=== PATIENT | female | born 1995 | race Caucasian/White ===

== ENCOUNTER 2023-02-10 11:22 | Outpatient (OUT) | payer BC, SELFPAY ==
[2023-02-10 11:50] LABS: Basophils Absolute Auto 0.1 10^3/uL (0.0-0.1); Basophils Percent Auto 1.2 % (0.2-2.0); Eosinophils Absolute Auto 0.2 10^3/uL (0.0-0.7); Eosinophils Percent Auto 2.1 % (0.9-7.0); Hematocrit 40.5 % (36.0-48.0); Hemoglobin 13.2 g/dL (12.0-16.0); Immature Granulocytes Abs Auto 0.02 10^3/uL (0.00-0.03); Immature Granulocytes Pct Auto 0.2 % (0.0-0.5); Lymphocytes Absolute Auto 2.6 10^3/uL (1.2-3.8); Lymphocytes Percent Auto 30.9 % (20.5-60.0); Mean Corpuscular HGB Conc 32.6 g/dL (29.9-35.2); Mean Corpuscular Hemoglobin 28.2 pg (26.7-34.0); Mean Corpuscular Volume 86.5 fL (81.0-99.0); Mean Platelet Volume 8.9 fL (9.5-13.5); Monocytes Absolute Auto 0.5 10^3/uL (0.3-0.8); Monocytes Percent Auto 5.6 % (1.7-12.0); Neutrophils Absolute Auto 5.1 10^3/uL (1.4-6.5); Platelet Count 383 10^3/uL (150-450); Red Blood Count 4.68 10^6/uL (4.20-5.40); Red Cell Distribution Width 12.6 % (11.0-15.0); White Blood Count 8.4 10^3/uL (4.0-11.0)
[2023-02-10 13:18] LABS: Alanine Aminotransferase 17 U/L (14-59); Albumin Globulin Ratio 0.9; Albumin Level 3.8 g/dL (3.4-5.0); Alkaline Phosphatase 137 U/L (46-116); Aspartate Amino Transferase 11 U/L (15-37); BUN Creatinine Ratio 12.5; Bilirubin Total 0.2 mg/dL (0.2-1.0); Calcium 8.8 mg/dL (8.5-10.1); Carbon Dioxide 28.3 mmol/L (21.0-32.0); Chloride 104 mmol/L (98-107); Estimated GFR (African America >60 (>=60); Estimated GFR (Non-African Ame >60 (>=60); Globulin 4.1 g/dL; Glucose 88 mg/dL (74-106); Potassium 4.3 mmol/L (3.5-5.1); Sodium 140 mmol/L (136-145); Thyroid Stimulating Hormone 3.053 uIU/mL (0.358-3.740); Total Protein 7.9 g/dL (6.4-8.2)
== END 2023-02-10 11:23 ==
LOC: LAB 11:28
PROVIDERS: PCP Family Medicine; Visit Provider Family Medicine
DX: E66.9 Obesity, unspecified (principal); R53.83 Other fatigue
CPT/HCPCS: 36415; 80053; 84436; 84443; 85025

== ENCOUNTER 2023-04-02 08:55 | Outpatient (OUT) | payer BC, SELFPAY ==
--- NOTE | 2023-04-02 09:01 | US_ITS ---
[address] [address] Patient Name: LUÍS OBRIEN MRN: [id number] date: 1995 Sex: F Assigned Patient Location: Current Patient Location: Accession/Order Number: [id number] Exam Date: 04/02/2023 09:04 Report Date: 04/02/2023 10:34 At the request of: RYAN BATEMAN Procedure: US pelvis w/ transvaginal EXAMINATION: US pelvis w/ transvaginal HISTORY: Menorrhagia COMPARISON: No relevant comparison available. TECHNIQUE: Transabdominal and/or transvaginal sonographic examination was performed as indicated by examination type. FINDINGS: UTERUS: Normal size and appearance. Uterus size: 8.9 x 5.3 x 4.4 cm ENDOMETRIUM: Normal homogeneous appearance. Endometrial thickness: 3 mm RIGHT OVARY: Contains a 2.9 cm benign-appearing cyst. Duplex Doppler demonstrates normal waveform and flow; resistive index 0.5. Ovary size: 4.9 x 4.2 x 2.7 cm LEFT OVARY: Normal size and appearance. Blood flow present within ovary on color Doppler. Ovary size: 3.3 x 1.5 x 1.7 cm CUL-DE-SAC: Unremarkable. No significant free fluid. BLADDER: Unremarkable. OTHER: None. US/US pelvis w/ transvaginal IMPRESSION: 1. Normal appearance of uterus and endometrium. 2. Incidental 2.9 cm benign-appearing right ovarian cyst. Electronically authenticated by: MAYANK WALTERS Date: 04/02/2023 10:34
== END 2023-04-02 08:56 | disposition home or self-care (01) ==
LOC: US 08:55
PROVIDERS: Visit Provider Obstetrics & Gynecology
DX: Z79.899 Other long term (current) drug therapy (principal); E04.9 Nontoxic goiter, unspecified; E06.3 Autoimmune thyroiditis; N92.1 Excessive and frequent menstruation with irregular cycle; N83.201 Unspecified ovarian cyst, right side
CPT/HCPCS: 36415; 76536; 76830; 76856; 80053; 80061; 83036; 84439; 84443; 84481

== ENCOUNTER 2023-04-02 09:08 | Outpatient (OUT) | payer BC, SELFPAY ==
--- NOTE | 2023-04-02 09:12 | US_ITS ---
The [address] [address] Patient Name: LUÍS OBRIEN MRN: [id number] date: 1995 Sex: F Assigned Patient Location: US Current Patient Location: Accession/Order Number: [id number] Exam Date: 04/02/2023 09:30 Report Date: 04/02/2023 10:37 At the request of: NON-STAFF PHYSICIAN Procedure: US thyroid EXAMINATION: US thyroid HISTORY: Thyromegaly E04.9 COMPARISON: No relevant comparison available. FINDINGS: RIGHT LOBE: Heterogeneous and slightly prominent lobe. No nodules. Lobe size: 5.8 x 1.9 x 2.6 cm LEFT LOBE: Heterogeneous and slightly prominent lobe. No nodules. Lobe size: 4.4 x 1.2 x 1.7 cm ISTHMUS: Heterogeneous and slightly thickened. Thickness: 5 mm. US/US thyroid IMPRESSION: 1. Heterogeneous and slightly prominent thyroid gland without appreciable nodule; nonspecific. No significantly increased vascularity to suggest thyroiditis. Electronically authenticated by: MAYANK WALTERS Date: 04/02/2023 10:37
[2023-04-02 11:31] LABS: Free T4 0.87 ng/dL (0.76-1.46)
[2023-04-02 11:33] LABS: Free T3 2.32 pg/mL (2.18-3.98); Thyroid Stimulating Hormone 3.301 uIU/mL (0.358-3.740)
== END 2023-04-02 09:09 | disposition home or self-care (01) ==
LOC: US 09:08
DX: E04.9 Nontoxic goiter, unspecified (principal); E06.3 Autoimmune thyroiditis
CPT/HCPCS: 36415; 76536; 84439; 84443; 84481

== ENCOUNTER 2023-04-02 10:11 | Outpatient (OUT) | payer BC, SELFPAY ==
[2023-04-02 10:41] LABS: Estimated Average Glucose 103 mg/dL; Glycohemoglobin A1C 5.2 % (4.5-6.2)
[2023-04-02 11:23] LABS: Alanine Aminotransferase 17 U/L (14-59); Albumin Globulin Ratio 0.9; Albumin Level 3.6 g/dL (3.4-5.0); Alkaline Phosphatase 140 U/L (46-116); Anion Gap 8.2; Aspartate Amino Transferase 8 U/L (15-37); BUN Creatinine Ratio 10.8; Bilirubin Total 0.3 mg/dL (0.2-1.0); Calcium 8.9 mg/dL (8.5-10.1); Carbon Dioxide 31.2 mmol/L (21.0-32.0); Chloride 102 mmol/L (98-107); Chol HDL Ratio 3.9; Cholesterol 217 mg/dL (<=200); Estimated GFR (African America >60 (>=60); Estimated GFR (Non-African Ame >60 (>=60); Globulin 3.9 g/dL; Glucose 92 mg/dL (74-106); HDL Cholesterol 56 mg/dL (40-60); Potassium 4.4 mmol/L (3.5-5.1); Sodium 137 mmol/L (136-145); Total Protein 7.5 g/dL (6.4-8.2); Triglycerides 135 mg/dL (<=150)
== END 2023-04-02 10:12 | disposition home or self-care (01) ==
LOC: LAB 10:11
DX: Z79.899 Other long term (current) drug therapy (principal)
CPT/HCPCS: 36415; 76536; 80053; 80061; 83036; 84439; 84443; 84481

== ENCOUNTER 2023-04-27 08:04 | Outpatient (OUT) | payer BC, SELFPAY ==
--- NOTE | 2023-04-27 08:40 | P.GSHP_ITS ---
History of Present Illness History of Present Illness Chief complaint: desires sterilization, AUB Narrative: Patient presents for preadmission testing. Please see HPI from Dr. Hendrix dated 04/11/2023. Review of Systems ROS Narrative Please see ROS from Dr. Hendrix dated 04/11/2023. 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 Highest level of school completed/degree received: high school graduate Meds Home Medications and Allergies Home Medications Medication Instructions Recorded Confirmed Type bupropion HCl 150 mg 24 hr tablet, 150 mg PO QDAY 04/27/23 04/27/23 History extended release buspirone 15 mg tablet 30 mg PO BID 04/27/23 04/27/23 History cetirizine 10 mg tablet (Allergy 10 mg PO Q12H 04/27/23 04/27/23 History Relief (cetirizine)) sertraline 100 mg tablet 100 mg PO BID 04/27/23 04/27/23 History Allergies Allergy/AdvReac Type Severity Reaction Status Date / Time adhesive Allergy Rash Verified 04/27/23 08:17 Penicillins Allergy throat Verified 04/27/23 08:17 swelling sucralfate [From Carafate] Allergy Vomiting Verified 04/27/23 08:17 tramadol Allergy Vomiting Verified 04/27/23 08:17 Exam Narrative Exam Narrative: Constitutional: Awake, alert, comfortable, well-appearing, nontoxic, interactive, vital signs as charted Head: Normocephalic, atraumatic Neck: Supple, normal appearance, normal range of motion, no meningeal signs, no lymphadenopathy Respiratory: No respiratory distress, breath sounds clear Cardiovascular: Regular rate and rhythm, strong and regular heart tones Abdomen: Nontender, normal bowel sounds, soft, no CVA tenderness Musculoskeletal: Normal gait, no swelling or edema Skin: No rashes or induration, no lesions, only visible skin inspected Neuro: No neurological deficits, normal sensation Psychiatric: Oriented ?3, normal affect Assessment and Plan Assessment and Plan (1) Abnormal uterine bleeding: (2) Menorrhagia: (3) Pelvic pain: (4) Request for sterilization: Plan Robot assisted bilateral laparoscopic salpingectomy and endometrial ablation/Chelsey scheduled with Dr. Hendrix 05/11/2023.
== END 2023-04-27 08:05 | disposition home or self-care (01) ==
PROVIDERS: Visit Provider Obstetrics & Gynecology
DX: Z01.818 Encounter for other preprocedural examination (principal); Z30.2 Encounter for sterilization; N92.0 Excessive and frequent menstruation with regular cycle; N93.9 Abnormal uterine and vaginal bleeding, unspecified; R10.2 Pelvic and perineal pain
CPT/HCPCS: G0463

== ENCOUNTER 2023-05-08 18:14 | Emergency (ER) | payer BC, SELFPAY ==
[2023-05-08 18:22] VITALS: BP 129/86; PULSE 89; RESP 20; TEMP 36.8; O2SAT 98; BMI 32.4
--- NOTE | 2023-05-08 18:28 | CT_ITS ---
The [address] [address] Patient Name: LUÍS OBRIEN MRN: [id number] date: 1995 Sex: F Assigned Patient Location: ER Current Patient Location: ER Accession/Order Number: [id number] Exam Date: 05/08/2023 19:05 Report Date: 05/08/2023 19:46 At the request of: CHON MARTINEZ Procedure: CT head/brain wo con EXAM: CT scan of the head without contrast. Dose reduction technique used: Automated exposure control and/or adjustment of the mA and/or kV according to patient size and/or use of iterative reconstruction technique. REASON FOR EXAM: Visual changes/headache COMPARISON: None FINDINGS: No intracranial hemorrhage, mass effect, midline shift, fractures or evidence of acute ischemic infarct. No hydrocephalus. Paranasal sinuses and mastoid air cells are clear. Remainder unremarkable. CT/CT head/brain wo con IMPRESSION: Negative head CT. Electronically authenticated by: JLUIS BECERRIL Date: 05/08/2023 19:46
--- NOTE | 2023-05-08 18:32 | ED_ITS ---
HPI - General Adult General Chief complaint: Headache Stated complaint: Adnormal LABS Time Seen by Provider: 05/08/23 18:28 Source: patient Mode of arrival: walk-in Limitations: no limitations History of Present Illness HPI narrative: patient is a 27-year-old female who presents to the emergency department with an outpatient order written by a retinal specialist. Patient states she was seen by a retinal specialist for visual changes over the last three weeks and was given an order for an MRI of the brain with and without contrast, the order states to go to the Emergency Room for this which the patient brought with her. Her retinal specialist did not call report and the patient has not had any abrupt change in symptoms today. She has had headaches for the last fifteen years which were diagnosed as migraines although she has not had any imaging for this. She states the last three weeks she has had an increase and blurred vision. She denies a possibility of . She has not had any other associated upper respiratory symptoms, peripheral paresthesias. No medications taken prior to arrival. Related Data Home Medications Medication Instructions Recorded Confirmed bupropion HCl 150 mg 24 hr tablet, 150 mg PO QDAY 04/27/23 05/08/23 extended release buspirone 15 mg tablet 20 mg PO BID 04/27/23 05/08/23 cetirizine 10 mg tablet (Allergy 10 mg PO Q12H 04/27/23 05/08/23 Relief (cetirizine)) sertraline 100 mg tablet 100 mg PO BID 04/27/23 05/08/23 Previous Rx's Medication Instructions Recorded ketorolac 10 mg tablet 10 mg PO TID PRN pain #6 tabs 05/08/23 metoclopramide HCl 10 mg tablet 10 mg PO Q6H PRN headache or 05/08/23 (Reglan) nausea/vomiting #6 tabs Allergies Allergy/AdvReac Type Severity Reaction Status Date / Time adhesive Allergy Rash Verified 04/27/23 08:17 Penicillins Allergy throat Verified 04/27/23 08:17 swelling sucralfate [From Carafate] Allergy Vomiting Verified 04/27/23 08:17 tramadol Allergy Vomiting Verified 04/27/23 08:17 Review of Systems ROS Constitutional Denies: fever or chills Eyes Reports: change in vision Ears, nose, mouth, and throat Denies: neck pain Cardiovascular Denies: chest pain Respiratory Denies: shortness of breath or cough Gastrointestinal Denies: nausea or vomiting Musculoskeletal Denies: back pain or neck pain Integumentary/Breast Denies: rash Neurological Reports: headache Endocrine Denies: excessive urination 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 Highest level of school completed/degree received: high school graduate Exam Narrative Exam Narrative: Gen.: Awake, alert, in no distress Head: Normocephalic, atraumatic ENT: Moist mucous membranes Eye: no photophobia, normal extraocular muscle motion Respiratory: No respiratory distress, lungs clear bilaterally Cardio: Regular rate and rhythm Extremities: Moves extremities equally Psych: Normal mood and affect Neuro: No focal neuro deficit, clear speech Skin: Warm, dry, intact Constitutional Vital Signs, click to edit/add: Last Vital Signs Temp 98.2 F 05/08/23 18:22 Pulse 89 05/08/23 18:22 Resp 20 05/08/23 18:22 BP 129/86 05/08/23 18:22 Pulse Ox 98 05/08/23 18:22 O2 Del Method Room Air 05/08/23 18:22 Course Vital Signs Vital signs: Vital Signs Temperature 98.2 F 05/08/23 18:22 Pulse Rate 89 05/08/23 18:22 Respiratory Rate 20 05/08/23 18:22 Blood Pressure 129/86 05/08/23 18:22 Pulse Oximetry 98 05/08/23 18:22 Oxygen Delivery Method Room Air 05/08/23 18:22 Temperature 98.2 F 05/08/23 18:22 Pulse Rate 89 05/08/23 18:22 Respiratory Rate 20 05/08/23 18:22 Blood Pressure 129/86 05/08/23 18:22 Pulse Oximetry 98 05/08/23 18:22 Oxygen Delivery Method Room Air 05/08/23 18:22 Medical Decision Making MDM Narrative Medical decision making narrative: I had a lengthy discussion with the patient about the limitations of the emergency department with regard to an MRI. The patient has an outpatient requisition from the retinal specialist and this is sufficient to get her scheduled for the MRI as an outpatient. She is referred to centralized scheduling to have the MRI approved and scheduled. A CT was performed in the emergency department showing no evidence of acute abnormalities. Patient verbalizes understanding, she should return to the emergency department if symptoms change or worsen. At this time she has a benign exam with stable vital signs and no focal neuro deficits. Medical Records Medical records reviewed: Yes I reviewed the patient's medical records Imaging Data CT scan - head: Attestation: I have reviewed the pertinent imaging results. Radiologist's impression: Procedure: CT head/brain wo con EXAM: CT scan of the head without contrast. Dose reduction technique used: Automated exposure control and/or adjustment of the mA and/or kV according to patient size and/or use of iterative reconstruction technique. REASON FOR EXAM: Visual changes/headache COMPARISON: None FINDINGS: No intracranial hemorrhage, mass effect, midline shift, fractures or evidence of acute ischemic infarct. No hydrocephalus. Paranasal sinuses and mastoid air cells are clear. Remainder unremarkable. IMPRESSION: Negative head CT. Electronically authenticated by: JLUIS BECERRIL Date: 05/08/2023 19:46 Discharge Plan Discharge Chief Complaint: Headache Clinical Impression: Headache Patient Disposition: Home, Self-Care Time of Disposition Decision: 19:52 Condition: Good Prescriptions / Home Meds: New ketorolac 10 mg tablet 10 mg PO TID PRN (Reason: pain) Qty: 6 0RF metoclopramide HCl [Reglan] 10 mg tablet 10 mg PO Q6H PRN (Reason: headache or nausea/vomiting) Qty: 6 0RF No Action bupropion HCl 150 mg tablet extended release 24 hr 150 mg PO QDAY buspirone 15 mg tablet 20 mg PO BID cetirizine [Allergy Relief (cetirizine)] 10 mg tablet 10 mg PO Q12H sertraline 100 mg tablet 100 mg PO BID Instructions: General Headache (ED) Additional Instructions: Call centralized scheduling for precertification - they will get you scheduled for the MRI. Call the hospital ([phone]) and ask for centralized scheduling. Stand Alone Forms: Portal Instructions Referrals: Physician,Non-Staff, MD [Primary Care Provider] - 1 week
--- NOTE | 2023-05-08 20:31 | PC.NURSE ---
no distress observed at time of d/c
== END 2023-05-08 20:31 | disposition home or self-care (01) ==
PROVIDERS: Emergency Provider Emergency Medicine Emergency Medical Services
DX: R51.9 Headache, unspecified (principal)
CPT/HCPCS: 70450; 99284

== ENCOUNTER 2023-05-11 06:55 | Day surgery (SDC) | payer BC, SELFPAY ==
[2023-04-27 08:37] VITALS: BP 119/75; PULSE 81; RESP 18; TEMP 36.4; O2SAT 97; BMI 32.6
[2023-05-11] VITALS (11 sets, daily range): BP systolic 110–153; BP diastolic 80–109; PULSE 87–106; RESP 12–23; TEMP 36.3–36.9; O2SAT 94–98; BMI 32.6
[2023-05-11 07:10] LABS: Basophils Absolute Auto 0.1 10^3/uL (0.0-0.1); Basophils Percent Auto 0.7 % (0.2-2.0); Eosinophils Absolute Auto 0.1 10^3/uL (0.0-0.7); Eosinophils Percent Auto 1.6 % (0.9-7.0); Hematocrit 34.4 % (36.0-48.0); Hemoglobin 11.3 g/dL (12.0-16.0); Immature Granulocytes Abs Auto 0.04 10^3/uL (0.00-0.03); Immature Granulocytes Pct Auto 0.5 % (0.0-0.5); Lymphocytes Absolute Auto 2.6 10^3/uL (1.2-3.8); Lymphocytes Percent Auto 31.3 % (20.5-60.0); Mean Corpuscular HGB Conc 32.8 g/dL (29.9-35.2); Mean Corpuscular Hemoglobin 28.5 pg (26.7-34.0); Mean Corpuscular Volume 86.6 fL (81.0-99.0); Mean Platelet Volume 8.5 fL (9.5-13.5); Monocytes Absolute Auto 0.5 10^3/uL (0.3-0.8); Monocytes Percent Auto 5.7 % (1.7-12.0); Neutrophils Percent Auto 60.2 % (43.0-75.0); Platelet Count 342 10^3/uL (150-450); Red Blood Count 3.97 10^6/uL (4.20-5.40); Red Cell Distribution Width 13.9 % (11.0-15.0); White Blood Count 8.4 10^3/uL (4.0-11.0)
[2023-05-11 07:28] LABS: HCG Quantitative <1 mIU/mL
[2023-05-11] MEDS: LACTATED RINGER'S SOLUTION 1,000 ML 50 ML IV (07:41)
--- NOTE | 2023-05-11 09:55 | PM.ONB ---
Brief Operative Note Date of procedure: 05/11/23 Pre-op diagnosis: menorrhagia, pelvic pain Post-op diagnosis: same as pre-op Procedure: NAME OF PROCEDURE: robotic assisted Laparoscopic bilateral salpingectomy, with Chelsey endometrial ablation with hysteroscopy PROCEDURE: The patient was taken back to the OR where she was prepped and draped in the normal sterile fashion after being placed in the dorsal lithotomy position, after being placed under general anesthesia without difficulty. a weighted speculum was then placed into the vagina. Pap and endometrial bx were performed without difficultyThe anterior lip was grasped with a single tooth tenaculum. The patient was then sounded to approximatley 9cm. The patient was gently sounded using Hegar dilators and the hysteroscope was passed through the cervix into the uterus where both ostia were seen. No gross evidence of polyps, fibroids or malignancy. The cervical length was noted to be 4cm. The Chelsey ablation apparatus was set to approximately 5cm in length. This was placed in through the cervix and into the uterus. After the seal was tested, at that time the total ablation of 120 seconds was performed with the Chelsey without difficulty. All instruments were removed from the vagina. A wet sponge stick was placed into the patient's vagina. Attention was then turned to the patient's abdomen, where a scalpel was used to make a small infraumbilical incision. The S retractors were then used to dissect the underlying layers until the fascia could be seen. The fascia was then grasped with Rayray clamps and tented up. A knife was then used to make a small incision to the fascia. The muscle was identified, at that time two sutures of #0 Vicryl on a GI needlewas then used and placed through the fascia. The peritoneum was then identified and entered bluntly. The 10-4 Parvez was then placed into the patient's abdomen. This was confirmed with direct visualization of the bowel, using the laparoscope. The patient's abdomen was then insufflated using approximately 4 liters of CO2 gas. Survey of the patient's abdomen demonstrated normal appearing ovaries, uterus and tubes. A second and third lateral robotic ports, which was 8mm in size, was then placed laterally after incision was made in the skin under direct visualization. the robotic arms were engaged. The patient's tube on the patient's right side was identified. The tube was then tented up using a grasper. The ligasure was used to transect and coagulate the mesosalpingx from the fimbriated end to the insertion at the uterus, the tube was amputated and removed in its entirety.? Excellent hemostasis was noted. ?This was performed on the contralateral sideas well. The lateral ports were then moved under direct visualization with excellent hemostasis. The abdomen was deinsufflated. All instruments were removed from the patient's abdomen. The fascia was closed using the #0 Vicryl on GI needle. The skin was closed using 4-0 Vicryl subcuticularly. All instruments were removed from the patient's vagina as well. The patient was taken out of the dorsal lithotomy position and placed in the supine position and taken to recovery in stable condition. Sponge, lap and needle counts were correct x2. ??? Anesthesia: CHRISSY Surgeon: Richard Hendrix [employer] Nurse: Diane Mcclendon Estimated blood loss (mL): 10 Pathology: other (tubes) Condition: stable Disposition: PACU
[2023-05-11] MEDS: BACITRACIN OINTMENT 28.4 GM TUBE 1 APPLIC TOPICAL (10:19)
--- NOTE | 2023-05-11 10:26 | PC.NURSE ---
A FEW BLOOD PRESSURE READINGS WERE ELEVATED. UPDATED DR. MCDONALD.. HE STATES TO GIVE IT A FEW MINUTES DUE TO THE SHIVERING. PATIENT IS RESTING COMFORTABLE AND DENIES ANY PAIN.
--- NOTE | 2023-05-11 11:20 | PC.NURSE ---
Yanique pad has small amount bloody drainage without clots; dressings x3 intact to abdomen with scant bloody drainage on right and left dressings; umbilical dressing dry
--- NOTE | 2023-05-11 11:26 | PC.NURSE ---
Medicated with oral pain medication as ordered for umbilical pain
--- NOTE | 2023-05-11 11:27 | PC.NURSE ---
Up to bathroom and voided clear yellow without difficulty
== END 2023-05-11 11:28 | disposition home or self-care (01) ==
PROVIDERS: Visit Provider Obstetrics & Gynecology
PROC: (CPT 11200; principal; 2023-05-11 08:20)
PROC: (CPT 11200; 2023-05-11 08:20)
DX: Z30.2 Encounter for sterilization (principal); N92.0 Excessive and frequent menstruation with regular cycle; D28.0 Benign neoplasm of vulva; R10.2 Pelvic and perineal pain; N93.9 Abnormal uterine and vaginal bleeding, unspecified; Z86.16 Personal history of COVID-19; K21.9 Gastro-esophageal reflux disease without esophagitis; E28.2 Polycystic ovarian syndrome; E07.9 Disorder of thyroid, unspecified; Z90.49 Acquired absence of other specified parts of digestive tract
CPT/HCPCS: 11200; 58563; 58661; 36415; 84702; 85025; 88302; 88304; J2704

== ENCOUNTER 2023-06-29 09:52 | Outpatient (OUT) | payer BC, SELFPAY ==
[2023-06-29 10:05] LABS: Basophils Absolute Auto 0.1 10^3/uL (0.0-0.1); Basophils Percent Auto 0.8 % (0.2-2.0); Eosinophils Absolute Auto 0.1 10^3/uL (0.0-0.7); Eosinophils Percent Auto 1.5 % (0.9-7.0); Hemoglobin 12.2 g/dL (12.0-16.0); Immature Granulocytes Abs Auto 0.01 10^3/uL (0.00-0.03); Immature Granulocytes Pct Auto 0.1 % (0.0-0.5); Lymphocytes Absolute Auto 2.3 10^3/uL (1.2-3.8); Lymphocytes Percent Auto 30.1 % (20.5-60.0); Mean Corpuscular HGB Conc 32.1 g/dL (29.9-35.2); Mean Corpuscular Hemoglobin 27.7 pg (26.7-34.0); Mean Corpuscular Volume 86.4 fL (81.0-99.0); Monocytes Absolute Auto 0.4 10^3/uL (0.3-0.8); Monocytes Percent Auto 5.1 % (1.7-12.0); Neutrophils Absolute Auto 4.7 10^3/uL (1.4-6.5); Neutrophils Percent Auto 62.4 % (43.0-75.0); Platelet Count 360 10^3/uL (150-450); Red Cell Distribution Width 13.1 % (11.0-15.0); White Blood Count 7.5 10^3/uL (4.0-11.0)
== END 2023-06-29 09:53 | disposition home or self-care (01) ==
LOC: LAB 09:53
DX: R53.83 Other fatigue (principal)
CPT/HCPCS: 36415; 83540; 83550; 85025

== ENCOUNTER 2023-06-29 10:01 | Outpatient (OUT) | payer BC, SELFPAY ==
--- NOTE | 2023-06-29 10:04 | US_ITS ---
The [address] [address] Patient Name: LUÍS OBRIEN MRN: [id number] date: 1995 Sex: F Assigned Patient Location: US Current Patient Location: US Accession/Order Number: [id number] Exam Date: 06/29/2023 10:05 Report Date: 06/29/2023 11:15 At the request of: NON-STAFF PHYSICIAN Procedure: US thyroid US thyroid, 06/29/2023 10:05 AM EDT, [place]001 INDICATION: Thyromegaly E04.9 COMPARISON: Thyroid ultrasound from 04/02/2023 TECHNIQUE: US of the thyroid gland was performed using a small parts transducer. Color flow vascular imaging was also done FINDINGS: The right lobe of the thyroid gland measures 5.8 x 1.8 x 2.2 cm. Echogenicity is heterogeneous. Vascularity is normal. The left lobe of the thyroid gland measures 4.4 x 0.8 x 1.7 cm. Echogenicity is slightly heterogeneous. Vascularity is normal. The isthmus measures 5 mm in the midline. Echogenicity within the isthmus is normal. Incidental note is made of a 1.3 x 0.6 x 0.6 cm hypoechoic nodule with a fatty hilum inferior to the left lobe of the thyroid gland most consistent with a lymph node. US/US thyroid IMPRESSION: Heterogeneous thyroid gland without discrete nodule. No significant interval change is seen. Electronically authenticated by: NINA HAWKINS Date: 06/29/2023 11:15
== END 2023-06-29 10:02 | disposition home or self-care (01) ==
LOC: US 10:01
DX: R53.83 Other fatigue (principal); E04.9 Nontoxic goiter, unspecified
CPT/HCPCS: 36415; 76536; 83540; 83550; 85025

== ENCOUNTER 2023-07-06 07:49 | Outpatient (RCR) | payer BC, SELFPAY ==
[2023-07-06] MEDS: IRON SUCROSE COMPLEX 300 MG in 0.9 % SODIUM CHLORIDE 250 ML 176.667 MG IV (09:07)
[2023-07-06 09:42] VITALS: BP 136/85; PULSE 74; RESP 16; TEMP 37.1; O2SAT 98
--- NOTE | 2023-07-06 09:45 | PC.NURSE ---
0845: Pt. to [facility] amb. Seated in recliner. VSS. #22 gauge IV initiated to right ac on first attempt without difficulty. Flushes easily with no redness or edema observed. Pt. tolerated with no c/o pain. Pt. given Pepsi per request. Declines food.
--- NOTE | 2023-07-06 09:55 | PC.NURSE ---
0907: IV Venofer initiated at this time.
--- NOTE | 2023-07-06 10:47 | PC.NURSE ---
1040: IV Venofer completed at this time. Pt. tolerated without s&s of adverse reaction. IV d/c'd, pressure to site. 1044: Pt d/c'd amb. to home.
== END 2023-07-10 23:59 | disposition home or self-care (01) ==
LOC: INF 07:49
PROVIDERS: Visit Provider Nurse Practitioner Family
DX: E61.1 Iron deficiency (principal)
CPT/HCPCS: 96365; 96366; J1756

== ENCOUNTER 2023-07-20 07:28 | Outpatient (RCR) | payer BC, SELFPAY ==
[2023-07-12] MEDS: IRON SUCROSE COMPLEX 300 MG in 0.9 % SODIUM CHLORIDE 250 ML 176.667 MG IV (09:30)
[2023-07-12 09:44] VITALS: BP 147/85; PULSE 85; RESP 16; TEMP 36.3; O2SAT 97
--- NOTE | 2023-07-12 09:47 | PC.NURSE ---
0855: Pt to [facility] amb. for weekly infusion. Seated in recliner. VSS. Denies c/o adverse reaction after last dose of Venofer. #22 gauge IV initiated to right AC on first attempt without difficulty. Flushes easily without redness or edema. Pt. tolerated with no c/o pain. Breakfast tray ordered.
--- NOTE | 2023-07-12 09:49 | PC.NURSE ---
0915: Breakfast tray provided. 0930: IV Venofer initiated at this time. Pt. denies needs.
--- NOTE | 2023-07-12 10:14 | PC.NURSE ---
Pt. without change. IV Venofer infusing without c/o adverse symptoms. Pt. denies needs.
--- NOTE | 2023-07-12 13:21 | PC.NURSE ---
1105: IV venofer completed at this time without s&s of adverse reaction. IV d/c'd, pressure to site. 1110: Pt. d/c'd amb to home.
[2023-07-20 08:09] VITALS: BP 134/78; PULSE 85; RESP 16; TEMP 36.3; O2SAT 98
[2023-07-20] MEDS: IRON SUCROSE COMPLEX 300 MG in 0.9 % SODIUM CHLORIDE 250 ML 176.667 MG IV (08:14)
--- NOTE | 2023-07-20 08:20 | PC.NURSE ---
0755 Arrival to chair 1 ambulatory. Alert oriented. No C/O offered. patient stated she tolerated last 2 venofer infusions without difficulty. #22 IV initiated LACF on 1st attempt, tolerated well. 0815 venofer infusion initiated. instructed to notify staff if experiences any issues during infusion. verbalizes understanding, breakfast ordered.
== END 2023-08-09 23:59 | disposition home or self-care (01) ==
LOC: INF 07:28
PROVIDERS: Visit Provider Nurse Practitioner Family
DX: E61.1 Iron deficiency (principal)
CPT/HCPCS: 96365; 96366; J1756

== ENCOUNTER 2024-10-02 12:28 | Outpatient (OUT) | payer BC, SELFPAY ==
[2024-10-02 13:02] LABS: Basophils Absolute Auto 0.1 10^3/uL (0.0-0.1); Basophils Percent Auto 0.8 % (0.2-2.0); Eosinophils Absolute Auto 0.2 10^3/uL (0.0-0.7); Eosinophils Percent Auto 2.6 % (0.9-7.0); Hematocrit 40.5 % (36.0-48.0); Hemoglobin 13.3 g/dL (12.0-16.0); Immature Granulocytes Abs Auto 0.03 10^3/uL (0.00-0.03); Immature Granulocytes Pct Auto 0.3 % (0.0-0.5); Lymphocytes Absolute Auto 2.7 10^3/uL (1.2-3.8); Mean Corpuscular HGB Conc 32.8 g/dL (29.9-35.2); Mean Corpuscular Hemoglobin 28.4 pg (26.7-34.0); Mean Corpuscular Volume 86.5 fL (81.0-99.0); Mean Platelet Volume 9.2 fL (9.5-13.5); Monocytes Absolute Auto 0.7 10^3/uL (0.3-0.8); Monocytes Percent Auto 7.3 % (1.7-12.0); Neutrophils Absolute Auto 5.6 10^3/uL (1.4-6.5); Platelet Count 381 10^3/uL (150-450); Red Blood Count 4.68 10^6/uL (4.20-5.40); Red Cell Distribution Width 12.6 % (11.0-15.0); White Blood Count 9.3 10^3/uL (4.0-11.0)
[2024-10-02 13:39] LABS: Percent Iron Saturation 33.3 %
[2024-10-02 13:46] LABS: Free T4 0.72 ng/dL (0.76-1.46)
[2024-10-02 13:52] LABS: Alanine Aminotransferase 20 U/L (14-59); Albumin Level 3.5 g/dL (3.4-5.0); Alkaline Phosphatase 129 U/L (46-116); Anion Gap 11.3; Aspartate Amino Transferase 11 U/L (15-37); BUN Creatinine Ratio 13.8; Bilirubin Total 0.6 mg/dL (0.2-1.0); Calcium 8.6 mg/dL (8.5-10.1); Carbon Dioxide 29.6 mmol/L (21.0-32.0); Chloride 105 mmol/L (98-107); Estimated GFR (African America >60 (>=60 mL/min/1.73m^2); Estimated GFR (Non-African Ame >60 (>=60 mL/min/1.73m^2); Free T3 2.55 pg/mL (2.18-3.98); Globulin 3.6 g/dL; Glucose 73 mg/dL (74-106); Potassium 3.9 mmol/L (3.5-5.1); Sodium 142 mmol/L (136-145); Thyroid Stimulating Hormone 1.362 uIU/mL (0.358-3.740); Total Protein 7.1 g/dL (6.4-8.2)
== END 2024-10-02 12:29 | disposition home or self-care (01) ==
LOC: LAB 12:29
PROVIDERS: PCP Nurse Practitioner Family; Visit Provider Nurse Practitioner Family
DX: E06.3 Autoimmune thyroiditis (principal); E61.1 Iron deficiency
CPT/HCPCS: 36415; 80053; 83540; 83550; 84439; 84443; 84481; 85025

== ENCOUNTER 2025-05-14 12:15 | Outpatient (OUT) | payer BC, SELFPAY ==
--- OUTSIDE RECORDS SUMMARY | 2025-05-14 12:18 | XMS_ITS | Encounter Summary ---
Author Organization [facility] Address [address] [place] [address] Care Team Providers Care Preschool Teacher Assistant Name Role Phone Unallocated, Noms Provider Primary Care [facility] Encounter Details Date Type Department Care Team (Late st Contact Info) Description 05/13/2025 Telephone [facility] [place] [facility] [address] [place] [phone] Chloe Navas DO [address] [place] [address] Social History Tobacco Use Types Packs/Day Years Used Date Smoking Tobacco: Never Smokeless Tobacco: Never Alcohol Use Standard Drinks/Week Comments Yes 1 (1 standard drink = 0.6 oz pur e alcohol) 1 every couple months Comments Unknown Sex and Gender Information Value Date Recorded Sex Assigned at Not on file Legal Sex Female 7:21 PM EDT Gender Identity Not on file Sexual Orientation Not on file documented as of this encounter Miscellaneous Notes * Telephone Encounter - Carito Siegel LPN - 05/14/2025 11:24 AM EDT Spoke with pt, she reports a uterine ablation in 2022. She reports this did not help. If anything she feels worse having excessive bleeding and debilitating cramps every month. She has requested Dr. Hendrix do a partial HTN, however he will not due to her age. Adding he does not wish to due this in case pt would like to have another child. Pt does not wish to have any other children, and would like a second opinion. Pt is due for yearly, she is scheduled with Gisella * Telephone Encounter - Edwina Epstein MA - 05/13/2025 4:20 PM EDT Last seen Dr. 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 Called, but VM is full. May schedule first available yearly/ discuss hysterectomy. * Telephone Encounter - Keena Tabor - 05/13/2025 3:58 PM EDT Patient made a new patient apt for the first week of October. The patient stated she had her tubestied possibly 2022 and an ablation. The patient has had pain, bleeding and cramping. She would liketo talk about a partial hysterectomy. The patient is wondering if she could see before then. Please advise. documented in this encounter Plan of Treatment Upcoming Encounters Date Type Department Care Team (Late st Contact Info) Description 07/24/2025 9:15 AM EST Office Visit [facility] [address] [place] [phone] Chloe Navas DO [address] [place] [address] 10/15/2025 9:30 AM EST Office Visit [facility] [address] [place] [phone] Chloe Navas, DO [address] [place] [address] documented as of this encounter Visit Diagnoses Not on filedocumented in this encounter Care Teams Preschool Teacher Assistant Relationship Specialty Start Date End Date Unallocated, Noms Provider, [address] [place], [place] [id number] PCP - General 07/04/23 documented as of this encounter
--- OUTSIDE RECORDS SUMMARY | 2025-05-14 12:18 | XMS_ITS | Clinical Summary ---
Author Organization [facility] Address [address] [place] [address] Care Team Providers Care Aircraft Mechanic Electrical And Radio Name Role Phone Unallocated, Noms Provider Primary Care Provi torsten Allergies Active Allergy Reactions Criticality Noted Date Comments Sucralfate 03/05/2023 Nsaids 10/20/2021 Penicillins 03/05/2023 Tramadol 03/05/2023 Wound Dressing Adhesive 03/05/2023 Medications busPIRone (Buspar) 10 MG tablet Take 20 mg by mouth in the morning and 20 mg before bedtime. 3 Active Zoloft 100 MG tablet 1 (one) time each day at the same time. Active buPROPion XL (Wellbutrin XL) 150 MG 24 hr tablet Take 150 mg by mouth in the morning. Do not crush, chew, or split. . Active cetirizine (ZyrTEC) 10 MG chewable tablet Chew 10 mg in the morning. 3 Active fluticasone (Flonase) 50 MCG/ACT nasal spray Administer 1 spray into each nostril in the morning. 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 Iron deficiency 07/05/2023 Pulsatile tinnitus 07/05/2023 Depression 07/05/2023 Abnormal brain scan 07/05/2023 Chronic rhinitis 03/02/2023 Dysmenorrhea 03/02/2023 Hearing loss 03/02/2023 Lower back pain 03/02/2023 Otalgia, bilateral 03/02/2023 Encounters Date Type Department Care Team Description 05/13/2025 Telephone [facility] [place] [facility] [address] [place] [phone] Chloe Navas DO from Last 3 Months Family History Medical History Relation Name Comments Diabetes Father Lucas Fontenot Hypertension Mother Brinda Fontenot Cancer Paternal Grandfather Raul Fontenot Relation Name Status Comments Daughter Alive Father Lucas Fontenot Alive Mother Brinda Fontenot Alive Paternal Grandfather Raul Fontenot Social History Tobacco Use Types Packs/Day Years Used Date Smoking Tobacco: Never Smokeless Tobacco: Never Tobacco Cessation:Counseling Given: Not Answered Alcohol Use Standard Drinks/Week Comments Yes 1 (1 standard drink = 0.6 oz pur e alcohol) 1 every couple months Comments Unknown Sex and Gender Information Value Date Recorded Sex Assigned at Not on file Legal Sex Female 7:21 PM EDT Gender Identity Not on file Sexual Orientation Not on file Last Filed Vital Signs Vital Sign Reading Time Taken Comments Blood Pressure 137/87 07/06/2023 1:14 PM EDT Pulse - - Temperature - - Respiratory Rate - - Oxygen Saturation - - Inhaled Oxygen Concentration - - Weight 96.6 kg (213 lb) 07/06/2023 1:14 PM EDT Height 170.2 cm (5' 7 ) 07/06/2023 1:14 PM EDT Body Mass Index 33.36 07/06/2023 1:14 PM EDT Plan of Treatment Upcoming Encounters Date Type Department Care Team (Late st Contact Info) Description 07/24/2025 9:15 AM EST Office Visit [facility] [place] [facility] [address] [place] [phone] Chloe Navas DO [address] [place] [address] 10/15/2025 9:30 AM EST Office Visit [facility] [place] [facility] [address] [place] [address] Yosef Chloesharri Juárez DO [address] [facility] [address] [place] [address] Health Maintenance Due Date Last Done Comments Influenza Vaccine (#1) 2025 Insurance BCBS Care Teams Aircraft Mechanic Electrical And Radio Relationship Specialty Start Date End Date Unallocated, Noms Provider, [address] [place] [address] PCP - General 07/04/23
--- OUTSIDE RECORDS SUMMARY | 2025-05-14 12:18 | XMS_ITS | Encounter Summary ---
Author Organization [facility] Address [address] [place] [address] Care Team Providers Care Aviation Medicine Specialist Name Role Phone Unavailable Primary Care Provider Unavailabl e Encounter Details Date Type Department Care Team (Late st Contact Info) Description 03/09/2022 Abstract PATIENT ACUITY SCORE Social History Tobacco Use Types Packs/Day Years Used Date Smoking Tobacco: Never Assessed Comments Unknown Sex and Gender Information Value Date Recorded Sex Assigned at Not on file Legal Sex Female 11:52 AM EDT Gender Identity Not on file Sexual Orientation Not on file documented as of this encounter Plan of Treatment Not on file documented as of this encounter Visit Diagnoses Not on filedocumented in this encounter
--- OUTSIDE RECORDS SUMMARY | 2025-05-14 12:18 | XMS_ITS | Clinical Summary ---
Author Organization Reveals tem Address [id number] [address] [place] [address] Care Team Providers Care Plastic Fixture Builder Name Role Phone Richard Cheema Primary Care Provider [phone] Allergies Active Allergy Reactions Criticality Noted Date Comments Sucralfate Hives,Vomiting 06/16/2021 Penicillins Swelling 06/16/2021 Adhesive 06/16/2021 Tramadol Hives 06/16/2021 Medications citalopram (CeleXA) 10 mg tablet 1 Active citalopram (CeleXA) 20 mg tablet TAKE 1 TABLET BY MOUTH EVERYDAY AT BEDTIME 1 Active DULoxetine (CYMBALTA) 60 mg capsule Take by mouth daily. 1 Active ondansetron ODT (ZOFRAN-ODT) 4 mg disintegrating tablet DISSOLVE 1 TABLET UNDER TONGUE EVERY DAY NEEDED 1 Active dicyclomine (BENTYL) 20 mg tablet Take 20 mg by mouth every 6 (six) hours. Active azaTHIOprine (IMURAN) 50 mg tablet Take 50 mg by mouth daily. Active vit calc,iron,folic ( VITAMIN ORAL) Take by mouth. Active methIMAzole (TAPAZOLE) 5 mg tablet TAKE 1 TABLET BY MOUTH EVERY DAY 21 tablet 1 1 Active methIMAzole (TAPAZOLE) 5 mg tabletIndications:H ashimoto's thyroiditis Take 1 tablet (5 mg total) by mouth daily. 90 tablet 6 1 Active methIMAzole (TAPAZOLE) 5 mg tabletIndications:H ashimoto's thyroiditis Take 1 tablet daily 21 tablet Active Social History Tobacco Use Types Packs/Day Years Used Date Smoking Tobacco: Never Smokeless Tobacco: Never Alcohol Use Standard Drinks/Week Comments Not Currently 0 (1 standard drink = 0.6 oz pur e alcohol) Childcare Answer Date Recorded Childcare Unknown 02/17/2019 Employment Answer Date Recorded Employment Unknown 02/17/2019 Comments No Sex and Gender Information Value Date Recorded Sex Assigned at Female 06/30/2021 8:30 AM EDT Legal Sex Female 12:27 PM EDT Gender Identity Female 06/30/2021 8:30 AM EDT Sexual Orientation Straight 06/30/2021 8: 30 AM EDT Last Filed Vital Signs Vital Sign Reading Time Taken Comments Blood Pressure 128/69 06/30/2021 10:22 AM EDT Pulse 90 06/30/2021 10:22 AM EDT Temperature - - Respiratory Rate - - Oxygen Saturation - - Inhaled Oxygen Concentration - - Weight 77.8 kg (171 lb 9.6 oz) 06/30/2021 10:22 AM EDT Height - - Body Mass Index - - Plan of Treatment Health Maintenance Due Date Last Done Comments Depression Screening 2007 Tobacco Screening 2007 Adult BMI Screening 2013 DTaP,Tdap and Td Vaccines (1 - Tdap) 2014 Influenza Vaccine 05/11/2025 Pap Smear 10/11/2025 10/11/2022 Medical Devices Not on file Insurance AET[employer] Care Teams Plastic Fixture Builder Relationship Specialty Start Date End Date Richard Cheema DO PCP - General Family Medicine 06/30/21
--- OUTSIDE RECORDS SUMMARY | 2025-05-14 12:18 | XMS_ITS | Clinical Summary ---
Author Organization [facility] Address [address] [place] [address], [address] [place] [address] Care Team Providers Care Ceramic Research Engineer Name Role Phone Unavailable Primary Care Provider Unavailabl e Allergies Active Allergy Reactions Criticality Noted Date Comments Adhesive Tape 06/16/2021 Nsaids 10/20/2021 Penicillins Swelling 06/16/2021 Sucralfate Hives,Nausea And Vomiting Low 06/16/2021 Tramadol Hives 06/16/2021 Medications Vit-Fe Fumarate-FA ( VITAMINS PO) Take 1 tablet by mouth daily 1 Active aspirin (ASPIRIN 81) 81 MG chewable tablet 1 tablet Active Polysaccharide Iron Complex (PROFE) 391.3 (180 Fe) MG CAPS Take 180 mg by mouth daily Active terconazole (TERAZOL 7) 0.4 % vaginal cream Place [address] vaginally nightly. 2 Active Social History Tobacco Use Types Packs/Day Years Used Date Smoking Tobacco: Never Smokeless Tobacco: Never Tobacco Cessation:Counseling Given: No Alcohol Use Standard Drinks/Week Comments Not Currently 0 (1 standard drink = 0.6 oz pur e alcohol) Comments No Sex and Gender Information Value Date Recorded Sex Assigned at Not on file Legal Sex Female 9:14 AM EST Gender Identity Not on file Sexual Orientation Not on file Last Filed Vital Signs Vital Sign Reading Time Taken Comments Blood Pressure 126/63 10/20/2021 1:01 PM EST Pulse 90 10/20/2021 1:01 PM EST Temperature 36.3 C (97.4 F) 10/20/2021 1:01 PM EST Respiratory Rate 16 10/20/2021 1:01 PM EST Oxygen Saturation - - Inhaled Oxygen Concentration - - Weight 83.5 kg (184 lb) 10/20/2021 1:01 PM EST Height 170.2 cm (5' 7 ) 10/20/2021 1:01 PM EST Body Mass Index 28.82 10/20/2021 1:01 PM EST Plan of Treatment Not on file Insurance AET[employer] [facility]
--- OUTSIDE RECORDS SUMMARY | 2025-05-14 12:18 | XMS_ITS | Clinical Summary ---
Author Organization [facility] Address [address] [place] [address] Care Team Providers Care Gm/Svp Global Publisher Business Name Role Phone House , Richard GUERRERO Primary Care Provider + Allergies Active Allergy Reactions Criticality Noted Date Comments Adhesive Rash 06/16/2021 Sucralfate Hives,Vomiting 10/24/2017 Nsaids (Non-Steroidal Anti-Inflammatory Drug) GI Upset 07/06/2014 Patient states she has ulcers Penicillins Swelling 07/06/2014 Hydroxychloroquine Intolerance 03/27/2019 nausea/mood swings Tramadol Hcl Hives 07/06/2014 Medications buPROPion XL (WELLBUTRIN XL) 150 mg 24 hr tablet Take 150 mg by mouth once daily. 06/14/20 23 Active busPIRone (BUSPAR) 10 mg tablet Take 2 tablets by mouth every 12 hours. 07/04/20 23 Active ALLERGY RELIEF, CETIRIZINE, 10 mg tablet Take 10 mg by mouth once daily. 07/13/20 23 Active sertraline (ZOLOFT) 100 mg tablet Take 2 tablets by mouth every afternoon. 07/04/20 23 Active MAGNESIUM CHLORIDE ORAL Take by mouth. A ctive semaglutide (OZEMPIC) 1 mg/0.75 ml subcutaneous pen injector Inject 1 mg subcutaneously one time a week. 0.6ml/0.5ml Active ondansetron (ZOFRAN) 8 mg tabletIndication s:Intractable chronic migraine without aura and without status migrainosus Take 1 tablet by mouth every 8 hours as needed. 45 tablet 5 09/11/19 24 Active rizatriptan (MAXALT) 10 mg tabletIndication s:Intractable chronic migraine without aura and without status migrainosus Take 1 tablet (10 mg) by mouth as needed for migraine headache (see administration instructions). AT ONSET OF HEADACHE. MAY REPEAT AFTER 2 HOURS. DO NOT EXCEED 30 MG PER DAY. Max use is 2 days per week. 9 tablet 5 09/11/19 24 Active propranolol (INDERAL) 20 mg tabletIndication s:Intractable chronic migraine without aura and without status migrainosus TAKE 1 TABLET BY MOUTH EVERY DAY 90 tablet 03/02/20 25 Active Active Problems Problem Noted Date Diagnosed Date Joint stiffness of multiple sites 05/07/2018 Encounter for termite helper current use of azathiopr ine 01/09/2018 Inflammatory arthritis 01/02/2018 Vitamin D deficiency 10/27/2017 EKATERINA positive 10/24/2017 Hip pain, bilateral 10/24/2017 Chronic pain of both knees 10/24/2017 Bilateral leg cramps 10/24/2017 Raynaud's disease without gangrene 10/24/2017 Bilateral hand pain 10/24/2017 Long-term use of Plaquenil 10/24/2017 Encounters Date Type Department Care Team Description 02/27/2025 Refill Neurology Headache [facility] [address] [place], [place] [address] Xander Lock APRN.[employer] Refill Request from Last 3 Months Family History Medical History Relation Comments Headache Mother Aneurysm No Family History Denies cerebra l aneurysm history Brain Cancer No Family History Relation Status Comments Mother Social History Tobacco Use Types Packs/Day Years Used Date Smoking Tobacco: Never Smokeless Tobacco: Never Alcohol Use Standard Drinks/Week Comments Yes 0 (1 standard drink = 0.6 oz pur e alcohol) Rarely PHQ-2 Answer Date Recorded PHQ-2 score 2 12/04/2023 Area Deprivation Index Answer Date Pedro Luis rded National Score (1-100), lower number is lower ri sk Not on file 08/16/2020 State Score (1-10), lower number is lower risk N ot on file 08/16/2020 Data from: https://www.neighborhoodatlas.medicine.[facility].edu/. Last address used for calculation Not on file 08/16/2020 Comments No Sex and Gender Information Value Date Recorded Sex Assigned at Not on file Legal Sex Female 8:32 AM EST Gender Identity Not on file Sexual Orientation Not on file Last Filed Vital Signs Vital Sign Reading Time Taken Comments Blood Pressure 137/80 09/11/2023 8:28 AM EST Pulse 76 09/11/2023 8:28 AM EST Temperature 37.1 C (98.8 F) 09/11/2023 8:28 AM EST Respiratory Rate 16 07/07/2014 12:24 AM EDT Oxygen Saturation 98% 09/11/2023 8:28 AM EST Inhaled Oxygen Concentration - - Weight 96.3 kg (212 lb 3.2 oz) 09/11/2023 8:28 A M EST Height 170.2 cm (5' 7 ) 10/24/2017 3:15 PM EST Body Mass Index 33.24 10/24/2017 3:15 PM EST Plan of Treatment Health Maintenance Due Date Last Done Comments Anxiety Screening 2013 Depression Screening 2013 HIV Screening 2013 DTaP,Tdap,Td Vaccine (1 - Tdap) 2014 Hepatitis B Vaccine (1 of 3 - 19+ 3-dose series) 10/19 Cervical Cancer Screening 2016 HPV Vaccine (1 - 3-dose SCDM series) 2022 Influenza Vaccine (#1) 2025 Hepatitis C Screening Completed 10/24/2017 Procedures Procedure Name Priority Date/Time Associated Diagnosis Comments HEP REMOTE PANEL BL Routine 10/24/2017 4 :22 PM EST Elevated LFTs from Last 3 Months or Most Recently Relevant to Health Maintenance Results * HEP REMOTE PANEL BL (10/24/2017 4:22 PM EST) Hep B Core Ab, Total Negative Negative 10/25/2017 1:28 PM EST [facility] Hep C Antibody IA Negative Negative 10/25/2017 1:28 PM EST [facility] HBsAg Negative Negative 10/25/2017 1:28 PM EST [facility] Hep B Surface Ab, Qual Negative Negative 10/25/2017 1:28 PM EST [facility] Comment:NEGATIVE Blood specimen (specimen) BLOOD SPECIMEN / Unknown 10/24/2017 4:22 PM EST 10/24/2017 4:24 PM EST us Lucero Hampton MD LABORATORY Final Result [facility] [address] [place] [address] from Last 3 Months or Most Recently Relevant to Health Maintenance Insurance BLUE CARD PPO OOS Care Teams Gm/Svp Global Publisher Business Relationship Specialty Start Date End Date Richard Cheema Sr., DO PCP - General Family Medicine 06/20/17
--- OUTSIDE RECORDS SUMMARY | 2025-05-14 12:18 | XMS_ITS | Encounter Summary ---
Author Organization [facility] tem Address [id number] [address] [place] [address] Care Team Providers Care Curing Press Operator Name Role Phone Richard Cheema DO Primary Care Provider [phone] Encounter Details Date Type Department Care Team (Late st Contact Info) Description 06/16/2021 Orders Only Maternal- Medicine at [facility] [address] [place] [address] Richard Hendrix, DO [address] [facility] [place] [address] Social History Tobacco Use Types Packs/Day Years Used Date Smoking Tobacco: Former Alcohol Use Standard Drinks/Week Comments Not Currently 0 (1 standard drink = 0.6 oz pur e alcohol) Childcare Answer Date Recorded Childcare Unknown 02/17/2019 Employment Answer Date Recorded Employment Unknown 02/17/2019 Comments Yes Sex and Gender Information Value Date Recorded Sex Assigned at Female 06/30/2021 8:30 AM EDT Legal Sex Female 12:27 PM EDT Gender Identity Female 06/30/2021 8:30 AM EDT Sexual Orientation Straight 06/30/2021 8: 30 AM EDT documented as of this encounter Plan of Treatment Not on file documented as of this encounter Procedures Procedure Name Priority Date/Time Associated Diagnosis Comments US OFFICE Routine 06/07/2021 documented in this encounter Results * Ultrasound office (06/07/2021) Anatomical Region Laterality Modality AMB Ultrasound us Richard R Simeon DO IMSam US ORDERABLES Final Result documented in this encounter Visit Diagnoses Not on filedocumented in this encounter Care Teams Curing Press Operator Relationship Specialty Start Date End Date Richard Cheema DO PCP - General Family Medicine 06/30/21 documented as of this encounter
--- OUTSIDE RECORDS SUMMARY | 2025-05-14 12:18 | XMS_ITS | Encounter Summary ---
Author Organization [facility] Address [address] [place] [address] Care Team Providers Care Paperhanger Pipe Name Role Phone Unallocated, Noms Provider Primary Care [facility] Encounter Details Date Type Department Care Team (Late Contact Info) Description 11/26/2023 Orders Only [facility] [address] [place] [phone] Lisa Mcdermott [address] [facility] [address] [place] [address] Non-toxic goiter Social History Tobacco Use Types Packs/Day Years [...] as of this encounter Plan of Treatment Upcoming Encounters Date Type Department Care Team (Late Contact Info) Description 07/24/2025 9:15 AM EST Office Visit [facility] [address] [place] [phone] Rinkes, Chloe E, DO [address] [place] [address] 10/15/2025 9:30 AM EST Office Visit [facility] [address] [place] [phone] BrianneChloe linton E, DO [address] [place] [address] documented as of this encounter Visit Diagnoses Diagnosis Non-toxic goiter Unspecified nontoxic nodular goiter documented in this encounter Care Teams Paperhanger Pipe Relationship Specialty Start Date End Date Unallocated, Nommax Woods MD [address] [place] [address] PCP - General 07/04/23 documented as of this encounter
--- OUTSIDE RECORDS SUMMARY | 2025-05-14 12:18 | XMS_ITS | Clinical Summary ---
Author Organization [facility] Address [address] [place] [address] Care Team Providers Care Tire Technician Name Role Phone Unavailable Primary Care Provider Unavailabl e Source Comments The following information is NOT included in Care Everywhere downloads:Psychiatric notes, ECG results, Cardiac Rehab notes, Pulmonary Function notes, data from SmartForms (includes but not limited toPregnancy data,audiograms, eye exams, pre-surgical evaluation notes, well-child exam data).[facility] Social History Tobacco Use Types Packs/Day Years Used Date Smoking Tobacco: Never Assessed Comments Unknown Sex and Gender Information Value Date Recorded Sex Assigned at Not on file Legal Sex Female 11:52 AM EDT Gender Identity Not on file Sexual Orientation Not on file Last Filed Vital Signs Vital Sign Reading Time Taken Comments Blood Pressure 114/95 02/09/2022 12:05 AM EDT Pulse 70 02/09/2022 12:05 AM EDT Temperature - - Respiratory Rate 11 02/09/2022 12:05 AM EDT Oxygen Saturation 99% 02/09/2022 12:05 AM EDT Inhaled Oxygen Concentration - - Weight - - Height - - Body Mass Index - - Plan of Treatment Health Maintenance Due Date Last Done Comments HIV Test 2010 Hepatitis C Antibody 2013 Tdap Booster 2013 Hepatitis A (HAV) Vaccine (optional start 19+ years) 2014 Hepatitis B (HBV) Vaccine (1 of 3 - 19+ 3-dose series) 2014 Pap Smear 2016 HPV Vaccine (optional start 27-45 years) 2022 COVID-19 Vaccine (2023-2 5 season) 2025 Influenza Vaccine (#1) 2025 Shingles (RZV) Vaccine (1 of 2) 2045 Mammography Discontinued Pneumococcal Vaccine(s) Aged Out No l onger eligible based on patient's age to complete this topic Insurance SP/UNINSURED on file
--- OUTSIDE RECORDS SUMMARY | 2025-05-14 12:22 | XMS_ITS | CCD ---
Author Organization [facility] Providers Care Financial Services Professional Name Role Phone PROVIDER, UNKNOWN Attending Unavailable PROVIDER, UNKNOWN Admitting Unavailable Compa Forde Attending Unavailable REQUEST, DR GONZALEZ LISTED Primary Care Unavaila ble FRANSICO ., DR DAVIS Consulting Unavailable FRANSICO ., DR DAVIS Admitting Unavailable FRANSICO ., DR DAVIS Attending Unavailable FRANSICO ., DR DAVIS Consulting Unavailable REQUEST, NONE LISTED Primary Care Unavaila ble FRANSICO ., DR DAVIS Admitting Unavailable FRANSICO ., DR DAVIS Attending Unavailable KARASIK ., DR DURAN Consulting Unavailabl e FRANSICO ., DR DAVIS Attending Unavailable REQUEST, DR NONE LISTED Primary Care Unavaila ble FRANSICO ., DR DAVIS Admitting Unavailable Janice Townsend Consulting Unavailable FRANSICO ., DR DAVIS Consulting Unavailable HOUSE, DR RAMOS Primary Care Unavailable KARASIK ., DR DURAN Consulting Unavailabl e FRANSICO ., DR DAVIS Attending Unavailable FRANSICO ., DR DAVIS Admitting Unavailable FRANSICO ., DR DAVIS Procedure Practitioner Unavail able FRANSICO ., DR DAVIS Consulting Unavailable HOUSE, DR RAMOS Primary Care Unavailable FRANSICO ., DR DAVIS Attending Unavailable FRANSICO ., DR DAVIS Admitting Unavailable FRANSICO ., DR DAVIS Attending Unavailable FRANSICO ., DR DAVIS Consulting Unavailable REQUEST, DR GONZALEZ LISTED Primary Care Unavaila ble FRANSICO ., DR DAVIS Admitting Unavailable FRANSICO ., DR DAVIS Admitting Unavailable KARASIK ., DR DURAN Consulting Unavailabl e FRANSICO ., DR DAVIS Attending Unavailable REQUEST, NONE LISTED Primary Care Unavaila ble Janice Townsend Consulting Unavailable FRANSICO ., DR DAVIS Consulting Unavailable HOUSE, DR RAMOS Primary Care Unavailable FRANSICO ., DR DAVIS Consulting Unavailable FRANSICO ., DR DAVIS Attending Unavailable FRANSICO ., DR DAVIS Admitting Unavailable ROSE, JASIEL Consulting Unavailable ROSE (ERROR), JASIEL Consulting Unavailable MCCORNACK, MAYANK Consulting Unavailable HOUSE, DR RAMOS Primary Care Unavailable FRANSICO ., DR DAVIS Attending Unavailable FRANSICO ., DR DAVIS Consulting Unavailable FRANSICO ., DR DAVIS Admitting Unavailable HOUSE, DR RAMOS Primary Care Unavailable HOUSE, DR RAMOS Admitting Unavailable HOUSE, DR RAMOS Attending Unavailable HOUSE, DR RAMOS Consulting Unavailable KARASIK ., DR DURAN Consulting Unavailabl e FRANSICO ., DR DAVIS Admitting Unavailable REQUEST, DR NONE LISTED Primary Care Unavaila ble FRANSICO ., DR DAVIS Attending Unavailable West, Janice Consulting Unavailable FRANSICO ., DR DAVIS Consulting Unavailable KARASIK ., DR DURAN Consulting Unavailabl e KARASIK ., DR DURAN Admitting Unavailabl e KARASIK ., DR DURAN Attending Unavailabl e REQUEST, DR NONE LISTED Primary Care Unavaila ble REQUEST, DR NONE LISTED Primary Care Unavaila ble FRANSICO ., DR DAVIS Consulting Unavailable FRANSICO ., DR DAVIS Admitting Unavailable FRANSICO ., DR DAVIS Attending Unavailable FRANSICO ., DR DAVIS Consulting Unavailable FRANSICO ., DR DAVIS Attending Unavailable FRANSICO ., DR DAVIS Admitting Unavailable REQUEST, DR NONE LISTED Primary Care Unavaila ble KARASIK ., DR DURAN Consulting Unavailabl e FRANSICO ., DR DAVIS Attending Unavailable REQUEST, DR NONE LISTED Primary Care Unavaila ble FRANSICO ., DR DAVIS Admitting Unavailable West, Janice Consulting Unavailable FRANSICO ., DR DAVIS Consulting Unavailable HOUSE, DR RAMOS Primary Care Unavailable MISC, DR SEBASTIAN Admitting Unavailable MISC, DR SEBASTIAN Attending Unavailable MISC, DR SEBASTIAN Consulting Unavailable HOUSE, DR RAMOS Admitting Unavailable HOUSE, DR RAMOS Attending Unavailable HOUSE, DR RAMOS Primary Care Unavailable HOUSE, DR RAMOS Consulting Unavailable LIBAN ., FELIX Admitting Unavailable LIBAN ., FELIX Attending Unavailable HOUSE, DR RAMOS Primary Care Unavailable LIBAN ., FELIX Consulting Unavailable PELRomario, MASSIMO Consulting Unavailable EUFEMIA, KAITLYNN Admitting Unavailable KAITLYNN FALL Attending Unavailable HOUSE, DR RAMOS Primary Care Unavailable ALEXCHSHARRI ., ASHOK GIVENS Consulting Unavailabl e EUFEMIA, KAITLYNN Consulting Unavailable DERROW, ANASTASIYA Consulting Unavailable EUFEMIA, KAITLYNN Consulting Unavailable EUFEMIA, KAITLYNN Admitting Unavailable KAITLYNN FALL Attending Unavailable HOUSE, DR RAMOS Primary Care Unavailable REQUEST, DR NONE LISTED Primary Care Unavaila ble FRANSICO ., DR DAVIS Admitting Unavailable FRANSICO ., DR DAVIS Attending Unavailable HOUSE, DR RAMOS Primary Care Unavailable FRANSICO ., DR DAVIS Attending Unavailable FRANSICO ., DR DAVIS Consulting Unavailable FRANSICO ., DR DAVIS Admitting Unavailable FRANSICO ., DR DAVIS Consulting Unavailable HOUSE, DR RAMOS Primary Care Unavailable FRANSICO ., DR DAVIS Attending Unavailable FRANSICO ., DR DAVIS Admitting Unavailable HOUSE, DR RAMOS Primary Care Unavailable HOUSE, DR RAMOS Admitting Unavailable HOUSE, DR RAMOS Attending Unavailable HOUSE, DR RAMOS Consulting Unavailable FRANSICO ., DR DAVIS Consulting Unavailable FRANSICO ., DR DAVIS Attending Unavailable FRANSICO ., DR DAVIS Admitting Unavailable REQUEST, DR GONZALEZ LISTED Primary Care Unavaila Mayank George Consulting Unavailable House, DO Ramos Primary Care Provider DO Fab Velasquez Emergency Provider Alexandra Crane Unavailable Jayce Verde Unavailable House Sr., Richard GUERRERO Primary Care Prov ider JAZMYN Crane Primary Care Provider JAZMYN Crane Attending Provider [phone] House Sr., Richard GUERRERO Primary Care Provider MAYANK NGUYEN Attending Unavailable ELEANOR SRRICHARD Primary Care Unavailable HENRY PACHECO Attending Unavailable ALEXANDRA CRANE Referring Unavailable HOUSE SRRICHARD Primary Care Unavailable XANDER LOCK Attending Unavailable HENRY PACHECO Referring Unavailable HOUSE SR, RICHARD Saeed Primary Care Unavailable House Sr., Richard GUERRERO Primary Care Provider Alexandra Crane APRN Primary Care Provider Alexandra Crane APRN Referring Provider January Bro APRN Attending Provider Annita Herrera APRN Emergency Provider MattAlexandra calzada APRN Primary Care Provider EasterAlexandra calzada APRN Primary Care Provider Annie Lopes Attending Provider Unavailabl e [place] Alexandra ELDRIDGE Attending Provider Diane Sharma DNP Attending Provider Nelly Logan RD Attending Provider Unavailab radha Moreno MD, Imjf Attending Provider Annie Lopes Attending Provider Unavailabl e [place] Alexandra ELDRIDGE Primary Care Provider [phone] Josh BUSTILLO, Imad Other Provider Steven Beebe MD Attending Provider January Bro Admitting Unavailable January Bro Attending Unavailable Alexandra Crane Referring Unavailable Alexandra Crane Primary Care Unavailable Asaad, Imad Admitting Unavailable Asaad, Imad Attending Unavailable Alexandra Crane Primary Care Unavailable Asaad, Imad Admitting Unavailable Asaad, Imad Attending Unavailable Alexandra Crane Primary Care Unavailable Annita Herrera Admitting Unavailable Annita Herrera Attending Unavailable Alexandra Crane Primary Care Unavailable Asaad, Imad Admitting Unavailable Asaad, Imad Attending Unavailable Alexandra Crane Primary Care Unavailable MatterAlexandra calzada Admitting Unavailable EasterAlexandra calzada Attending Unavailable Alexandra Crane Primary Care Unavailable Asaad, Imad Admitting Unavailable Asaad, Imad Attending Unavailable Alexandra Crane Primary Care Unavailable [place] Alexandra ELDRIDGE Attending Provider Allergies Allergy Classification Reported Allergen(s) Allergy Type Date of Onset Reaction(s) Facility (20 sources) Penicillin; Translations: [penicillin] Drug Allergy anaphylaxis [facility] Repository (3 sources) Sucralfate; Translations: [Carafate] Drug Allergy 5 [facility] Repository (3 sources) traMADol; Translations: [Ultram] Drug Allergy 4 [facility] Repository (2 sources) Desonide Drug Allergy [facility] Repository (20 sources) Penicillins; Translations: [PENICILLINS] Drug allergy (disorder) 3 Unknown Reaction, Unknown Reaction, anaphylaxis, Anaphylaxis [facility] Repository (20 sources) Sucralfate; Translations: [sucralfate] Drug Allergy 8 Hives, Vomiting [facility] (20 sources) traMADol; Translations: [tramadol] Drug Allergy 3 Unknown Reaction, vomiting, Unknown Reaction, vomiting [facility] (6 sources) Adhesive agent; Translations: [ADHESIVE] Drug Allergy 1 Rash [facility] (6 sources) Hydroxychloroqu ine; Translations: [HYDROXYCHLOROQ UINE] Drug Allergy 9 Intolerance [facility] Work Phone: (6 sources) Non-steroidal anti-inflammato ry agent; Translations: [NSAIDS (NON-STEROIDAL ANTI-INFLAMMATO RY DRUG)] Drug Intolerance 4 GI Upset [facility] (4 sources) Penicillins Drug Allergy 4 Swelling [facility] (6 sources) traMADol; Translations: [TRAMADOL HCL] Drug Allergy 4 Hives [facility] (20 sources) topiramate Drug Allergy 4 neuropathy [facility] (1 source) Phentermine Drug Allergy 4 Abdominal Pain [facility] (1 source) Penicillins Drug Allergy 4 Swelling [facility] (1 source) Penicillins Drug allergy (disorder) 5 [facility] Repository (1 source) topiramate Drug Allergy 5 [facility] Repository Medications Current Medications Medication Drug Class(es) Dates Sig (Normalized) Sig (Original) busPIRone hydrochloride 10 mg oral tablet (20 sources) Start: 11-12-2024 End: 03-03-2025 take 2 tablets by mouth twice daily Buspirone 10 mg tablet Active 20 MG PO Twice daily 120 30 March 03, 2025 5:08pm Complies with drug therapy Start: 08-05-2024 End: 11-12-2024 take 1 tablet by mouth once daily Buspirone 30 mg tablet Discontinued 30 MG PO Daily 90 90 August 05, 2024 10:23am November 12, 2024 12:43pm Start: 06-04-2024 End: 08-05-2024 take 2 tablets by mouth once daily Buspirone 10 mg tablet Discontinued 20 MG PO Daily 60 30 June 04, 2024 10:41am August 05, 2024 10:24am Start: 07-04-2023 take 2 tablets by mo uth every twelve hours busPIRone (BUSPAR) 10 mg tablet Take 2 tablets by mouth every 12 hours. 07/04/2023 Active Start: 02-13-2023 End: 06-04-2024 take 2 tablets by mouth twice daily Buspirone 10 mg tablet Discontinued 10 MG PO October 31, 2023 1:00am June 04, 2024 10:40am 2 tablets = 20mg Orally Twice a day Start: 02-13-2023 End: 10-31-2023 take 2 mg by mouth twice daily Buspirone Discontinued 2 MG PO Twice daily February 13, 2023 12:00am October 31, 2023 10:45am Comment on above: Take 2 tablets by [facility] every 12 hours. cyclobenzaprine hydrochloride 10 mg oral tablet (20 sources) Muscle Relaxant Start: End: take 1 tablet by mouth once daily at bedtime as needed for muscle spasms Cyclobenzaprine 10 mg tablet Active 10 MG PO Daily at bedtime as needed for muscle spasm December 29, 2024 12:00am Complies with drug therapy fluticasone propionate 0.05 mg/actuat metered dose nasal spray (20 sources) Corticosteroid Start: Fluticasone Propionate 50 mcg/actuation spray,suspension Active 1 SPRAY INTRANASAL Daily as needed for allergy symptoms October 31, 2023 1:00am Complies with drug therapy Start: 03-14-2023 take 1 spray(s) nasa l route once daily Fluticasone Propionate 50 MCG/ACT 1 spray in each nostril Nasally Once a day for 30 days Mar, Active Start: 03-14-2023 take 1 spray(s) nasa l route once daily Fluticasone Propionate 50 MCG/ACT 1 spray in each nostril Nasally Once a day for 30 days 05 Reyes, 2023 Active Magnesium Chloride (4 sources) MAGNESIUM CHLORI DE ORAL Take by mouth. Active MAGNESIUM CHLORI DE ORAL Take by mouth. 0 Active Comment on above: Take by mouth. pantoprazole 40 mg delayed release oral tablet (20 sources) Proton Pump Inhibitor Start: take 1 tablet by mouth once daily at bedtime Pantoprazole 40 mg tablet,delayed release (DR/EC) Active 40 MG PO Daily at bedtime 56 56 April 02, 2025 12:00am Complies with drug therapy Start: 12-31-2021 End: 02-13-2023 take 1 tablet by mouth once daily Pantoprazole 20 mg tablet,delayed release (DR/EC) Discontinued 20 MG PO Daily December 31, 2021 12:00am February 13, 2023 5:27pm propranolol hydrochloride 20 mg oral tablet (20 sources) beta-Adrenergic Argenis Start: 03-03-2025 take 1 tablet by mouth once daily Propranolol 20 mg tablet Active 20 MG PO Daily 90 90 March 03, 2025 5:08pm Complies with drug therapy Start: 03-02-2025 take 1 tablet by rehan th once daily propranolol (INDERAL) 20 mg tablet Indications: Intractable chronic migraine without aura and without status migrainosus TAKE 1 TABLET BY MOUTH EVERY DAY 90 tablet 03/02/2025 Active Start: 09-11-2023 End: 03-03-2025 take 1 tablet by mouth once daily Propranolol 20 mg tablet Discontinued 20 MG PO Daily October 31, 2023 1:00am March 03, 2025 5:10pm Comment on above: Take 1 tablet by rehan th once daily. rizatriptan 10 mg oral tablet (4 sources) Serotonin-1b and Serotonin-1d Receptor Agonist Start: take 1 tablet by mouth every two hours as needed for headache rizatriptan (MAXALT) 10 mg tablet Indications: Intractable chronic migraine without aura and without status migrainosus Take 1 tablet (10 mg) by mouth as needed for migraine headache (see administration instructions). AT ONSET OF HEADACHE. MAY REPEAT AFTER 2 HOURS. DO NOT EXCEED 30 MG PER DAY. Max use is 2 days per week. 9 tablet 5 09/11/2023 Active Comment on above: Take 1 tablet (10 mg ) by mouth as needed for migraine headache (see administration instructions). AT ONSET OF HEADACHE. MAY REPEAT AFTER 2 HOURS. DO NOT EXCEED 30 MG PER DAY. Max use is 2 days per week. 1 mg dose 1.5 ml semaglutide 1.34 mg/ml pen injector (4 sources) inject 1 mg by subcutaneous injection every week semaglutide (OZEMPIC) 1 mg/0.75 ml subcutaneous pen injector Inject 1 mg subcutaneously one time a week. 0.6ml/0.5ml Active Comment on above: Inject 1 mg subcutan eously one time a week. 0.6ml/0.5ml semaglutide (weight loss) (8 sources) Start: 025 semaglutide (weight loss) Active SUBCUT February 16, 2025 12:00am Patient obtains via [facility] Complies with drug therapy Start: 02-16-2025 Start: 02-16-2025 semaglutide (w eight loss) Active SUBCUT February 16, 2025 12:00am [facility] tretinoin 0.25 mg/ml topical cream (20 sources) Retinoid Start: 04-22-2025 Tretinoin 0.02 5 % cream Active 1 APPLIC TOPICAL Daily at bedtime April 22, 2025 10:41am Complies with drug therapy Start: 02-16-2025 End: 04-22-2025 Tretinoin 0.025 % cream Disc ontinued 0 .ROUTE .COMPLEX February 16, 2025 3:02pm April 22, 2025 10:41am APPLY TO AFFECTED AREA TOPICALLY DAILY AT BEDTIME FOR 90 DAYS Start: 11-12-2024 End: 02-16-2025 Tretinoin (Retin-A) 0.025 % cream Discontinued 1 APPLIC TOPICAL Daily at bedtime November 12, 2024 1:00am February 16, 2025 3:02pm Start: 11-12-2024 Tretinoin (Ret in-A) 0.025 % cream Active 1 APPLIC TOPICAL Daily at bedtime November 12, 2024 1:00am 24 hr venlafaxine 150 mg extended release oral capsule (19 sources) Serotonin and Norepinephrine Reuptake Inhibitor Start: 11-12-2024 End: 03-03-2025 take 1 capsule by mouth once daily Venlafaxine (Effexor Xr) 150 mg capsule,extended release 24hr Active 150 MG PO Daily March 03, 2025 5:09pm PSYCHIATRY Complies with drug therapy wegovy 0.25 mg/0.5ml solution auto-injector (2 sources) Start: 09-11-2023 Wegovy 0.25 MG/0.5ML 0.5 mL Subcutaneous for 30 day(s) Sep, Active wegovy 0.5 mg/0.5ml solution auto-injector (3 sources) Wegovy 0.5 MG/0. 5ML 0.5 mL Subcutaneous for 30 days Active Completed/Discontinued Medications Medication Drug Class(es) Dates Sig (Normalized) Sig (Original) [id number] 200 actuat albuterol 0.09 mg/actuat metered dose inhaler (20 sources) beta2-Adrenergic Agonist Start: 10-31-2023 End: 12-11-2023 take 1 puff(s) by inhalation every four to six hours as needed Albuterol Sulfate 90 mcg/actuation HFA aerosol inhaler Discontinued 2 PUFF INHALATION EVERY 4-6 HOURS as needed for bronchospasm 8.5 7 October 31, 2023 1:00am December 11, 2023 1:34pm Start: 12-31-2021 End: 02-13-2023 take 1 puff(s) by inhalation every four hours as needed Albuterol Sulfate 90 mcg/actuation HFA aerosol inhaler Discontinued 2 PUFF INHALATION Q4H as needed for Shortness Of Breath December 31, 2021 12:00am February 13, 2023 5:27pm aluminum chloride 200 mg/ml topical solution (20 sources) Start: 08-05-2024 End: 12-29-2024 Aluminum Chloride 20 % solut ion Discontinued 1 APPLIC TOPICAL Daily at bedtime August 05, 2024 9:58am December 29, 2024 6:28pm Start: 07-21-2024 End: 08-05-2024 Aluminum Chloride 20 % solut ion Discontinued 0 TOPICAL Daily at bedtime 60 30 July 21, 2024 1:00am August 05, 2024 9:58am 1 application nightly to affected areas until symptoms resolve then 2x weekly ascorbic acid 250 mg chewable tablet (1 source) Vitamin C take 500 mg by mouth once daily Ascorbic Acid (VITAMIN C) 250 mg chew Take 500 mg by mouth once daily. 0 Active Comment on above: Take 500 mg by mouth once daily. azaTHIOprine 50 mg oral tablet (1 source) Purine Antimetabolite Start: 05-06-20 take 1 tablet by mouth once daily azaTHIOprine (IMURAN) 50 mg tablet Indications: Inflammatory arthritis , EKATERINA positive , Encounter for care home current use of azathioprine TAKE 1 TABLET BY MOUTH EVERY DAY WITH FOOD*HOLD IF ON ANTIBIOTICS OR ILL* 30 tablet 3 05/06/2019 Active Comment on above: TAKE 1 TABLET BY REHAN TH EVERY DAY WITH FOOD*HOLD IF ON ANTIBIOTICS OR ILL* 24 hr buPROPion hydrochloride 150 mg extended release oral tablet (20 sources) Aminoketone Start: 06-08-20 End: 08-05-20 take 1 tablet by mouth once daily in the morning Bupropion Hcl 150 mg tablet extended release 24 hr Discontinued 0 .ROUTE .COMPLEX June 08, 2024 11:24am August 05, 2024 9:58am TAKE 1 TABLET BY MOUTH EVERY DAY IN THE MORNING FOR 90 DAYS Start: 06-08-2024 End: 08-05-2024 take 1 tablet by mouth once daily in the morning Bupropion Hcl 150 mg tablet extended release 24 hr Discontinued 0 .ROUTE .COMPLEX June 08, 2024 10:24am August 05, 2024 8:58am TAKE 1 TABLET BY MOUTH EVERY DAY IN THE MORNING FOR 90 DAYS Start: 12-18-2023 End: 08-05-2024 take 1 tablet by mouth once daily in the morning Bupropion Hcl 150 mg tablet extended release 24 hr Discontinued 0 .ROUTE .[facility] June 08, 2024 11:24am August 05, 2024 9:58am TAKE 1 TABLET BY MOUTH EVERY DAY IN THE MORNING FOR 90 DAYS Start: 03-20-2023 End: 02-16-2025 take 1 tablet by mouth once daily Bupropion Hcl 150 mg tablet extended release 24 hr Discontinued 150 MG PO Daily August 05, 2024 9:57am February 16, 2025 1:46pm Comment on above: Take 150 mg by mouth once daily. celecoxib 200 mg oral capsule (1 source) Nonsteroidal Anti-inflammatory Drug Start: 8 take 1 capsule by mouth twice daily celecoxib (CELEBREX) 200 mg capsule Indications: Inflammatory arthritis , EKATERINA positive Take 1 capsule by mouth twice daily. 60 capsule 3 05/07/2018 Active Comment on above: [facility] 1 [facility] cephalexin 500 mg oral capsule (20 sources) Cephalosporin Antibacterial Start: End: take 1 capsule by mouth every twelve hours Cephalexin 500 mg capsule Discontinued 500 MG PO Q12H 29 06April 23, 2021 12:00am December 31, 2021 8:30am Start: 08-26-2017 End: 12-26-2020 take 1 capsule by mouth three times daily Cephalexin (Keflex) 500 mg capsule Discontinued 500 MG PO Three times daily 30 03August 26, 2017 1:00am December 26, 2020 10:41pm space evenly during waking hours cetirizine hydrochloride 10 mg oral tablet (20 sources) Histamine-1 Receptor Antagonist Start: 08-05-2024 End: 03-09-2025 take 1 tablet by mouth once daily Cetirizine (Allergy Relief (Cetirizine)) 10 mg tablet Discontinued 10 MG PO Daily August 05, 2024 9:57am March 09, 2025 9:59am Start: 04-14-2024 End: 08-05-2024 take 1 tablet by mouth once daily Cetirizine (Allergy Relief (Cetirizine)) 10 mg tablet Discontinued 0 .ROUTE .COMPLEX 90 April 14, 2024 8:16am August 05, 2024 9:58am TAKE 1 TABLET BY MOUTH EVERY DAY FOR 90 DAYS Start: 03-14-2023 End: 04-14-2024 take 1 tablet by mouth once daily Cetirizine (Zyrtec) 10 mg tablet Discontinued 10 MG PO Daily October 31, 2023 1:00am April 14, 2024 8:16am Comment on above: Take 10 mg by mouth once daily. cyanocobalamin, vitamin B-12, (VITAMIN B-12 ORAL) (1 source) cyanocobalamin, vitamin B-12, (VITAMIN B-12 ORAL) Take by mouth. 0 Active Comment on above: Take by mouth. doxycycline hyclate 100 mg oral capsule (19 sources) Tetracycline-class Drug Start: 2023 End: 2023 take 1 capsule by mouth twice daily Doxycycline Hyclate 100 mg capsule Discontinued 100 MG PO Twice daily 23 03October 31, 2023 1:00am December 11, 2023 1:34pm DULoxetine 60 mg delayed release oral capsule (20 sources) Serotonin and Norepinephrine Reuptake Inhibitor Start: 2020 End: 2021 take 1 capsule by mouth once daily Duloxetine 60 mg capsule,delayed release(DR/EC) Discontinued 60 MG PO Daily December 26, 2020 12:00am December 31, 2021 8:30am Norethindrone-E.Estr adiol-Iron (7 sources) Estrogen Start: 2016 End: 2020 take 1 tablet by mouth once daily Norethindrone-E.Est radiol-Iron ( 1.5/30 (28)) 1.5 mg-30 mcg (21)/75 mg (7) tablet Discontinued 1 TAB PO Daily August 26, 2017 1:00am December 26, 2020 10:42pm Ethinyl Estradiol / Norethindrone (1 source) Estrogen take 1 tablet by mouth once daily, then take 0.05 tablet by mouth once Norethindrone Acet-Ethinyl Est (09/29, ,) 1-20 mg-mcg per tablet Take 1 tablet by mouth once daily. 0 Active Comment on above: Take 1 tablet by rehan th once daily. iv contrast (will be provided with radiology test) (1 source) Start: 2022 End: 2022 inject 1 dose intravenously once iv contrast (will be provided with radiology test) Inject 1 Each intravenously one time only for [address] Neck W IVCON No IV access available, insert saline lock prior to the beginning of sedation, infusion, injection of imaging exams. Discontinue saline lock post exam. If Pt. has a central line or an IVAD, may access port for administration. Upon deaccess of Naranjo needle, if re-access is not indicated, ports to be flushed with 10-20ml 0.9% NACL followed by flush of 5ml Heparin(100units/ml ) 1 Each 0 07/17/2023 07/17/2023 Comment on above: Inject 1 Each intrav enously one time only for [address] Neck W IVCON No IV access available, insert saline lock prior to the beginning of sedation, infusion, injection of imaging exams. Discontinue saline lock post exam. If Pt. has a central line or an IVAD, may access port for administration. Upon deaccess of Naranjo needle, if re-access is not indicated, ports to be flushed with 10-20ml 0.9% NACL followed by flush of 5ml Heparin(100units/ml) Magnesium (20 sources) Start: 2023 End: 2023 take 1 tablet by mouth once daily Magnesium 200 mg tablet Discontinued 200 MG PO Daily November 12, 2023 3:09pm December 11, 2023 1:34pm Take 1 tablet daily Start: 11-12-2023 End: 12-11-2023 take 1 tablet by mouth once daily Magnesium 200 mg tablet Discontinued 200 MG PO Daily November 12, 2023 2:09pm December 11, 2023 12:34pm Take 1 tablet daily Start: 11-12-2023 End: 12-11-2023 take 1 tablet by mouth once daily Magnesium Discontinued 200 MG PO Daily November 12, 2023 3:09pm December 11, 2023 1:34pm Take 1 tablet daily Start: 11-12-2023 End: 11-12-2023 take 1 tablet by mouth once daily Magnesium 200 mg tablet Discontinued 200 MG PO Daily November 12, 2023 3:08pm November 12, 2023 3:11pm Take 1 tablet daily Start: 11-12-2023 End: 11-12-2023 take 1 tablet by mouth once daily Magnesium 200 mg tablet Discontinued 200 MG PO Daily November 12, 2023 2:08pm November 12, 2023 2:11pm Take 1 tablet daily Start: 11-12-2023 End: 11-12-2023 take 1 tablet by mouth once daily Magnesium Discontinued 200 MG PO Daily November 12, 2023 3:08pm November 12, 2023 3:11pm Take 1 tablet daily Start: 11-12-2023 End: 11-12-2023 take 1 tablet by mouth once daily Magnesium 200 mg tablet Discontinued 200 MG PO Daily November 12, 2023 1:00am November 12, 2023 3:09pm Take 1 tablet murphy Start: 11-12-2023 End: 11-12-2023 take 1 tablet by mouth once daily Magnesium 200 mg tablet Discontinued 200 MG PO Daily November 12, 2023 12:00am November 12, 2023 2:09pm Take 1 tablet murphy Start: 11-12-2023 End: 11-12-2023 take 1 tablet by mouth once daily Magnesium Discontinued 200 MG PO Daily November 12, 2023 1:00am November 12, 2023 3:09pm Take 1 tablet murphy Start: 10-31-2023 End: 11-08-2023 take 1 tablet by mouth once daily Magnesium 200 mg tablet Discontinued 200 MG PO Daily October 31, 2023 1:00am November 08, 2023 4:54pm Start: 10-31-2023 End: 11-08-2023 take 1 tablet by mouth once daily Magnesium 200 mg tablet Discontinued 200 MG PO Daily October 31, 2023 12:00am November 08, 2023 3:54pm Start: 10-31-2023 End: 11-08-2023 take 200 mg by mouth once daily Magnesium Discontinued 200 MG PO Daily October 31, 2023 1:00am November 08, 2023 4:54pm Start: 10-31-2023 take 200 mg by mouth once lurdes y Magnesium Active 200 MG PO Daily October 31, 2023 12:00am Start: 07-30-2023 take 1 tablet by rehan th once daily Magnesium 200 MG 1 tablet with a meal Orally Once a day for 30 days Jul, Active methIMAzole 5 mg oral tablet (20 sources) Thyroid Hormone Synthesis Inhibitor Start: 08-26-2017 End: 12-31-2021 take 1 tablet by mouth once daily Methimazole 5 mg tablet Discontinued 5 MG PO Daily August 26, 2017 1:00am December 31, 2021 8:30am Comment on above: Take 5 mg by mouth o nce daily. methylPREDNISolone 4 mg oral tablet (20 sources) Corticosteroid Start: 09-16-2024 End: 10-14-2024 Methylprednisolone 4 mg tablets,dose pack Discontinued 0 PO per package directions 28 02September 16, 2024 1:00am October 14, 2024 2:40pm PO PER PKG DIR for 6 days Start: 10-31-2023 End: 11-08-2023 Methylprednisolone 4 mg tabl ets,dose pack Discontinued 0 PO per package directions 28 02October 31, 2023 1:00am November 08, 2023 4:54pm PO PER PKG DIR for 6 days Start: 10-31-2023 End: 11-08-2023 Methylprednisolone Discontin ued 0 PO per package directions 21 October 31, 2023 1:00am November 08, 2023 4:54pm PO PER PKG DIR for 6 days montelukast 10 mg oral tablet (20 sources) Leukotriene Receptor Antagonist Start: 08-05-2024 End: 02-16-2025 take 1 tablet by mouth once daily Montelukast 10 mg tablet Discontinued 10 MG PO Daily August 05, 2024 9:57am February 16, 2025 1:46pm Start: 07-21-2024 End: 08-05-2024 take 1 tablet by mouth once daily Montelukast 10 mg tablet Discontinued 0 .ROUTE .COMPLEX 90 July 21, 2024 12:11pm August 05, 2024 9:58am TAKE 1 TABLET BY MOUTH EVERY DAY Start: 02-20-2024 End: 07-21-2024 take 1 tablet by mouth once daily Montelukast 10 mg tablet Discontinued 10 MG PO Daily February 20, 2024 4:33pm July 21, 2024 12:11pm Start: 01-14-2024 End: 02-20-2024 take 1 tablet by mouth once daily Montelukast 10 mg tablet Discontinued 0 .ROUTE .COMPLEX 90 January 14, 2024 9:24am February 20, 2024 4:33pm TAKE 1 TABLET BY MOUTH DAILY Start: 11-08-2023 End: 01-14-2024 take 1 tablet by mouth once daily Montelukast (Singulair) 10 mg tablet Discontinued 10 MG PO Daily November 08, 2023 1:00am January 14, 2024 9:24am nitrofurantoin, macrocrystals 25 mg / nitrofurantoin, monohydrate 75 mg oral capsule (17 sources) Nitrofuran Antibacterial Start: 02-20-2024 End: 08-05-2024 take 1 capsule by mouth every twelve hours at mealtime Nitrofurantoin Monohyd/M-Cryst (Macrobid) 100 mg capsule Discontinued 100 MG PO Every 12 hours 14 7 February 20, 2024 12:00am August 05, 2024 9:58am must administer with a meal/food Start: 10-16-2023 take 1 capsule by [facility] every twelve hours Nitrofurantoin Monohyd Macro 100 MG 1 capsule with food Orally every 12 hrs for 7 days Oct, Active Norethindrone-E.Estradiol-Ir on (.02/06 ()) 1.5 mg-30 mcg (21)/75 mg (7) tablet (15 sources) Start: 08-26-2017 End: 12-26-2020 take 1 tablet by mouth once daily Norethindrone-E.Estradiol-Iron (.02/06 ()) 1.5 mg-30 mcg (21)/75 mg (7) tablet Discontinued 1 TAB PO Daily August 26, 2017 12:00am December 26, 2020 9:42pm Start: 08-26-2017 End: 12-26-2020 take 1 tablet by mouth once daily Norethindrone-E.Estradiol-Iron ( ()) 1.5 mg-30 mcg (21)/75 mg (7) tablet Discontinued 1 TAB PO Daily August 26, 2017 1:00am December 26, 2020 10:42pm ondansetron 4 mg oral tablet (20 sources) Serotonin-3 Receptor Antagonist Start: 10-31-2023 End: 01-17-2024 take 1 tablet by mouth once daily as needed Ondansetron Hcl 4 mg tablet Discontinued 4 MG PO Daily as needed October 31, 2023 1:00am January 17, 2024 10:39am Start: 09-11-2023 take 1 tablet by rehan th every eight hours as needed ondansetron (ZOFRAN) 8 mg tablet Indications: Intractable chronic migraine without aura and without status migrainosus Take 1 tablet by mouth every 8 hours as needed. 45 tablet 5 09/11/2023 Active Start: 09-04-2023 take 1 tablet by rehan th once daily as needed Ondansetron HCl 4 MG 1 tablet Orally daily prn for 14 days Aug, Active Start: 08-26-2017 End: 12-31-2021 take 1 tablet by mouth every eight hours as needed for nausea and vomiting Ondansetron 4 mg tablet,disintegrating Discontinued 4 MG PO Q8H as needed for nausea and vomiting December 27, 2020 12:00am December 31, 2021 8:30am Comment on above: Take 1 tablet by rehan th every 8 hours as needed. phenazopyridine hydrochloride 200 mg oral tablet (20 sources) Start: 2016 End: 2020 take 1 tablet by mouth three times daily as needed for pain Phenazopyridine (Pyridium) 200 mg tablet Discontinued 200 MG PO Three times daily as needed for pain August 26, 2017 1:00am December 26, 2020 10:42pm administer with a full glass of water with each meal phentermine hydrochloride 37.5 mg oral capsule (20 sources) Sympathomimetic Amine Anorectic Start: 2023 End: 2024 take 1 capsule by mouth once daily 30 minutes after breakfast Phentermine 37.5 mg capsule Discontinued 37.5 MG PO Daily February 20, 2024 5:00pm August 05, 2024 9:58am must administer 30 minutes before or 1-2 hours after breakfast Start: 12-11-2023 End: 12-20-2023 take 1 capsule by mouth once daily Phentermine 37.5 mg capsule Discontinued 37.5 MG PO Daily December 11, 2023 2:26pm December 20, 2023 11:32am polysaccharide iron complex 391 mg oral capsule (20 sources) Start: 12-31-2021 End: 02-13-2023 take 1 capsule by mouth once daily Polysaccharide Iron Complex (Pro Fe) 180 mg iron capsule Discontinued 180 MG PO Daily December 31, 2021 12:00am February 13, 2023 5:27pm predniSONE 20 mg oral tablet (16 sources) Start: 08-05-2024 End: 09-16-2024 take 2 tablets by mouth once daily Prednisone 20 mg tablet Discontinued 40 MG PO Daily 06 14August 05, 2024 1:00am September 16, 2024 5:05pm Start: 03-26-2019 predniSONE (DE LTASONE) 5 mg tablet Indications: Inflammatory arthritis Day 1=6tabs with food, Day 2=5tabs, Day 3=4tabs, Day 4=3tabs, Day 5=2tabs, Day 6=1tab, No NSAIDs on med 21 tablet 1 03/26/2019 Active Comment on above: Day 1=6tabs with luis d, Day 2=5tabs, Day 3=4tabs, Day 4=3tabs, Day 5=2tabs, Day 6=1tab, No NSAIDs on med Semaglutide (Weight Loss) (20 sources) Start: 10-31-2023 End: 12-20-2023 Semaglutide (Weight Loss) (Wegovy) 0.5 mg/0.5 mL pen injector Discontinued 0.5 MG SUBCUT every week October 31, 2023 12:00am December 20, 2023 10:32am Start: 10-31-2023 End: 12-20-2023 Semaglutide (Weight Loss) (W egovy) 0.5 mg/0.5 mL pen injector Discontinued 0.5 MG SUBCUT every week October 31, 2023 1:00am December 20, 2023 11:32am Start: 10-31-2023 Semaglutide (W eight Loss) (Wegovy) 0.5 mg/0.5 mL pen injector Active 0.5 MG SUBCUT every week October 31, 2023 1:00am Start: 10-31-2023 Semaglutide (W eight Loss) (Wegovy) 0.5 mg/0.5 mL pen injector Active 0.5 MG SUBCUT every week October 31, 2023 12:00am sertraline 100 mg oral tablet (20 sources) Serotonin Reuptake Inhibitor Start: 08-05-2024 End: 11-12-2024 take 1 tablet by mouth once daily Sertraline 100 mg tablet Discontinued 100 MG PO Daily August 05, 2024 10:04am November 12, 2024 12:42pm Start: 07-04-2023 End: 08-05-2024 take 2 tablets by mouth once daily Sertraline 100 mg tablet Discontinued 100 MG PO Daily October 31, 2023 1:00am May 26, 2024 8:31am 2 tablet Orally Once a day Start: 02-13-2023 End: 10-31-2023 take 2 mg by mouth twice daily Sertraline 100 mg table t Discontinued 2 MG PO Twice daily February 13, 2023 12:00am October 31, 2023 10:45am Start: 02-13-2023 End: 10-31-2023 take 2 mg by mouth twice daily Sertraline Discontinued 2 MG PO Twice daily February 13, 2023 12:00am October 31, 2023 10:45am Start: 12-31-2021 End: 02-13-2023 take 1 tablet by mouth once daily Sertraline 50 mg tablet Discontinued 50 MG PO Daily January 02, 2022 3:26pm February 13, 2023 5:27pm take 1 tablet by rehan th every twelve hours Sertraline HCl 100 MG 1 tablet Orally twice a day Active Comment on above: Take 2 tablets by mo uth every afternoon. SUMAtriptan 50 mg oral tablet (20 sources) Serotonin-1b and Serotonin-1d Receptor Agonist Start: End: take 1 tablet by mouth twice daily as needed Sumatriptan Succinate 50 mg tablet Discontinued 50 MG PO Twice daily as needed October 31, 2023 1:00am October 31, 2023 5:56pm Start: 07-30-2023 take 1 tablet by rehan th every two hours as needed, then take 1 tablet by mouth twice daily as needed SUMAtriptan Succinate 50 MG 1 tablet at least 2 hours between doses as needed Orally Twice a day prn for 8 days Jul, Active triamcinolone acetonide 40 mg/ml injectable suspension (20 sources) Corticosteroid Start: 03-14-2023 Kenalog-40 Jun, 60 mg Problems Active Problems Problem Classification Problem Date Documented Date Episodic/Chronic Abdominal pain (20 sources) Unspecified abdominal pain; Translations: [Abdominal pain] Onset: 11-24-2022 Episodic Administrative/socia l admission (20 sources) Patient encounter status; Translations: [Exercise counseling] 02-16-2025 Episodic Allergic reactions (1 source) Allergic condition; Translations: [Allergy, unspecified, initial encounter] 04-22-2025 Episodic Anxiety disorders (20 sources) Anxiety disorder, unspecified; Translations: [Anxiety] Onset: 11-28-2022 08-05-2024 Chronic Attention-deficit, conduct, and disruptive behavior disorders (2 sources) Compulsive behavior; Translations: [Obsessive-compulsive behavior] 04-26-2025 Episodic Cardiac dysrhythmias (20 sources) Multiple premature ventricular complexes; Translations: [Ventricular premature depolarization] 02-13-2023 Chronic Cardiac dysrhythmias (20 sources) Palpitations; Translations: [Palpitations] 02-13-2023 Episodic Chronic obstructive pulmonary disease and bronchiectasis (3 sources) Bronchitis, not specified as acute or chronic; Translations: [Bronchitis, not specified as acute or chronic] 10-31-2023 Episodic Complications of surgical procedures or medical care (4 sources) Unspecified adverse effect of drug or medicament, initial encounter Episodic Conditions associated with dizziness or vertigo (15 sources) Dizziness; Translations: [Dizziness and giddiness] Episodic Contraceptive and procreative management (6 sources) Encounter for sterilization; Translations: [Tubal ligation status] Onset: 03-20-2022 Episodic Diseases of mouth; excluding dental (3 sources) Recurrent oral aphthae; Translations: [Oral aphthae] 08-05-2024 Episodic Disorders of teeth and jaw (20 sources) Arthritis of temporomandibular joint; Translations: [Other specified disorders of temporomandibular joint] 10-31-2023 Episodic Endometriosis (20 sources) Endometriosis (clinical); Translations: [Endometriosis, unspecified] 10-31-2023 Chronic Esophageal disorders (1 source) Gastroesophageal reflux disease; Translations: [Gastro-esophageal reflux disease without esophagitis] 05-04-2025 Chronic Genitourinary symptoms and ill-defined conditions (1 source) Dysuria Episodic Headache; including migraine (20 sources) Migraine; Translations: [Migraine, unspecified, not intractable, without status migrainosus] Chronic Headache; including migraine (14 sources) Headache; Translations: [Headache, unspecified] Episodic Malaise and fatigue (1 source) Other fatigue Episodic Miscellaneous mental health disorders (19 sources) Chronic mental disorder; Translations: [Mental disorder, not otherwise specified] 12-07-2023 Chronic Miscellaneous mental health disorders (20 sources) depression; Translations: [ depression] Onset: 01-02-2022 12-31-2021 Episodic Mood disorders (15 sources) Major depressive disorder, single episode, unspecified; Translations: [Depressive disorder] Onset: 03-27-2022 Chronic Nausea and vomiting (20 sources) Nausea and vomiting; Translations: [Nausea with vomiting, unspecified] 12-27-2020 Episodic Nutritional deficiencies (9 sources) Vitamin D deficiency, unspecified; Translations: [Vitamin D deficiency] Onset: 10-27-2017 Chronic Nutritional deficiencies (20 sources) Iron deficiency; Translations: [Iron deficiency] Episodic Osteoarthritis (20 sources) Arthritis; Translations: [Unspecified osteoarthritis, unspecified site] Onset: 01-02-2018 01-02-2018 Chronic Other acquired deformities (1 source) Scoliosis, unspecified; Translations: [SCOLIOSIS UNSPECIFIED] Onset: 03-27-2022 Chronic Other aftercare (1 source) Other terminal operations supervisor (current) drug therapy; Translations: [OTH PENITENTIARY CURRENT DRUG THERAPY] Onset: 11-28-2022 Episodic Other and unspecified benign neoplasm (19 sources) Hemangioma of liver; Translations: [Hemangioma of intra-abdominal structures] 12-30-2024 Episodic Other and unspecified benign neoplasm (2 sources) Hemangioma of intra-abdominal structures; Translations: [Hemangioma of intra-abdominal structures] Onset: 03-09-2025 12-30-2024 Episodic Other circulatory disease (5 sources) Raynaud's disease; Translations: [Raynaud's syndrome without gangrene] Onset: 10-24-2017 10-24-2017 Chronic Other ear and sense organ disorders (20 sources) Tinnitus of vascular origin; Translations: [Pulsatile tinnitus, unspecified ear] 10-31-2023 Episodic Other ear and sense organ disorders (14 sources) Tinnitus; Translations: [Pulsatile tinnitus, unspecified ear] Episodic Other ear and sense organ disorders (1 source) Pulsatile tinnitus, unspecified ear Episodic Other eye disorders (20 sources) Nystagmus; Translations: [Unspecified nystagmus] 10-31-2023 Chronic Other eye disorders (1 source) Unspecified nystagmus Chronic Other eye disorders (10 sources) Nystagmus present; Translations: [Unspecified nystagmus] 10-31-2023 Chronic Other liver diseases (20 sources) Steatosis of liver; Translations: [Fatty (change of) liver, not elsewhere classified] 12-30-2024 Chronic Other liver diseases (3 sources) Fatty (change of) liver, not elsewhere classified; Translations: [Other chronic nonalcoholic liver disease] Onset: 03-26-2025 12-30-2024 Chronic Other liver diseases (13 sources) Alkaline phosphatase raised; Translations: [Abnormal levels of other serum enzymes] 10-16-2024 Episodic Other liver diseases (7 sources) Abnormal levels of other serum enzymes; Translations: [Other nonspecific abnormal serum enzyme levels] 10-14-2024 Episodic Other nervous system disorders (8 sources) Carpal tunnel syndrome; Translations: [Carpal tunnel syndrome, bilateral upper limbs] 08-05-2024 Chronic Other nervous system disorders (9 sources) Carpal tunnel syndrome, bilateral upper limbs; Translations: [Carpal tunnel syndrome] Onset: 08-20-2024 08-05-2024 Chronic Other nervous system disorders (7 sources) Bilateral carpal tunnel syndrome; Translations: [Carpal tunnel syndrome, bilateral upper limbs] 08-05-2024 Chronic Other nutritional; endocrine; and metabolic disorders (20 sources) Obesity; Translations: [Obesity, unspecified] 10-31-2023 Chronic Other nutritional; endocrine; and metabolic disorders (11 sources) Obesity, unspecified; Translations: [Obesity, unspecified] Chronic Other nutritional; endocrine; and metabolic disorders (20 sources) Obese class I; Translations: [Obesity, unspecified] 12-11-2023 Chronic Other nutritional; endocrine; and metabolic disorders (15 sources) Body mass index 30+ - obesity; Translations: [Body mass index (BMI) 30.0-30.9, adult] 02-16-2025 Chronic Other nutritional; endocrine; and metabolic disorders (1 source) Body mass index (BMI) 30.0-30.9, adult; Translations: [Body Mass Index 30.0-30.9, adult] 02-16-2025 Chronic Other nutritional; endocrine; and metabolic disorders (14 sources) Weight gain; Translations: [Abnormal weight gain] Episodic Other nutritional; endocrine; and metabolic disorders (2 sources) Abnormal weight gain; Translations: [Abnormal weight gain] Episodic Other nutritional; endocrine; and metabolic disorders (15 sources) Abnormal weight gain; Translations: [Abnormal weight gain] 02-16-2025 Episodic Other screening for suspected conditions (not mental disorders or infectious disease) (20 sources) Encounter for screening for malignant neoplasm of cervix; Translations: [Encounter for screening for Streptococcus B] Onset: 12-13-2021 Episodic Other skin disorders (10 sources) Acne; Translations: [Acne, unspecified] 11-13-2024 Episodic Other skin disorders (2 sources) Acne, unspecified; Translations: [Other acne] 11-12-2024 Episodic Other upper respiratory disease (20 sources) Seasonal allergy; Translations: [Other seasonal allergic rhinitis] 10-31-2023 Chronic Other upper respiratory disease (4 sources) Other seasonal allergic rhinitis; Translations: [Allergic rhinitis, cause unspecified] Chronic Other upper respiratory infections (20 sources) Chronic sinusitis, unspecified; Translations: [Rhinosinusitis] Chronic Other upper respiratory infections (5 sources) Acute upper respiratory infection, unspecified; Translations: [Acute upper respiratory infections of unspecified site] 09-16-2024 Episodic Otitis media and related conditions (3 sources) Otitis media, unspecified, unspecified ear; Translations: [Unspecified otitis media] 10-31-2023 Episodic Residual codes; unclassified (2 sources) Acquired absence of other specified parts of digestive tract; Translations: [Other acquired absence of organ] Onset: 11-28-2022 02-16-2025 Episodic Skin and subcutaneous tissue infections (20 sources) Cellulitis of left thigh; Translations: [Cellulitis of left lower limb] 04-23-2021 Episodic Spondylosis; intervertebral disc disorders; other back problems (1 source) Neck pain; Translations: [Cervicalgia] 07-17-2023 Episodic Thyroid disorders (20 sources) Thyrotoxicosis with diffuse goiter without thyrotoxic crisis or storm; Translations: [Autoimmune thyroiditis] Onset: 12-06-2021 Chronic Unclassified (3 sources) CONTACT W/AND (SUSP) EXPOS COVID-19; Translations: [CONTACT W/AND (SUSP) EXPOS COVID-19] Onset: 01-04-2022 Unclassified (2 sources) D18.03 - Hemangioma of intra-abdominal structures,R10.11 - Right upper quadrant pain,K76.0 - Fatty (change of) liver, not elsewhere classified,R74.8 - Abnormal levels of other serum enzymes Urinary tract infections (20 sources) Urinary tract infectious disease; Translations: [Urinary tract infection, site not specified] 08-26-2017 Episodic Viral infection (1 source) COVID-19; Translations: [COVID-19] Onset: 04-21-2022 Past or Other Problems Problem Classification Problem Date Documented Date Episodic/Chronic E Codes: Natural/environment (1 source) Overexertion from prolonged static or awkward postures, initial encounter; Translations: [OVEREXERT PROLNG STAT/AWK PST INIT] Onset: 02-07-2022 Episodic Early or threatened labor (1 source) False labor before 37 completed weeks of gestation, unspecified trimester; Translations: [FALSE LABR BEFOR 37 WK GEST UNS TRI] Onset: 12-06-2021 Episodic Headache; including migraine (1 source) Headache; including migraine Immunizations and screening for infectious disease (6 sources) Encounter for screening for human papillomavirus (HPV); Translations: [Anti-nuclear factor positive] Onset: 10-24-2017 10-24-2017 Episodic Mood disorders (1 source) Mood disorders OB-related trauma to perineum and vulva (1 source) First degree perineal laceration during delivery; Translations: [FIRST DEG PERINEAL LAC DUR DELIV] Onset: 01-04-2022 Episodic Other aftercare (1 source) exterminator (current) use of aspirin; Translations: [PENITENTIARY CURRENT USE OF ASPIRIN] Onset: 01-04-2022 Episodic Other aftercare (5 sources) Drug therapy finding; Translations: [Other terminal operations supervisor (current) drug therapy] Onset: 10-24-2017 10-24-2017 Episodic Other aftercare (1 source) Drug therapy status; Translations: [Encounter for terminal operations supervisor current use of azathioprine] Onset: 01-09-2018 01-09-2018 Episodic Other aftercare (2 sources) Long-term current use of drug therapy; Translations: [Encounter for terminal operations supervisor current use of azathioprine] Onset: 01-09-2018 01-09-2018 Episodic Other aftercare (2 sources) Long-term current use of azathioprine; Translations: [Encounter for care home current use of azathioprine] Onset: 01-09-2018 01-09-2018 Episodic Other complications of ; puerperium affecting management of mother (3 sources) Endocrine, nutritional and metabolic diseases complicating childbirth; Translations: [ENDOCRN NUTR MET DZ COMP CHILDBIRTH] Onset: 12-27-2021 Episodic Other complications of (1 source) Other mental disorders complicating the puerperium; Translations: [OTH MENTAL D/O COMP PUERPERIUM] Onset: 01-02-2022 Episodic Other complications of (4 sources) Endocrine, nutritional and metabolic diseases complicating , third trimester; Translations: [ENDOCRN NUTR MET DZ COMP PG 3RD TRI] Onset: 12-27-2021 Episodic Other connective tissue disease (5 sources) Bilateral cramp of muscle of lower limbs; Translations: [Cramp and spasm] Onset: 10-24-2017 10-24-2017 Episodic Other connective tissue disease (5 sources) Pain of bilateral hands; Translations: [Pain in right hand] Onset: 10-24-2017 10-24-2017 Episodic Other non-traumatic joint disorders (3 sources) Pain in left ankle and joints of left foot; Translations: [PAIN IN LEFT ANKLE] Onset: 02-05-2022 Episodic Other non-traumatic joint disorders (5 sources) Hip pain; Translations: [Pain in right hip] Onset: 10-24-2017 10-24-2017 Episodic Other non-traumatic joint disorders (5 sources) Pain in right knee; Translations: [Pain in joint, lower leg] Onset: 10-24-2017 10-24-2017 Episodic Other non-traumatic joint disorders (5 sources) Multiple stiff joints; Translations: [Stiffness of unspecified joint, not elsewhere classified] Onset: 05-07-2018 05-07-2018 Episodic Other and delivery including normal (1 source) Single live ; Translations: [SINGLE LIVE ] Onset: 01-04-2022 Episodic Residual codes; unclassified (1 source) 38 weeks gestation of ; Translations: [38 WEEKS GESTATION OF ] Onset: 01-04-2022 Episodic Residual codes; unclassified (1 source) 37 weeks gestation of ; Translations: [37 WEEKS GESTATION OF ] Onset: 12-23-2021 Episodic Residual codes; unclassified (1 source) 36 weeks gestation of ; Translations: [36 WEEKS GESTATION OF ] Onset: 12-14-2021 Episodic Residual codes; unclassified (1 source) 35 weeks gestation of ; Translations: [35 WEEKS GESTATION OF ] Onset: 12-08-2021 Episodic Residual codes; unclassified (1 source) 34 weeks gestation of ; Translations: [34 WEEKS GESTATION OF ] Onset: 12-06-2021 Episodic Screening and history of mental health and substance abuse codes (1 source) Personal history of nicotine dependence; Translations: [PERSONAL HISTORY OF NICOTINE DEPEND] Onset: 03-27-2022 Episodic Sprains and strains (1 source) Unspecified sprain of left foot, initial encounter; Translations: [UNSPECIFIED SPRAIN LT FOOT INITIAL] Onset: 02-07-2022 Episodic Suicide and intentional self-inflicted injury (4 sources) Suicidal ideations; Translations: [SUICIDAL IDEATIONS] Onset: 12-31-2021 Episodic Thyroid disorders (1 source) Disorder of thyroid, unspecified; Translations: [DISORDER OF THYROID UNSPECIFIED] Onset: 03-27-2022 Episodic Unclassified (1 source) CONTACT W/AND (SUSP) EXPOS COVID-19; Translations: [CONTACT W/AND (SUSP) EXPOS COVID-19] Onset: 04-19-2022 Results Test Name Value Interpretation Reference Range Facility MR abdomen wo/w conon 2024 MR abdomen wo/w con [facility] [place] [address] [place] [address] MRI Report Signed Patient: Jerry Cox MR#: [id number] : 1995 Acct:[id number] Age/Sex: 29 / F ADM Date: 04/14/25 Loc: Room: Type: [facility] Attending Dr: Darrius Moreno MD Copies to: Darrius Moreno MD Ordering Provider: Darrius Moreno MD Date of Service: 04/14/25 MR/MR abdomen wo/w con: R10.9, R10.11, R76.0 MRI OF THE ABDOMEN WITH AND WITHOUT CONTRAST: CLINICAL HISTORY: Right upper quadrant pain, hemangioma COMPARISON: CT abdomen pelvis 12/29/2024 TECHNIQUE: Multisequence, multiplanar imaging of the abdomen was obtained before and after the use of IV contrast. FINDINGS: Within the left hepatic lobe there is a 9 x 9 x 9 mm enhancing mass identified suspicious for flash filling hemangioma. Mild fatty infiltration. No additional liver lesions identified. No evidence of intrahepatic or extrahepatic biliary ductal dilatation. Adrenals, spleen, pancreas unremarkable. Kidneys symmetric in size without hydronephrosis. No perihepatic fluid or ascites. MR/MR abdomen wo/w con IMPRESSION: 9 mm enhancing mass left hepatic lobe likely a flash fill hemangioma. This can be followed. Impression dictated by: Edmond Najera M.D. 04/14/2025 11:08 PM Dictation Location: [place] [address] Transcribed By: [facility] 04/14/252307 Dictated By: Edmond Najera MD 04/14/252301 Signed By: 04/14/252307 Normal [facility] Magnetic resonance imaging r eportOrdered By: Edmond Najera on 04-14-2025 Study report [facility] [address] [place] [address] [place] [id number] MRI Report Signed Patient: Jerry Cox MR#: [id number] : 1995 Acct:[id number] Age/Sex: 29 / F ADM Date: 5 Loc: MR Room: [facility] Attending Dr: Darrius Moreno MD Copies to: Darrius Moreno MD~ Ordering Provider: Darrius Moreno MD Date of Service: 04/14/25 MR/MR abdomen wo/w con: R10.9, R10.11, R76.0 MRI OF THE ABDOMEN WITH AND WITHOUT CONTRAST: CLINICAL HISTORY: Right upper quadrant pain, hemangioma COMPARISON: CT abdomen pelvis 12/29/2024 TECHNIQUE: Multisequence, multiplanar imaging of the abdomen was obtained beforeand after the use of IV contrast. FINDINGS: Within the left hepatic lobe there is a 9 x 9 x 9 mm enhancing mass identified suspicious for flash filling hemangioma. Mild fatty infiltration. No additional liver lesions identified. No evidence of intrahepatic or extrahepatic biliary ductal dilatation. Adrenals, spleen, pancreas unremarkable. Kidneys symmetric in size without hydronephrosis. No perihepatic fluid or ascites. MR/MR abdomen wo/w con IMPRESSION: 9 mm enhancing mass left hepatic lobe likely a flash fill hemangioma. This can be followed. Impression dictated by: Edmond Najera M.D. 04/14/2025 11:08 PM Dictation Location: [place] [address] Transcribed By: [facility] 04/14/252307 Dictated By: Edmond Najera MD 04/14/252301 Signed By: 04/14/252307 [facility] Work Phone: HCG,Urineon 04-02-2025 Beta HCG ( test) Ql (U) Negative Normal [facility] Comment on above: Result Comment: PERF ORMED BY: [place] [id number] PATHOLOGIST BEAD MACHINE OPERATOR LUCHO MARSHALL M.D. Performed By: #### U HCG #### [address] Pathology Request for Lab Co rpon 04-02-2025 Pathology Request for Lab Ab Normal [facility] Comment on above: Order Comment: CLEMENTINA PETERSEN Result Comment: See report. Scanned copy available in EMR. PERFORMED BY: [place] [address] PATHOLOGIST BEAD MACHINE OPERATOR LUCHO MARSHALL M.D. Performed By: #### P ATH TO [facility] #### [address] Prothrombin Time INRon 03-26 INR Coag (PPP) [Relative time] 1.1 {INR} Normal [facility] Comment on above: Result Comment: INR Therapeutic Range A) Pre- and Peroperative OAT started two weeks before surgery. NOT HIP SURGERY: 1.5 - 2.5 HIP SURGERY: 2 - 3 B) Primary and secondary prevention of venous THROMBOSIS: 2 - 3 C) Active venous thrombosis, pulmonary embolism and prevention of recurrent venous thrombosis: 2 - 3 D) Prevention of arterial thromboembolism including patients with mechanical heart valves: 3 - 4.5 PERFORMED BY: [place] [address] PATHOLOGIST BEAD MACHINE OPERATOR LUCHO MARSHALL M.D. Performed By: #### P T #### [address] PT Coag (PPP) [Time] 12.5 s Normal 9.0-12.9 [facility] Comment on above: Result Comment: A he matocrit value greater than 55% may lead to inaccurate results in coagulation testing. Patients having hematocrit values >55% require a special collection tube for coagulation studies. Please contact the laboratory at [phone] for redraw instructions. Performed By: #### P T #### [address] Alanine aminotransferase [En zymatic activity/volume] in Serum or PlasmaOrdered By: Imad Asaad on 03-09-2025 ALT [Catalytic activity/Vol] 11 U/L 7-52 [facility] Comment on above: Performed By: #### H EPATIC, BMP, LIPASE, CBC #### [address] Albumin [Mass/volume] in Ser um or Plasma by Bromocresol green (BCG) dye binding methoOrdered By: Imad Asaad on 03-09-2025 Albumin BCG dye [Mass/Vol] 4.3 g/dL 3.5-5.7 [facility] Alkaline phosphatase [Enzyma tic activity/volume] in Serum or PlasmaOrdered By: Imad Asaad on 03-09-2025 ALP [Catalytic activity/Vol] 96 U/L 34-104 [facility] Comment on above: Result Comment: PERF ORMED BY: [place] [address] PATHOLOGIST BEAD MACHINE OPERATOR LUCHO MARSHALL M.D. Performed By: #### H EPATIC, BMP, LIPASE, CBC #### [address] Aspartate aminotransferase [ Enzymatic activity/volume] in Serum or PlasmaOrdered By: Imad Asaad on 03-09-2025 AST [Catalytic activity/Vol] 13 U/L 13-39 [facility] Comment on above: Performed By: #### H EPATIC, BMP, LIPASE, CBC #### [address] Basophils [#/volume] in Bloo d by Automated countOrdered By: Imad Asaad on 03-09-2025 Basophils (Bld) [#/Vol] 0.1 10*3/uL 0.0-0.2 [facility] Comment on above: Result Comment: PERF ORMED BY: [place] [address] PATHOLOGIST BEAD MACHINE OPERATOR LUCHO MARSHALL M.D. Performed By: #### H BCAB, HCV RX PCR, HAABT, HBSAG, HBSAB, ELF #### [facility] , #### CBC, CMP #### [facility] [address] [place] [address] [place] Basophils/100 leukocytes in Blood by Automated countOrdered By: Imad Asaad on 03-09-2025 Basophils/100 WBC (Bld) 0.9 % . [facility] Comment on above: Performed By: #### H BCAB, HCV RX PCR, HAABT, HBSAG, HBSAB, ELF #### [facility] , #### CBC, CMP #### [facility] [address] Bilirubin.total [Mass/volume ] in Serum or PlasmaOrdered By: Imad Asaad on 03-09-2025 Bilirubin [Mass/Vol] 0.5 mg/dL 0.3-1.0 [facility] Comment on above: Performed By: #### H EPATIC, BMP, LIPASE, CBC #### [address] Calcium [Mass/volume] in Ser um or PlasmaOrdered By: Imad Asaad on 03-09-2025 Calcium [Mass/Vol] 8.8 mg/dL 8.6-10.3 [facility] Comment on above: Performed By: #### H EPATIC, BMP, LIPASE, CBC #### [facility] [address] [place] [address] Carbon dioxide, total [Moles /volume] in Serum or PlasmaOrdered By: Imad Asaad on 03-09-2025 CO2 [Moles/Vol] 26.8 mmol/L 21.0-31.0 [facility] Comment on above: Performed By: #### H EPATIC, BMP, LIPASE, CBC #### [facility] [address] [place] [address] [place] Chloride [Moles/volume] in [place] or PlasmaOrdered By: Imad Asaad on 03-09-2025 Chloride [Moles/Vol] 106 mmol/L 98-107 [facility] Comment on above: Performed By: #### H EPATIC, BMP, LIPASE, CBC #### [facility] [address] [place] [address] Complete Blood Count Auto Di ffon 03-09-2025 Mean Corpuscular HGB Conc 33.3 g/dL Normal 32.0-35.0 [facility] Comment on above: Performed By: #### H BCAB, HCV RX PCR, HAABT, HBSAG, HBSAB, ELF #### [facility] , #### CBC, CMP #### [address] NRBC% 0.2 /100{WBC} Normal 0-0.5 [facility] Comment on above: Performed By: #### H BCAB, HCV RX PCR, HAABT, HBSAG, HBSAB, ELF #### [facility] , #### CBC, CMP #### [address] White Blood Count 6.6 [CFU]/mL Normal 3.8-11.6 [facility] Comment on above: Performed By: #### H BCAB, HCV RX PCR, HAABT, HBSAG, HBSAB, ELF #### [facility] , #### CBC, CMP #### [address] Comprehensive Metabolic Pane raffi 03-09-2025 Albumin [Mass/Vol] 4.3 g/dL Normal 3.5-5.7 [facility] Comment on above: Performed By: #### H EPATIC, BMP, LIPASE, CBC #### [address] GFR/1.73 sq M.predicted MDRD (S/P/Bld) [Vol rate/Area] mL/min/{1.73_m2} Normal [facility] Comment on above: Performed By: #### H EPATIC, BMP, LIPASE, CBC #### [address] Creatinine [Mass/volume] in Serum or PlasmaOrdered By: Darrius Moreno on 03-09-2025 Creatinine [Mass/Vol] 0.71 mg/dL 0.60-1.20 [facility] Comment on above: Performed By: #### H EPATIC, BMP, LIPASE, CBC #### [address] Enhanced Liver Fibrosis Test on 03-09-2025 Enhanced Liver Fibrosis Score 8.40 Normal <9.80 [facility] Comment on above: Result Comment: ELF( TM) Score Interpretation: Risk cut-offs to assess the likelihood of progression to cirrhosis and liver-related clinical events within 3.9 years following baseline ELF score (IQR: 14.0-22.4 months)*: Lower risk < 9.80 Mid risk 9.80 - 11.29 Higher risk >11.29 Note: The ELF(TM) Score is a unitless numerical value. *Soto SA, Bharath MARES, Dee T, et al. Selonsertib for patients with bridging fibrosis or compensated cirrhosis due to RAYO: Results from randomized phase III STELLAR trials. J Hepatol. 2020 Mar;73(1):26-39. Performed at: [facility] [id number] Chief Lock Operator: Sabina Avendano MD, Phone: [phone] PERFORMED BY: [place] [address] PATHOLOGIST BEAD MACHINE OPERATOR LUCHO MARSHALL M.D. Performed By: #### H EPATIC, BMP, LIPASE, CBC #### [address] Eosinophils [#/volume] in Bl ood by Automated countOrdered By: Imad Asaad on 03-09-2025 Eosinophils (Bld) [#/Vol] 0.1 10*3/uL 0.0-0.45 [facility] Comment on above: Performed By: #### H BCAB, HCV RX PCR, HAABT, HBSAG, HBSAB, ELF #### [facility] , #### CBC, CMP #### [place] [address] [place] Eosinophils/100 leukocytes i n Blood by Automated countOrdered By: Imad Asaad on 03-09-2025 Eosinophils/100 WBC (Bld) 1.1 % . [facility] Comment on above: Performed By: #### H BCAB, HCV RX PCR, HAABT, HBSAG, HBSAB, ELF #### [facility] , #### CBC, CMP #### [facility] [address] [place] [address] Erythrocyte distribution wid th [Ratio] by Automated countOrdered By: Imad Danoad on 03-09-2025 Erythrocyte distribution width (RBC) [Ratio] 13.3 % 11.9-15.3 [facility] Comment on above: Performed By: #### H BCAB, HCV RX PCR, HAABT, HBSAG, HBSAB, ELF #### [facility] , #### CBC, CMP #### [facility] [address] [place] [address] Erythrocytes [#/volume] in B lood by Automated countOrdered By: Imad Danoad on 03-09-2025 RBC (Bld) [#/Vol] 4.72 10*6/uL 3.60-5.00 [facility] Comment on above: Performed By: #### H BCAB, HCV RX PCR, HAABT, HBSAG, HBSAB, ELF #### [facility] , #### CBC, CMP #### [address] Glucose [Mass/volume] in Ser um or PlasmaOrdered By: Imad Asaad on 03-09-2025 Glucose [Mass/Vol] 80 mg/dL 70-100 [facility] Comment on above: ADA recommended refe rence rangeRandom Glucose Reference Range is dependent on time and content of last meal. Glucose of more than 200 mg/dL in a nonstressed, ambulatory subject supports the diagnosis of Diabetes Mellitus. Result Comment: [place] Glucose Reference Range is dependent on time and content of last meal. Glucose of more than 200 mg/dL in a nonstressed, ambulatory subject supports the diagnosis of Diabetes Mellitus. ADA recommended reference range Performed By: #### H EPATIC, BMP, LIPASE, CBC #### [address] Hematocrit [Volume Fraction] of Blood by Automated countOrdered By: Darrius Moreno on 03-09-2025 Hematocrit (Bld) [Volume fraction] 39.6 % 34.0-46.4 [facility] Comment on above: Performed By: #### H BCAB, HCV RX PCR, HAABT, HBSAG, HBSAB, ELF #### [facility] , #### CBC, CMP #### [address] Hemoglobin [Mass/volume] in BloodOrdered By: Imad Danoad on 03-09-2025 Hemoglobin (Bld) [Mass/Vol] 13.2 g/dL 11.8-15.4 [facility] Comment on above: Performed By: #### H BCAB, HCV RX PCR, HAABT, HBSAG, HBSAB, ELF #### [facility] , #### CBC, CMP #### [address] Hep C Ab wRfx to Qnt PCRon 0 03-09-2025 Hepatitis C Virus Antibody Non-Reactive Normal Non Reactive [facility] Comment on above: Performed By: #### H EPATIC, BMP, LIPASE, CBC #### [address] Interpretation Hepatitis C Comment Normal . [facility] Comment on above: Result Comment: Not infected with HCV unless early or acute infection is suspected (which may be delayed in an immunocompromised individual), or other evidence exists to indicate HCV infection. Performed By: #### H EPATIC, BMP, LIPASE, CBC #### [address] Hepatitis A Antibody Totalon 03-09-2025 Hepatitis A Antibody Total Negative Normal Negative [facility] Comment on above: Result Comment: Comm ent: The HAV total antibody assay detects both IgG and IgM but does not differentiate between them. A negative result suggests susceptibility to infection. A positive result could be due to vaccination, previously resolved infection or active infection. Testing for HAV IgM should be performed if active HAV infection is suspected. [facility] offers profiles that will automatically reflex positive HAV total antibody results to IgM (e.g., panel #[id number] HAV Antibody w/ Rfx). Performed at: [facility] [address] [place], [place] [id number] Chief Lock Operator: Chris Perdomo PhD, Phone: [phone] Performed By: #### H EPATIC, BMP, LIPASE, CBC #### [facility] [address] Hepatitis A virus Ab [Presen ce] in Serum by ImmunoassayOrdered By: Darrius Moreno on 03-09-2025 HAV Ab IA Ql (S) Negative Negative [facility] Comment on above: Comment: The HAV tot al antibody assay detects both IgG andIgM but does not differentiate between them. A negativeresult suggests susceptibility to infection. A positiveresult could be due to vaccination, previously resolvedinfection or active infection. Testing for HAV IgM shouldbe performed if active HAV infection is suspected. [facility] profiles that will automatically reflex positive HAVtotal antibody results to IgM (e.g., panel #[id number] HAVAntibody w/ Rfx).Performed at: [facility] [employer] [id number] [place], [place] [id number] Director: Chris Perdomo PhD, Phone: [phone] Hepatitis B Core Antibodyon 03-09-2025 Hepatitis B Core Antibody Negative Normal Negative [facility] Comment on above: Performed By: #### H EPATIC, BMP, LIPASE, CBC #### [facility] [address] Hepatitis B Surface Antibody on 03-09-2025 Hepatitis B Surface Antibody Reactive Normal . [facility] Comment on above: Result Comment: Non Reactive: Not immune to HBV infection. Equivocal: Unable to determine if anti-HBs is present at levels consistent with immunity. Reactive: Anti-HBs concentration detected at greater than 10 mIU/mL. Individual is considered to be immune to infection with HBV. Performed By: #### H EPATIC, BMP, LIPASE, CBC #### [facility] [address] [place] [id number] [facility] Hepatitis B Surface Antigeno n 03-09-2025 HBsAg Screen Negative Normal Negative [facility] Comment on above: Result Comment: PERF ORMED BY: [address] [place] [address] PATHOLOGIST BEAD MACHINE OPERATOR LUCHO MARSHALL M.D. Performed By: #### H EPATIC, BMP, LIPASE, CBC #### [facility] [address] Hepatitis C virus IgG Ab [Pr esence] in Serum or Plasma by ImmunoassayOrdered By: Imad Danoad on 03-09-2025 HCV IgG IA Ql Non-Reactive Non Reactive [facility] Hepatitis C virus RNA [Units /volume] (viral load) in Serum or Plasma by MARITZA with probOrdered By: Imad Josh on 03-09-2025 HCV RNA MARITZA+probe Qn Not detected . [facility] Comment on above: No evidence of activ e HCV infection. Leukocytes [#/volume] correc rosa m for nucleated erythrocytes in Blood by Automated counOrdered By: Imad Danoad on 03-09-2025 WBC corrected for nucl RBC Auto (Bld) [#/Vol] 6.6 10*3/uL 3.8-11.6 [facility] Leukocytes [#/volume] in Blo od by Automated countOrdered By: Imad Danoad on 03-09-2025 WBC (Bld) [#/Vol] 6.6 10*3/uL 3.8-11.6 [facility] Comment on above: Performed By: #### H BCAB, HCV RX PCR, HAABT, HBSAG, HBSAB, ELF #### [facility] , #### CBC, CMP #### [facility] [address] [place] [id number] [place] Lymphocytes [#/volume] in Bl ood by Automated countOrdered By: Imad Danoad on 03-09-2025 Lymphocytes (Bld) [#/Vol] 2.1 10*3/uL 1.00-4.8 [facility] Comment on above: Performed By: #### H BCAB, HCV RX PCR, HAABT, HBSAG, HBSAB, ELF #### [facility] , #### CBC, CMP #### [place] [address] [place] Lymphocytes/100 leukocytes i n Blood by Automated countOrdered By: Imad Asaad on 03-09-2025 Lymphocytes/100 WBC (Bld) 32.1 % . [facility] Comment on above: Performed By: #### H BCAB, HCV RX PCR, HAABT, HBSAG, HBSAB, ELF #### [facility] , #### CBC, CMP #### [address] MCH [Entitic mass] by Automa rosa m countOrdered By: Imad Asaad on 03-09-2025 MCH (RBC) [Entitic mass] 27.9 pg 24.7-34.3 [facility] Comment on above: Performed By: #### H BCAB, HCV RX PCR, HAABT, HBSAG, HBSAB, ELF #### [facility] , #### CBC, CMP #### [address] MCHC Auto (RBC) [Mass/Vol]Or dered By: Imad Asaad on 03-09-2025 MCHC (RBC) [Mass/Vol] 33.3 g/dL 32.0-35.0 [facility] MCV [Entitic volume] by Auto mated countOrdered By: Imad Asaad on 03-09-2025 MCV (RBC) [Entitic vol] 84.0 fL 80-[facility] Comment on above: Performed By: #### H BCAB, HCV RX PCR, HAABT, HBSAG, HBSAB, ELF #### [facility] , #### CBC, CMP #### [address] Monocytes [#/volume] in Bloo d by Automated countOrdered By: Imad Asaad on 03-09-2025 Monocytes (Bld) [#/Vol] 0.4 10*3/uL 0.0-0.8 [facility] Comment on above: Performed By: #### H BCAB, HCV RX PCR, HAABT, HBSAG, HBSAB, ELF #### [facility] , #### CBC, CMP #### [facility] [address] [place] [address] [place] Monocytes/100 leukocytes in Blood by Automated countOrdered By: Imad Asaad on 03-09-2025 Monocytes/100 WBC (Bld) 6.4 % . [facility] Comment on above: Performed By: #### H BCAB, HCV RX PCR, HAABT, HBSAG, HBSAB, ELF #### [facility] , #### CBC, CMP #### [facility] [address] [place] [address] [place] Neutrophils [#/volume] in Bl ood by Automated countOrdered By: Imad Asaad on 03-09-2025 Neutrophils (Bld) [#/Vol] 3.9 10*3/uL 1.8-7.7 [facility] Comment on above: Performed By: #### H BCAB, HCV RX PCR, HAABT, HBSAG, HBSAB, ELF #### [facility] , #### CBC, CMP #### [facility] [address] [place] [address] [place] Neutrophils/100 leukocytes i n Blood by Automated countOrdered By: Imad Asaad on 03-09-2025 Neutrophils/100 WBC (Bld) 59.5 % . [facility] Comment on above: Performed By: #### H BCAB, HCV RX PCR, HAABT, HBSAG, HBSAB, ELF #### [facility] , #### CBC, CMP #### [facility] [address] [place] [address] No Panel InformationOrdered By: Imad Asaad on 03-09-2025 Estimated GFR (CKD-EPI) > 60.0 mL/Min [facility] Hepatitis C Interpretation Comment . [facility] Comment on above: Not infected with HC V unless early or acute infection issuspected (which may be delayed in an immunocompromisedindividual), or other evidence exists to indicate HCVinfection. Hepatitis Comment Comment . [facility] Comment on above: The quantitative ran ge of this assay is 15 IU/mL to 100million IU/mL.Performed at: - [address] [id number] Director: Sabina Avendano MD, Phone: [phone] Pharmacy Creatinine Clearance (Chem N/A [facility] Nucleated erythrocytes [Pres ence] in Blood by Automated countOrdered By: Imad Asaad on 03-09-2025 Nucleated RBC Auto Ql (Bld) 0.2 /100{WBC} 0-0.5 [facility] Platelet mean volume [Entiti c volume] in Blood by Automated countOrdered By: Imad Asaad on 03-09-2025 Platelet mean volume (Bld) [Entitic vol] 8.3 fL 6.3-10.7 [facility] Comment on above: Performed By: #### H BCAB, HCV RX PCR, HAABT, HBSAG, HBSAB, ELF #### [facility] , #### CBC, CMP #### [facility] [address] [place] [address] [place] Platelets [#/volume] in Bloo d by Automated countOrdered By: Imad Asaad on 03-09-2025 Platelets (Bld) [#/Vol] 311 10*3/uL 150-450 [facility] Comment on above: Performed By: #### H BCAB, HCV RX PCR, HAABT, HBSAG, HBSAB, ELF #### [facility] , #### CBC, CMP #### [facility] [address] [place] [address] [place] Potassium [Moles/volume] in Serum or PlasmaOrdered By: Imad Asaad on 03-09-2025 Potassium [Moles/Vol] 4.2 mmol/L 3.5-5.1 [facility] Comment on above: Performed By: #### H EPATIC, BMP, LIPASE, CBC #### [facility] [address] Protein [Mass/volume] in Ser um or PlasmaOrdered By: Imad Asaad on 03-09-2025 Protein [Mass/Vol] 6.8 g/dL 6.4-8.9 [facility] Comment on above: Performed By: #### H EPATIC, BMP, LIPASE, CBC #### [facility] [address] Serum globulin measurement b y calculation (mass/volume)Ordered By: Imad Asaad on 03-09-2025 Globulin (S) [Mass/Vol] 2.5 g/dL [facility] Comment on above: Performed By: #### H EPATIC, BMP, LIPASE, CBC #### [facility] [address] Serum hepatitis B virus surf michele antibody detectionOrdered By: Imad Asaad on 03-09-2025 HBV surface Ab Ql (S) Reactive . [facility] Comment on above: Non Reactive: Not im mune to HBV infection. Equivocal: Unable to determine if anti-HBs is present at levels consistent with immunity. Reactive: Anti-HBs concentration detected at greater than 10 mIU/mL. Individual is considered to be immune to infection with HBV. Serum or plasma albumin/glob ulin mass ratioOrdered By: Imad Asaad on 03-09-2025 Albumin/Globulin [Mass ratio] 1.7 {ratio} [facility] Comment on above: Performed By: #### H EPATIC, BMP, LIPASE, CBC #### [facility] [address] Serum or plasma anion gap de terminationOrdered By: Imad Asaad on 03-09-2025 Anion gap [Moles/Vol] 9.4 mmol/L 6.0-15.0 [facility] Comment on above: Performed By: #### H EPATIC, BMP, LIPASE, CBC #### [address] Serum or plasma hepatitis B virus surface antigen detection by immunoassayOrdered By: Imad Asaad on 03-09-2025 HBV surface Ag IA Ql Negative Negative [facility] Sodium [Moles/volume] in Ser um or PlasmaOrdered By: Imad Asaad on 03-09-2025 Sodium [Moles/Vol] 138 mmol/L 136-145 [facility] Comment on above: Performed By: #### H EPATIC, BMP, LIPASE, CBC #### [facility] [address] Urea nitrogen [Mass/volume] in Serum or PlasmaOrdered By: Imad Asaad on 03-09-2025 Urea nitrogen [Mass/Vol] 9 mg/dL 04-03 [facility] Comment on above: Performed By: #### H EPATIC, BMP, LIPASE, CBC #### [facility] [address] Alanine aminotransferase [En zymatic activity/volume] in Serum or PlasmaOrdered By: PROVIDER TEMP on 12-29-2024 ALT [Catalytic activity/Vol] Alanine aminotransferase [Enzymatic activity/volume] in Serum or Plasma [facility] ALT [Catalytic activity/Vol] 13 U/L Normal [facility] Comment on above: Performed By: #### H EPATIC, BMP, LIPASE, CBC #### [facility] [address] [place] [address] Albumin [Mass/volume] in Ser um or Plasma by Bromocresol green (BCG) dye binding methoOrdered By: PROVIDER TEMP on 12-29-2024 Albumin BCG dye [Mass/Vol] Albumin [Mass/volume] in Serum or Plasma by Bromocresol green (BCG) dye binding metho 3.5-5.7 [facility] Albumin BCG dye [Mass/Vol] 4.0 g/dL 3.5-5.7 [facility] Alkaline phosphatase [Enzyma tic activity/volume] in Serum or PlasmaOrdered By: PROVIDER TEMP on 12-29-2024 ALP [Catalytic activity/Vol] Alkaline phosphatase [Enzymatic activity/volume] in Serum or Plasma High 34-104 [facility] ALP [Catalytic activity/Vol] 115 U/L High 34-104 [facility] Comment on above: Performed By: #### H EPATIC, BMP, LIPASE, CBC #### [facility] [address] Appearance of UrineOrdered B y: Annita Herrera on 12-29-2024 Appearance (U) Urine appearance Clear [facility] Appearance (U) Clear Normal Clear [facility] Comment on above: Order Comment: Name Collection Type:: Clean-Voided Midstream Performed By: #### H EPATIC, BMP, LIPASE, CBC #### [place] [address] [place] Aspartate aminotransferase [ Enzymatic activity/volume] in Serum or PlasmaOrdered By: PROVIDER TEMP on 12-29-2024 AST [Catalytic activity/Vol] Aspartate aminotransferase [Enzymatic activity/volume] in Serum or Plasma [facility] AST [Catalytic activity/Vol] 13 U/L Normal [facility] Comment on above: Performed By: #### H EPATIC, BMP, LIPASE, CBC #### [address] Bacteria [Presence] in Urine by AutomatedOrdered By: Annita Herrera on 12-29-2024 Bacteria Auto Ql (U) Bacteria [Presence] in Urine by Automated None Seen [facility] Bacteria Auto Ql (U) Rare [HPF] None Seen [facility] Basic Metabolic Panelon 12-10 Creatinine Clr Calc Pharmacy 135.69 Normal [facility] Comment on above: Performed By: #### H EPATIC, BMP, LIPASE, CBC #### [place] [address] [place] GFR/1.73 sq M.predicted MDRD (S/P/Bld) [Vol rate/Area] mL/min/{1.73_m2} Normal [facility] Comment on above: Performed By: #### H EPATIC, BMP, LIPASE, CBC #### [place] [address] [place] Basophils Auto (Bld) [#/Vol] Ordered By: PROVIDER TEMP on 12-29-2024 Basophils (Bld) [#/Vol] Automated basoph il count 0.0-0.2 [facility] Basophils [#/volume] in Bloo d by Automated countOrdered By: PROVIDER TEMP on 12-29-2024 Basophils (Bld) [#/Vol] 0.1 10*3/uL Normal 0.0-0.2 [facility] Comment on above: Result Comment: PERF ORMED BY: [facility] [address] [place] [address] PATHOLOGIST BEAD MACHINE OPERATOR DONAVON DA SILVA M.D. Performed By: #### H EPATIC, BMP, LIPASE, CBC #### [facility] [address] Basophils/100 WBC Auto (Bld) Ordered By: PROVIDER TEMP on 12-29-2024 Basophils/100 WBC (Bld) Automated basophil % . [facility] Basophils/100 leukocytes in Blood by Automated countOrdered By: PROVIDER TEMP on 12-29-2024 Basophils/100 WBC (Bld) 0.6 % Normal . [facility] Comment on above: Performed By: #### H EPATIC, BMP, LIPASE, CBC #### [facility] [address] Bilirubin Test strip Ql (U)O rdered By: Annita Herrera on 12-29-2024 Bilirubin Ql (U) Bilirubin.total [Presence] in Urine by Test strip Negative [facility] Bilirubin Ql (U) Negative Negative [facility] Bilirubin.direct [Mass/volum e] in Serum or PlasmaOrdered By: PROVIDER TEMP on 12-29-2024 Bilirubin.direct [Mass/Vol] Bilirubin.direct [Mass/volume] in Serum or Plasma Low 0.03-0.18 [facility] Comment on above: If the DBIL is less than 0.1, IBIL is not able to becalculated. Bilirubin.direct [Mass/Vol] 0.00 mg/dL Low 0.03-0.18 [facility] Comment on above: If the DBIL is less than 0.1, IBIL is not able to becalculated. Bilirubin.total [Mass/volume ] in Serum or PlasmaOrdered By: PROVIDER TEMP on 12-29-2024 Bilirubin [Mass/Vol] Bilirubin.total [Mass/volume] in Serum or Plasma Low 0.3-1.0 [facility] Bilirubin [Mass/Vol] 0.2 mg/dL Low 0.3-1.0 [facility] Comment on above: Performed By: #### H EPATIC, BMP, LIPASE, CBC #### [facility] [address] [place] [id number] [facility] CT abdomen pelvis w conon CT abdomen pelvis w con [facility] [address] [place] [address] [place] [address] CT Scan Report Signed Patient: Jerry Cox MR#: [id number] : 1995 Acct:[id number] Age/Sex: 29 / F ADM Date: 12/29/24 Loc: ER Room: Type: [facility] ER Attending Dr: Copies to: Annita Herrera APRN Ordering Provider: Annita Herrera APRN Date of Service: 12/29/24 CT/CT abdomen pelvis w con: pain CT ABDOMEN AND PELVIS WITH CONTRAST COMPARISON: 12/26/2020 CLINICAL DATA: Right lower quadrant pain and nausea. Elevated liver functions. Spiral images were obtained through the abdomen and pelvis following 90 mL Isovue-300. This CT exam was performed using one or more following dose reduction techniques: Automated exposure control, adjustment of the mA and/or kV according to patient size, or use of iterative reconstruction technique. Limited cuts through the lung bases show no contributory findings. There is fatty infiltration of the liver. There is an enhancing area at the anterior left lobe which might be a hemangioma. The gallbladder is surgically absent. No common duct stones are seen. The spleen, pancreas and adrenal glands show no acute findings. There are symmetric renal nephrograms, without hydronephrosis. The abdominal aorta is normal caliber. Small lymph nodes are present. No ascites is seen. Small bowel loops are normal caliber. There is stool along the colon. A normal retrocecal appendix is seen. There is subtle levoscoliotic curvature. Images through the pelvis show normal caliber small bowel loops. There is stool at the distal colon. No diverticular disease is noted. The uterus is slightly dextroverted. There are small follicles however no dominant cysts. No urinary bladder abnormalities are seen. No free fluid is noted. CT/CT abdomen pelvis w con IMPRESSION: FATTY LIVER WITH POSSIBLE HEPATIC HEMANGIOMA. NO BOWEL OR URINARY TRACT OBSTRUCTION. NO ACUTE FINDINGS. Impression dictated by: Louann Huang M.D.12/29/2024 6:20 PM Dictation Location: [place] [address] Transcribed By: VIK 12/29/241819 Dictated By: Louann Huang MD 12/29/241813 Signed By: 12/29/241819 Normal [facility] Calcium [Mass/volume] in Ser um or PlasmaOrdered By: PROVIDER TEMP on 12-29-2024 Calcium [Mass/Vol] Calcium [Mass/volume] in Serum or Plasma 8.6-10.3 [facility] Calcium [Mass/Vol] 9.0 mg/dL Normal 8.6-10.3 [facility] Comment on above: Performed By: #### H EPATIC, BMP, LIPASE, CBC #### [facility] [address] Carbon dioxide, total [Moles /volume] in Serum or PlasmaOrdered By: PROVIDER TEMP on 12-29-2024 CO2 [Moles/Vol] Carbon dioxide, total [Moles/volume] in Serum or Plasma 21.0-31.0 [facility] CO2 [Moles/Vol] 28.9 mmol/L Normal 21.0-31.0 [facility] Comment on above: Performed By: #### H EPATIC, BMP, LIPASE, CBC #### [facility] [address] [place] [address] [place] Chloride [Moles/volume] in S carolee or PlasmaOrdered By: PROVIDER TEMP on 12-29-2024 Chloride [Moles/Vol] Chloride [Moles/volume] in Serum or Plasma 98-107 [facility] Chloride [Moles/Vol] 104 mmol/L Normal 98-107 [facility] Comment on above: Performed By: #### H EPATIC, BMP, LIPASE, CBC #### [facility] [address] [place] [id number] [place] Color Auto (U)Ordered By: Frank Herrera on 12-29-2024 Color (U) Color of Urine by Auto Yellow [facility] Color of Urine by AutoOrdere d By: Annita Herrera on 12-29-2024 Color (U) Light-yellow Normal Yellow [facility] Comment on above: Order Comment: Name Collection Type:: Clean-Voided Midstream Performed By: #### H EPATIC, BMP, LIPASE, CBC #### [address] Complete Blood Count Auto Di ffon 12-29-2024 Mean Corpuscular HGB Conc 33.5 g/dL Normal 32.0-35.0 [facility] Comment on above: Performed By: #### H EPATIC, BMP, LIPASE, CBC #### [address] Monocytes/100 WBC (Bld) 18.44 % Normal 0.00-20.00 [facility] Comment on above: Performed By: #### H EPATIC, BMP, LIPASE, CBC #### [address] NRBC% 0.0 /100{WBC} Normal 0-0.5 [facility] Comment on above: Performed By: #### H EPATIC, BMP, LIPASE, CBC #### [address] Creatinine [Mass/volume] in Serum or PlasmaOrdered By: PROVIDER TEMP on 12-29-2024 Creatinine [Mass/Vol] Creatinine [Mass/volume] in Serum or Plasma 0.60-1.20 [facility] Creatinine [Mass/Vol] 0.71 mg/dL Normal 0.60-1.20 [facility] Comment on above: Performed By: #### H EPATIC, BMP, LIPASE, CBC #### [place] [address] [place] Dipstick and Microscopicon 0 12-29-2024 Bacteria,Urine Rare Normal None Seen [facility] Comment on above: Order Comment: Name Collection Type:: Clean-Voided Midstream Performed By: #### H EPATIC, BMP, LIPASE, CBC #### [facility] [address] [place] [address] [place] Bilirubin,Urine Negative Normal Negative [facility] Comment on above: Order Comment: Name Collection Type:: Clean-Voided Midstream Performed By: #### H EPATIC, BMP, LIPASE, CBC #### [facility] [address] Glucose Ql (U) Normal Normal Normal [facility] Comment on above: Order Comment: Name Collection Type:: Clean-Voided Midstream Performed By: #### H EPATIC, BMP, LIPASE, CBC #### [place] [address] [place] Hyaline Casts,Urine None Normal 0-8 [facility] Comment on above: Order Comment: Name Collection Type:: Clean-Voided Midstream Performed By: #### H EPATIC, BMP, LIPASE, CBC #### [address] Mucus,Urine 1+ Critically abnormal [facility] Comment on above: Order Comment: Name Collection Type:: Clean-Voided Midstream Performed By: #### H EPATIC, BMP, LIPASE, CBC #### [place] [address] [place] Nitrite,Urine Negative Normal Negative [facility] Comment on above: Order Comment: Name Collection Type:: Clean-Voided Midstream Performed By: #### H EPATIC, BMP, LIPASE, CBC #### [place] [address] [place] Occult Blood,Urine Negative Normal Negative [facility] Comment on above: Order Comment: Name Collection Type:: Clean-Voided Midstream Performed By: #### H EPATIC, BMP, LIPASE, CBC #### [place] [address] [place] Protein,Urine Trace High Negative [facility] Comment on above: Order Comment: Name Collection Type:: Clean-Voided Midstream Performed By: #### H EPATIC, BMP, LIPASE, CBC #### [place] [address] [place] RBC,Urine 1-2 Normal 0-4 [facility] Comment on above: Order Comment: Name Collection Type:: Clean-Voided Midstream Performed By: #### H EPATIC, BMP, LIPASE, CBC #### [address] Specificy [place],Urine 1.031 High 1.001-1.030 [facility] Comment on above: Order Comment: Name Collection Type:: Clean-Voided Midstream Performed By: #### H EPATIC, BMP, LIPASE, CBC #### [address] Squamous Epithelial Cell,Urine 3-4 High 0-2 [facility] Comment on above: Order Comment: Name Collection Type:: Clean-Voided Midstream Performed By: #### H EPATIC, BMP, LIPASE, CBC #### [address] Urobilinogen,Urine Normal Normal Normal [facility] Comment on above: Order Comment: Name Collection Type:: Clean-Voided Midstream Performed By: #### H EPATIC, BMP, LIPASE, CBC #### [address] WBC,Urine 5-9 High 0-4 [facility] Comment on above: Order Comment: Name Collection Type:: Clean-Voided Midstream Performed By: #### H EPATIC, BMP, LIPASE, CBC #### [address] Eosinophils Auto (Bld) [#/Vo l]Ordered By: PROVIDER TEMP on 12-29-2024 Eosinophils (Bld) [#/Vol] Automated eosinophil count 0.0-0.45 [facility] Eosinophils [#/volume] in Bl ood by Automated countOrdered By: PROVIDER TEMP on 12-29-2024 Eosinophils (Bld) [#/Vol] 0.1 10*3/uL Normal 0.0-0.45 [facility] Comment on above: Performed By: #### H EPATIC, BMP, LIPASE, CBC #### [address] [place] [address] [facility] Eosinophils/100 WBC Auto (Bl d)Ordered By: PROVIDER TEMP on 12-29-2024 Eosinophils/100 WBC (Bld) Automated eosinophil % . [facility] Eosinophils/100 leukocytes i n Blood by Automated countOrdered By: PROVIDER TEMP on 12-29-2024 Eosinophils/100 WBC (Bld) 1.0 % Normal . [facility] Comment on above: Performed By: #### H EPATIC, BMP, LIPASE, CBC #### [facility] [address] Epithelial cells.squamous [# /area] in Urine sediment by Automated countOrdered By: Annita Herrera on 12-29-2024 Epithelial cells.squamous Auto (Urine sed) [#/Area] Epithelial cells.squamous [#/area] in Urine sediment by Automated count High 0-2 [facility] Epithelial cells.squamous Auto (Urine sed) [#/Area] 3-4 [HPF] High 0-2 [facility] Erythrocyte distribution wid th Auto (RBC) [Ratio]Ordered By: PROVIDER TEMP on 12-29-2024 Erythrocyte distribution width (RBC) [Ratio] Erythrocyte distribution width [Ratio] by Automated count 11.9-15.3 [facility] Erythrocyte distribution wid th [Ratio] by Automated countOrdered By: PROVIDER TEMP on 12-29-2024 Erythrocyte distribution width (RBC) [Ratio] 13.7 % Normal 11.9-15.3 [facility] Comment on above: Performed By: #### H EPATIC, BMP, LIPASE, CBC #### [facility] [address] [place] [id number] [facility] Erythrocytes [#/area] in Uri ne sediment by Automated countOrdered By: Annita Herrera on 12-29-2024 RBC Auto (Urine sed) [#/Area] Erythrocytes [#/area] in Urine sediment by Automated count 0-4 [facility] RBC Auto (Urine sed) [#/Area] 1-2 [HPF] 0-4 [facility] Erythrocytes [#/volume] in B lood by Automated countOrdered By: PROVIDER TEMP on 12-29-2024 RBC (Bld) [#/Vol] 4.54 10*6/uL Normal 3.60-5.00 [facility] Comment on above: Performed By: #### H EPATIC, BMP, LIPASE, CBC #### [facility] [address] [place] [id number] [facility] Globulin Calc (S) [Mass/Vol] Ordered By: PROVIDER TEMP on 12-29-2024 Globulin (S) [Mass/Vol] Serum globulin measurement by calculation (mass/volume) [facility] Glucose [Mass/volume] in Ser um or PlasmaOrdered By: PROVIDER TEMP on 12-29-2024 Glucose [Mass/Vol] Glucose [Mass/volume] in Serum or Plasma High 70-100 [facility] Comment on above: ADA recommended refe rence rangeRandom Glucose Reference Range is dependent on time and content of last meal. Glucose of more than 200 mg/dL in a nonstressed, ambulatory subject supports the diagnosis of Diabetes Mellitus. Glucose [Mass/Vol] 120 mg/dL High 70-100 [facility] Comment on above: ADA recommended refe rence rangeRandom Glucose Reference Range is dependent on time and content of last meal. Glucose of more than 200 mg/dL in a nonstressed, ambulatory subject supports the diagnosis of Diabetes Mellitus. Result Comment: [place] Glucose Reference Range is dependent on time and content of last meal. Glucose of more than 200 mg/dL in a nonstressed, ambulatory subject supports the diagnosis of Diabetes Mellitus. ADA recommended reference range Performed By: #### H EPATIC, BMP, LIPASE, CBC #### [facility] [address] [place] [id number] [facility] Glucose [Mass/volume] in Uri ne by Test stripOrdered By: Annita Herrera on 12-29-2024 Glucose Test strip (U) [Mass/Vol] Glucose [Mass/volume] in Urine by Test strip Normal [facility] Glucose Test strip (U) [Mass/Vol] Normal mg/dL Normal [facility] HCG ( test) [place].rapi d Ql (U)Ordered By: PROVIDER TEMP on 12-29-2024 HCG ( test) Ql (U) Urine human chorionic gonadotropin (hCG) detection by immunoassay [facility] HCG ( test) Ql (U) Negative [facility] HCG,Urineon 12-29-2024 Beta HCG ( test) Ql (U) Negative Normal [facility] Comment on above: Order Comment: Name Collection Type:: Clean-Voided Midstream Result Comment: PERF ORMED BY: [place] [address] PATHOLOGIST BEAD MACHINE OPERATOR DONAVON DA SILVA M.D. Performed By: #### H EPATIC, BMP, LIPASE, CBC #### [facility] [address] [place] [address] Hematocrit Auto (Bld) [Volum e fraction]Ordered By: PROVIDER TEMP on 12-29-2024 Hematocrit (Bld) [Volume fraction] Hematocrit [Volume Fraction] of Blood by Automated count 34.0-46.4 [facility] Hematocrit [Volume Fraction] of Blood by Automated countOrdered By: PROVIDER TEMP on 12-29-2024 Hematocrit (Bld) [Volume fraction] 38.6 % Normal 34.0-46.4 [facility] Comment on above: Performed By: #### H EPATIC, BMP, LIPASE, CBC #### [facility] [address] [place] [address] Hemoglobin Test strip Ql (U) Ordered By: Annita Herrera on 12-29-2024 Hemoglobin Ql (U) Hemoglobin [Presence] in Urine by Test strip Negative [facility] Hemoglobin Ql (U) Negative Negative [facility] Hemoglobin [Mass/volume] in BloodOrdered By: PROVIDER TEMP on 12-29-2024 Hemoglobin (Bld) [Mass/Vol] Hemoglobin [Mass/volume] in Blood 11.8-15.4 [facility] Hemoglobin (Bld) [Mass/Vol] 12.9 g/dL Normal 11.8-15.4 [facility] Comment on above: Performed By: #### H EPATIC, BMP, LIPASE, CBC #### [facility] [address] [place] [address] Hepatic Panelon 12-29-2024 Albumin [Mass/Vol] 4.0 g/dL Normal 3.5-5.7 [facility] Comment on above: Performed By: #### H EPATIC, BMP, LIPASE, CBC #### [facility] [address] Bilirubin,Indirect 0.2 mg/dL Normal [facility] Comment on above: Performed By: #### H EPATIC, BMP, LIPASE, CBC #### [facility] [address] Bilirubin.indirect [Mass/Vol] 0.00 mg/dL Low 0.03-0.18 [facility] Comment on above: Result Comment: If t he DBIL is less than 0.1, IBIL is not able to be calculated. Performed By: #### H EPATIC, BMP, LIPASE, CBC #### [facility] [address] Hyaline casts [#/area] in Ur ine sediment by Automated countOrdered By: Annita Herrera on 12-29-2024 Hyaline casts Auto (Urine sed) [#/Area] Hyaline casts [#/area] in Urine sediment by Automated count 0-8 [facility] Hyaline casts Auto (Urine sed) [#/Area] None [LPF] 0-8 [facility] Ketones Test strip Ql (U)Ord ered By: Annita Hererra on 12-29-2024 Ketones Ql (U) Ketones [Presence] in Urine by Test strip Negative [facility] Ketones [Presence] in Urine by Test stripOrdered By: Annita Herrera on 12-29-2024 Ketones Ql (U) Negative Normal Negative [facility] Comment on above: Order Comment: Name Collection Type:: Clean-Voided Midstream Performed By: #### H EPATIC, BMP, LIPASE, CBC #### [facility] [address] Leukocyte esterase [Presence ] in Urine by Test stripOrdered By: Annita Herrera on 12-29-2024 Leukocyte esterase Test strip Ql (U) Leukocyte esterase [Presence] in Urine by Test strip High Negative [facility] Leukocyte esterase Test strip Ql (U) 2+ High Negative [facility] Comment on above: Order Comment: Name Collection Type:: Clean-Voided Midstream Performed By: #### H EPATIC, BMP, LIPASE, CBC #### [facility] [address] Leukocytes [#/area] in Urine sediment by Automated countOrdered By: Annita Herrera on 12-29-2024 WBC Auto (Urine sed) [#/Area] Leukocytes [#/area] in Urine sediment by Automated count High 0-4 [facility] WBC Auto (Urine sed) [#/Area] 5-9 [HPF] High 0-4 [facility] Leukocytes [#/volume] correc rosa m for nucleated erythrocytes in Blood by Automated counOrdered By: PROVIDER TEMP on 12-29-2024 WBC corrected for nucl RBC Auto (Bld) [#/Vol] Leukocytes [#/volume] corrected for nucleated erythrocytes in Blood by Automated coun 3.8-11.6 [facility] WBC corrected for nucl RBC Auto (Bld) [#/Vol] 10.4 10*3/uL 3.8-11.6 [facility] Leukocytes [#/volume] in Blo od by Automated countOrdered By: PROVIDER TEMP on 12-29-2024 WBC (Bld) [#/Vol] 10.4 10*3/uL Normal 3.8-11.6 [facility] Comment on above: Performed By: #### H EPATIC, BMP, LIPASE, CBC #### [facility] [address] [place] [address] Lipase [Enzymatic activity/v olume] in Serum or PlasmaOrdered By: PROVIDER TEMP on 12-29-2024 Lipase [Catalytic activity/Vol] Lipase [Enzymatic activity/volume] in Serum or Plasma 11.0-82.0 [facility] Lipase [Catalytic activity/Vol] 13.0 U/L Normal 11.0-82.0 [facility] Comment on above: Result Comment: PERF ORMED BY: [place] [address] PATHOLOGIST BEAD MACHINE OPERATOR DONAVON DA SILVA M.D. Performed By: #### H EPATIC, BMP, LIPASE, CBC #### [facility] [address] Lymphocytes Auto (Bld) [#/Vo l]Ordered By: PROVIDER TEMP on 12-29-2024 Lymphocytes (Bld) [#/Vol] Lymphocytes [#/volume] in Blood by Automated count 1.00-4.8 [facility] Lymphocytes [#/volume] in Bl ood by Automated countOrdered By: PROVIDER TEMP on 12-29-2024 Lymphocytes (Bld) [#/Vol] 3.3 10*3/uL Normal 1.00-4.8 [facility] Comment on above: Performed By: #### H EPATIC, BMP, LIPASE, CBC #### [address] Lymphocytes/100 WBC Auto (Bl d)Ordered By: PROVIDER TEMP on 12-29-2024 Lymphocytes/100 WBC (Bld) Lymphocytes/100 leukocytes in Blood by Automated count . [facility] Lymphocytes/100 leukocytes i n Blood by Automated countOrdered By: PROVIDER TEMP on 12-29-2024 Lymphocytes/100 WBC (Bld) 31.4 % Normal . [facility] Comment on above: Performed By: #### H EPATIC, BMP, LIPASE, CBC #### [facility] [address] [place] [address] MCH Auto (RBC) [Entitic mass ]Ordered By: PROVIDER TEMP on 12-29-2024 MCH (RBC) [Entitic mass] MCH [Entitic mass] by Automated count 24.7-34.3 [facility] MCH [Entitic mass] by Automa rosa m countOrdered By: PROVIDER TEMP on 12-29-2024 MCH (RBC) [Entitic mass] 28.4 pg Normal 24.7-34.3 [facility] Comment on above: Performed By: #### H EPATIC, BMP, LIPASE, CBC #### [facility] [address] [place] [address] MCHC Auto (RBC) [Mass/Vol]Or dered By: PROVIDER TEMP on 12-29-2024 MCHC (RBC) [Mass/Vol] MCHC [Mass/volume] by Automated count 32.0-35.0 [facility] MCHC (RBC) [Mass/Vol] 33.5 g/dL 32.0-35.0 [facility] MCV Auto (RBC) [Entitic vol] Ordered By: PROVIDER TEMP on 12-29-2024 MCV (RBC) [Entitic vol] MCV [Entitic vol ume] by Automated count 80-100 [facility] MCV [Entitic volume] by Auto mated countOrdered By: PROVIDER TEMP on 12-29-2024 MCV (RBC) [Entitic vol] 84.9 fL Normal 80-100 [facility] Comment on above: Performed By: #### H EPATIC, BMP, LIPASE, CBC #### [facility] [address] [place] [address] [place] Monocyte distribution width [Entitic volume] in Blood by AutomatedOrdered By: PROVIDER TEMP on 12-29-2024 Monocyte distribution width Auto (Bld) [Entitic vol] Monocyte distribution width [Entitic volume] in Blood by Automated 0.00-20.00 [facility] Monocyte distribution width Auto (Bld) [Entitic vol] 18.44 % 0.00-20.00 [facility] Monocytes Auto (Bld) [#/Vol] Ordered By: PROVIDER TEMP on 12-29-2024 Monocytes (Bld) [#/Vol] Automated blood monocyte count 0.0-0.8 [facility] Monocytes [#/volume] in Bloo d by Automated countOrdered By: PROVIDER TEMP on 12-29-2024 Monocytes (Bld) [#/Vol] 0.4 10*3/uL Normal 0.0-0.8 [facility] Comment on above: Performed By: #### H EPATIC, BMP, LIPASE, CBC #### [facility] [address] [place] [id number] [place] Monocytes/100 WBC Auto (Bld) Ordered By: PROVIDER TEMP on 12-29-2024 Monocytes/100 WBC (Bld) Automated monocyte % . [facility] Monocytes/100 leukocytes in Blood by Automated countOrdered By: PROVIDER TEMP on 12-29-2024 Monocytes/100 WBC (Bld) 4.3 % Normal . [facility] Comment on above: Performed By: #### H EPATIC, BMP, LIPASE, CBC #### [facility] [address] Mucus [Presence] in Urine by AutomatedOrdered By: Annita Herrera on 12-29-2024 Mucus Auto Ql (U) Mucus [Presence] in Urine by Automated Abnormal [facility] Mucus Auto Ql (U) 1+ [LPF] Abnormal [facility] Neutrophils Auto (Bld) [#/Vo l]Ordered By: PROVIDER TEMP on 12-29-2024 Neutrophils (Bld) [#/Vol] Neutrophils [#/volume] in Blood by Automated count 1.8-7.7 [facility] Neutrophils [#/volume] in Bl ood by Automated countOrdered By: PROVIDER TEMP on 12-29-2024 Neutrophils (Bld) [#/Vol] 6.6 10*3/uL Normal 1.8-7.7 [facility] Comment on above: Performed By: #### H EPATIC, BMP, LIPASE, CBC #### [facility] [address] [place] [address] Neutrophils/100 WBC Auto (Bl d)Ordered By: PROVIDER TEMP on 12-29-2024 Neutrophils/100 WBC (Bld) Automated neutrophil % . [facility] Neutrophils/100 leukocytes i n Blood by Automated countOrdered By: PROVIDER TEMP on 12-29-2024 Neutrophils/100 WBC (Bld) 62.7 % Normal . [facility] Comment on above: Performed By: #### H EPATIC, BMP, LIPASE, CBC #### [facility] [address] [place] [address] Nitrite Test strip Ql (U)Ord ered By: Annita Herrera on 12-29-2024 Nitrite Ql (U) Nitrite [Presence] in Urine by Test strip Negative [facility] Nitrite Ql (U) Negative Negative [facility] No Panel InformationOrdered By: PROVIDER TEMP on 12-29-2024 Estimated GFR (CKD-EPI) > 60.0 mL/Min [facility] Creatinine Clearance (Chem 135.69 [facility] Nucleated erythrocytes [Pres ence] in Blood by Automated countOrdered By: PROVIDER TEMP on 12-29-2024 Nucleated RBC Auto Ql (Bld) Nucleated erythrocytes [Presence] in Blood by Automated count 0-0.5 [facility] Nucleated RBC Auto Ql (Bld) 0.0 /100{WBC} 0-0.5 [facility] Platelet mean volume Auto (B ld) [Entitic vol]Ordered By: PROVIDER TEMP on 12-29-2024 Platelet mean volume (Bld) [Entitic vol] Platelet mean volume [Entitic volume] in Blood by Automated count 6.3-10.7 [facility] Platelet mean volume [Entiti c volume] in Blood by Automated countOrdered By: PROVIDER TEMP on 12-29-2024 Platelet mean volume (Bld) [Entitic vol] 7.4 fL Normal 6.3-10.7 [facility] Comment on above: Performed By: #### H EPATIC, BMP, LIPASE, CBC #### [facility] [address] [place] [address] Platelets Auto (Bld) [#/Vol] Ordered By: PROVIDER TEMP on 12-29-2024 Platelets (Bld) [#/Vol] Platelets [#/vol ume] in Blood by Automated count 150-450 [facility] Platelets [#/volume] in Bloo d by Automated countOrdered By: PROVIDER TEMP on 12-29-2024 Platelets (Bld) [#/Vol] 397 10*3/uL Normal 150-450 [facility] Comment on above: Performed By: #### H EPATIC, BMP, LIPASE, CBC #### [facility] [address] Potassium [Moles/volume] in Serum or PlasmaOrdered By: PROVIDER TEMP on 12-29-2024 Potassium [Moles/Vol] Potassium [Moles/volume] in Serum or Plasma 3.5-5.1 [facility] Potassium [Moles/Vol] 3.5 mmol/L Normal 3.5-5.1 [facility] Comment on above: Performed By: #### H EPATIC, BMP, LIPASE, CBC #### [facility] [address] [place] [address] [place] Protein Test strip (U) [Mass /Vol]Ordered By: Annita Herrera on 12-29-2024 Protein (U) [Mass/Vol] Protein [Mass/volume] in Urine by Test strip High Negative [facility] Protein (U) [Mass/Vol] Trace mg/dL High Negative [facility] Protein [Mass/volume] in Ser um or PlasmaOrdered By: PROVIDER TEMP on 12-29-2024 Protein [Mass/Vol] Protein [Mass/volume] in Serum or Plasma 6.4-8.9 [facility] Protein [Mass/Vol] 7.3 g/dL Normal 6.4-8.9 [facility] Comment on above: Performed By: #### H EPATIC, BMP, LIPASE, CBC #### [facility] [address] [place] [address] RBC Auto (Bld) [#/Vol]Ordere d By: PROVIDER TEMP on 12-29-2024 RBC (Bld) [#/Vol] Erythrocytes [#/volume] in Blood by Automated count 3.60-5.00 [facility] Serum globulin measurement b y calculation (mass/volume)Ordered By: PROVIDER TEMP on 12-29-2024 Globulin (S) [Mass/Vol] 3.3 g/dL Normal [facility] Comment on above: Performed By: #### H EPATIC, BMP, LIPASE, CBC #### [facility] [address] [place] [address] Serum or plasma albumin/glob ulin mass ratioOrdered By: PROVIDER TEMP on 12-29-2024 Albumin/Globulin [Mass ratio] Serum or plasma albumin/globulin mass ratio [facility] Albumin/Globulin [Mass ratio] 1.2 {ratio} Normal [facility] Comment on above: Performed By: #### H EPATIC, BMP, LIPASE, CBC #### [facility] [address] [place] [address] Serum or plasma anion gap de terminationOrdered By: PROVIDER TEMP on 12-29-2024 Anion gap [Moles/Vol] Serum or plasma anion gap determination 6.0-15.0 [facility] Anion gap [Moles/Vol] 8.6 mmol/L Normal 6.0-15.0 [facility] Comment on above: Performed By: #### H EPATIC, BMP, LIPASE, CBC #### [facility] [address] Serum or plasma non-glucuron idated bilirubin measurement (mass/volume)Ordered By: PROVIDER TEMP on 12-29-2024 Bilirubin.indirect [Mass/Vol] Serum or plasma non-glucuronidated bilirubin measurement (mass/volume) [facility] Bilirubin.indirect [Mass/Vol] 0.2 mg/dL [facility] Sodium [Moles/volume] in Ser um or PlasmaOrdered By: PROVIDER TEMP on 12-29-2024 Sodium [Moles/Vol] Sodium [Moles/volume] in Serum or Plasma 136-145 [facility] Sodium [Moles/Vol] 138 mmol/L Normal 136-145 [facility] Comment on above: Performed By: #### H EPATIC, BMP, LIPASE, CBC #### [facility] [address] Specific gravity Test strip (U) [Rel density]Ordered By: Annita Herrera on 12-29-2024 Specific gravity (U) [Rel density] Specific gravity of Urine by Test strip High 1.001-1.030 [facility] Specific gravity (U) [Rel density] 1.031 High 1.001-1.030 [facility] Urea nitrogen [Mass/volume] in Serum or PlasmaOrdered By: PROVIDER TEMP on 12-29-2024 Urea nitrogen [Mass/Vol] Urea nitrogen [Mass/volume] in Serum or Plasma 7-25 [facility] Urea nitrogen [Mass/Vol] 14 mg/dL Normal 7-25 [facility] Comment on above: Performed By: #### H EPATIC, BMP, LIPASE, CBC #### [facility] [address] Urine Cultureon 12-29-2024 Bacteria identified Cx Nom (U) 15,000 colonies/ml mixed bacterial skin contaminants 2 Days PERFORMED BY: [place] [address] PATHOLOGIST BEAD MACHINE OPERATOR DONAVON DA SILVA M.D. Normal [facility] Comment on above: Performed By: #### H EPATIC, BMP, LIPASE, CBC #### [facility] [address] Urine cultureOrdered By: Abeba Herrera on 12-29-2024 Bacteria identified Cx Nom (U) Urine culture [facility] Bacteria identified Cx Nom (U) 2 Days [facility] Urobilinogen Test strip (U) [Mass/Vol]Ordered By: Annita Herrera on 12-29-2024 Urobilinogen (U) [Mass/Vol] Urobilinogen [Mass/volume] in Urine by Test strip Normal [facility] Urobilinogen (U) [Mass/Vol] Normal mg/dL Normal [facility] WBC Auto (Bld) [#/Vol]Ordere d By: PROVIDER TEMP on 12-29-2024 WBC (Bld) [#/Vol] Leukocytes [#/volume] in Blood by Automated count 3.8-11.6 [facility] pH Test strip (U)Ordered By: Annita Herrera on 12-29-2024 pH (U) pH of Urine by Test strip 5.0-9.0 [facility] pH of Urine by Test stripOrd ered By: Annita Herrera on 12-29-2024 pH (U) 5.5 [pH] Normal 5.0-9.0 [facility] Comment on above: Order Comment: Name Collection Type:: Clean-Voided Midstream Performed By: #### H EPATIC, BMP, LIPASE, CBC #### [facility] [address] [place] [address] Basophils Auto (Bld) [#/Vol] on 10-02-2024 Basophils (Bld) [#/Vol] Automated basoph il count 0.0-0.1 [facility] Basophils/100 WBC Auto (Bld) on 10-02-2024 Basophils/100 WBC (Bld) Automated basophil % 0. 2-2.0 [facility] Eosinophils/100 WBC Auto (Bl d)on 10-02-2024 Eosinophils/100 WBC (Bld) Automated eosinophil % 0.9-7.0 [facility] Erythrocyte distribution wid th Auto (RBC) [Ratio]on 10-02-2024 Erythrocyte distribution width (RBC) [Ratio] Erythrocyte distribution width [Ratio] by Automated count 11.0-15.0 [facility] Estimated glomerular filtrat ion rate (GFR) non- Americanon 10-02-2024 GFR/1.73 sq M.predicted among non-blacks MDRD (S/P/Bld) [Vol rate/Area] Estimated glomerular filtration rate (GFR) non- >=60 mL/min/1.73m 2 [facility] Globulin Calc (S) [Mass/Vol] on 10-02-2024 Globulin (S) [Mass/Vol] Serum globulin measurement by calculation (mass/volume) [facility] Hematocrit Auto (Bld) [Volum e fraction]on 10-02-2024 Hematocrit (Bld) [Volume fraction] Hematocrit [Volume Fraction] of Blood by Automated count 36.0-48.0 [facility] Hemoglobin [Mass/volume] in Bloodon 10-02-2024 Hemoglobin (Bld) [Mass/Vol] Hemoglobin [Mass/volume] in Blood 12.0-16.0 [facility] Iron binding capacity [Mass/ volume] in Serum or Plasmaon 10-02-2024 Iron binding capacity [Mass/Vol] Iron binding capacity [Mass/volume] in Serum or Plasma Low 250.0-450.0 [facility] Iron saturation [Mass Fracti on] in Serum or Plasmaon 10-02-2024 Iron saturation [Mass fraction] Iron saturation [Mass Fraction] in Serum or Plasma [facility] - Chemistry and C hemistry - challengeon 10-02-2024 Albumin [Mass/Vol] 3.5 g/dL 3.4-5.0 [facility] ALP [Catalytic activity/Vol] 129 U/L High 46-116 [facility] ALT [Catalytic activity/Vol] 20 U/L 14-59 [facility] AST [Catalytic activity/Vol] 11 U/L Low 15-37 [facility] Bilirubin [Mass/Vol] 0.6 mg/dL 0.2-1.0 [facility] Calcium [Mass/Vol] 8.6 mg/dL 8.5-10.1 [facility] Chloride [Moles/Vol] 105 mmol/L 98-107 [facility] CO2 [Moles/Vol] 29.6 mmol/L 21.0-32.0 [facility] Creatinine [Mass/Vol] 0.87 mg/dL 0.55-1.02 [facility] Free T4 [Mass/Vol] 0.72 ng/dL Low 0.76-1.46 [facility] GFR/1.73 sq M.predicted MDRD (S/P/Bld) [Vol rate/Area] mL/min/{1.73_m2} >=60 mL/min/1.73m 2 [facility] Glucose [Mass/Vol] 73 mg/dL Low 74-106 [facility] Iron [Mass/Vol] 77.0 ug/dL 50.0-170.0 [facility] Potassium [Moles/Vol] 3.9 mmol/L 3.5-5.1 [facility] Protein [Mass/Vol] 7.1 g/dL 6.4-8.2 [facility] Sodium [Moles/Vol] 142 mmol/L 136-145 [facility] TSH Qn 1.362 m[IU]/L 0.358-3.740 [facility] Urea nitrogen [Mass/Vol] 12.0 mg/dL 7.0-18.0 [facility] Urea nitrogen/Creatinine [Mass ratio] 13.8 mg/mg [facility] - Hematology and Cell countson 10-02-2024 Immature granulocytes/100 WBC (Bld) 0.3 % 0.0-0.5 [facility] Leukocytes [#/volume] correc rosa m for nucleated erythrocytes in Blood by Automated counon 10-02-2024 WBC corrected for nucl RBC Auto (Bld) [#/Vol] Leukocytes [#/volume] corrected for nucleated erythrocytes in Blood by Automated coun 4.0-11.0 [facility] Lymphocytes Auto (Bld) [#/Vo l]on 10-02-2024 Lymphocytes (Bld) [#/Vol] Lymphocytes [#/volume] in Blood by Automated count 1.2-3.8 [facility] Lymphocytes/100 WBC Auto (Bl d)on 10-02-2024 Lymphocytes/100 WBC (Bld) Lymphocytes/100 leukocytes in Blood by Automated count 20.5-60.0 [facility] MCH Auto (RBC) [Entitic mass ]on 10-02-2024 MCH (RBC) [Entitic mass] MCH [Entitic mass] by Automated count 26.7-34.0 [facility] MCHC Auto (RBC) [Mass/Vol]on 10-02-2024 MCHC (RBC) [Mass/Vol] MCHC [Mass/volume] by Automated count 29.9-35.2 [facility] MCV Auto (RBC) [Entitic vol] on 10-02-2024 MCV (RBC) [Entitic vol] MCV [Entitic vol ume] by Automated count 81.0-99.0 [facility] Monocytes Auto (Bld) [#/Vol] on 10-02-2024 Monocytes (Bld) [#/Vol] Automated blood monocyte count 0.3-0.8 [facility] Monocytes/100 WBC Auto (Bld) on 10-02-2024 Monocytes/100 WBC (Bld) Automated monocyte % 1. 7-12.0 [facility] Neutrophils Auto (Bld) [#/Vo l]on 10-02-2024 Neutrophils (Bld) [#/Vol] Neutrophils [#/volume] in Blood by Automated count 1.4-6.5 [facility] Neutrophils/100 WBC Auto (Bl d)on 10-02-2024 Neutrophils/100 WBC (Bld) Automated neutrophil % 43.0-75.0 [facility] No Panel Informationon 10-02 Eosinophils # (Auto) 0.2 10 3/uL 0.0-0.7 [facility] Free Triiodothyronine 2.55 pg/mL 2.18-3.98 [facility] Immature Granulocyte # (Auto) 0.03 10 3/uL 0.00-0.03 [facility] Platelet mean volume Auto (B ld) [Entitic vol]on 10-02-2024 Platelet mean volume (Bld) [Entitic vol] Platelet mean volume [Entitic volume] in Blood by Automated count Low 9.5-13.5 [facility] Platelets Auto (Bld) [#/Vol] on 10-02-2024 Platelets (Bld) [#/Vol] Platelets [#/vol ume] in Blood by Automated count 150-450 [facility] RBC Auto (Bld) [#/Vol]on RBC (Bld) [#/Vol] Erythrocytes [#/volume] in Blood by Automated count 4.20-5.40 [facility] Serum or plasma albumin/glob ulin mass ratioon 10-02-2024 Albumin/Globulin [Mass ratio] Serum or plasma albumin/globulin mass ratio [facility] Serum or plasma anion gap de terminationon 10-02-2024 Anion gap [Moles/Vol] Serum or plasma anion gap determination [facility] Influenza virus B Ag [Presen ce] in Upper respiratory specimen by Rapid immunoassayon 09-16-2024 FLUBV Ag IA.rapid Ql (Nph) Influenza virus B Ag [Presence] in Upper respiratory specimen by Rapid immunoassay [facility] No Panel Informationon 09-16 Influenza Type A (Rapid) Negative [facility] POC SARS CoV-2 Antigen Negative [facility] No Panel InformationOrdered By: Alexandra Crane on 10-31-2023 COVID/Influenza Antigen (POC) [facility] CNOVon 09-11-2023 CNOV Office Visit ([facility]) JERRY COX ([id number]) 1995 F Date Time Provider Department 09/11/23 8:40 AM HENRY PACHECO [facility] During your visit today, we recorded the following information about you: Temperature Pulse Blood pressure Weight 98.8 degrees 76/minute 137/80 96.3 kg Henry Pacheco MD 09/11/2023 9:05 AM Signed HEADACHE MEDICINE NEW EVALUATION September 11, 2023 8:40 AM Headache 1 Diagnosis: Chronic Migraine Headache (CM) Onset: - Age of onset was 15 years of age. Worsened over time. Location: left, unilateral, bilateral, temporal, retro-orbital and occipital Quality/Description: throbbing Associated Symptoms: Photophobia: yes Phonophobia: yes Nausea: yes Vomiting: no Worse with activity: yes Number of migraine headache days/month: 20 Migraine headache severity: 9/10 Number of NON-migraine headache days/month: 10 Non-migraine headache severity: 2 Total Number of headache days/month: 30 Number of headache free days/month: 0 Duration of headaches with treatment: Duration of attacks with treatment: greater than 4 hours per episode up to entire day if untreated. Current preventive treatment: none Current abortive treatment: none Triggers: none Onset of headache to peak: gradual Relieving factors: laying down, closing eyes, ice pack Positional changes: no Most common time of day for headache to begin: upon awakening Prodrome: none Aura: blurred vision and 'snowy vision' (duration is brief--minute or so.) Allodynia: no Days missed from work or school in the last month: 0 days Lifestyle: Sleep: sleep quality is good. HEADACHE SCORES: Headache Questions 09/09/2023 ID Migraine Screener: 3 (Positive) ER visits in the last year: 0 Hospital stays in the last year: 0 Limited ADLs in the last month: 20 Days missed from work or school in the last month: 0 Days headache pain free in the last month: 10 Days per month with ALL of the following symptoms - decreased productivity, light sensitivity and nausea: 20 PRN medication usage in the last month: 20 HIT-6 09/09/2023 HIT-6 78 (Severe impact) HOLLY - 2/7 SCORES 09/09/2023 HOLLY-2 Score 2 Migraine Specific QOL - Higher scores indicate better HRQL 09/09/2023 Role Function-Restrictive Transformed Score (range: 0-100) 5.71 Role Function-Preventive Transformed Score (range: 0-100) 40 Emotional Function Transformed Score (range: 0-100) 0 PHQ-9 09/09/2023 Score 5 PAST MEDICAL HISTORY Diagnosis Date Levy's thyroiditis Inflammatory arthritis PAST SURGICAL HISTORY Procedure Laterality Date EXPL LAP W W/WO BX REMOVAL GALLBLADDER SALPINGECTOMY Bilateral Current Outpatient Medications Medication Sig MAGNESIUM CHLORIDE ORAL Take by mouth. semaglutide (OZEMPIC) 1 mg/0.75 ml subcutaneous pen injector Inject 1 mg subcutaneously one time a week. 0.6ml/0.5ml buPROPion XL (WELLBUTRIN XL) 150 mg 24 hr tablet Take 150 mg by mouth once daily. busPIRone (BUSPAR) 10 mg tablet Take 2 tablets by mouth every 12 hours. ALLERGY RELIEF, CETIRIZINE, 10 mg tablet Take 10 mg by mouth once daily. sertraline (ZOLOFT) 100 mg tablet Take 2 tablets by mouth every afternoon. azaTHIOprine (IMURAN) 50 mg tablet TAKE 1 TABLET BY MOUTH EVERY DAY WITH FOOD*HOLD IF ON ANTIBIOTICS OR ILL* predniSONE (DELTASONE) 5 mg tablet Day 1=6tabs with food, Day 2=5tabs, Day 3=4tabs, Day 4=3tabs, Day 5=2tabs, Day 6=1tab, No NSAIDs on med celecoxib (CELEBREX) 200 mg capsule Take 1 capsule by mouth twice daily. cyanocobalamin, vitamin B-12, (VITAMIN B-12 ORAL) Take by mouth. metHIMazole (TAPAZOLE) 5 mg tablet Take 5 mg by mouth once daily. Norethindrone Acet-Ethinyl Est (,) 1-20 mg-mcg per tablet Take 1 tablet by mouth once daily. Ascorbic Acid (VITAMIN C) 250 mg chew Take 500 mg by mouth once daily. No current facility-administere d medications for this visit. none ALLERGIES Allergen Reactions Adhesive Rash Carafate [Sucralfat* Hives, Vomiting Nsaids (Non-Steroid* GI Upset Patient states she has ulcers Penicillins Swelling Plaquenil [Hydroxyc* Intolerance nausea/mood swings Ultram [Tramadol Hc* Hives FAMILY HISTORY Problem Relation Age of Onset Headache Mother Brain Cancer No Family History Aneurysm No Family History Denies cerebral aneurysm history Social History Tobacco Use Smoking status: Never Smokeless tobacco: Never Substance Use Topics Alcohol use: Yes Comment: Rarely Drug use: Never PHYSICAL EXAMINATION 09/11/23 0828 BP: 137/80 Pulse: 76 Temp: 37.1 ?C (98.8 ?F) TempSrc: Temporal SpO2: 98% Weight: 96.3 kg (212 lb 3.2 oz) General appearance: Well appearing, alert, in no acute distress, well-hydrated, well nourished. Skin: Skin color, texture, turgor normal, no suspicious rashes or lesions Head: Normocephalic, no masses, lesions, tenderness or abnormalities Eyes: Anic (more content not included)... Normal [facility] CNOVon 07-17-2023 CNOV Office Visit ([facility]) JERRY COX ([id number]) 1995 F Date Time Provider Department 07/17/23 9:15 AM MAYANK NGUYEN [facility] During your visit today, we recorded the following information about you: Last Period 07/05/23 Mayank Nguyen MD 07/17/2023 5:41 PM Signed History: Jerry Cox, a 27 year old female, presents for evaluation of waxing and waning L neck pain (pts to L thyroid lamina) for > 1 y. Always present w occ rad to L ear. No change w biting or yawning. Sorethroat on L when swallowing. H/o Hashimotos. Not on replacement. US thyroid 04/02/23: no nodules, 1.3 x 0.[address] inferior to L lobe. Denies hoarseness, shortness of breath, cough, hemoptysis, ear pain, throat clearing, post-nasal drip, fever, chills, weight loss. No history of thyroid disease/surgery. No history of trauma. The patient does not smoke. PMH: Hashimotos, Raynaud PSH: Latrice, B oophrectomy. PE: Alert; oriented; well-developed; no apparent distress. Normal voice; normal communication. Eyes: EOMI, pupils symmetric and reactive bilaterally. Nose: patent, normal mucosa, no congestion, no rhinorrhea. Oral cavity, oropharynx: No ulcerative or mass lesions, tongue midline, palate elevates symmetrically, tongue base and floor of mouth soft. Neck: nontender, no lymphadenopathy or masses. Thyroid: no masses. Face: symmetric, sinuses nontender, skin without lesions. Salivary glands: normal size, nontender, no masses. Ears: EACs free of lesions. TMs clear and mobile. Neurologic: hat ironer II-XII grossly intact. Procedure: Flexible laryngoscopy. Indication: L neck and throat pain. R/o infection, lesion. Description of procedure: Neosynephrine/xyloca ine was sprayed into the patient's nose. A flexible laryngoscope was passed through the patient's nose. The nasopharynx was free of ulcerative or mass lesions. The hypopharynx was free of ulcerative or mass lesions. The larynx was free of ulcerative or mass lesions. Normal bilateral vocal cord mobility. Assessment/Plan: Waxing and waning L neck pain (pts to L thyroid lamina) for > 1 y. HN exam wnl. No apparent lesion, mass, infection. Rec CT neck. f/up 2-3 d after. Normal thyroid US. F/up prn. Medical Decision Making: Problems: Low: Acute, uncomplicated illness or injury Risk: Low: Low risk from testing/treatment Medical Decision Making Level: 3 - Low Allergies As of Date: 07/17/2023 Noted Allergy Reaction ADHESIVE 06/16/2021 2 - Rash CARAFATE (SUCRALFATE) 10/24/2017 4 - Hives 11 - Vomiting NSAIDS (NON-STEROIDAL ANTI-INFLAM*07/06/20 14 8 - GI Upset Comments: Patient states she has ulcers PENICILLINS 07/06/2014 7 - Swelling PLAQUENIL (HYDROXYCHLOROQUINE) 03/27/2019 5 - Intolerance Comments: nausea/mood swings ULTRAM (TRAMADOL HCL) 07/06/2014 4 - Hives Date Reviewed: 07/17/2023 Reviewed by: Nelly Morrissey MA - Fully Assessed Reason for Visit: New Patient [172] Second Opinion [501] Primary Visit Diagnosis:Cervicalgi a [M54.2] Order(s):CT NECK SOFT TISSUE W IVCON [[id number]] Order #: [id number] iv contrast (will be provided with radiology test)Inject 1 Each intravenously one time only for [address] Neck W IVCON No IV access available, insert saline lock prior to the beginning of sedation, infusion, injection of imaging exams. Discontinue saline lock post exam. If Pt. has a central line or an IVAD, may access port for administration. Upon deaccess of Naranjo needle, if re-access is not indicated, ports to be flushed with 10-20ml 0.9% NACL followed by flush of 5ml Heparin(100units/ml) Disp: 1 EachRfl: 0 Prescriptions as of 07/17/2023 - buPROPion XL (WELLBUTRIN XL) 150 mg 24 hr tablet Take 150 mg by mouth once daily. - busPIRone (BUSPAR) 10 mg tablet Take 2 tablets by mouth every 12 hours. - ALLERGY RELIEF, CETIRIZINE, 10 mg tablet Take 10 mg by mouth once daily. - sertraline (ZOLOFT) 100 mg tablet Take 2 tablets by mouth every afternoon. - iv contrast (will be provided with radiology test) Inject 1 Each intravenously one time only for [address] Neck W IVCON No IV access available, insert saline lock prior to the beginning of sedation, infusion, injection of imaging exams. Discontinue saline lock post exam. If Pt. has a central line or an IVAD, may access port for administration. Upon deaccess of Naranjo needle, if re-access is not indicated, ports to be flushed with 10-20ml 0.9% NACL followed by flush of 5ml Heparin(100units/ml) - azaTHIOprine (IMURAN) 50 mg tablet TAKE 1 TABLET BY MOUTH EVERY DAY WITH FOOD*HOLD IF ON ANTIBIOTICS OR ILL* - predniSONE (DELTASONE) 5 mg tablet Day 1=6tabs with food, Day 2=5tabs, Day 3=4tabs, Day 4=3tabs, Day 5=2tabs, Day 6=1tab, No NSAIDs on med - celecoxib (CELEBREX) 200 mg capsule Take 1 capsule by mouth twice daily. - cyanocobalamin, vitamin B-12, (VITAMIN B-12 ORAL) Take by mouth. - metHIMazole ( (more content not included)... Normal [facility] Basophils Auto (Bld) [#/Vol] Ordered By: Fab Velasquez on 02-13-2023 Basophils (Bld) [#/Vol] 0.1 10*3/uL 0.0-0.2 [facility] Basophils/100 WBC Auto (Bld) Ordered By: Fab Velasquez on 02-13-2023 Basophils/100 WBC (Bld) 1.0 % . [facility] Calcium [Mass/volume] in Ser um or PlasmaOrdered By: Fab Velasquez on 02-13-2023 Calcium [Mass/Vol] 9.2 mg/dL 8.6-10.3 [facility] Carbon dioxide, total [Moles /volume] in Serum or PlasmaOrdered By: Fab Velasquez on 02-13-2023 CO2 [Moles/Vol] 30.9 mmol/L 21.0-31.0 [facility] Chloride [Moles/volume] in [place] or PlasmaOrdered By: Fab Velasquez on 02-13-2023 Chloride [Moles/Vol] 101 mmol/L 98-107 [facility] Creatine kinase [Enzymatic a ctivity/volume] in Serum or PlasmaOrdered By: Fab Velasquez on 02-13-2023 CK [Catalytic activity/Vol] 49 U/L 30-223 [facility] Creatinine [Mass/volume] in Serum or PlasmaOrdered By: Fab Velasquez on 02-13-2023 Creatinine [Mass/Vol] 0.75 mg/dL 0.60-1.20 [facility] Eosinophils Auto (Bld) [#/Vo l]Ordered By: Fab Velasquez on 02-13-2023 Eosinophils (Bld) [#/Vol] 0.1 10*3/uL 0.0-0.45 [facility] Eosinophils/100 WBC Auto (Bl d)Ordered By: Fab Velasquez on 02-13-2023 Eosinophils/100 WBC (Bld) 1.1 % . [facility] Erythrocyte distribution wid th Auto (RBC) [Ratio]Ordered By: Fab Velasquez on 02-13-2023 Erythrocyte distribution width (RBC) [Ratio] 13.1 % 11.9-15.3 [facility] Glucose [Mass/volume] in Ser um or PlasmaOrdered By: Fab Velasquez on 02-13-2023 Glucose [Mass/Vol] 97 mg/dL 70-100 [facility] Comment on above: ADA recommended refe rence rangeRandom Glucose Reference Range is dependent on time and content of last meal. Glucose of more than 200 mg/dL in a nonstressed, ambulatory subject supports the diagnosis of Diabetes Mellitus. Hematocrit Auto (Bld) [Volum e fraction]Ordered By: Fab Velasquez on 02-13-2023 Hematocrit (Bld) [Volume fraction] 38.5 % 34.0-46.4 [facility] Hemoglobin [Mass/volume] in BloodOrdered By: Fab Velasquez on 02-13-2023 Hemoglobin (Bld) [Mass/Vol] 13.0 g/dL 11.8-15.4 [facility] Leukocytes [#/volume] correc rosa m for nucleated erythrocytes in Blood by Automated counOrdered By: Fab Velasquez on 02-13-2023 WBC corrected for nucl RBC Auto (Bld) [#/Vol] 7.3 10*3/uL 3.8-11.6 [facility] Lymphocytes Auto (Bld) [#/Vo l]Ordered By: Fab Velasquez on 02-13-2023 Lymphocytes (Bld) [#/Vol] 2.4 10*3/uL 1.00-4.8 [facility] Lymphocytes/100 WBC Auto (Bl d)Ordered By: Fab Velasquez on 02-13-2023 Lymphocytes/100 WBC (Bld) 32.8 % . [facility] MCH Auto (RBC) [Entitic mass ]Ordered By: Fab Velasquez on 02-13-2023 MCH (RBC) [Entitic mass] 28.1 pg 24.7-34.3 [facility] MCHC Auto (RBC) [Mass/Vol]Or dered By: Fab Velasquez on 02-13-2023 MCHC (RBC) [Mass/Vol] 33.8 g/dL 32.0-35.0 [facility] MCV Auto (RBC) [Entitic vol] Ordered By: Fab Velasquez on 02-13-2023 MCV (RBC) [Entitic vol] 83.1 fL 80-100 [facility] Monocyte distribution width [Entitic volume] in Blood by AutomatedOrdered By: Fab Velasquez on 02-13-2023 Monocyte distribution width Auto (Bld) [Entitic vol] 18.74 % 0.00-20.00 [facility] Monocytes Auto (Bld) [#/Vol] Ordered By: Fab Velasquez on 02-13-2023 Monocytes (Bld) [#/Vol] 0.5 10*3/uL 0.0-0.8 [facility] Monocytes/100 WBC Auto (Bld) Ordered By: Fab Velasquez on 02-13-2023 Monocytes/100 WBC (Bld) 6.2 % . [facility] Natriuretic peptide B [Mass/ Vol]Ordered By: Fab Velasquez on 02-13-2023 Natriuretic peptide B (Bld) [Mass/Vol] 7.0 pg/mL 5-100 [facility] Neutrophils Auto (Bld) [#/Vo l]Ordered By: Fab Velasquez on 02-13-2023 Neutrophils (Bld) [#/Vol] 4.3 10*3/uL 1.8-7.7 [facility] Neutrophils/100 WBC Auto (Bl d)Ordered By: Fab Velasquez on 02-13-2023 Neutrophils/100 WBC (Bld) 58.9 % . [facility] No Panel InformationOrdered By: Fab Velasquez on 02-13-2023 Estimated GFR (CKD-EPI) > 60.0 mL/Min [facility] Creatinine Clearance (Chem 129.56 [facility] Nucleated erythrocytes [Pres ence] in Blood by Automated countOrdered By: Fab Velasquez on 02-13-2023 Nucleated RBC Auto Ql (Bld) 0.0 /100{WBC} 0-0.5 [facility] Platelet mean volume Auto (B ld) [Entitic vol]Ordered By: Fab Velasquez on 02-13-2023 Platelet mean volume (Bld) [Entitic vol] 7.4 fL 6.3-10.7 [facility] Platelets Auto (Bld) [#/Vol] Ordered By: Fab Velasquez on 02-13-2023 Platelets (Bld) [#/Vol] 354 10*3/uL 150-450 [facility] Potassium [Moles/volume] in Serum or PlasmaOrdered By: Fab Velasquez on 02-13-2023 Potassium [Moles/Vol] 3.9 mmol/L 3.5-5.1 [facility] RBC Auto (Bld) [#/Vol]Ordere d By: Fab Velasquez on 02-13-2023 RBC (Bld) [#/Vol] 4.64 10*6/uL 3.60-5.00 [facility] Serum or plasma anion gap de terminationOrdered By: Fab Velasquez on 02-13-2023 Anion gap [Moles/Vol] 9.0 mmol/L 6.0-15.0 [facility] Sodium [Moles/volume] in Ser um or PlasmaOrdered By: Fab Velasquez on 02-13-2023 Sodium [Moles/Vol] 137 mmol/L 136-145 [facility] Troponin I.cardiac [Mass/vol ume] in Serum or Plasma by Detection limit <= 0.01 ng/Ordered By: Fab Velasquez on 02-13-2023 Troponin I.cardiac DL <= 0.01 ng/mL [Mass/Vol] < 2.3 pg/mL 0.0-15.0 [facility] Urea nitrogen [Mass/volume] in Serum or PlasmaOrdered By: Fab Velasquez on 02-13-2023 Urea nitrogen [Mass/Vol] 11 mg/dL 7-25 [facility] WBC Auto (Bld) [#/Vol]Ordere d By: Fab Velasquez on 02-13-2023 WBC (Bld) [#/Vol] 7.3 10*3/uL 3.8-11.[address] [facility] [address] ABD/PELV W CONon 11-26-19 CT ABD/PELV W CON EXAMINATION: CT ABD/PELV W CON HISTORY: Generalized abdominal pain. COMPARISON: None. TECHNIQUE: Images of the abdomen and pelvis with IV contrast. Dose reduction techniques were achieved by using automated exposure control and/or adjustment of mA and/or kV according to patient size and/or use of iterative reconstruction technique. FINDINGS: Lung bases are clear. No adrenal mass or adenopathy. No obstructive uropathy. Gallbladder is absent. Portal vein is patent. Aorta is normal. No bowel obstruction or inflammation. No pneumatosis or pneumoperitoneum. Normal appendix. No pelvic adenopathy or ascites. Uterus is normal size for age. Prior tubal ligation. Bladder is decompressed. No suspicious lytic or sclerotic osseous lesions. No significant lumbar degenerative disease. IMPRESSION: 1. No acute abnormality. 2. Prior cholecystectomy. Electronically authenticated by: ANASTASIYA MERCER Date: 2022-11-25 00:09 Normal [facility] CBC AUTO DIFFon 11-24-2022 BASO # 0.1 103/ul Normal 0.0-0.1 [facility] Comment on above: Performed By: #### IRMA JETER UMICRO #### [facility] [address] [place] [address] Dr. Lyudmila Rios Basophils/100 WBC (Bld) 0.7 % Normal 0.2-2.0 [facility] Comment on above: Performed By: #### IRMA JETER UMICRO #### [facility] [address] [place] [address] Dr. Lyudmila Rios EO # 0.1 103/ul Normal 0.0-0.7 [facility] Comment on above: Performed By: #### IRMA JETER UMICRO #### [facility] [address] [place] [address] Dr. Lyudmila Rios Eosinophils/100 WBC (Bld) 1.3 % Normal 0.9-7.0 [facility] Comment on above: Performed By: #### IRMA JETER UMICRO #### [facility] [address] [place] [address] Dr. Lyudmila Rios Erythrocyte distribution width (RBC) [Ratio] 13.2 % Normal 11.0-15.0 [facility] Comment on above: Performed By: #### IRMA JETER, UMICRO #### [facility] [address] [place] [address] Dr. Lyudmila Rios Hematocrit (Bld) [Volume fraction] 36.7 % Normal 36.0-48.0 [facility] Comment on above: Performed By: #### IRMA JETER, UMICRO #### [facility] [address] [place] [address] Dr. Lyudmila Rios Hemoglobin (Bld) [Mass/Vol] 12.3 g/dL Normal 12.0-16.0 [facility] Comment on above: Performed By: #### IRMA JETER UMICRO #### [facility] [address] [place] [address] Dr. Lyudmila Rios IG # 0.02 10e3/ul Normal 0.00-0.03 [facility] Comment on above: Performed By: #### IRMA JETER UMICRO #### [facility] [address] [place] [address] Dr. Lyudmila Rios IG % 0.2 % Normal 0.0-0.5 [facility] Comment on above: Performed By: #### IRMA JETER UMICRO #### [facility] [address] [place] [address] Dr. Lyudmila Rios LYMPH # 3.4 103/ul Normal 1.2-3.8 [facility] Comment on above: Performed By: #### IRMA JETER UMICRO #### [facility] [address] [place] [address] Dr. Lyudmila Rios Lymphocytes/100 WBC (Bld) 38.9 % Normal 20.5-60.0 [facility] Comment on above: Performed By: #### IRMA JETER, UMICRO #### [facility] [address] [place] [address] Dr. Lyudmila Rios MANUAL DIFF REQ NO Normal [facility] Comment on above: Performed By: #### Franck RILEY DRUGLEONIE, UMICRO #### [facility] [address] [place] [address] Dr. Lyudmila Rios MCH (RBC) [Entitic mass] 28.1 pg Normal 26.7-34.0 [facility] Comment on above: Performed By: #### Franck RILEY DRUGRPTony, UMICRO #### [facility] [address] [place] [address] Dr. Lyudmila Rios MCHC (RBC) [Mass/Vol] 33.5 g/dL Normal 29.9-35.2 [facility] Comment on above: Performed By: #### Franck RILEY DRUGLEONIE, UMICRO #### [facility] [address] [place] [address] Dr. Lyudmila Rios MCV (RBC) [Entitic vol] 83.8 fL Normal 81.0-99.0 [facility] Comment on above: Performed By: #### Franck RILEY DRUGLEONIE, UMICRO #### [facility] [address] [place] [address] Dr. Lyudmila Rios MONO # 0.5 103/ul Normal 0.3-0.8 [facility] Comment on above: Performed By: #### IRMA JETER UMICRO #### [facility] [address] [place] [address] Dr. Lyudmila Rios Monocytes/100 WBC (Bld) 6.0 % Normal 1.7-12.0 [facility] Comment on above: Performed By: #### IRMA JETER, UMICRO #### [facility] [address] [place] [address] Dr. Lyudmila Rios NEUT # 4.6 103/ul Normal 1.4-6.5 [facility] Comment on above: Performed By: #### Franck RILEY DRUGLEONIE, UMICRO #### [facility] [address] [place] [address] Dr. Lyudmila Rios Neutrophils/100 WBC (Bld) 52.9 % Normal 43.0-75.0 [facility] Comment on above: Performed By: #### Franck RILEY DRUGLEONIE, UMICRO #### [facility] [address] [place] [address] Dr. Lyudmila Rios Platelet mean volume (Bld) [Entitic vol] 9.3 fL Critically low 9.5-13.5 [facility] Comment on above: Performed By: #### Franck RILEY DRUGRPTony, UMICRO #### [facility] [address] [place] [address] Dr. Lyudmila Rios PLT 336 103/ul Normal 150-450 [facility] Comment on above: Performed By: #### E RUR, DRUGRPD, UMICRO #### [facility] [address] [place] [address] Dr. Lyudmila Rios RBC 4.38 106/ul Normal 4.20-5.40 [facility] Comment on above: Performed By: #### E RUR, DRUGRPD, UMICRO #### [facility] [address] [place] [address] Dr. Lyudmila Rios WBC 8.7 103/ul Normal 4.0-11.0 [facility] Comment on above: Performed By: #### E RUR, DRUGRPD, UMICRO #### [facility] [address] [place] [address] Dr. Lyudmila Rios ER URINE PROFILEon 3 Bilirubin Ql (U) Negative Normal NEGATIVE [facility] Comment on above: Performed By: #### E RUR, DRUGRPD, UMICRO #### [facility] [address] [place] [address] Dr. Lyudmila Rios Clarity (U) CLEAR Normal CLEAR [facility] Comment on above: Performed By: #### E RUR, DRUGRPD, UMICRO #### [facility] [address] [place] [address] Dr. Lyudmila Rios Color (U) LT. YELLOW Normal YELLOW [facility] Comment on above: Performed By: #### E RUR, DRUGRPD, UMICRO #### [facility] [address] [place] [address] Dr. Lyudmila Rios ERUAHTony A micrscopic examination will be performed if indicated. Normal [facility] Comment on above: Performed By: #### E RUR, DRUGRPD, UMICRO #### [facility] [address] [place] [address] Dr. Lyudmila Rios Glucose Ql (U) Negative Normal NEGATIVE [facility] Comment on above: Performed By: #### E RUR, DRUGRPD, UMICRO #### [facility] [address] [place] [address] Dr. Lyudmila Rios Hemoglobin Ql (U) Negative Normal NEGATIVE [facility] Comment on above: Performed By: #### E RUR, DRUGRPD, UMICRO #### [facility] [address] [address] [address] Lyudmila Rios Ketones Ql (U) Negative Normal NEGATIVE [facility] Comment on above: Performed By: #### E RUR, DRUGRPD, UMICRO #### [facility] [address] [address] [address] Lyudmila Rios LEUKOCYTES Negative Normal NEGATIVE [facility] Comment on above: Performed By: #### E RUR, DRUGRPD, UMICRO #### [facility] [address] [address] [address] Lyudmila Rios Nitrite Ql (U) Negative Normal NEGATIVE [facility] Comment on above: Performed By: #### E RUR, DRUGRPD, UMICRO #### [facility] [address] [place] [address] Dr. Lyudmila Rios pH (U) 6.0 [pH] Normal 5-9 [facility] Comment on above: Performed By: #### E RUR, DRUGRPD, UMICRO #### [facility] [address] [place] [address] Dr. Lyudmila Rios SPEC GRAVITY 1.025 Normal 1.005-<=1.02 5 [facility] Comment on above: Performed By: #### E RUR, DRUGRPD, UMICRO #### [facility] [address] [place] [address] Dr. Lyudmila Rios UA PROTEIN Negative Normal NEGATIVE/ TRACE [facility] Comment on above: Performed By: #### E RUR, DRUGRPD, UMICRO #### [facility] [address] [address] [address] Lyudmila Rios UR MICRO IND NOT INDICATED Normal [facility] Comment on above: Performed By: #### E RUR, DRUGRPD, UMICRO #### [facility] [address] [place] [address] Dr. Lyudmila Rios Urobilinogen Qn (U) 0.2 {Brain'U}/dL Normal 0.2 - 1. 0 [facility] Comment on above: Performed By: #### E IRMA RILEY, ANARO #### [facility] [address] [place] [address] Dr. Lyudmila Rios LIPASEon 11-24-2022 Lipase [Catalytic activity/Vol] 56.0 U/L Critically low 73.0-393.0 [facility] Comment on above: Performed By: #### C MP, LIPA #### [facility] [address] [place] [address] Dr. Lyudmila Rios URon 11-24-2022 , QUAL Negative Normal NEGATIVE [facility] Comment on above: Performed By: #### E IRMA RILEY UMICRO #### [facility] [address] [place] [address] Dr. Lyudmila Rios PROF 14(COMP METB)on 023 Albumin [Mass/Vol] 3.9 g/dL Normal 3.4-5.0 [facility] Comment on above: Performed By: #### C MP, LIPA #### [facility] [address] [place] [address] Dr. Lyudmila Rios Albumin/Globulin [Mass ratio] 1.2 {ratio} Normal [facility] Comment on above: Performed By: #### C MP, LIPA #### [facility] [address] [place] [address] Dr. Lyudmila Rios ALP [Catalytic activity/Vol] 130 U/L Critically high 46-116 [facility] Comment on above: Performed By: #### C MP, LIPA #### [facility] [address] [place] [address] Dr. Lyudmila Rios ALT [Catalytic activity/Vol] 15 U/L Normal 14-59 [facility] Comment on above: Performed By: #### C MP, LIPA #### [facility] [address] [place] [address] Dr. Lyudmila Rios Anion gap [Moles/Vol] 9.5 mmol/L Normal [facility] Comment on above: Performed By: #### C MP, LIPA #### [facility] [address] [address] [address] Lyudmila Rios AST [Catalytic activity/Vol] 14 U/L Critically low 15-37 [facility] Comment on above: Performed By: #### C MP, LIPA #### [facility] [address] [address] [address] Lyudmila Rios Bilirubin [Mass/Vol] 0.2 mg/dL Normal 0.2-1.0 [facility] Comment on above: Performed By: #### C MP, LIPA #### [facility] [address] [address] [address] Lyudmila Rios Calcium [Mass/Vol] 9.1 mg/dL Normal 8.5-10.1 [facility] Comment on above: Performed By: #### C MP, LIPA #### [facility] [address] [place] [address] Dr. Lyudmila Rios Chloride [Moles/Vol] 104 mmol/L Normal 98-107 [facility] Comment on above: Performed By: #### C MP, LIPA #### [facility] [address] [address] [address] Lyudmila Rios CO2 [Moles/Vol] 30.3 mmol/L Normal 21.0-32.0 [facility] Comment on above: Performed By: #### C MP, LIPA #### [facility] [address] [address] [address] Lyudmila iRos Creatinine [Mass/Vol] 0.75 mg/dL Normal 0.55-1.02 [facility] Comment on above: Performed By: #### C MP, LIPA #### [facility] [address] [address] [address] Lyudmila Rios EGFR-AF TAJIK >60 Normal >=60 [facility] Comment on above: Performed By: #### C MP, LIPA #### [facility] [address] [place] [address] Dr. Lyudmila Rios EGFR-NON AF TAJIK >60 Normal >=60 [facility] Comment on above: Performed By: #### C MP, LIPA #### [facility] [address] [address] [address] Lyudmila Rios Globulin (S) [Mass/Vol] 3.2 g/dL Normal T [facility] Comment on above: Performed By: #### C MP, LIPA #### [facility] [address] [place] [address] Dr. Lyudmila Rios Glucose [Mass/Vol] 82 mg/dL Normal 74-106 [facility] Comment on above: Performed By: #### C MP, LIPA #### [facility] [address] [place] [address] Dr. Lyudmila Rios Potassium [Moles/Vol] 3.8 mmol/L Normal 3.5-5.1 [facility] Comment on above: Performed By: #### C MP, LIPA #### [facility] [address] [place] [address] Dr. Lyudmila Rios Protein [Mass/Vol] 7.1 g/dL Normal 6.4-8.2 [facility] Comment on above: Performed By: #### C MP, LIPA #### [facility] [address] [place] [address] Dr. Lyudmila Rios Sodium [Moles/Vol] 140 mmol/L Normal 136-145 [facility] Comment on above: Performed By: #### C MP, LIPA #### [facility] [address] [place] [address] Dr. Lyudmila Rios Urea nitrogen [Mass/Vol] 10.0 mg/dL Normal 7.0-18.0 [facility] Comment on above: Performed By: #### C MP, LIPA #### [facility] [address] [place] [address] Dr. Lyudmila Rios Urea nitrogen/Creatinine [Mass ratio] 13.3 mg/mg Normal [facility] Comment on above: Performed By: #### C MP, LIPA #### [facility] [address] [place] [address] Dr. Lyudmila Rios T4on 11-01-2022 T4 [Mass/Vol] 5.10 ug/dL Normal 4.80-13.90 [facility] Comment on above: Performed By: #### IRMA JETER UMICRO #### [facility] [address] [place] [address] Dr. Lyudmila Rios TSHon 11-01-2022 TSH 5.650 uIU/mL Critically high 0.358-3.740 [facility] Comment on above: Performed By: #### IRMA JETER UMICRO #### [facility] [address] [place] [address] Dr. Lyudmila Rios PAP ACOG PANEL 2: 21 to 29on 10-17-2022 . . Normal [facility] Comment on above: Performed By: #### [id number] #### [facility] [address] [place] [address] Dr. Lyudmila Rios Age Gdln ACOG Testing - [facility] Comment on above: Performed By: #### [id number] #### [facility] [address] [place] [address] Dr. Lyudmila Rios DIAGNOSIS: Comment [facility] Comment on above: Result Comment: NEGA TIVE FOR INTRAEPITHELIAL LESION OR MALIGNANCY. Performed By: #### [id number] #### [facility] [address] [place] [address] Dr. Lyudmila Rios Methodology: Comment [facility] Comment on above: Result Comment: This liquid based ThinPrep(R) pap test was screened with the use of an image guided system. Performed By: #### [id number] #### [facility] [address] [place] [address] Dr. Lyudmila Rios Note: Comment [facility] Comment on above: Result Comment: The Pap smear is a screening test designed to aid in the detection of premalignant and malignant conditions of the uterine cervix. It is not a diagnostic procedure and should not be used as the sole means of detecting cervical cancer. Both false-positive and false-negative reports do occur. . Performed By: #### [id number] #### [facility] [address] [place] [address] Dr. Lyudmila Rios Performed by: Comment Normal [facility] Comment on above: Result Comment: Isidoro Bowman, Insurance Examiner (ASCP) Performed By: #### [id number] #### [facility] [address] [place] [address] Dr. Lyudmila Rios Reflex Criteria: Comment Normal [facility] Comment on above: Result Comment: The HPV DNA reflex criteria were not met with this specimen result therefore, no HPV testing was performed. . Performed By: #### [id number] #### [facility] [address] [place] [address] Dr. Lyudmila Rios Specimen adequacy: Comment Normal [facility] Comment on above: Result Comment: Sati sfactory for evaluation. Endocervical and/or squamous metaplastic cells (endocervical component) are present. Performed By: #### [id number] #### [facility] [address] [place] [address] Dr. Lyudmila Rios Covid-19 PCR (CVDTB)on 04-10 SARS-CoV-2 (COVID-19) RNA MARITZA+probe Ql (Unsp spec) Detected Critically abnormal NOT DETECTED [facility] Comment on above: Result Comment: This test is not yet approved or cleared by the [place] FDA. When there are no FDA-approved or cleared tests available, and other criteria are met, FDA can make tests available under an emergency access mechanism called an Emergency Use Authorization (EUA). The EUA for this test is supported by the [place] of Health and Human Service's (HHS's) declaration that circumstances exist to justify the emergency use of in vitro diagnostics for the detection and/or diagnosis of the virus that causes COVID-19. This EUA will remain in effect (meaning this test can be used) for the duration of the COVID-19 declaration justifying emergency of IVDs, unless it is terminated or revoked by FDA (after which the test may no longer be used). Performed By: #### C BC #### [facility] [address] [place] [address] Dr. Lyudmila Rios CBC AUTO DIFFon 03-24-2022 BASO # 0.1 103/ul Normal 0.0-0.1 [facility] Comment on above: Performed By: #### E ROSEMARY DRUGLEONIE UMICRO #### [facility] [address] [place] [address] Dr. Lyudmila Rios Basophils/100 WBC (Bld) 0.7 % Normal 0.2-2.0 [facility] Comment on above: Performed By: #### E ROSEMARY DRUGLEONIE UMICRO #### [facility] [address] [place] [address] Dr. Lyudmila Rios EO # 0.1 103/ul Normal 0.0-0.7 [facility] Comment on above: Performed By: #### IRMA JETER UMICRO #### [facility] [address] [place] [address] Dr. Lyudmila Rios Eosinophils/100 WBC (Bld) 1.3 % Normal 0.9-7.0 [facility] Comment on above: Performed By: #### IRMA JETER UMICRO #### [facility] [address] [place] [address] Dr. Lyudmila Rios Erythrocyte distribution width (RBC) [Ratio] 12.3 % Normal 11.0-15.0 [facility] Comment on above: Performed By: #### Franck RILEY DRUGLEONIE, UMICRO #### [facility] [address] [place] [address] Dr. Lyudmila Rios Hematocrit (Bld) [Volume fraction] 37.2 % Normal 36.0-48.0 [facility] Comment on above: Performed By: #### Franck RILEY DRUGLEONIE, UMICRO #### [facility] [address] [place] [address] Dr. Lyudmila Rios Hemoglobin (Bld) [Mass/Vol] 12.3 g/dL Normal 12.0-16.0 [facility] Comment on above: Performed By: #### E RUR DRUGRPD, UMICRO #### [facility] [address] [place] [address] Dr. Lyudmila Rios IG # 0.02 10e3/ul Normal 0.00-0.03 [facility] Comment on above: Performed By: #### Franck RILEY DRUGLEONIE, UMICRO #### [facility] [address] [place] [address] Dr. Lyudmila Rios IG % 0.3 % Normal 0.0-0.5 [facility] Comment on above: Performed By: #### Franck RILEY DRUGLEONIE, UMICRO #### [facility] [address] [place] [address] Dr. Lyudmila Rios LYMPH # 2.1 103/ul Normal 1.2-3.8 [facility] Comment on above: Performed By: #### IRMA JETER, UMICRO #### [facility] [address] [place] [address] Dr. Lyudmila Rios Lymphocytes/100 WBC (Bld) 30.9 % Normal 20.5-60.0 [facility] Comment on above: Performed By: #### Franck RILEY DRUGLEONIE, UMICRO #### [facility] [address] [place] [address] Dr. Lyudmila Rios MANUAL DIFF REQ NO Normal [facility] Comment on above: Performed By: #### Franck RILEY DRUGLEONIE, UMICRO #### [facility] [address] [place] [address] Dr. Lyudmila Rios MCH (RBC) [Entitic mass] 28.9 pg Normal 26.7-34.0 [facility] Comment on above: Performed By: #### Franck RILEY DRUGRPTony, UMICRO #### [facility] [address] [place] [address] Dr. Lyudmila Rios MCHC (RBC) [Mass/Vol] 33.1 g/dL Normal 29.9-35.2 [facility] Comment on above: Performed By: #### Franck RUKat DRUGRPD, UMICRO #### [facility] [address] [place] [address] Dr. Lyudmila Rios MCV (RBC) [Entitic vol] 87.3 fL Normal 81.0-99.0 [facility] Comment on above: Performed By: #### Franck RILEY DRUGLEONIE UMICRO #### [facility] [address] [place] [address] Dr. Lyudmila Rios MONO # 0.3 103/ul Normal 0.3-0.8 [facility] Comment on above: Performed By: #### Franck RILEY DRUGLEONIE UMICRO #### [facility] [address] [place] [address] Dr. Lyudmila Rios Monocytes/100 WBC (Bld) 4.8 % Normal 1.7-12.0 [facility] Comment on above: Performed By: #### IRMA JETER UMICRO #### [facility] [address] [place] [address] Dr. Lyudmila Rios NEUT # 4.2 103/ul Normal 1.4-6.5 [facility] Comment on above: Performed By: #### IRMA JETER UMICRO #### [facility] [address] [place] [address] Dr. Lyudmila Rios Neutrophils/100 WBC (Bld) 62.0 % Normal 43.0-75.0 [facility] Comment on above: Performed By: #### IRMA JETER UMICRO #### [facility] [address] [place] [address] Dr. Lyudmila Rios Platelet mean volume (Bld) [Entitic vol] 9.4 fL Critically low 9.5-13.5 [facility] Comment on above: Performed By: #### Franck RILEY DRUGLEONIE, UMICRO #### [facility] [address] [place] [address] Dr. Lyudmila Rios PLT 349 103/ul Normal 150-450 [facility] Comment on above: Performed By: #### Franck RILEY DRUGLEONIE, UMICRO #### [facility] [address] [place] [address] Dr. Lyudmila Rios RBC 4.26 106/ul Normal 4.20-5.40 [facility] Comment on above: Performed By: #### E ROSEMARY DRUGRPD, UMICRO #### [facility] [address] [place] [address] Dr. Lyudmila Rios WBC 6.8 103/ul Normal 4.0-11.0 [facility] Comment on above: Performed By: #### E RUR DRUGRPD, UMICRO #### [facility] [address] [place] [address] Dr. Lyudmila Rios PREG HCG QUALon 03-24-2022 , QUAL Negative Normal NEGATIVE [facility] Comment on above: Performed By: #### E RODNEYR DRUGLEONIE, UMICRO #### [facility] [address] [place] [address] Dr. Lyudmila Rios CBC AUTO DIFFon 03-16-2022 BASO # 0.0 103/ul Normal 0.0-0.1 [facility] Comment on above: Performed By: #### C BC #### [facility] [address] [place] [address] Dr. Lyudmila Rios Basophils/100 WBC (Bld) 0.6 % Normal 0.2-2.0 [facility] Comment on above: Performed By: #### C BC #### [facility] [address] [place] [address] Dr. Lyudmila Rios EO # 0.1 103/ul Normal 0.0-0.7 [facility] Comment on above: Performed By: #### C BC #### [facility] [address] [place] [address] Dr. Lyudmila Rios Eosinophils/100 WBC (Bld) 1.5 % Normal 0.9-7.0 [facility] Comment on above: Performed By: #### C BC #### [facility] [address] [place] [address] Dr. Lyudmila Rios Erythrocyte distribution width (RBC) [Ratio] 12.5 % Normal 11.0-15.0 [facility] Comment on above: Performed By: #### C BC #### [facility] [address] [place] [address] Dr. Lyudmila Rios Hematocrit (Bld) [Volume fraction] 37.6 % Normal 36.0-48.0 [facility] Comment on above: Performed By: #### C BC #### [facility] [address] [place] [address] Dr. Lyudmila Rios Hemoglobin (Bld) [Mass/Vol] 12.4 g/dL Normal 12.0-16.0 [facility] Comment on above: Performed By: #### C BC #### [facility] [address] [place] [address] Dr. Lyudmila Rios IG # 0.02 10e3/ul Normal 0.00-0.03 [facility] Comment on above: Performed By: #### C BC #### [facility] [address] [place] [address] Dr. Lyudmila Rios IG % 0.3 % Normal 0.0-0.5 [facility] Comment on above: Performed By: #### C BC #### [facility] [address] [place] [address] Dr. Lyudmila Rios LYMPH # 2.0 103/ul Normal 1.2-3.8 [facility] Comment on above: Performed By: #### C BC #### [facility] [address] [place] [address] Dr. Lyudmila Rios Lymphocytes/100 WBC (Bld) 29.3 % Normal 20.5-60.0 [facility] Comment on above: Performed By: #### C BC #### [facility] [address] [place] [address] Dr. Lyudmila Rios MANUAL DIFF REQ NO Normal [facility] Comment on above: Performed By: #### C BC #### [facility] [address] [place] [address] Dr. Lyudmila Rios MCH (RBC) [Entitic mass] 29.1 pg Normal 26.7-34.0 [facility] Comment on above: Performed By: #### C BC #### [facility] [address] [place] [address] Dr. Lyudmila Rios MCHC (RBC) [Mass/Vol] 33.0 g/dL Normal 29.9-35.2 [facility] Comment on above: Performed By: #### C BC #### [facility] [address] [address] [address] Lyudmila Rios MCV (RBC) [Entitic vol] 88.3 fL Normal 81.0-99.0 [facility] Comment on above: Performed By: #### C BC #### [facility] [address] [address] [address] Lyudmila Rios MONO # 0.4 103/ul Normal 0.3-0.8 [facility] Comment on above: Performed By: #### C BC #### [facility] [address] [place] [address] Dr. Lyudmila Rios Monocytes/100 WBC (Bld) 5.2 % Normal 1.7-12.0 [facility] Comment on above: Performed By: #### C BC #### [facility] [address] [place] [address] Dr. Lyudmila Rios NEUT # 4.3 103/ul Normal 1.4-6.5 [facility] Comment on above: Performed By: #### C BC #### [facility] [address] [place] [address] Dr. Lyudmila Rios Neutrophils/100 WBC (Bld) 63.1 % Normal 43.0-75.0 [facility] Comment on above: Performed By: #### C BC #### [facility] [address] [place] [address] Dr. Lyudmila Rios Platelet mean volume (Bld) [Entitic vol] 9.4 fL Critically low 9.5-13.5 [facility] Comment on above: Performed By: #### C BC #### [facility] [address] [place] [address] Dr. Lyudmila Rios PLT 309 103/ul Normal 150-450 [facility] Comment on above: Performed By: #### C BC #### [facility] [address] [place] [address] Dr. Lyudmila Rios RBC 4.26 106/ul Normal 4.20-5.40 [facility] Comment on above: Performed By: #### C BC #### [facility] [address] [address] [address] Lyudmila Rios WBC 6.8 103/ul Normal 4.0-11.0 [facility] Comment on above: Performed By: #### C BC #### [facility] [address] [address] [address] Lyudmila Rios GLYCOHEMOGLOBIN A1Con 2021 ADA RECOMMENDATION SEE BELOW Normal [facility] Comment on above: Result Comment: ADA RECOMMENDED LIMIT 4.0 - 6.0 ADA THERAPEUTIC TARGET < 7.0 ACTION SUGGESTED > 7.0 Performed By: #### IRMA JETER UMICRO #### [facility] [address] [place] [address] Dr. Lyudmila Rios Glucose [Mass/Vol] 94 mg/dL Normal [facility] Comment on above: Performed By: #### IRMA JETER UMICRO #### [facility] [address] [place] [address] Dr. Lyudmila Rios HbA1c (Bld) [Mass fraction] 4.9 % Normal 4.5-6.2 [facility] Comment on above: Performed By: #### IRMA JETER UMICRO #### [facility] [address] [place] [address] Dr. Lyudmila Rios LIPID PROFILEon 03-16-2022 CHOL-HDL RATIO NORM SEE BELOW Normal [facility] Comment on above: Result Comment: 3.3 - 4.4 LOW RISK 4.4 - 7.1 AVERAGE RISK 7.1 - 11.0 MODERATE RISK >11.0 HIGH RISK Performed By: #### C BC #### [facility] [address] [place] [address] Dr. Lyudmila Rios Cholesterol [Mass/Vol] 287 mg/dL Critically high <=200 [facility] Comment on above: Performed By: #### C BC #### [facility] [address] [place] [address] Dr. Lyudmila Rios Cholesterol in HDL [Mass/Vol] 67 mg/dL Critically high 40-60 [facility] Comment on above: Performed By: #### C BC #### [facility] [address] [address] [address] Lyudmila Rios Cholesterol in LDL [Mass/Vol] 188.0 mg/dL Normal [facility] Comment on above: Performed By: #### C BC #### [facility] [address] [address] [address] Lyudmila Rios Cholesterol.total/Latrice sterol in HDL [Mass ratio] 4.3 {ratio} Normal [facility] Comment on above: Performed By: #### C BC #### [facility] [address] [address] [address] Lyudmila Rios HDL NORMAL > or = 60 mg/dl - LOW CARDIOVASCULAR RISK <40 mg/dl - HIGH CARDIOVASCULAR RISK Normal [facility] Comment on above: Performed By: #### C BC #### [facility] [address] [address] [address] Lyudmila Rios LDL CALC NORMAL SEE BELOW Normal [facility] Comment on above: Result Comment: <100 mg/dl OPTIMAL 100 - 129 mg/dl NEAR OR ABOVE OPTIMAL 130 - 159 mg/dl BORDERLINE HIGH 160 - 189 mg/dl HIGH >190 mg/dl VERY HIGH Performed By: #### C BC #### [facility] [address] [place] [address] Dr. Lyudmila Rios Triglyceride [Mass/Vol] 160 mg/dL Critically high <=150 [facility] Comment on above: Performed By: #### C BC #### [facility] [address] [address] [address] Lyudimla Rios VLDL CALC 32.0 mg/dL Normal [facility] Comment on above: Performed By: #### C BC #### [facility] [address] [address] [address] Lyudmila Rios PROF 14(COMP METB)on 022 Albumin [Mass/Vol] 3.6 g/dL Normal 3.4-5.0 [facility] Comment on above: Performed By: #### C BC #### [facility] [address] [place] [address] Dr. Lyudmila Rios Albumin/Globulin [Mass ratio] 0.9 {ratio} Normal [facility] Comment on above: Performed By: #### C BC #### [facility] [address] [place] [address] Dr. Lyudmila Rios ALP [Catalytic activity/Vol] 119 U/L Critically high 46-116 [facility] Comment on above: Performed By: #### C BC #### [facility] [address] [address] [address] Lyudmila Rios ALT [Catalytic activity/Vol] 28 U/L Normal 14-59 [facility] Comment on above: Performed By: #### C BC #### [facility] [address] [place] [address] Dr. Lyudmila Rios Anion gap [Moles/Vol] 10.8 mmol/L Normal [facility] Comment on above: Performed By: #### C BC #### [facility] [address] [place] [address] Dr. Lyudmila Rios AST [Catalytic activity/Vol] 16 U/L Normal 15-37 [facility] Comment on above: Performed By: #### C BC #### [facility] [address] [place] [address] Dr. Lyudmila Rios Bilirubin [Mass/Vol] 0.3 mg/dL Normal 0.2-1.0 [facility] Comment on above: Performed By: #### C BC #### [facility] [address] [place] [address] Dr. Lyudmila Rios Calcium [Mass/Vol] 9.2 mg/dL Normal 8.5-10.1 [facility] Comment on above: Performed By: #### C BC #### [facility] [address] [place] [address] Dr. Lyudmila Rios Chloride [Moles/Vol] 105 mmol/L Normal 98-107 [facility] Comment on above: Performed By: #### C BC #### [facility] [address] [place] [address] Dr. Lyudmila Rios CO2 [Moles/Vol] 27.0 mmol/L Normal 21.0-32.0 [facility] Comment on above: Performed By: #### C BC #### [facility] [address] [address] [address] Lyudmila Rios Creatinine [Mass/Vol] 0.82 mg/dL Normal 0.55-1.02 [facility] Comment on above: Performed By: #### C BC #### [facility] [address] [address] [address] Lyudmila Rios EGFR-AF TAJIK >60 Normal >=60 [facility] Comment on above: Performed By: #### C BC #### [facility] [address] [address] [address] Lyudmila Rios EGFR-NON AF TAJIK >60 Normal >=60 [facility] Comment on above: Performed By: #### C BC #### [facility] [address] [address] [address] Lyudmila Rios Globulin (S) [Mass/Vol] 3.8 g/dL Normal [facility] Comment on above: Performed By: #### C BC #### [facility] [address] [address] [address] Lyudmila Rios Glucose [Mass/Vol] 91 mg/dL Normal 74-106 [facility] Comment on above: Performed By: #### C BC #### [facility] [address] [address] [address] Lyudmila Rios Potassium [Moles/Vol] 4.8 mmol/L Normal 3.5-5.1 [facility] Comment on above: Performed By: #### C BC #### [facility] [address] [address] [address] Lyudmila Rios Protein [Mass/Vol] 7.4 g/dL Normal 6.4-8.2 [facility] Comment on above: Performed By: #### C BC #### [facility] [address] [address] [address] Lyudmila Rios Sodium [Moles/Vol] 138 mmol/L Normal 136-145 [facility] Comment on above: Performed By: #### C BC #### [facility] [address] [place] [address] Dr. Lyudmila Rios Urea nitrogen [Mass/Vol] 13.0 mg/dL Normal 7.0-18.0 [facility] Comment on above: Performed By: #### C BC #### [facility] [address] [place] [address] Dr. Lyudmila Rios Urea nitrogen/Creatinine [Mass ratio] 15.9 mg/mg Normal [facility] Comment on above: Performed By: #### C BC #### [facility] [address] [place] [address] Dr. Lyudmila Rios TSHon 03-16-2022 TSH 2.123 uIU/mL Normal 0.358-3.740 [facility] Comment on above: Performed By: #### C BC #### [facility] [address] [place] [address] Dr. Lyudmila Rios VITAMIN D 25 OHon 03-16-2022 VIT D 25-OH 27.7 ng/mL Normal [facility] Comment on above: Performed By: #### IRMA JETER UMICRO #### [facility] [address] [place] [address] Dr. Lyudmila Rios VIT D RANGES SEE BELOW Normal [facility] Comment on above: Result Comment: <20 ng/mL Vit D deficient 20 - <30 ng/mL Vit D insufficient 30 - 100 ng/mL Vit D sufficient >100 ng/mL Potential Toxicity Performed By: #### IRMA JETER UMICRO #### [facility] [address] [place] [address] Dr. Lyudmila Rios T4on 02-22-2022 T4 [Mass/Vol] 11.30 ug/dL Normal 4.80-13.90 [facility] Comment on above: Performed By: #### IRMA JETER UMICRO #### [facility] [address] [place] [address] Dr. Lyudmila Rios TSHon 02-22-2022 TSH 1.727 uIU/mL Normal 0.358-3.740 [facility] Comment on above: Performed By: #### E IRMA RILEY, ANARO #### [facility] [address] [place] [address] Dr. Lyudmila Rios Coding Summary.on 02-15-2022 Coding Summary. CD:[id number] Gh0bWw+PGhlYWQ+PE1FV CRtS22svKHcoF6CL2uIV C5ODWVDWRLZJR6AEG8ak BK6BBkeS4RkzoSr DyhpwPCbDC64QFo4OCR8 cMcvDVvdbI7seQUfQ0y2 VuLeNC88cI79MQxoRPDy ZmU2IqUaccrvbPYe I7fzPwApaQDzVcl+PHRh YmxlIHdpZHRoPScxMDAl VfZiyLbsBA9rNf0bPYFy LWNvbGxhcHNlOiBj z5yxBKWjIFzuTP2qrXbc F4MswJG8YRNdd1q8My24 dHI+PFMzOTC2kRxlWBqp m771LjTky8wdYKJ6 oUDfQQlqLAV0O12qz0P9 AXAiUURaVBE6pDA0hR7v hKxeybylQ4FogENoZyJ6 MJW5sXYcmF3adViq pjvliN9cNbc+S45TNJ2W RJBKLT8DYfv1F3RxPcol dHI+WR42VJObGT33gLEm aQYpj4bnzWg0WcEv BBYyMVA5nGmvGFxik4Wy HFMaI50cvRDke1E0PENo cGmjfQFnPuQdjCP2mX1z EIfpujfwg2cxcfzt Zducg4uogh46fB53U33b GAxbOFRdWYU8ZUQpNEIy eOqyaq2ruA6oBr6+IDxj c4hjy0ajfVz7LqPu UVCqdhWjhFhcTET9u8Us Oe81L1HpsVwpr5YtGni0 il22mOKnk1F5cNN6IUtc IJAlzV2tHLseNoV9 SNFzUoAozN23qZMhKAoa Bo3dhLhciAwjNV9aPFYs kzzlAGIfvS0eFGYcxHFj rFdwZW3vQAUjdbnl l625CyEjIQT8DIEwrTKs T9RjcV1sBfHmERLoQTQp L1JblVQiDIpoB142YKaw KtJ0RQVrieNiH0Mc SMEisUuuRkD8o8W1Zr2V v8QjbqyfVHV6YZbeIDQ1 HcF2YrRuJlU7A7JdVfi1 LNWmuWyqEH1xG2Vj UGNkrdzcczanxHY2QRCk CZTiwM74yGQoAEyeMn4f w7Q3p160QJYbJEVusV53 Pg0ueCceCDIhpSTB uW5miqjzg4gzlxpzAvPe FLWdTNj8IDv8FMBqtAyv NfKcUBT3JkE0BUP2hJRq nQ5vyTbxmvttgA2u Oyc+N45zhO0bFAI7TFH3 mxjrAVIiuhDwHW85JI59 V1ZiOxjzhEQbeCC+PGRp siAyyHzaPH3nTpCe t9nhl6TdEXyvZ9YoCPSn UJuyEgh9WRYuLIH6sGX3 aJ3qDYTwPTjmr4L0fQG4 I8SscjKawk5tc8he RKMrGAkpB49jmFUkf6F5 TQAujVW4MPTpvGznYtKu rI48Ogj+XKUzzEuat2Mh Ylplt6hko6vivFk2 IjMwJSIgdmFsaWduPSJ0 p1OsUk56J96xSVwdPSCl ZOPtKXFhUOVluQldse6q bK5rZz1+PGNvbCB3 oTE9kJ9cHMZqKqS7NUok Z119GkMeqWVqFpvlc4yt a1zqlIi8WdMeERCwgnLm zCuoEXK1p4KuVp04 J13pZUicNDQwENArUUKr MCIcxSdsgf6tvZ8sZs9+ LA2ts3txzz53cO36pBV+ MBWdONI8jFwkEJus VHEvjB1tVMljPiR3VVRp ItGaqK71uQGiDJleIf6f xXlplGstXK0eYDNzvack y346ZeWof8ieJOSu fWEhPMuvZWT1E50pt9A8 QYFrLJYhSKG0pRR6iD1o bGlnbjogbGVmdDsgdmVy dLwzMXpwDUjsV020 IHRvcDsnPlBhdGllbnQg CvZuMWm3D3FmIyk7MJCv uVvlKF5zqHVjGGpkKv6t mUabaCjxJY1fIKIc czdmn722WgMqc0zvBRMw tJLyIOluRXZ8D11eb0F0 FBXfFUMuNJO8fQU4pS5v bGlnbjogbGVmdDsg moHofLgtSEikWWgzZ482 IHRvcDsnPkJpcnRoIERh qNK2RR19ZI49hGVaz1P0 pFS4W1QlMSOicqaw oygbaVD3MMYkKZPsmQ78 Og5epSryJo5gKUMmUIT8 ECFirVOmK4QdfP7dFjOp BWPgCJEhM1FwhMOt LMvrA458KKncOlV6FWKq zrWfJ9TqTKXrwZaiWeV7 p0R4Ce6FW9S8OY14QD36 vKRrh4H9gHM2Y4Zr YPKtmefqntaazCD3TMMe DHUyvM26At3xqGazBh3g VNJwWSA3OYTmlFOfI8Vl nI5zKvSdQCYsKCFi J3SpoDVcUBygB636HEwi WmT5AUFxezUgH3BiTDOl rMrwWbD4v4M2Uz9PLNi0 PY91SI78wVQjz7V8 wUB1E2YaVZPnwapuyecf jXH5WQDiSHWfrB13Lj4k zMxbNl6nOWRrCLA0SGVs ySTsE0TawY4xTwMm DVImEXXuV7CmxSVyCQjf U077RXhnCfV1VOXoqwGs E4TxDHZpzWpnUdO0u0P0 Wp0KMACzCV86XXQ4 sAB2RX19KI97K6JuOyje dGFibGU+PHRhYmxlIHdp ZHRoPScxMDAlJyBzdHls MV3gKa8uQGTjRFHi xYitjQBwSjEsr0meNZPb HVqlPE0aqMenC1VspDS5 VCXgs0l9Ou83U88lZ9Dy dXA+HRGfzWE3gXI1 yX7xUhOeCuY7GGljL791 EsYxnZQfAlwlh8itw0mi mZz7IqI5APCtqsJzdBwc QGS7n3MrLm23Q95s IHdpZHRoPSIxNSUiIHZh uGrwoz8ydN9zJx2+PGNv dPI9oKW1sG2xSeCrWhO6 TVliR995GxRypNAu Ljjzl4bfk6exxFm9JuNy QBJyjcVfrDzwTEZ1a0Yt Eo86M5WpjPddi1HxKpg1 fm60uJPib1C3vGQ2 M2BgCHDsdskznPQzzZtz TD3vKQLxcmquWJGjzQ4p WGJhX8o1JmSqVtQ4XEgd L6PnxfF5OYVwyRIx NBfeAJP2H31du4I8HIJd ZJClLCJ2jWB7aX6ipIwu bjogbGVmdDsgdmVydGlj VHktRNddN364DBHd qNfvWFQkcT8gPVHjlLNg fZrcEZ6xLWKjumbvGrZD GLJUM34yKV8HCswGIpAX LI80VV83lHQnj7L8 nER3Q0MgGUTaqnbkikfs eUF1FASdGHNgiZ98yHVn AAguDn4tt1H9a236RNFw YROocY28Lx7gvRjp HILqcPJFkQ1vfnreb0je lgkfEiNwEDQcKWu1RYl3 RUWqkRwdVnYcDKV6GyW0 AWM4fFYmqC1yoQwt oyrzuZ1ePro+MDIvMDkv FJd0TbipoXY+PHRkIHN0 aChfEQdeTGHibL3yKHFd W9x0NzOlZaK0FNdy P9DtSGYxofonBk79xH0k HhDpAtO9IPhwR9JgtzK3 TUYjjPKkBQbhVIR2K80v v3M9UBCeVEFnZVU2 eVZ5vC0ryShfedgclXLj dDsgdmVydGljYWwtYWxp Y618JUYgrVrmShT6AHlm HQAqKY51BJ47bLSv p4X0hLP5I1JmHKUsvwie jytfeDV7ICBoRXIvbI10 hTZkXCyqYv1wn1A6w728 EKDfVVCjgB05Gy6r rRnjRPDwzDTCoB0xmenh s2vzqlcoRmKdQOClGIu2 RNp1ZITiqXeqYqOcXYH5 YzJ2SMD0uSTtvG9f nFxfyawppH1uSus+RmVt LQouKY65CY96sPVpt9K8 dEW3K8VdDGTxezguogqb sDP6ZMRzDVMaaV86 bFNnSAylAz6cr7S9h314 LUWyPLDmyI79Rj4ntTid RTJhdWLHhI5entdgo4er cjogIzAwMDAwMDt0 SAy3AYAfdIbqNyXtFVZ6 AjA3XSR8fXMjwM8dxYtm jgorcO4zWye+CL9bqopx dgT2BZ89SB29M5Zw PjwvdGFibGU+PHRhYmxl IHdpZHRoPScxMDAlJyBz rUdySI7yKl9uQMElMKAf yFsfrMHqWvSuf1ht MXBwHGfaAT7qcSseQ6Yj rLJ2MPJcw4w6Un10E53f H9UhcLZ+SFPusQQ6uSV5 pA6wRwDpWfY3TKxe A588JtJbgXHhFkdpw5jg h8unoZq3VbEyYDTdbuLa xNntMNG1r0IkKb36G04z IHdpZHRoPSIyMCUi CFNazUrbwm9xhV9tBe7+ WYDxwGC3fWX1aH1hByUn DsH8JLzgP948GhXlqXDv QisuU41lY0MklSR+ JTBpHtk5IDDnwBoqHN2r lVXpYHleOb2zJRM6EzWd ElVeEOksJ8GzXWFqdrnl frafyCJ3FPZoHUYd nI20Sw5yfYjlUm7zCTZa ZGU5ONLmoLVqD0KhbY0k BxVpQOKeCPElC2WhfZMe TIbvG625BIugLvT9 GCQfivIfN0ZaAPMctXjw QiO6w8M2Us4UqRhicFOo AH8uBkPqPMm2X8IyXbk7 RGHeyHphEQ9ahCJu BGspQn3alKgtiNmeGI2x XGHfawvpe616PqIfo9wi SHUevYSqPUshEQY8E42w q9R5SUFsOFPhUBR6 zYH7zW3tgYaxxgvlbSRs dDsgdmVydGljYWwtYWxp S969QTJimLofIyZLEqe2 E7WsEml4JVZfnDqa MC8mgBLuMUsySw8yoHbl rUrnPX6cKPObynijz452 DqYpa7fdIQHffIAvNQvn BIK0C97sq8U2ZJLj XIZfSMA3cYT7nS4lrRxi bjogbGVmdDsgdmVydGlj OWpqXDnyN324FNWhvAln Qi9VQrg2U2FhCzl9 FDVdoJucZO1atDOnEEdy Fv6cgSghuQbxZJ8vUDIo kxrvg514JmQza9pbSMEz iYTiXKtfVOM9H26c m4E2CBDbHLPuLDT1gSB7 vS6mjCgnpwibdAKecYbn wjZyrUzpWWhlPRpzU552 IHRvcDsnPlBheWVy OjwvdGQ+BB89bd83M7Mg CovbMze3NNYaCZI2bMP8 vK6bGLVnEIcli1T2oYC1 Y1AikjPnwf1ek3zl YXBz (more content not included)... Normal [facility] EMS Documentationon 02-11-20 EMS Documentation [id number] #1.00CD:127 Normal [facility] Auto Diffon 02-09-2022 Basophils/100 WBC (Bld) 0.8 % Normal 0.0-2.0 [facility] Comment on above: Order Comment: Order Added by Discern Expert. Performed By: #### 2 054587, 0415322, 36004350, 4033290, 7455412, 14300893, 2904065, 0742821, 94848027 ####[facility] [address] [place] [address] Basophils/Leukocytes Auto (Bld) [Pure # fraction] 0.1 E9/L Normal 0.0-0.2 [facility] Comment on above: Order Comment: Order Added by Discern Expert. Performed By: #### 2 709314, 0971176, 31359676, 5909162, 7125261, 08790465, 6723446, 6541738, 92520716 ####[facility] [address] [place] [address] Eosinophils/100 WBC (Bld) 1.7 % Normal 0.0-8.0 [facility] Comment on above: Order Comment: Order Added by Discern Expert. Performed By: #### 2 106556, 0316066, 67675681, 5716234, 2582937, 58805332, 0947078, 8586419, 90386999 ####[address] [place] [address] Eosinophils/Leukocytes Auto (Bld) [Pure # fraction] 0.2 E9/L Normal 0.0-0.5 [facility] Comment on above: Order Comment: Order Added by Discern Expert. Performed By: #### 2 379590, 2174437, 38031838, 4056043, 8315794, 05203987, 8911983, 8518316, 46159554 ####[address] [place] [address] Lymphocytes/100 WBC (Bld) 28.9 % Normal 14.0-50.0 [facility] Comment on above: Order Comment: Order Added by Discern Expert. Performed By: #### 2 787309, 1532285, 55928568, 9502393, 5800006, 65084907, 2999839, 7095734, 70542057 ####[address] [address] Lymphocytes/Leukocytes Auto (Bld) [Pure # fraction] 2.8 E9/L Normal 1.0-4.0 [facility] Comment on above: Order Comment: Order Added by Discern Expert. Performed By: #### 2 681036, 4484511, 78493332, 5185305, 6601957, 62844365, 4410555, 1823322, 58015522 ####[address] [place] [address] Monocytes/100 WBC (Bld) 5.4 % Normal 4.0-14.0 [facility] Comment on above: Order Comment: Order Added by Discern Expert. Performed By: #### 2 919821, 3666683, 53570447, 9680959, 7890302, 08745549, 7001983, 6621582, 64048174 ####[address] [place] [address] Monocytes/Leukocytes Auto (Bld) [Pure # fraction] 0.5 E9/L Normal 0.2-1.0 [facility] Comment on above: Order Comment: Order Added by Discern Expert. Performed By: #### 2 574061, 9042420, 81926919, 7578319, 4470386, 30620675, 8779414, 2329554, 48813655 ####[facility] [address] [place] [address] Neutrophils/100 WBC (Bld) 63.2 % Normal 36.0-75.0 [facility] Comment on above: Order Comment: Order Added by Discern Expert. Performed By: #### 2 909658, 4954028, 49108788, 0352075, 4217436, 65534376, 5528889, 4753418, 59070215 ####[facility] [address] [place] [address] Neutrophils/Leukocytes Auto (Bld) [Pure # fraction] 6.1 E9/L Normal 2.0-7.5 [facility] Comment on above: Order Comment: Order Added by Discern Expert. Performed By: #### 2 933277, 3424797, 47680746, 5449972, 8361928, 97166148, 2768555, 7142754, 53722266 ####[facility] [address] [place] [address] BMP 02-09-2022 Creatinine [Mass/Vol] 0.8 mg/dL Normal 0.5-1.3 [facility] Comment on above: Performed By: #### 2 613954, 2200427, 85998293, 9514754, 6828910, 80241278, 6783148, 1103532, 03460919 ####[facility] [address] [place] [address] Urea nitrogen [Mass/Vol] 15 mg/dL Normal 5-21 [facility] Comment on above: Performed By: #### 2 196316, 5498329, 30647709, 4741404, 1304378, 32825897, 3894023, 8835811, 22324812 ####[facility] [address] [place] [address] Urea nitrogen/Creatinine [Mass ratio] 19 No Units Normal 10-20 [facility] Comment on above: Performed By: #### 2 332201, 6951941, 83177368, 3100286, 3494347, 30562305, 2479382, 2338136, 34906278 ####[facility] [address] [place] [address] Anion gap [Moles/Vol] 12 mmol/L Normal 6-16 [facility] Comment on above: Performed By: #### 2 650096, 6001854, 09527898, 6359938, 1343718, 43820691, 0030735, 4904767, 34623697 ####[facility] [address] [place] [address] Calcium [Mass/Vol] 9.1 mg/dL Normal 8.9-11.1 [facility] Comment on above: Performed By: #### 2 175044, 7331592, 74961199, 6668399, 6679799, 57842998, 2650292, 8504128, 53712465 ####[facility] [address] [place] [address] Chloride [Moles/Vol] 104 mmol/L Normal 101-111 [facility] Comment on above: Performed By: #### 2 171433, 3036863, 24404685, 8947933, 5009847, 83567134, 6629357, 7905977, 09363707 ####[facility] [address] [place] [address] CO2 [Moles/Vol] 25 mmol/L Normal 21-31 [facility] Comment on above: Performed By: #### 2 427911, 1803217, 03198192, 6097904, 9435065, 04159210, 2664428, 6905876, 72647657 ####[facility] [address] [place] [address] Glucose [Mass/Vol] 86 mg/dL Normal 55-199 [facility] Comment on above: Result Comment: If t his glucose result represents a fasting glucose, interpretation should refer to the following reference range: 55-99 mg/dL Performed By: #### 2 362840, 0662070, 46952584, 6909288, 0779548, 73849380, 0100294, 8991682, 62069096 ####[facility] [address] [place] [address] Potassium [Moles/Vol] 3.5 mmol/L Normal 3.5-5.3 [facility] Comment on above: Performed By: #### 2 785232, 2513623, 16590414, 4191336, 3809451, 74660038, 7168011, 9547232, 34804253 ####[facility] [address] [place] [address] Sodium [Moles/Vol] 137 mmol/L Normal 135-145 [facility] Comment on above: Performed By: #### 2 114258, 3084171, 44907920, 5802683, 7532614, 28920758, 3111944, 6923535, 22597475 ####[facility] [address] [place] [address] CBC w/ Auto Diffon Erythrocyte distribution width (RBC) [Ratio] 13.1 % Normal 10.9-14.2 [facility] Comment on above: Performed By: #### 2 275941, 1061838, 36377400, 2493626, 5524500, 97894456, 6216572, 8023385, 98027491 ####[facility] [address] [place] [address] Hematocrit (Bld) [Volume fraction] 35.1 % Normal 34.0-46.0 [facility] Comment on above: Performed By: #### 2 609855, 6195643, 89671368, 8717209, 5121238, 95911842, 5476988, 1545371, 27053755 ####[facility] [address] [place] [address] Hemoglobin (Bld) [Mass/Vol] 11.8 g/dL Low 12.0-16.0 [facility] Comment on above: Performed By: #### 2 250062, 4904323, 21765647, 2579595, 5838774, 50815581, 4359575, 6789589, 06071972 ####[facility] [address] [place] [address] MCH (RBC) [Entitic mass] 29.0 pg Normal 27.0-34.0 [facility] Comment on above: Performed By: #### 2 707296, 7905243, 99979134, 7951277, 8260990, 17413638, 8863127, 3387852, 98884770 ####[facility] [address] [place] [address] MCHC (RBC) [Mass/Vol] 33.6 g/dL Normal 31.4-36.0 [facility] Comment on above: Performed By: #### 2 812495, 8283714, 28822490, 4225319, 8794920, 04526173, 6470503, 2412359, 66296519 ####[facility] [address] [place] [address] MCV (RBC) [Entitic vol] 86.2 fL Normal 80.0-100.0 [facility] Comment on above: Performed By: #### 2 061137, 6320450, 37413521, 1680270, 0931881, 90804962, 5368034, 5874281, 07549539 ####[facility] [address] [place] [address] Platelet mean volume (Bld) [Entitic vol] 7.0 fL Normal 6.4-10.8 [facility] Comment on above: Performed By: #### 2 340587, 9006237, 58362546, 7983545, 0956730, 70737743, 1669797, 3710232, 65880548 ####[facility] [address] [place] [address] Platelets (Bld) [#/Vol] 325.0 E9/L Normal 150.0-500.0 [facility] Comment on above: Performed By: #### 2 929915, 4759539, 13725640, 7063277, 9508834, 50359951, 6390957, 9302172, 70175871 ####[facility] [address] [place] [address] RBC (Bld) [#/Vol] 4.1 E12/L Low 4.3-5.9 [facility] Comment on above: Performed By: #### 2 832205, 6189241, 06063074, 2591479, 4051196, 70006138, 2840388, 1960634, 04307840 ####[facility] [address] [place] [address] WBC corrected for nucl RBC Auto (Bld) [#/Vol] 9.6 E9/L Normal 4.0-11.0 [facility] Comment on above: Performed By: #### 2 134507, 6590964, 67055485, 3135615, 8036489, 51119727, 1466177, 3815723, 14636174 ####[facility] [address] [place] [address] CT Abdomen/Pelvis w/ Contras ton 02-09-2022 CT Abdomen/Pelvis w/ Contrast Exam Date/Time: 02/09/2022 02:32 EDT Reason for Exam: Abdominal pain, acute, nonlocalized;Other (please specify) Report IMPRESSION: NO ACUTE PROCESS IN THE ABDOMEN AND PELVIS. MILD HEPATOMEGALY. SMALL BILATERAL OVARIAN CYSTS MEASURING UP TO 2.3 CM. CLINICAL HISTORY: Abdominal pain, acute, nonlocalized COMPARISON: NONE. FINDINGS: CT abdomen pelvis was done with intravenous injection of contrast. Both lung bases are unremarkable. Patient is status post a cholecystectomy. The liver is mildly enlarged measuring 22.2 cm on cc dimension. Spleen is unremarkable. Pancreas, adrenals and both kidneys are free from mass or hydronephrosis. There is a small fat-containing umbilical hernia. There is normal excretion of contrast from both kidneys. Bowel loops are unremarkable. There is a 2.3 cm left ovarian cyst. There is no free fluid in the pelvic cavity. There is 1.7 cm right ovarian cyst. Urinary bladder is contracted. There is retroverted uterus with quite dilated uterine cervix, probably secondary to recent delivery. Appendix is normal. There is no free fluid in the pelvic cavity. Bony structures are unremarkable. All CT scans at this facility use dose modulation, iterative reconstruction, and/or weight based dosing when appropriate to reduce radiation dose to as low as reasonably achievable. FINAL REPORT Dictated: 02/09/2022 7:56 am Cr Winston M.D. Signed (Electronic Signature): 02/09/2022 7:56 am Signed by: Cr Winston M.D. Transcribed by: DRAGAN Technologist: SCOTT Technical Comments GFR (mL/min/1/73m2) >60 Contrast: Isovue 300 Contrast amount in ml's: 100 Normal [facility] Consent for Treatmenton Consent for Treatment [id number] #1.00CD:127 Normal [facility] D-Dimeron 02-09-2022 Fibrin D-dimer FEU (PPP) [Mass/Vol] 286 [id number] Normal 215-500 [facility] Comment on above: Result Comment: This assay is intended for use as an aid in the diagnosis of DVT or PE. These conditions cannot be excluded with certainty solely on the basis of a D-dimer concentration being within the reference range This D-Dimer assay may be used in conjunction with a non-high clinical pretest probability assessment to exclude deep-vein thrombosis(DVT). For exclusion of venous thrombosis or pulmonary embolism the analyte D-Dimer should not be used as an aid in patients with: Therapeutic dose anticoagulant therapy for >24 hours Fibrinolytic therapy within previous 7 days Trauma or surgery within previous 4 weeks Disseminated malignacies Aortic aneurysm Sepsis, severe infections, pneumonia, severe skin infections Liver cirrhosis Performed By: #### 2 010933, 9055079, 57110743, 6951818, 0958230, 54157127, 2667500, 1550088, 50805784 ####[facility] [address] [place] [address] Discharge Instructionson Discharge Instructions [id number] #1.00CD:127 Normal [facility] ED Clinical Summaryon 2021 ED Clinical Summary [address] [address] ED Clinical Summary Person Information Name: JERRY COX Wendy/[facility] Age: 26 Years : 1995 Sex: Female Language: Argentine PCP: Richard Webster DO Marital Status: Single Visit Id: Visit Reason: Chest pain; CHEST PAIN Speciality: Acuity: 3 Enc Type: Emergency Med Service: Emergency Arrival: 02/09/2022 00:48:27 Discharge: 02/09/2022 05:18:34 LOS: 000 04:30 Checkin: 02/09/2022 00:48:27 Checkout: 02/09/2022 05:18:34 Dispo Type: Home (Routine DC) EVENTS: Event Name Event Status Request Date/Time Start Date/Time Complete Date/Time Arrive Complete 02/09/2022 00:48:27 02/09/2022 00:48:27 02/09/2022 00:48:27 Document Home Meds Request 02/09/2022 00:48:27 Triage Complete 02/09/2022 00:48:27 02/09/2022 01:00:53 02/09/2022 01:00:53 Bed Assign Complete 02/09/2022 00:51:05 02/09/2022 00:51:05 02/09/2022 00:51:05 Dr Exam Complete 02/09/2022 00:51:05 02/09/2022 00:51:15 02/09/2022 00:51:15 RN Exam Complete 02/09/2022 00:51:05 02/09/2022 01:59:45 02/09/2022 01:59:45 Registration Complete 02/09/2022 00:51:15 02/09/2022 00:51:58 02/09/2022 00:51:58 EKG Complete 02/09/2022 00:51:40 02/09/2022 00:56:37 Reg Complete Request 02/09/2022 00:51:58 Reg Bed Request Complete 02/09/2022 00:51:58 02/09/2022 00:51:58 02/09/2022 00:51:58 Pending Labs Complete 02/09/2022 01:03:25 02/09/2022 05:04:31 Lab Complete 02/09/2022 01:03:25 02/09/2022 01:55:10 Patient Care Request 02/09/2022 01:03:25 RT Request 02/09/2022 01:03:25 X-Ray Complete 02/09/2022 01:03:25 02/09/2022 01:35:00 Meds Admin Complete 02/09/2022 01:03:25 02/09/2022 01:44:33 Wet Read Request 02/09/2022 01:35:00 Pending Labs Complete 02/09/2022 01:40:53 02/09/2022 01:40:53 02/09/2022 01:55:11 Lab Complete 02/09/2022 01:40:53 02/09/2022 01:40:53 02/09/2022 01:55:11 Pending Labs Complete 02/09/2022 01:44:56 02/09/2022 01:44:56 02/09/2022 01:45:05 Lab Complete 02/09/2022 01:44:56 02/09/2022 01:44:56 02/09/2022 01:45:05 Pending Labs Complete 02/09/2022 01:53:00 02/09/2022 01:53:00 02/09/2022 01:59:57 Meds Admin Complete 02/09/2022 01:53:40 02/09/2022 02:11:34 Pending Labs Complete 02/09/2022 02:00:24 02/09/2022 02:00:24 02/09/2022 02:17:36 Lab Complete 02/09/2022 02:00:24 02/09/2022 02:00:24 02/09/2022 02:17:36 CT Complete 02/09/2022 02:01:59 02/09/2022 02:09:05 02/09/2022 02:32:19 Discharge Complete 02/09/2022 05:06:41 02/09/2022 05:18:39 02/09/2022 05:18:39 Transfer Complete 02/09/2022 05:18:39 02/09/2022 05:18:39 02/09/2022 05:18:39 ADDRESS: [address] [place] [address] [address] [place] JOSEPH [place] [id number] PHYS DOC NOTES: MEDICAL INFORMATION: Prescriptions Given: New Medications Printed Prescriptions famotidine (Pepcid 20 mg Tab) 1 Tablets By Mouth every day. Refills: 0. ondansetron (Zofran 4 mg Tab) 1 Tablets By Mouth every 8 hours as needed Nausea/Vomiting. Refills: 0. PATIENT EDUCATION INFORMATION: Instructions: Nonspecific Chest Pain, Adult; Abdominal Pain, Adult, [id number] Follow up: With: Address: When: [place] [id number] Business (1) In 3 days 02/12/2022 Comments: Take the Pepcid once a day for the next 2 weeks to help with your pain you can use the Zofran every 6 hours as needed for nausea and vomiting. Please follow-up with your primary care doctor next 2 to 3 days. Please return to the ED for any new or worsening symptoms. DIAGNOSIS: Acute epigastric pain; Atypical chest pain; N&V (nausea and vomiting) [facility] ED Note-Nursingon 02-09-2022 ED Note-Nursing pt given d/c instructions and educated on importance of follow up. pt educated on new medications. pt verbalized understanding of instructions and readiness for d/c. pt walked self ambulatory to waiting room in stable condition. [facility] ED Note-Nursing pt arrived to ed from home via ems with c/o intermittent sharp midsternal CP 05/20. pt states she had a baby 1.5 months ago. pt also has hx of panic attacks and takes anxiety medication as prescribed. pt states she has had CP like this with anxiety before but never this bad. pt VSS. iv access by ems. ekg obtained. pt medicated as ordered. pt mother at bedside. [facility] ED Note-Physicianon 02-10-20 ED Note-Physician Basic Information Time Seen: Compa Forde DO 02/09/2022 00:51 Chief Complaint sharp cp intermittent, had a baby 1.5 months ago. had sob with the pain. History of Present Illness Patient is a 26-year-old female with no past medical history presenting to the ED for evaluation of sharp chest pain in addition to epigastric pain. Patient states the pain started 2 to 3 hours prior to arrival described as sharp, stabbing in the middle of her chest. Patient also noted epigastric pain with associated nausea. Patient states the pain is intermittent and worse when taking a deep breath, notes associated shortness of breath when the pain worsens. Patient denies any recent travel, fevers, chills, dizziness or lightheadedness. Did have a baby approximately 6 weeks ago. Review of Systems General: Denied fever, chills, weight loss HEENT: Denied Congestion, rhinorrhea, sore throat Cardiac: Denied palpitations, dizziness/lightheade dness, CP Respiratory: Denied Dyspnea, cough Abdominal: Denied vomiting, diarrhea, constipation, + epigastric pain, nausea : Denied dysuria, hematuria Extremities: Denied leg swelling, leg pain, calf tenderness Neuro: Denied Focal neurologic deficits, vision changes, difficulty with speech Integumentary: Denied rashes or lesions Physical Exam Vitals & Measurements T: 36.7 ?C(Oral) HR: 63(Peripheral) RR: 18 BP: 140/68 SpO2: 100% HT: 170.2 cm HT: 170.18 cm WT: 77.6 kg WT: 77.56 kg BMI: 26.78 General: Well developed, non toxic appearing, no acute distress HEENT: Head atraumatic, Mucosa moist, hearing grossly normal Neck: No JVD, tracheal deviation Cardiac: Regular rate, rhythm, no murmurs, or gallops, 2+ radial pulses Respiratory: Lungs clear to auscultation B/L, normal respiratory effort Abdomen: Soft palpation in the epigastrium no rebound or guarding, no peritoneal signs Extremities: No edema noted in the LE B/L, no tenderness to palpation Neurologic: Alert and oriented, speech clear Skin: No rashes or lesions Psych: Appropriate mood and behavior Medical Decision Making Patient is a 26-year-old female presenting to the ED for evaluation of epigastric abdominal pain, chest pain, shortness of breath. Patient nontoxic-appearing on arrival, no acute distress. Laboratory evaluation is obtained, D-dimer is ordered. Patient is given GI cocktail, Toradol. Patient's laboratory evaluation is unremarkable, troponin is negative x2. CT of the abdomen pelvis is obtained due to patient's abdominal pain. Does not show any acute pathology. On reevaluation patient is feeling improved, she is discharged home with prescription for Pepcid, Zofran. She to follow-up with her primary care doctor next 2 to 3 days. Heart Score for Major Cardiac Event History: Example factors for history - pattern of chest pain, onset, duration, relation with exercise, stress or cold, localization, concominant symptoms. reaction to sublingual nitrates, [] Highly suspicious +2 [] Moderately suspicious +1 [X] Slightly suspicious 0 EKG: [] Significant ST-Depression +2 [] Non specific repolarization disturbance +1 [X] Normal 0 Age: [] >= 65 +2 [] 45-65 + 1 [X] <45 0 Risk Factors: (HLD, HTN, DM, Cigarette Smoking, Pos Family Hx, Obesity) [] >3 risk factors or hx of atheroslerotic disease + 2 [] 1-2 risk factors + 1 [x] No risk factors known 0 Troponin: [] >= 3X normal + 2 [] 1-3X normal + 1 [X] <= Normal 0 [X] 0-3 Points 0.9 - 1.7% risk of major adverse cardiac event in 6 weeks [] 4-6 Points 12-16.6% risk of major adverse cardiac event in 6 weeks [] 7-10 Points 50-65% risk of major adverse cardiac event in 6 weeks [X] 0-3 Points with 2 sets of negative cardiac markers <1% risk of major adverse cardiac event in 30 days. Assessment/Plan Acute epigastric pain (R10.13: Epigastric pain) Atypical chest pain (R07.89: Other chest pain) N&V (nausea and vomiting) (R11.2: Nausea with vomiting, unspecified) Orders: Al hydroxide/Mg hydroxide/simethicon e, 30 mL, Susp-Oral, Oral, Once, Stop date 02/09/22 1:53:00 EDT, STAT, Start date 02/09/22 1:53:00 EDT atropine/hyoscyamine /PB/scopolamine, 10 mL, Elixir, Oral, Once, Stop date 02/09/22 1:53:00 EDT, STAT, Start date 02/09/22 1:53:00 EDT famotidine, 20 mg = 1 tab(s), Oral, Daily, # 30 tab(s), Refills(s) 0 ketorolac, 30 mg = 1 mL, Injection, IV Push, Once, Stop date 02/09/22 1:03:00 EDT, STAT, Start date 02/09/22 1:03:00 EDT, 02/09/22 1:03:00 EDT lidocaine topical, 200 mg, 10 mL, Soln-Oral, Oral, Once, Stop date 02/09/22 1:53:00 EDT, STAT, Start date 02/09/22 1:53:00 EDT ondansetron, 4 mg = 1 tab(s), Oral, q8hr, PRN Nausea/Vomiting, # 12 tab(s), Refills(s) 0 Add on Test Automated Diff Basic Metabolic Panel CBC w/ Auto Diff CT Abdomen/Pelvis w/ Contrast D-Dimer ECG 12 Lead Logan (more content not included)... Normal [facility] Comment on above: Result Comment: Elec tronically Signed By: Compa Forde DO.br\Date and Time Signed: 02/09/22 05:10 EDT ED Patient Education Noteon 02-09-2022 ED Patient Education Note Gastroenterology Abdominal Pain, Adult Many things can cause belly (abdominal) pain. Most times, belly pain is not dangerous. Many cases of belly pain can be watched and treated at home. Sometimes, though, belly pain is serious. Your doctor will try to find the cause of your belly pain. Follow these instructions at home: Medicines ? Take rurz-sue-uwdpkwp and prescription medicines only as told by your doctor. ? Do not take medicines that help you poop (laxatives) unless told by your doctor. General instructions ? Watch your belly pain for any changes. ? Drink enough fluid to keep your pee (urine) pale yellow. ? Keep all follow-up visits as told by your doctor. This is important. Contact a doctor if: ? Your belly pain changes or gets worse. ? You are not hungry, or you lose weight without trying. ? You are having trouble pooping (constipated) or have watery poop (diarrhea) for more than 2?3 days. ? You have pain when you pee or poop. ? Your belly pain wakes you up at night. ? Your pain gets worse with meals, after eating, or with certain foods. ? You are vomiting and cannot keep anything down. ? You have a fever. ? You have blood in your pee. Get help right away if: ? Your pain does not go away as soon as your doctor says it should. ? You cannot stop vomiting. ? Your pain is only in areas of your belly, such as the right side or the left lower part of the belly. ? You have bloody or black poop, or poop that looks like tar. ? You have very bad pain, cramping, or bloating in your belly. ? You have signs of not having enough fluid or water in your body (dehydration), such as: ? Dark pee, very little pee, or no pee. ? Cracked lips. ? Dry mouth. ? Sunken eyes. ? Sleepiness. ? Weakness. ? You have trouble breathing or chest pain. Summary ? Many cases of belly pain can be watched and treated at home. ? Watch your belly pain for any changes. ? Take eijr-xrg-twokqey and prescription medicines only as told by your doctor. ? Contact a doctor if your belly pain changes or gets worse. ? Get help right away if you have very bad pain, cramping, or bloating in your belly. This information is not intended to replace advice given to you by your health care provider. Make sure you discuss any questions you have with your health care provider. Document Released: 02/12/2009 Document Revised: 01/05/2020 Document Reviewed: 01/05/2020 [employer] Patient Education ? 2019 [employer]. Pulmonary Medicine Nonspecific Chest Pain, Adult Chest pain can be caused by many different conditions. It can be caused by a condition that is life-threatening and requires treatment right away. It can also be caused by something that is not life-threatening. If you have chest pain, it can be hard to know the difference, so it is important to get help right away to make sure that you do not have a serious condition. Some life-threatening causes of chest pain include: ? Heart attack. ? A tear in the body's main blood vessel (aortic dissection). ? Inflammation around your heart (pericarditis). ? A problem in the lungs, such as a blood clot (pulmonary embolism) or a collapsed lung (pneumothorax). Some non life-threatening causes of chest pain include: ? Heartburn. ? Anxiety or stress. ? Damage to the bones, muscles, and cartilage that make up your chest wall. ? Pneumonia or bronchitis. ? Shingles infection (varicella-zoster virus). Chest pain can feel like: ? Pain or discomfort on the surface of your chest or deep in your chest. ? Crushing, pressure, aching, or squeezing pain. ? Burning or tingling. ? Dull or sharp pain that is worse when you move, cough, or take a deep breath. ? Pain or discomfort that is also felt in your back, neck, jaw, shoulder, or arm, or pain that spreads to any of these areas. Your chest pain may come and go. It may also be constant. Your health care provider will do lab tests and other studies to find the cause of your pain. Treatment will depend on the cause of your chest pain. Follow these instructions at home: Medicines ? Take qscz-xbc-kjhvljq and prescription medicines only as told by your health care provider. ? If you were prescribed an antibiotic, take it as told by your health care provider. Do not stop taking the antibiotic even if you start to feel better. Lifestyle ? Rest as directed by your health care provider. ? Do not use any products that contain nicotine or tobacco, such as cigarettes and e-cigarettes. If you need help quitting, ask your health care provider. ? Do not drink alcohol. ? Make healthy lifestyle choices as recommended. These may include: ? Getting regular exercise. Ask your health care provider to suggest some activities that are safe for you. ? Eating a heart-healthy diet. This includes plenty of fresh fruits and vegetables, whole grains, low-fat (lean) protein, and low-fat dairy p (more content not included)... Normal [facility] ED Patient Summaryon 022 ED Patient Summary [place] [id number] Patient Discharge Instructions Person Information Name: JERRY COX Age: 26 Years Arrival Date: 02/09/2022 00:48:27 Discharge Diagnosis: Acute epigastric pain; Atypical chest pain; N&V (nausea and vomiting) Primary Care Physician: Richard Webster DO Provider Information Primary Provider: Compa Forde DO Advanced Gin Feeder:None The exam and treatment you received in the Emergency Department were for an urgent problem and are not intended as complete care. It is important that you follow up with a doctor, nurse practitioner, or physician?s physician office assistant for ongoing care. If your symptoms become worse or you do not improve as expected and you are unable to reach your usual health care provider, you should return to the Emergency Department. We are available 24 hours a day. JERRY COX has been given the following list of patient education materials, prescriptions and follow-up instructions: Follow-up Instructions: With: Address: When: Richard Webster [address] [place] [id number] [facility] (1) In 3 days 02/12/2022 Comments: Take the Pepcid once a day for the next 2 weeks to help with your pain you can use the Zofran every 6 hours as needed for nausea and vomiting. Please follow-up with your primary care doctor next 2 to 3 days. Please return to the ED for any new or worsening symptoms. In the event that this physician does not participate in your insurance network, please consult with your insurance company to find a nearby participating provider. Patient Education Materials: Nonspecific Chest Pain, Adult; Abdominal Pain, Adult, Fkof-zd-Fwpg A MESSAGE TO ALL PATIENTS REGARDING OPIOIDS PRESCRIPTION OPIOIDS: WHAT YOU NEED TO KNOW Prescription opioids can be used to help relieve fsvsdhul-bs-yjxley pain and are often prescribed following a surgery or injury, or for certain health conditions. These medications can be an important part of the treatment but also come with serious risks. It is important to work with your healthcare provider to make sure you are getting the safest, most effective care. WHAT ARE THE RISKS AND SIDE EFFECTS OF OPIOID USE? Prescription opioids carry serious risks of addiction and overdose, especially with prolonged use. An opioid overdose, often marked by slowed breathing, can cause sudden . The use of prescription opioids can have a number of side effects as well, even when taken as directed: ? Tolerance?meaning you might need to take more of the medication for the same pain relief ? Physical dependence?meaning you have symptoms of withdrawal when a medication is stopped ? Increased sensitivity to pain ? Constipation ? Nausea, vomiting, and dry mouth ? Sleepiness and dizziness ? Confusion ? Depression ? Low levels of testosterone that can result in lower sex drive, energy, and strength ? Itching and sweating RISKS ARE GREATER WITH: ? History of drug misuse, substance use disorder, or overdose ? Mental health conditions (such as depression or anxiety) ? Sleep apnea ? Older age (65 years and older) ? Avoid alcohol while taking prescription opioids. Also, unless specifically advised by your health care provider, medications to avoid include: ? Benzodiazepines (such as Xanax or Valium) ? Muscle relaxants (such as Soma or Flexeril) ? Hypnotics (such as Ambien or Lunesta) ? Other prescription opioids KNOW YOUR OPTIONS Talk to your health care provider about ways to manage your pain that don?t involve prescription opioids. Some of these options may actually work better and have fewer risks and side effects. Options may include: ? Pain relievers such as acetaminophen, ibuprofen, and naproxen ? Some medication that are also used for depression or seizures ? Physical therapy and exercise ? Cognitive behavioral therapy, a psychological, goal-directed approach, in which patients learn how to modify physical, behavioral, and emotional triggers of pain and stress. IF YOU ARE PRESCRIBED OPIOIDS FOR PAIN: ? Never take opioids in greater amounts or more often than prescribed. ? Follow up with your primary health care provider. o Work together to create a plan on how to manage your pain. o Talk about ways to help manage your pain that don?t involve prescription opioids. o Talk about any and all concerns and side effects. ? Help prevent misuse and abuse o Never sell or share prescription opioids. o Never use another person?s prescription opioids. ? Store prescription opioids in a secure place and out of reach of others (this may include visitors, children, friends, and family). ? Safely dispose of unused prescription opioids: Find your community drug take-back program or your pharmacy mail-back program, or flush them down the toilet, following gavi (more content not included)... Normal [facility] Lipase Levelon 02-09-2022 Lipase [Catalytic activity/Vol] 24 U/L Normal 13-58 [facility] Comment on above: Performed By: #### 2 [id number], [id number], [id number], 1761123, 3385262, 44437968, 9172775, 4108311, [id number] ####[facility] [address] [place] [address] Magnesiumon 02-09-2022 Magnesium [Mass/Vol] 2.0 mg/dL Normal 1.3-2.4 [facility] Comment on above: Performed By: #### 2 [id number], 5773802, 44391783, 7931521, 2142424, 55269163, 0151695, 4031704, [id number] ####[facility] [address] [place] [address] Monitor Recordon 02-09-2022 Monitor Record [id number]#1.00CD:127 Normal [facility] PT & PTTon 02-09-2022 aPTT Coag (PPP) [Time] 35.8 second(s) Normal 25.1-36.5 [facility] Comment on above: Result Comment: Hepa rin therapeutic range (represented by Anti-Factor Xa activity of 0.2 - 0.4 U/mL) corresponds to PTT of 56.6 - 109.0 sec. Performed By: #### 2 335393, 7521796, 56293871, 3478253, 7938216, 89226997, 3603406, 4713029, 15141825 ####[facility] [address] [place] [address] INR Coag (PPP) [Relative time] 1.1 {INR} Invalid Interpretation Code [facility] Comment on above: Result Comment: INR results are specifically intended to assess patients stabilized on long-term Anticoagulation therapy suggested INR?s ?Less Intensive Anticoagulation? 2.0 ? 3.0 Conventional Range 3.0 ? 4.5 Performed By: #### 2 974379, 2518497, 15416480, 7288887, 3061860, 48264375, 0780980, 4752255, 54967660 ####[facility] [address] [place] [address] PT Coag (PPP) [Time] 12.6 second(s) Normal 10.2-12.9 [facility] Comment on above: Performed By: #### 2 628045, 5121226, 26435733, 3487996, 3891265, 62937017, 8941086, 8951789, 34467981 ####[facility] [address] [place] [address] Pre-Arrival Noteon Pre-Arrival Note Pre-Arrival Summary Name: , INGE Current Date: 02/09/2022 00:51:18 EDT Gender: Female Date of : Age: 26 Pre-Arrival Type: EMS ETA: 02/09/2022 01:09:00 EDT Primary Care Physician: Presenting Problem: CP Pre-Arrival User: Lupe Taylor RN Referring Source: Location: Completion Date/Time: 02/09/2022 00:39:00 [facility] Emergency Department Pre-Hospital Report Form Vital Signs: Pre-Hospital Report: Treatment in Route: Response to Treatment: Misc. Issues: Normal [facility] Progress Noteson 02-09-2022 Instrument Maker Authentication Interface Message Text EMERGENCY TRIAGE, TREAT AND TRANSPORT (ET3) DOCUMENTATION OF TELEHEALTH VISIT Date / Time: 02/09/2022 / 4 Name: Jerry Cox : 1995 SSN: (Not on file) EMS Agency: [facility] [x] Verbal consent obtained [] Implied consent - patient with potential emergency medical condition requiring assessment of capacity to refuse treatment and/or transport VITAL SIGNS: see flowsheet documentation Reason for Telehealth Visit: Chief Complaint Patient presents with * Chest symptoms/complaints History of Present Ilness: Is a very pleasant 26-year-old female who called 911 due to chest pain. Patient states that she was cleaning baby bottles she developed sharp chest pain that radiated around the chest. This persisted for approximately 20 minutes and was almost gone on EMS arrival. She denies any diaphoresis, nausea, vomiting. She does complain shortness of breath with the pain. Patient has had no other recent illnesses. She is approximately 6 weeks . Patient does have a history of anxiety, is currently being treated for depression and anxiety. She also has a history of thyroid disease and arthritis. She denies any leg pain, leg swelling, recent illness, recent immobilization, recent long trips. No history of blood clots. She did drink few Pepsis earlier this evening, but denies any palpitations. Additional pertinent PMHx, SocHx, FamHx: See HPI. Medications include iron, control pills, Zoloft, BuSpar, Debbie, Protonix. Denies alcohol tobacco or drug use Review of Systems: Denies the following: Headache, neck pain, back pain, abdominal pain, rash, arm or leg pain, dysuria, nausea, vomiting. She is not Exam: General: Awake, no distress ENT: normocephalic, atraumatic Pulmonary: No respiratory distress, EMS reports clear lungs Cardiovascular: Well perfused Neurologic: Oriented to person, place, time and events. Moving all extremities equally. Psychiatric: Appropriate. Good insight and judgement. Medical Decision Making: This is a pleasant 26-year-old female with chest pain of unclear etiology. Although she carries a history of anxiety, she does not attribute this to feeling anxious, and her heart rate has been consistently in the low 70s during my evaluation. Twelve lead EKG was reviewed, picture sent by EMS, which showed a normal sinus rhythm heart rate of approximately 70, no acute ST or T-wave changes. During my evaluation the patient had another episode of intense chest pain, appearing very uncomfortable,. She did not have any change in heart rate related to this. At this point patient is requesting go to the emergency department for further evaluation which I support. I asked EMS to repeat an EKG was she was having a chest pain episode, but I did not receive this image. Disposition Supported by Telehealth Assessment: ET3 transport decisions: Transport to hospital EMS Disposition Reported: Same ET3 Encounter Completed by: Ishaan Collier MD Normal [facility] [employer] [facility] RAD - Preliminary Cat Scan R eporton 02-09-2022 RAD - Preliminary Cat Scan Report [id number] #[id number]:127 Normal [facility] Troponin 0 Hr.on 02-09-2022 Troponin I.cardiac [Mass/Vol] ng/mL Low 10.10-27.10 [facility] Comment on above: Result Comment: The 95% CI (Confidence Interval) PPV (Positive Predictive Value) for myocardial infarction in females is 38 pg/mL, in males 51 pg/mL. The results should be used in conjunction with clinical conditions of myocardial infarction. (Access High Sensitivity Troponin I Instructions For Use, Yolie Lakeside, April 2018) Performed By: #### 2 [id number], 3053467, 52987799, 1538586, 9112012, 73905080, 9629555, 5272292, 78848061 ####[facility] [address] [place] [address] Troponin 3 Hr.on 02-09-2022 Troponin I.cardiac [Mass/Vol] 2.40 pg/mL Low 10.10-27.10 [facility] Comment on above: Result Comment: The 95% CI (Confidence Interval) PPV (Positive Predictive Value) for myocardial infarction in females is 38 pg/mL, in males 51 pg/mL. The results should be used in conjunction with clinical conditions of myocardial infarction. (Access High Sensitivity Troponin I Instructions For Use, Yolie Lakeside, April 2018) Performed By: #### 1 [id number] ####[facility] [address] [place] [address] XR Chest Single Viewon 02-09 XR Chest Single View Exam Date/Time: 02/09/2022 01:35 EDT Reason for Exam: Chest pain Report IMPRESSION: NO ACTIVE PULMONARY DISEASE. CLINICAL HISTORY: Chest pain COMPARISON: NONE. FINDINGS: AP upright portable chest shows normal-sized heart and unremarkable both lungs. FINAL REPORT Dictated: 02/09/2022 7:42 am Cr Winston M.D. Signed (Electronic Signature): 02/09/2022 7:42 am Signed by: Cr Winston M.D. Transcribed by: DRAGAN Technologist: SCOTT Normal [facility] eGFRon 02-09-2022 GFR/1.73 sq M.predicted among blacks MDRD (S/P/Bld) [Vol rate/Area] mL/min/{1.73_m2} Normal >=59 [facility] Comment on above: Order Comment: Order added by Discern Expert. Result Comment: eGFR is race adjusted. AA=. Performed By: #### 2 000907, 4668080, 79537090, 0942500, 3621869, 36334829, 2276622, 3180651, 16567373 ####[facility] [address] [place] [address] GFR/1.73 sq M.predicted among non-blacks MDRD (S/P/Bld) [Vol rate/Area] mL/min/{1.73_m2} Normal >=59 [facility] Comment on above: Order Comment: Order added by Discern Expert. Result Comment: Lettuce Cutter malcolm kidney disease could be indicated at eGFR's of less than 60 mL/min/1.73m2. Kidney failure is indicated at less than 15 mL/min/1.73m2. Performed By: #### 2 774757, 8346787, 45654515, 8545126, 6971161, 66124788, 3382317, 2240368, [id number] ####[facility] [address] [place] [address] XR TIB_FIB LT 2Von 2 XR TIB_FIB LT 2V EXAM: XR FOOT LT MIN 3 VIEWS, XR TIB_FIB LT 2V DATE: 02/05/2022 11:09 AM EDT INDICATION: Falls COMPARISON: None. TECHNIQUE: 2 views left tibia-fibula and 3 views left foot FINDINGS: Left foot: No acute fracture. Normal osseous alignment. Joint spaces are maintained. Soft tissues are unremarkable. Left tibia-fibula: No acute fracture. Normal osseous alignment. Soft tissues are unremarkable. IMPRESSION: 1. No acute osseous abnormality. Electronically authenticated by: MASSIMO TRAVIS Date: 2022-02-05 11:33 Normal [facility] ACETAMINOPHENon 12-31-2021 Acetaminophen [Mass/Vol] ug/mL Normal 10.0-30.0 [facility] Comment on above: Performed By: #### S ALYC, ETH, TSH, CMP, ACET #### [facility] [address] [place] [address] Dr. Lyudmila Rios CBC AUTO DIFFon 12-31-2021 BASO # 0.1 103/ul Normal 0.0-0.1 [facility] Comment on above: Performed By: #### E RUR, DRUGRPD, UMICRO #### [facility] [address] [place] [address] [address] Lyudmila Rios Basophils/100 WBC (Bld) 0.7 % Normal 0.2-2.0 [facility] Comment on above: Performed By: #### E RUR, DRUGRPD, UMICRO #### [facility] [address] [place] [address] Dr. Lyudmila Rios EO # 0.4 103/ul Normal 0.0-0.7 [facility] Comment on above: Performed By: #### E RUR, DRUGRPD, UMICRO #### [facility] [address] [place] [address] Dr. Lyudmila Rios Eosinophils/100 WBC (Bld) 3.3 % Normal 0.9-7.0 [facility] Comment on above: Performed By: #### Franck RILEY DRUGLEONIE UMICRO #### [facility] [address] [place] [address] Dr. Lyudmila Rios Erythrocyte distribution width (RBC) [Ratio] 13.2 % Normal 11.0-15.0 [facility] Comment on above: Performed By: #### Franck RUIRMA Stephens, UMICRO #### [facility] [address] [place] [address] Dr. Lyudmila Rios Hematocrit (Bld) [Volume fraction] 28.1 % Critically low 36.0-48.0 [facility] Comment on above: Performed By: #### IRMA JETER UMICRO #### [facility] [address] [place] [address] Dr. Lyudmila Rios Hemoglobin (Bld) [Mass/Vol] 9.6 g/dL Critically low 12.0-16.0 [facility] Comment on above: Performed By: #### Franck RILEY DRUGLEONIE, UMICRO #### [facility] [address] [place] [address] Dr. Lyudmila Rios IG # 0.10 10e3/ul Critically high 0.00-0.03 [facility] Comment on above: Performed By: #### Franck RUKat DRUGRPTony, UMICRO #### [facility] [address] [place] [address] Dr. Lyudmila Rios IG % 0.9 % Critically high 0.0-0.5 [facility] Comment on above: Performed By: #### E RUR DRUGRPTony, UMICRO #### [facility] [address] [place] [address] Dr. Lyudmila Rios LYMPH # 3.1 103/ul Normal 1.2-3.8 [facility] Comment on above: Performed By: #### E RUR DRUGRPD, UMICRO #### [facility] [address] [place] [address] Dr. Lyudmila Rios Lymphocytes/100 WBC (Bld) 28.9 % Normal 20.5-60.0 [facility] Comment on above: Performed By: #### E RUR, DRUGRPD, UMICRO #### [facility] [address] [place] [address] Dr. Lyudmila Rios MANUAL DIFF REQ NO Normal [facility] Comment on above: Performed By: #### E RUR, DRUGRPD, UMICRO #### [facility] [address] [place] [address] Dr. Lyudmila Rios MCH (RBC) [Entitic mass] 30.4 pg Normal 26.7-34.0 [facility] Comment on above: Performed By: #### E RUR, DRUGRPD, UMICRO #### [facility] [address] [place] [address] Dr. Lyudmila Rios MCHC (RBC) [Mass/Vol] 34.2 g/dL Normal 29.9-35.2 [facility] Comment on above: Performed By: #### E RUR, DRUGRPD, UMICRO #### [facility] [address] [place] [address] Dr. Lyudmila Rios MCV (RBC) [Entitic vol] 88.9 fL Normal 81.0-99.0 [facility] Comment on above: Performed By: #### E RUR, DRUGRPD, UMICRO #### [facility] [address] [place] [address] Dr. Lyudmila Rios MONO # 0.6 103/ul Normal 0.3-0.8 [facility] Comment on above: Performed By: #### E RUR, DRUGRPD, UMICRO #### [facility] [address] [place] [address] Dr. Lyudmila Rios Monocytes/100 WBC (Bld) 5.9 % Normal 1.7-12.0 [facility] Comment on above: Performed By: #### E RUR, DRUGRPD, UMICRO #### [facility] [address] [place] [address] Dr. Lyudmila Rios NEUT # 6.5 103/ul Normal 1.4-6.5 [facility] Comment on above: Performed By: #### IRMA JETER UMICRO #### [facility] [address] [place] [address] Dr. Lyudmila Rios Neutrophils/100 WBC (Bld) 60.3 % Normal 43.0-75.0 The [facility] Comment on above: Performed By: #### IRMA JETER, UMICRO #### [facility] [address] [place] [address] Dr. Lyudmila Rios Platelet mean volume (Bld) [Entitic vol] 9.2 fL Critically low 9.5-13.5 [facility] Comment on above: Performed By: #### IRMA JETER, UMICRO #### [facility] [address] [place] [address] Dr. Lyudmila Rios PLT 289 103/ul Normal 150-450 [facility] Comment on above: Performed By: #### IRMA JETER, UMICRO #### [facility] [address] [place] [address] Dr. Lyudmila Rios RBC 3.16 106/ul Critically low 4.20-5.40 The [facility] Comment on above: Performed By: #### IRMA JETER, UMICRO #### [facility] [address] [place] [address] Dr. Lyudmila Rios WBC 10.8 103/ul Normal 4.0-11.0 The [facility] Comment on above: Performed By: #### IRMA JETER, UMICRO #### [facility] [address] [place] [address] Dr. Lyudmila Rios [facility]10 SARS-CoV-2 (COVID-19) RNA MARITZA+probe Ql (Unsp spec) Not detected Normal NOT DETECTED The [facility] Comment on above: Result Comment: This test is not yet approved or cleared by the [place] FDA. When there are no FDA-approved or cleared tests available, and other criteria are met, FDA can make tests available under an emergency access mechanism called an Emergency Use Authorization (EUA). The EUA for this test is supported by the [place] of Health and Human Service's (HHS's) declaration that circumstances exist to justify the emergency use of in vitro diagnostics for the detection and/or diagnosis of the virus that causes COVID-19. This EUA will remain in effect (meaning this test can be used) for the duration of the COVID-19 declaration justifying emergency of IVDs, unless it is terminated or revoked by FDA (after which the test may no longer be used). When diagnostic testing is negative, the possibility of a false negative should be considered in the context of a patient's recent exposures and the presence of clinical signs and symptoms consistent with SARS-CoV-2. Performed By: #### E RUR DRUGRPD UMICRO #### [facility] [address] [place] [address] Dr. Lyudmila Rios DRUG SCREEN RAPID (URINE)on 12-31-2021 AMP Negative Normal NEGATIVE [facility] Comment on above: Performed By: #### E RUR DRUGRPD, UMICRO #### [facility] [address] [place] [address] Dr. Lyudmila Rios BAR Negative Normal NEGATIVE The [facility] Comment on above: Performed By: #### E RUR DRUGRPD, UMICRO #### [facility] [address] [place] [address] Dr. Lyudmila Rios BUP Negative Normal NEGATIVE [facility] Comment on above: Performed By: #### E RUR, DRUGRPD, UMICRO #### [facility] [address] [place] [address] Dr. Lyudmila Rios BZO Negative Normal NEGATIVE The [facility] Comment on above: Performed By: #### E RUR, DRUGRPD, UMICRO #### [facility] [address] [place] [address] Dr. Lyudmila Rios DAWSON Negative Normal NEGATIVE [facility] Comment on above: Performed By: #### E RUR, DRUGRPD, UMICRO #### [facility] [address] [place] [address] Dr. Lyudmila Rios CUT-OFFS SEE BELOW Normal [facility] Comment on above: Result Comment: AMP (Amphetamine): 500ng/mL, BAR (Barbituates): 200 ng/mL, BZO (Benzodiazepines): 150 ng/mL, BUP (Buprenorphine): 10 ng/mL, DAWSON (Cocaine): 150 ng/mL, mAMP (Methamphetamine): 500 ng/mL, MTD (Methadone): 200 ng/mL, OPI (Opiates): 100 ng/mL, OXY (Oxycodone): 100 ng/mL, PCP (Phencyclidine): 25 ng/mL, PPX (Propoxyphene): 300 ng/mL, THC (Cannabinoids): 50 ng/mL, TCA (Trycyclic Antidepressants): 300 ng/mL Performed By: #### E RUR, DRUGRPD, UMICRO #### [facility] [address] [place] [address] Dr. Lyudmila Rios DRUG CUT HEADER DRUG CLASS TEST SYSTEM CUT-OFF CONCENTRATIONS ARE FOLLOWS: Normal [facility] Comment on above: Performed By: #### E RUR, DRUGRPD, UMICRO #### [facility] [address] [place] [address] Dr. Lyudmila Rios mAMP Negative Normal NEGATIVE [facility] Comment on above: Performed By: #### E RUR, DRUGRPD, UMICRO #### [facility] [address] [place] [address] Dr. Lyudmila Rios MTD Negative Normal NEGATIVE [facility] Comment on above: Performed By: #### E RUR, DRUGRPD, UMICRO #### [facility] [address] [place] [address] Dr. Lyudmila Rios OPI Negative Normal NEGATIVE [facility] Comment on above: Performed By: #### E RUR, DRUGRPD, UMICRO #### [facility] [address] [place] [address] Dr. Lyudmila Rios OXY Negative Normal NEGATIVE [facility] Comment on above: Performed By: #### E RUR, DRUGRPD, UMICRO #### [facility] [address] [place] [address] Dr. Lyudmila Rios PCP Negative Normal NEGATIVE [facility] Comment on above: Performed By: #### E RUR, DRUGRPD, UMICRO #### [facility] [address] [place] [address] Dr. Lyudmila Rios PPX Negative Normal NEGATIVE [facility] Comment on above: Performed By: #### E RUR, DRUGRPD, UMICRO #### [facility] [address] [place] [address] Dr. Lyudmila Rois TCA Negative Normal NEGATIVE [facility] Comment on above: Performed By: #### E RUR, DRUGRPD, UMICRO #### [facility] [address] [place] [address] Dr. Lyudmila Rios THC Negative Normal NEGATIVE [facility] Comment on above: Performed By: #### E RUR, DRUGRPD, UMICRO #### [facility] [address] [place] [address] Dr. Lyudmila Rios ER URINE PROFILEon 2 Bilirubin Ql (U) Negative Normal NEGATIVE [facility] Comment on above: Performed By: #### E RUR, DRUGRPD, UMICRO #### [facility] [address] [place] [address] Dr. Lyudmila Rios Clarity (U) CLEAR Normal CLEAR [facility] Comment on above: Performed By: #### E RUR, DRUGRPD, UMICRO #### [facility] [address] [place] [address] Dr. Lyudmila Rios Color (U) RED Abnormal YELLOW The [facility] Comment on above: Performed By: #### E RUR, DRUGRPD, UMICRO #### [facility] [address] [place] [address] Dr. Lyudmila Rios ERUAHD A micrscopic examination will be performed if indicated. Normal The [facility] Comment on above: Performed By: #### E RUR, DRUGRPD, UMICRO #### [facility] [address] [place] [address] Dr. Lyudmila Rios Glucose Ql (U) Negative Normal NEGATIVE [facility] Comment on above: Performed By: #### E RUR, DRUGRPD, UMICRO #### [facility] [address] [address] [address] Lyudmila Rios Hemoglobin Ql (U) LARGE Abnormal NEGATIVE [facility] Comment on above: Performed By: #### E RUR, DRUGRPD, UMICRO #### [facility] [address] [address] [address] Lyudmila Rios Ketones Ql (U) Negative Normal NEGATIVE [facility] Comment on above: Performed By: #### E RUR, DRUGRPD, UMICRO #### [facility] [address] [place] [address] Dr. Lyudmila Rios LEUKOCYTES SMALL Abnormal NEGATIVE The [facility] Comment on above: Performed By: #### E RUR, DRUGRPD, UMICRO #### [facility] [address] [place] [address] Dr. Lyudmila Rios Nitrite Ql (U) Negative Normal NEGATIVE [facility] Comment on above: Performed By: #### E RUR, DRUGRPD, UMICRO #### [facility] [address] [place] [address] Dr. Lyudmila Rios pH (U) 7.0 [pH] Normal 5-9 [facility] Comment on above: Performed By: #### E RUR, DRUGRPD, UMICRO #### [facility] [address] [place] [address] Dr. Lyudmila Rios Protein (U) [Mass/Vol] 30 mg/dL Abnormal NEGAT KEREN/ TRACE The [facility] Comment on above: Performed By: #### E RUR, DRUGRPD, UMICRO #### [facility] [address] [address] [address] Lyudmila Rios SPEC GRAVITY 1.010 Normal 1.005-<=1.02 5 [facility] Comment on above: Performed By: #### E RUR, DRUGRPD, UMICRO #### [facility] [address] [place] [address] Dr. Lyudmila Rios UR MICRO IND INDICATED Normal The [facility] Comment on above: Performed By: #### E RUR, DRUGRPD, UMICRO #### [facility] [address] [address] [address] Lyudmila Rios Urobilinogen Qn (U) 0.2 {Brain'U}/dL Normal 0.2 - 1. 0 [facility] Comment on above: Performed By: #### E RUR, DRUGRPD, UMICRO #### [facility] [address] [place] [address] Dr. Lyudmila Rios ETHANOL (BLD ALC)on 01-01-20 22 ALC NOTE NOTE: 80 mg/dl is the legal limit for a blood alcohol level Normal [facility] Comment on above: Performed By: #### S ALYC, ETH, TSH, CMP, ACET #### [facility] [address] [place] [address] Dr. Lyudmila Rios Ethanol [Mass/Vol] mg/dL Normal [facility] Comment on above: Performed By: #### S ALYC, ETH, TSH, CMP, ACET #### [facility] [address] [place] [address] Dr. Lyudmila Rios PROF 14(COMP METB)on 022 Albumin [Mass/Vol] 2.5 g/dL Critically low 3.4-5.0 [facility] Comment on above: Performed By: #### E RUR, DRUGRPD, UMICRO #### [facility] [address] [place] [address] Dr. Lyudmila Rios Albumin/Globulin [Mass ratio] 0.7 {ratio} Normal [facility] Comment on above: Performed By: #### E RUR, DRUGRPD, UMICRO #### [facility] [address] [place] [address] Dr. Lyudmila Rios ALP [Catalytic activity/Vol] 124 U/L Critically high 46-116 [facility] Comment on above: Performed By: #### E RUR, DRUGRPD, UMICRO #### [facility] [address] [place] [address] Dr. Lyudmila Rios ALT [Catalytic activity/Vol] 20 U/L Normal 14-59 [facility] Comment on above: Performed By: #### E RODNEYR DRUGRPTony, UMICRO #### [facility] [address] [place] [address] Dr. Lyudmila Rios Anion gap [Moles/Vol] 11.4 mmol/L Normal [facility] Comment on above: Performed By: #### E RUKat DRUGRPTony, UMICRO #### [facility] [address] [place] [address] Dr. Lyudmila Rios AST [Catalytic activity/Vol] 17 U/L Normal 15-37 [facility] Comment on above: Performed By: #### E ROSEMARY DRUGLEONIE, UMICRO #### [facility] [address] [place] [address] Dr. Lyudmila Rios Bilirubin [Mass/Vol] 0.3 mg/dL Normal 0.2-1.0 [facility] Comment on above: Performed By: #### E ROSEMARY DRUGRPTony, UMICRO #### [facility] [address] [place] [address] Dr. Lyudmila Rios Calcium [Mass/Vol] 8.2 mg/dL Critically low 8.5-10.1 [facility] Comment on above: Performed By: #### E RUKat DRUGRPTony, UMICRO #### [facility] [address] [place] [address] Dr. Lyudmila Rios Chloride [Moles/Vol] 105 mmol/L Normal 98-107 [facility] Comment on above: Performed By: #### E RUR, DRUGRPD, UMICRO #### [facility] [address] [place] [address] Dr. Lyudmila Rios CO2 [Moles/Vol] 24.0 mmol/L Normal 21.0-32.0 [facility] Comment on above: Performed By: #### E RUR, DRUGRPD, UMICRO #### [facility] [address] [place] [address] Dr. Lyudmila Rios Creatinine [Mass/Vol] 0.76 mg/dL Normal 0.55-1.02 [facility] Comment on above: Performed By: #### E RUR, DRUGRPD, UMICRO #### [facility] [address] [place] [address] Dr. Lyudmila Rios EGFR-AF TAJIK >60 Normal >=60 [facility] Comment on above: Performed By: #### E RUR, DRUGRPD, UMICRO #### [facility] [address] [place] [address] Dr. Lyudmila Rios EGFR-NON AF TAJIK >60 Normal >=60 [facility] Comment on above: Performed By: #### E RUR, DRUGRPTony, UMICRO #### [facility] [address] [place] [address] Dr. Lyudmila Rios Globulin (S) [Mass/Vol] 3.5 g/dL Normal T [facility] Comment on above: Performed By: #### E RUR DRUGRPTony, UMICRO #### [facility] [address] [place] [address] Dr. Lyudmila Rios Glucose [Mass/Vol] 93 mg/dL Normal 74-106 [facility] Comment on above: Performed By: #### E RUR DRUGLEONIE, UMICRO #### [facility] [address] [place] [address] Dr. Lyudmila Rios Potassium [Moles/Vol] 3.4 mmol/L Critically low 3.5-5.1 [facility] Comment on above: Performed By: #### E RUR DRUGRPTony, UMICRO #### [facility] [address] [place] [address] Dr. Lyudmila Rios Protein [Mass/Vol] 6.0 g/dL Critically low 6.1-8.2 [facility] Comment on above: Performed By: #### E RUR DRUGRPTony, UMICRO #### [facility] [address] [place] [address] Dr. Lyudmila Rios Sodium [Moles/Vol] 137 mmol/L Normal 136-145 [facility] Comment on above: Performed By: #### E RUR, DRUGRPD, UMICRO #### [facility] [address] [place] [address] Dr. Lyudmila Rios Urea nitrogen [Mass/Vol] 10.0 mg/dL Normal 7.0-18.0 [facility] Comment on above: Performed By: #### E RUR DRUGRPTony, UMICRO #### [facility] [address] [place] [address] Dr. Lyudmila Rios Urea nitrogen/Creatinine [Mass ratio] 13.2 mg/mg Normal [facility] Comment on above: Performed By: #### E RUR DRUGLEONIE, UMICRO #### [facility] [address] [place] [address] Dr. Lyudmila Rios SALICYLATEon 12-31-2021 SALICYLATE <1.0 Normal <=20.0 [facility] Comment on above: Performed By: #### S ALYC, ETH, TSH, CMP, ACET #### [facility] [address] [place] [address] Dr. Lyudmila Rios TSHon 12-31-2021 TSH 3.000 uIU/mL Normal 0.470-4.680 [facility] Comment on above: Performed By: #### IRMA JETER, UMICRO #### [facility] [address] [place] [address] Dr. Lyudmila Rios TSH RANGE SEE BELOW Normal [facility] Comment on above: Result Comment: <0.3 4 UIU/ml HYPERTHYROID 0.34-5.60 UIU/ml EUTHYROID >5.60 UIU/ml HYPOTHYROID Performed By: #### E RUR DRUGRPTony, UMICRO #### [facility] [address] [place] [address] Dr. Lyudmila Rios URINE MICROSCOPIC ONLYon BACTERIA NONE SEEN Normal NONE SEEN The [facility] Comment on above: Performed By: #### E RUR, DRUGRPD, UMICRO #### [facility] [address] [place] [address] Dr. Lyudmila Rios Bacteria identified Cx Nom (U) NOT INDICATED Normal [facility] Comment on above: Performed By: #### E RUR, DRUGRPD, UMICRO #### [facility] [address] [address] [address] Lyudmila Rios CAST NONE SEEN Normal NONE SEEN The [facility] Comment on above: Performed By: #### E RUR, DRUGRPD, UMICRO #### [facility] [address] [address] [address] Lyudmila Rios Crystals LM Nom (Urine sed) NONE SEEN Normal NONE SEEN The [facility] Comment on above: Performed By: #### E RUR, DRUGRPD, UMICRO #### [facility] [address] [place] [address] Dr. Lyudmila Rios Epithelial cells LM Ql (Urine sed) FEW Abnormal NONE SEEN /RARE The [facility] Comment on above: Performed By: #### E RUR, DRUGRPD, UMICRO #### [facility] [address] [place] [address] Dr. Lyudmila Rios MUCOUS NONE SEEN Normal NONE SEEN The [facility] Comment on above: Performed By: #### E RUR, DRUGRPD, UMICRO #### [facility] [address] [address] [address] Lyudmila Rios RBC (U) [#/Vol] /uL Abnormal 0-2 [facility] Comment on above: Performed By: #### E RUR, DRUGRPD, UMICRO #### [facility] [address] [address] [address] Lyudmila Rios WBC 2-5 Abnormal NONE SEEN The [facility] Comment on above: Performed By: #### E RUR, DRUGRPD, UMICRO #### [facility] [address] [address] [address] Lyudmila Rios CBC AUTO DIFFon 12-28-2021 BASO # 0.0 103/ul Normal 0.0-0.1 [facility] Comment on above: Performed By: #### C BC #### [facility] [address] [place] [address] Dr. Lyudmila Rios Basophils/100 WBC (Bld) 0.2 % Normal 0.2-2.0 [facility] Comment on above: Performed By: #### C BC #### [facility] [address] [place] [address] Dr. Lyudmila Rios EO # 0.0 103/ul Normal 0.0-0.7 [facility] Comment on above: Performed By: #### C BC #### [facility] [address] [place] [address] Dr. Lyudmila Rios Eosinophils/100 WBC (Bld) 0.2 % Critically low 0.9-7.0 [facility] Comment on above: Performed By: #### C BC #### [facility] [address] [place] [address] Dr. Lyudmila Rios Erythrocyte distribution width (RBC) [Ratio] 13.3 % Normal 11.0-15.0 [facility] Comment on above: Performed By: #### C BC #### [facility] [address] [place] [address] Dr. Lyudmila Rios Hematocrit (Bld) [Volume fraction] 26.9 % Critically low 36.0-48.0 [facility] Comment on above: Performed By: #### C BC #### [facility] [address] [place] [address] Dr. Lyudmila Rios Hemoglobin (Bld) [Mass/Vol] 9.1 g/dL Critically low 12.0-16.0 [facility] Comment on above: Performed By: #### C BC #### [facility] [address] [place] [address] Dr. Lyudmila Rios IG # 0.13 10e3/ul Critically high 0.00-0.03 [facility] Comment on above: Performed By: #### C BC #### [facility] [address] [place] [address] Dr. Lyudmila Rios IG % 0.8 % Critically high 0.0-0.5 [facility] Comment on above: Performed By: #### C BC #### [facility] [address] [place] [address] Dr. Lyudmila Rios LYMPH # 2.0 103/ul Normal 1.2-3.8 [facility] Comment on above: Performed By: #### C BC #### [facility] [address] [address] [address] Lyudmila Rios Lymphocytes/100 WBC (Bld) 12.1 % Critically low 20.5-60.0 [facility] Comment on above: Performed By: #### C BC #### [facility] [address] [place] [address] Dr. Lyudmila Rios MANUAL DIFF REQ NO Normal [facility] Comment on above: Performed By: #### C BC #### [facility] [address] [place] [address] Dr. Lyudmila Rios MCH (RBC) [Entitic mass] 30.7 pg Normal 26.7-34.0 [facility] Comment on above: Performed By: #### C BC #### [facility] [address] [place] [address] Dr. Lyudmila Rios MCHC (RBC) [Mass/Vol] 33.8 g/dL Normal 29.9-35.2 [facility] Comment on above: Performed By: #### C BC #### [facility] [address] [place] [address] Dr. Lyudmila Rios MCV (RBC) [Entitic vol] 90.9 fL Normal 81.0-99.0 [facility] Comment on above: Performed By: #### C BC #### [facility] [address] [place] [address] Dr. Lyudmila Rios MONO # 1.1 103/ul Critically high 0.3-0.8 [facility] Comment on above: Performed By: #### C BC #### [facility] [address] [place] [address] Dr. Lyudmila Rios Monocytes/100 WBC (Bld) 6.6 % Normal 1.7-12.0 [facility] Comment on above: Performed By: #### C BC #### [facility] [address] [place] [address] Dr. Lyudmila Rios NEUT # 13.4 103/ul Critically high 1.4-6.5 [facility] Comment on above: Performed By: #### C BC #### [facility] [address] [address] [address] Lyudmila Rios Neutrophils/100 WBC (Bld) 80.1 % Critically high 43.0-75.0 [facility] Comment on above: Performed By: #### C BC #### [facility] [address] [place] [address] Dr. Lyudmila Rios Platelet mean volume (Bld) [Entitic vol] 9.6 fL Normal 9.5-13.5 [facility] Comment on above: Performed By: #### C BC #### [facility] [facility] [address] [place] [address] Dr. Lyudmila Rios PLT 206 103/ul Normal 150-450 [facility] Comment on above: Performed By: #### C BC #### [facility] [address] [place] [address] Dr. Lyudmila Rios RBC 2.96 106/ul Critically low 4.20-5.40 [facility] Comment on above: Performed By: #### C BC #### [facility] [address] [place] [address] Dr. Lyudmila Rios WBC 16.7 103/ul Critically high 4.0-11.0 [facility] Comment on above: Performed By: #### C BC #### [facility] [address] [place] [address] Dr. Lyudmila Rios CBC AUTO DIFFon 12-27-2021 BASO # 0.0 103/ul Normal 0.0-0.1 [facility] Comment on above: Performed By: #### E RUR, DRUGRPD, UMICRO #### [facility] [address] [place] [address] Dr. Lyudmila Rios Basophils/100 WBC (Bld) 0.4 % Normal 0.2-2.0 [facility] Comment on above: Performed By: #### E RUR, DRUGRPD, UMICRO #### [facility] [address] [place] [address] Dr. Lyudmila Rios EO # 0.1 103/ul Normal 0.0-0.7 [facility] Comment on above: Performed By: #### E RUR DRUGRPTony, UMICRO #### [facility] [address] [place] [address] Dr. Lyudmila Rios Eosinophils/100 WBC (Bld) 0.9 % Normal 0.9-7.0 [facility] Comment on above: Performed By: #### E RUR DRUGRPTony, UMICRO #### [facility] [address] [place] [address] Dr. Lyudmila Rios Erythrocyte distribution width (RBC) [Ratio] 13.2 % Normal 11.0-15.0 [facility] Comment on above: Performed By: #### E RUKat DRUGRPTony, UMICRO #### [facility] [address] [place] [address] Dr. Lyudmila Rios Hematocrit (Bld) [Volume fraction] 28.9 % Critically low 36.0-48.0 [facility] Comment on above: Performed By: #### E RUR DRUGRPTony, UMICRO #### [facility] [address] [place] [address] Dr. Lyudmila Rios Hemoglobin (Bld) [Mass/Vol] 10.1 g/dL Critically low 12.0-16.0 [facility] Comment on above: Performed By: #### E RUR DRUGRPD, UMICRO #### [facility] [address] [place] [address] Dr. Lyudmila Rios IG # 0.12 10e3/ul Critically high 0.00-0.03 [facility] Comment on above: Performed By: #### E RUR, DRUGRPD, UMICRO #### [facility] [address] [place] [address] Dr. Lyudmila Rios IG % 1.1 % Critically high 0.0-0.5 [facility] Comment on above: Performed By: #### E RUR, DRUGRPD, UMICRO #### [facility] [address] [place] [address] Dr. Lyudmila Rios LYMPH # 1.7 103/ul Normal 1.2-3.8 [facility] Comment on above: Performed By: #### E RUR DRUGRPTony, UMICRO #### [facility] [address] [place] [address] Dr. Lyudmila Rios Lymphocytes/100 WBC (Bld) 14.9 % Critically low 20.5-60.0 [facility] Comment on above: Performed By: #### E RUR, DRUGRPD, UMICRO #### [facility] [address] [place] [address] Dr. Lyudmila Rios MANUAL DIFF REQ NO Normal [facility] Comment on above: Performed By: #### E RUR, DRUGRPD, UMICRO #### [facility] [address] [place] [address] Dr. Lyudmila Rios MCH (RBC) [Entitic mass] 30.7 pg Normal 26.7-34.0 [facility] Comment on above: Performed By: #### E RUR, DRUGRPD, UMICRO #### [facility] [address] [place] [address] Dr. Lyudmila Rios MCHC (RBC) [Mass/Vol] 34.9 g/dL Normal 29.9-35.2 [facility] Comment on above: Performed By: #### E RUR, DRUGRPD, UMICRO #### [facility] [address] [place] [address] Dr. Lyudmila Rios MCV (RBC) [Entitic vol] 87.8 fL Normal 81.0-99.0 [facility] Comment on above: Performed By: #### E RUR, DRUGRPD, UMICRO #### [facility] [address] [place] [address] Dr. Lyudmila Rios MONO # 0.6 103/ul Normal 0.3-0.8 [facility] Comment on above: Performed By: #### E RUR, DRUGRPD, UMICRO #### [facility] [address] [place] [address] Dr. Lyudmila Rios Monocytes/100 WBC (Bld) 5.5 % Normal 1.7-12.0 [facility] Comment on above: Performed By: #### E RUR, DRUGRPD, UMICRO #### [facility] [address] [place] [address] Dr. Lyudmila Rios NEUT # 8.6 103/ul Critically high 1.4-6.5 [facility] Comment on above: Performed By: #### E RUR, DRUGRPD, UMICRO #### [facility] [address] [place] [address] Dr. Lyudmila Rios Neutrophils/100 WBC (Bld) 77.2 % Critically high 43.0-75.0 [facility] Comment on above: Performed By: #### E RUR DRUGRPTony, UMICRO #### [facility] [address] [place] [address] Dr. Lyudmila Rios Platelet mean volume (Bld) [Entitic vol] 9.8 fL Normal 9.5-13.5 [facility] Comment on above: Performed By: #### E RUR DRUGRPD, UMICRO #### [facility] [address] [place] [address] Dr. Lyudmila Rios PLT 251 103/ul Normal 150-450 [facility] Comment on above: Performed By: #### E RUR, DRUGRPD, UMICRO #### [facility] [address] [place] [address] Dr. Lyudmila Rios RBC 3.29 106/ul Critically low 4.20-5.40 [facility] Comment on above: Performed By: #### E RUR, DRUGRPD, UMICRO #### [facility] [address] [place] [address] Dr. Lyudmila Rios WBC 11.1 103/ul Critically high 4.0-11.0 [facility] Comment on above: Performed By: #### E RUR, DRUGRPD, UMICRO #### [facility] [address] [place] [address] Dr. Lyudmila Rios Covid-19 PCR ([facility])on 12-09 SARS-CoV-2 (COVID-19) RNA MARITZA+probe Ql (Unsp spec) Not detected Normal NOT DETECTED The [facility] Comment on above: Result Comment: When diagnostic testing is negative, the possibility of a false negative should be considered in the context of a patient's recent exposures and the presence of clinical signs and symptoms consistent with SARS-CoV-2. This test is not yet approved or cleared by the [place] FDA. When there are no FDA-approved or cleared tests available, and other criteria are met, FDA can make tests available under an emergency access mechanism called an Emergency Use Authorization (EUA). The EUA for this test is supported by the [place] of Health and Human Service's declaration that circumstances exist to justify the emergency use of in vitro diagnostics for the detection and/or diagnosis of the virus that causes COVID-19. This EUA will remain in effect for the duration of the COVID-19 declaration justifying emergency of IVDs, unless it is terminated or revoked by the FDA (after which the test may no longer be used). Performed By: #### Franck RILEY DRUGLEONIE UMICRO #### [facility] [address] [place] [address] Dr. Lyudmila Rios DRUG SCREEN RAPID (URINE)on 12-27-2021 AMP Negative Normal NEGATIVE [facility] Comment on above: Performed By: #### Franck RILEY DRUGLEONIE UMICRO #### [facility] [address] [place] [address] Dr. Lyudmila Rios BAR Negative Normal NEGATIVE [facility] Comment on above: Performed By: #### Franck RILEY DRUGLEONIE UMICRO #### [facility] [address] [place] [address] Dr. Lyudmila Rios BUP Negative Normal NEGATIVE [facility] Comment on above: Performed By: #### E IRMA RILEY UMICRO #### [facility] [address] [place] [address] Dr. Lyudmila Rios BZO Negative Normal NEGATIVE [facility] Comment on above: Performed By: #### E RUIRMA Stephens UMICRO #### [facility] [address] [place] [address] Dr. Lyudmila Rios DAWSON Negative Normal NEGATIVE [facility] Comment on above: Performed By: #### Franck STEVENSR DRUGRPTony, UMICRO #### [facility] [address] [place] [address] Dr. Lyudmila Rios CUT-OFFS SEE BELOW Normal [facility] Comment on above: Result Comment: AMP (Amphetamine): 500ng/mL, BAR (Barbituates): 200 ng/mL, BZO (Benzodiazepines): 150 ng/mL, BUP (Buprenorphine): 10 ng/mL, DAWSON (Cocaine): 150 ng/mL, mAMP (Methamphetamine): 500 ng/mL, MTD (Methadone): 200 ng/mL, OPI (Opiates): 100 ng/mL, OXY (Oxycodone): 100 ng/mL, PCP (Phencyclidine): 25 ng/mL, PPX (Propoxyphene): 300 ng/mL, THC (Cannabinoids): 50 ng/mL, TCA (Trycyclic Antidepressants): 300 ng/mL Performed By: #### Franck RUR DRUGRPTony, UMICRO #### [facility] [address] [place] [address] Dr. Lyudmila Rios DRUG CUT HEADER DRUG CLASS TEST SYSTEM CUT-OFF CONCENTRATIONS ARE FOLLOWS: Normal [facility] Comment on above: Performed By: #### E RUR DRUGRPTony, UMICRO #### [facility] [address] [place] [address] Dr. Lyudmila Rios mAMP Negative Normal NEGATIVE The [facility] Comment on above: Performed By: #### Franck RUR DRUGRPTony, UMICRO #### [facility] [address] [place] [address] Dr. Lyudmila Rios MTD Negative Normal NEGATIVE [facility] Comment on above: Performed By: #### E RUR DRUGRPTony, UMICRO #### [facility] [address] [place] [address] Dr. Lyudmila Rios OPI Negative Normal NEGATIVE [facility] Comment on above: Performed By: #### E RUR DRUGRPTony, UMICRO #### [facility] [address] [place] [address] Dr. Lyudmila Rios OXY Negative Normal NEGATIVE The [facility] Comment on above: Performed By: #### E RUR, DRUGRPD, UMICRO #### [facility] [address] [place] [address] Dr. Lyudmila Rios PCP Negative Normal NEGATIVE [facility] Comment on above: Performed By: #### E RUR, DRUGRPD, UMICRO #### [facility] [address] [place] [address] Dr. Lyudmila Rios PPX Negative Normal NEGATIVE [facility] Comment on above: Performed By: #### E RUR, DRUGRPD, UMICRO #### [facility] [address] [place] [address] Dr. Lyudmila Rios TCA Negative Normal NEGATIVE [facility] Comment on above: Performed By: #### E RUR, DRUGRPD, UMICRO #### [facility] [address] [place] [address] Dr. Lyudmila Rios THC Negative Normal NEGATIVE [facility] Comment on above: Performed By: #### E RUR, DRUGRPD, UMICRO #### [facility] [address] [place] [address] Dr. Lyudmila Rios TYPE AND SCREENon 12-27-2021 TYPE AND SCREEN Negative Normal [facility] Comment on above: Performed By: #### E RUR, DRUGRPD, UMICRO #### [facility] [address] [place] [address] Dr. Lyudmila Rios US PREG AMNIOTIC FLUID VOLUM Sharif 12-27-2021 US PREG AMNIOTIC FLUID VOLUME EXAMINATION: US PREG AMNIOTIC FLUID VOLUME HISTORY: Autoimmune thyroiditis , hypothyroid COMPARISON: Ultrasound amniotic fluid volume for 1222 TECHNIQUE: Limited sonographic examination for amniotic fluid volume FINDINGS: Presentation: Cephalic SOPHIE: 7.6 cm (deepest pocket 2.9 cm); normal range 6.4-26.1 cm Heart rate: 132 bpm Gestational age: 38 weeks, 4 days KAUSHAL: 01/06/2022 IMPRESSION: 1. Amniotic fluid index approaches the lower limits of normal and has significantly decreased compared to 12/20/2021 when it measured 15.9 cm. Electronically authenticated by: MAYANK WALTERS Date: 2021-12-27 09:16 Normal [facility] US PREG AMNIOTIC FLUID VOLUM Sharif 12-20-2021 US PREG AMNIOTIC FLUID VOLUME EXAMINATION: US PREG AMNIOTIC FLUID VOLUME HISTORY: Autoimmune thyroiditis COMPARISON: 12/13/2021 TECHNIQUE: Limited sonographic examination for amniotic fluid volume FINDINGS: position: Cephalic presentation, longitudinal lie Amniotic fluid volume: 15.9 cm, largest pocket 5.4 cm. 5th to 95th percentile: 6.5 to 27.2 cm Placenta: Anterior. Heart rate: 165 bpm Other: Resolution of previously noted nuchal cord IMPRESSION: Normal amniotic fluid volume Electronically authenticated by: JANICE TOWNSEND Date: 2021-12-20 08:38 Normal [facility] GROUP B STREP CULTUREon S. agalactiae Ag Ql (Unsp spec) Culture Observations: NEGATIVE FOR GROUP B STREPTOCOCCUS. Normal The [facility] Comment on above: Performed By: #### IRMA JETER UMICRO #### [facility] [address] [place] [address] Dr. Lyudmila Rios US PREG GROWTHon 12-13-2021 US PREG GROWTH EXAMINATION: US PREG GROWTH HISTORY: Levy thyroiditis COMPARISON: 12/06/2021 FINDINGS: Heart Rate: 156.1 bpm Amniotic Fluid Volume: 15.6 cm Number: 1.0 Position: Cephalic presentation, longitudinal lie Maximum Vertical Pocket: 4.3 cm cm 6.1 cm cm 2.3 cm cm 2.9 cm cm BIOMETRY: BPD: 9.0 cm cm; 36 weeks 3 days; , 57% HC: 32.5 cmcm; 36 weeks 6 days, 28% AC: 31.6 cm cm; 35 weeks 4 days, 31% FL: 6.8 cm cm; 34 weeks 5 days; 9.5 % % EFW: 2705.2 grams, 5 lbs. 15 oz., 27% FL/AC: 21.4 FL/BPD: 75.3 HC/AC: 1.0 GESTATIONAL AGE: Age by EDC: 36 weeks 4 days KAUSHAL by EDC: 01/06/2022 Age by US: 35 weeks 6 days KAUSHAL by US: 01/11/2022 Other: nuchal cord IMPRESSION: Nuchal cord Normal interval growth Electronically authenticated by: JANICE TOWNSEND Date: 2021-12-13 11:28 Normal [facility] TSHon 12-06-2021 TSH 1.259 uIU/mL Normal 0.470-4.680 [facility] Comment on above: Performed By: #### IRMA JETER UMICRO #### [facility] [address] [place] [address] Dr. Lyudmila Rios TSH RANGE SEE BELOW Normal [facility] Comment on above: Result Comment: <0.3 4 UIU/ml HYPERTHYROID 0.34-5.60 UIU/ml EUTHYROID >5.60 UIU/ml HYPOTHYROID Performed By: #### IRMA JETER UMICRO #### [facility] [address] [address] [address] Lyudmila Rios PREG AMNIOTIC FLUID VOLUM Sharif 12-06-2021 US PREG AMNIOTIC FLUID VOLUME EXAMINATION: US PREG AMNIOTIC FLUID VOLUME HISTORY: Autoimmune thyroiditis COMPARISON: No relevant comparison available. TECHNIQUE: Limited sonographic examination for amniotic fluid volume FINDINGS: position: Cephalic presentation and longitudinal lie Amniotic fluid volume: 13.8 cm. Largest pocket 4.8 cm. Heart rate: 143 bpm IMPRESSION: Normal amniotic fluid volume Electronically authenticated by: JANICE TOWNSEND Date: 2021-12-06 08:59 Normal [facility] US PREG AMNIOTIC FLUID VOLUM Sharif 11-29-2021 US PREG AMNIOTIC FLUID VOLUME EXAMINATION: US PREG AMNIOTIC FLUID VOLUME HISTORY: Autoimmune thyroiditis COMPARISON: 11/22/2021 TECHNIQUE: Limited sonographic examination for amniotic fluid volume FINDINGS: position: Cephalic presentation Clinical age: 34 weeks 4 days Amniotic fluid volume: 12.3 cm. Largest pocket 5.3 cm. Heart rate: 145 bpm IMPRESSION: Normal amniotic fluid volume Electronically authenticated by: JANICE TOWNSEND Date: 2021-11-29 16:20 Normal [facility] Vital Signs Date Time Vital Sign Value Performing Clinician Facility 05-04-2025 [id number] Body height 167.64 cm Alexandra Crane APRN Work Phone: [facility] 05-04-2025 10:10-040 Body mass index (BMI) [Ratio] 28.8 kg/m2 Alexandra Easterwood [employer] Work Phone: [facility] 05-04-2025 10:10-0400 Body weight 81.19 kg Alexandra Easterwood [employer] Work Phone: [facility] 05-04-2025 10:10-0400 Diastolic blood pressure 76 mm[Hg] Alexandra Easterwood [employer] Work Phone: [facility] 05-04-2025 10:10-0400 Heart rate 73 /min Alexandra Easterwood [employer] Work Phone: [facility] 05-04-2025 10:10-0400 Systolic blood pressure 122 mm[Hg] Alexandra Easterwood [employer] Work Phone: [facility] 04-22-2025 10:30-0400 Body height 168.28 cm Alexandra Easterwood [employer] Work Phone: [facility] 04-22-2025 10:30-0400 Body mass index (BMI) [Ratio] 28.6 kg/m2 Alexandra Easterwood [employer] Work Phone: [facility] 04-22-2025 10:30-0400 Body temperature 97.5 [degF] Alexandra Easterwood [employer] Work Phone: [facility] 04-22-2025 10:30-0400 Body weight 81.19 kg Alexandra Easterwood [employer] Work Phone: [facility] 04-22-2025 10:30-0400 Diastolic blood pressure 80 mm[Hg] Alexandra Easterwood [employer] Work Phone: [facility] 04-22-2025 10:30-0400 Heart rate 79 /min Alexandra Easterwood [employer] Work Phone: [facility] 04-22-2025 10:30-0400 Respiratory rate 20 /min Alexandra Easterwood [employer] Work Phone: [facility] 04-22-2025 10:30-0400 SaO2% (BldA) [Mass fraction] 98 % Alexandra Easterwood [employer] Work Phone: [facility] 04-22-2025 10:30-0400 Systolic blood pressure 118 mm[Hg] Alexandra Easterwood [employer] Work Phone: [facility] 04-02-2025 14:33-0400 Diastolic blood pressure 75 mm[Hg] Alexandra Easterwood [employer] Work Phone: [facility] 04-02-2025 14:33-0400 Heart rate 68 /min Alexandra Easterwood [employer] Work Phone: [facility] 04-02-2025 14:33-0400 Respiratory rate 18 /min Alexandra Easterwood [employer] Work Phone: [facility] 04-02-2025 14:33-0400 SaO2% (BldA) [Mass fraction] 99 % Alexandra Easterwood [employer] Work Phone: [facility] 04-02-2025 14:33-0400 Systolic blood pressure 123 mm[Hg] Alexandra Easterwood [employer] Work Phone: [facility] 04-02-2025 12:27-0400 Body height 170.18 cm Alexandra Easterwood [employer] Work Phone: [facility] 04-02-2025 12:27-0400 Body weight 82.55 kg Alexandra Easterwood [employer] Work Phone: [facility] 03-09-2025 09:58-0400 Body height 168.91 cm Alexandra Easterwood [employer] Work Phone: [facility] 03-09-2025 09:58-0400 Body mass index (BMI) [Ratio] 29.4 kg/m2 Alexandra Easterwood [employer] Work Phone: [facility] 03-09-2025 09:58-0400 Body weight 83.91 kg Alexandra Easterwood [employer] Work Phone: [facility] 03-09-2025 09:58-0400 Diastolic blood pressure 78 mm[Hg] Alexandra Easterwood [employer] Work Phone: [facility] 03-09-2025 09:58-0400 Heart rate 71 /min Alexandra Easterwood [employer] Work Phone: [facility] 03-09-2025 09:58-0400 Systolic blood pressure 105 mm[Hg] Alexandra Easterwood [employer] Work Phone: [facility] 02-16-2025 13:57-0400 Body height 168.91 cm Alexandra Easterwood [employer] Work Phone: [facility] 02-16-2025 13:57-0400 Body mass index (BMI) [Ratio] 30.3 kg/m2 Alexandra Easterwood [employer] Work Phone: [facility] 02-16-2025 13:57-0400 Body weight 86.6 kg Alexandra Easterwood [employer] Work Phone: [facility] 02-16-2025 13:57-0400 Diastolic blood pressure 69 mm[Hg] Alexandra Easterwood [employer] Work Phone: [facility] 02-16-2025 13:57-0400 Heart rate 69 /min Alexandra Easterwood [employer] Work Phone: [facility] 02-16-2025 13:57-0400 Respiratory rate 16 /min Alexandra Easterwood [employer] Work Phone: [facility] 02-16-2025 13:57-0400 Systolic blood pressure 116 mm[Hg] Alexandra Easterwood [employer] Work Phone: [facility] 12-29-2024 17:48-0400 Diastolic blood pressure 80 mm[Hg] Alexandra Easterwood [employer] Work Phone: [facility] 12-29-2024 17:48-0400 Heart rate 85 /min Alexandra Easterwood [employer] Work Phone: [facility] 12-29-2024 17:48-0400 Respiratory rate 17 /min Alexandra Easterwood [employer] Work Phone: [facility] 12-29-2024 17:48-0400 SaO2% (BldA) [Mass fraction] 100 % Alexandra Easterwood [employer] Work Phone: [facility] 12-29-2024 17:48-0400 Systolic blood pressure 122 mm[Hg] Alexandra Easterwood [employer] Work Phone: [facility] 12-29-2024 15:36-0400 Body height 170.18 cm Alexandra Easterwood [employer] Work Phone: [facility] 12-29-2024 15:36-0400 Body temperature 98.2 [degF] Alexandra Easterwood [employer] Work Phone: [facility] 12-29-2024 15:36-0400 Body weight 91.4 kg Alexandra Easterwood [employer] Work Phone: [facility] 11-13-2024 10:03-0500 Body height 168.28 cm Alexandra Easterwood [employer] Work Phone: [facility] 11-13-2024 10:03-0500 Body mass index (BMI) [Ratio] 32.1 kg/m2 Alexandra Easterwood [employer] Work Phone: [facility] 11-13-2024 10:03-0500 Body temperature 97.8 [degF] Alexandra Easterwood [employer] Work Phone: [facility] 11-13-2024 10:03-0500 Body weight 91.17 kg Alexandra Easterwood [employer] Work Phone: [facility] 11-13-2024 10:03-0500 Diastolic blood pressure 84 mm[Hg] Alexandra Matter[place] [employer] Work Phone: [facility] 11-13-2024 10:03-0500 Heart rate 75 /min Alexandra [place] [employer] Work Phone: [facility] 11-13-2024 10:03-0500 Respiratory rate 16 /min Alexandra [facility] [employer] Work Phone: [facility] 11-13-2024 10:03-0500 SaO2% (BldA) [Mass fraction] 99 % [facility] [employer] Work Phone: [facility] 11-13-2024 10:03-0500 Systolic blood pressure 126 mm[Hg] [facility] [employer] Work Phone: [facility] 09-16-2024 15:58-0500 Body height 168.28 cm [facility] 09-16-2024 15:58-0500 Body mass index (BMI) [Ratio] 30.9 kg/m2 [facility] 09-16-2024 15:58-0500 Body temperature 98.7 [degF] [facility] 09-16-2024 15:58-0500 Body weight 87.54 kg [facility] 09-16-2024 15:58-0500 Diastolic blood pressure 70 mm[Hg] [facility] 09-16-2024 15:58-0500 Heart rate 83 /min [facility] 09-16-2024 15:58-0500 Respiratory rate 20 /min [facility] 09-16-2024 15:58-0500 SaO2% (BldA) [Mass fraction] 98 % [facility] 09-16-2024 15:58-0500 Systolic blood pressure 126 mm[Hg] [facility] 08-05-2024 08:56-0500 Body height 168.28 cm [facility] 08-05-2024 08:56-0500 Body mass index (BMI) [Ratio] 30.9 kg/m2 [facility] 08-05-2024 08:56-0500 Body temperature 98.2 [degF] [facility] 08-05-2024 08:56-0500 Body weight 87.54 kg [facility] 08-05-2024 08:56-0500 Diastolic blood pressure 78 mm[Hg] [facility] 08-05-2024 08:56-0500 Heart rate 72 /min [facility] 08-05-2024 08:56-0500 Respiratory rate 20 /min [facility] 08-05-2024 08:56-0500 SaO2% (BldA) [Mass fraction] 98 % [facility] 08-05-2024 08:56-0500 Systolic blood pressure 124 mm[Hg] [facility] 02-20-2024 16:28-0400 Body height 168.28 cm [facility] 02-20-2024 16:28-0400 Body mass index (BMI) [Ratio] 30.9 kg/m2 [facility] 02-20-2024 16:28-0400 Body temperature 98 [degF] [facility] 02-20-2024 16:28-0400 Body weight 87.54 kg [facility] 02-20-2024 16:28-0400 Diastolic blood pressure 76 mm[Hg] [facility] 02-20-2024 16:28-0400 Heart rate 86 /min [facility] 02-20-2024 16:28-0400 Respiratory rate 20 /min [facility] 02-20-2024 16:28-0400 SaO2% (BldA) [Mass fraction] 99 % [facility] 02-20-2024 16:28-0400 Systolic blood pressure 112 mm[Hg] [facility] 01-17-2024 10:25-0400 Body height 168.28 cm [facility] 01-17-2024 10:25-0400 Body mass index (BMI) [Ratio] 30.6 kg/m2 [facility] 01-17-2024 10:25-0400 Body temperature 98 [degF] [facility] 01-17-2024 10:25-0400 Body weight 86.63 kg [facility] 01-17-2024 10:25-0400 Diastolic blood pressure 80 mm[Hg] [facility] 01-17-2024 10:25-0400 Heart rate 91 /min [facility] 01-17-2024 10:25-0400 Respiratory rate 20 /min [facility] 01-17-2024 10:25-0400 SaO2% (BldA) [Mass fraction] 98 % [facility] 01-17-2024 10:25-0400 Systolic blood pressure 118 mm[Hg] [facility] 12-12-2023 14:54-0400 Body height 168.28 cm [facility] 12-11-2023 13:33-0400 Body height 168.28 cm [facility] 12-11-2023 13:33-0400 Body mass index (BMI) [Ratio] 31.4 kg/m2 [facility] 12-11-2023 13:33-0400 Body temperature 97.9 [degF] [facility] 12-11-2023 13:33-0400 Body weight 88.9 kg [facility] 12-11-2023 13:33-0400 Diastolic blood pressure 80 mm[Hg] [facility] 12-11-2023 13:33-0400 Heart rate 86 /min [facility] 12-11-2023 13:33-0400 Respiratory rate 20 /min [facility] 12-11-2023 13:33-0400 SaO2% (BldA) [Mass fraction] 98 % [facility] 12-11-2023 13:33-0400 Systolic blood pressure 120 mm[Hg] [facility] 11-08-2023 15:46-0500 Body height 168.28 cm [facility] 11-08-2023 15:46-0500 Body mass index (BMI) [Ratio] 31.5 kg/m2 [facility] 11-08-2023 15:46-0500 Body temperature 97.6 [degF] [facility] 11-08-2023 15:46-0500 Body weight 89.35 kg [facility] 11-08-2023 15:46-0500 Diastolic blood pressure 72 mm[Hg] [facility] 11-08-2023 15:46-0500 Heart rate 85 /min [facility] 11-08-2023 15:46-0500 Respiratory rate 20 /min [facility] 11-08-2023 15:46-0500 SaO2% (BldA) [Mass fraction] 95 % [facility] 11-08-2023 15:46-0500 Systolic blood pressure 108 mm[Hg] [facility] 10-31-2023 16:54-0500 Body height 168.28 cm [facility] 10-31-2023 16:54-0500 Body mass index (BMI) [Ratio] 32 kg/m2 [facility] 10-31-2023 16:54-0500 Body temperature 97.5 [degF] [facility] 10-31-2023 16:54-0500 Body weight 90.71 kg [facility] 10-31-2023 16:54-0500 Diastolic blood pressure 70 mm[Hg] [facility] 10-31-2023 16:54-0500 Heart rate 90 /min [facility] 10-31-2023 16:54-0500 Respiratory rate 20 /min [facility] 10-31-2023 16:54-0500 SaO2% (BldA) [Mass fraction] 97 % [facility] 10-31-2023 16:54-0500 Systolic blood pressure 112 mm[Hg] [facility] 09-24-2023 10:30-0500 Body height 168.28 cm [employer] Other [facility] 09-24-2023 10:30-0500 Body mass index (BMI) [Ratio] 33.48 kg/m2 [employer] Other [employer] Other 09-24-2023 10:30-0500 Body temperature 97.9 [degF] Alexandra Easterwood Other [employer] Other 09-24-2023 10:30-0500 Body weight 94.8 kg Alexandra Easterwood Other [facility] 09-24-2023 10:30-0500 Diastolic blood pressure 78 mm[Hg] Alexandra Easterwood Other [facility] 09-24-2023 10:30-0500 Respiratory rate 20 /min Alexandra Easterwood Other [employer] Other 09-24-2023 10:30-0500 SaO2% (BldA) [Mass fraction] 95 % Alexandra Easterwood Other [facility] [employer] Other 09-24-2023 10:30-0500 Systolic blood pressure 124 mm[Hg] Alexandra Easterwood Other [facility] 08-29-2023 09:30-0500 Body height 168.28 cm Alexandra Easterwood Other [facility] 08-29-2023 09:30-0500 Body mass index (BMI) [Ratio] 34.76 kg/m2 Alexandra Easterwood Other [employer] Other 08-29-2023 09:30-0500 Body temperature 97 [degF] Alexandra Easterwood Other [employer] Other 08-29-2023 09:30-0500 Body weight 98.43 kg Alexandra Easterwood Other [employer] Other 08-29-2023 09:30-0500 Body weight 98.42 kg [facility] 08-29-2023 09:30-0500 Diastolic blood pressure 78 mm[Hg] Alexandra Easterwood Other [facility] 08-29-2023 09:30-0500 Respiratory rate 20 /min Alexandra Easterwood Other [employer] Other 08-29-2023 09:30-0500 SaO2% (BldA) [Mass fraction] 99 % Alexandra Easterwood Other [employer] Other 08-29-2023 09:30-0500 Systolic blood pressure 124 mm[Hg] Alexandra Easterwood Other [facility] 07-04-2023 11:00-0400 Body height 168.28 cm Alexandra Easterwood Other [employer] Other 07-04-2023 11:00-0400 Body mass index (BMI) [Ratio] 34.12 kg/m2 Alexandra Easterwood Other [employer] Other 07-04-2023 11:00-0400 Body temperature 97.4 [degF] Alexandra Easterwood Other [employer] Other 07-04-2023 11:00-0400 Body weight 96.62 kg Alexandra Easterwood Other [employer] Other 07-04-2023 11:00-0400 Diastolic blood pressure 82 mm[Hg] Alexandra Easterwood Other [employer] Other 07-04-2023 11:00-0400 Respiratory rate 20 /min Alexandra Easterwood Other [employer] Other 07-04-2023 11:00-0400 SaO2% (BldA) [Mass fraction] 99 % Alexandra Easterwood Other [employer] Other 07-04-2023 11:00-0400 Systolic blood pressure 120 mm[Hg] Alexandra Easterwood Other [employer] Other 05-16-2023 10:30-0400 Body height 168.28 cm Alexandra Easterwood Other [employer] Other 05-16-2023 10:30-0400 Body mass index (BMI) [Ratio] 33.16 kg/m2 Alexandra Easterwood Other [employer] Other 05-16-2023 10:30-0400 Body weight 93.9 kg Alexandra Easterwood Other [employer] Other 03-14-2023 09:00-0400 Body height 168.28 cm Alexandra Easterwood Other [employer] Other 03-14-2023 09:00-0400 Body mass index (BMI) [Ratio] 31.71 kg/m2 Alexandra Easterwood Other [employer] Other 03-14-2023 09:00-0400 Body temperature 98.1 [degF] Alexandra Easterwood Other [employer] Other 03-14-2023 09:00-0400 Body weight 89.81 kg Alexandra Easterwood Other [employer] Other 03-14-2023 09:00-0400 Diastolic blood pressure 80 mm[Hg] Alexandra Easterwood Other [employer] Other 03-14-2023 09:00-0400 Respiratory rate 20 /min Alexanrda Easterwood Other [facility] [employer] Other 03-14-2023 09:00-0400 SaO2% (BldA) [Mass fraction] 98 % Alexandra Crane Other [employer] Other 03-14-2023 09:00-0400 Systolic blood pressure 120 mm[Hg] Alexandra Crane Other [facility] [employer] Other 02-13-2023 17:28-0400 Diastolic blood pressure 72 mm[Hg] DO Richard House Work Phone: [facility] 02-13-2023 17:28-0400 Heart rate 70 /min DO Richard House Work Phone: [facility] 02-13-2023 17:28-0400 Respiratory rate 14 /min DO Richard House Work Phone: [facility] 02-13-2023 17:28-0400 SaO2% (BldA) [Mass fraction] 98 % DO Richard House Work Phone: [facility] 02-13-2023 17:28-0400 Systolic blood pressure 123 mm[Hg] DO Richard House Work Phone: [facility] 02-13-2023 15:58-0400 Body temperature 98.1 [degF] DO Richard House Work Phone: [facility] 02-13-2023 15:55-0400 Body height 170.18 cm DO Richard House Work Phone: [facility] 02-13-2023 15:55-0400 Body weight 89.7 kg DO Richard House Work Phone: [facility] Encounters Encounter Date Encounter Type Care Provider Facility Start: 05-04-2025 End: 05-04-2025 ambulatory Alexandra Gutierrezroddyzheng [employer] Work Phone: [facility] Work Phone: Start: 05-04-2025 End: 05-04-2025 Patient encounter procedure Darrius Moreno [facility] Work Phone: Start: 04-22-2025 End: 04-22-2025 ambulatory Alexandra J Easterwood [employer] Work Phone: [facility] Work Phone: Start: 04-22-2025 End: 04-22-2025 Patient encounter procedure Alexandra Gutierrezerwood [employer] -[facility] Work Phone: Start: 04-14-2025 End: 04-14-2025 Patient encounter procedure Darrius Moreno MD -MRI [facility] Work Phone: Start: 04-14-2025 End: 04-14-2025 ambulatory Alexandra Courtney Easterwood [employer] Work Phone: [facility] Work Phone: Start: 04-02-2025 End: 04-02-2025 ambulatory Imad Asaad Facility:[facility] Start: 04-02-2025 Non-patient / Non-visit Darrius Jimenez -[facility] Work Phone: Start: 03-26-2025 End: 03-26-2025 Patient encounter procedure Darrius Moreno MD -[facility] Work Phone: Start: 03-26-2025 End: 03-26-2025 ambulatory Alexandra J Easterwood [employer] Work Phone: [facility] Work Phone: Start: 03-26-2025 Non-patient / Non-visit Steven Gómez MD -[facility] Work Phone: Start: 03-09-2025 End: 03-09-2025 ambulatory Alexandra Sherwin Easterwood [employer] Work Phone: [facility] Work Phone: Start: 03-09-2025 End: 03-09-2025 Patient encounter procedure Darrius Moreno MD -[facility] Work Phone: Start: 03-03-2025 Non-patient / Non-visit Annieaaron stephens RMA -[facility] Work Phone: Start: 03-02-2025 End: 03-02-2025 Patient encounter procedure Nelly Logan [facility] Work Phone: Start: 02-27-2025 End: 03-02-2025 Refill Xander Lock APRN.[facility] Work Phone: [facility] Comment on above: Refill Request Start: 02-16-2025 End: 02-16-2025 ambulatory Alexandra Sherwin Gutierrezerwood [employer] Work Phone: [facility] Work Phone: Start: 02-16-2025 End: 02-16-2025 Patient encounter procedure Alexandra Mehtawood [employer] Work Phone: [facility] Work Phone: Start: 12-30-2024 End: 12-30-2024 ambulatory Alexandrathelma Gutierrezerwood [employer] Work Phone: [facility] Work Phone: Start: 12-30-2024 End: 12-30-2024 Patient encounter procedure Alexandra Gutierrezerwood [employer] Work Phone: [facility] Work Phone: Start: 12-29-2024 End: 12-29-2024 Emergency department patient visit Alexandrathelma Mehtawood [employer] Work Phone: [facility] Work Phone: Start: 12-15-2024 Non-patient / Non-visit Alexandra Franck kianwood [employer] Work Phone: [facility] [place] Work Phone: Start: 11-13-2024 Registered Recurring Alexandra ca [employer] Work Phone: [facility] [place] [facility] Work Phone: Start: 11-13-2024 End: 11-13-2024 ambulatory Alexandra Crane [employer] Work Phone: [facility] Work Phone: Start: 11-13-2024 End: 11-13-2024 Patient encounter procedure Alexandra Crane [employer] Work Phone: [facility] [place] [facility] Work Phone: Start: 11-12-2024 End: 11-12-2024 ambulatory [facility] Work Phone: Start: 11-12-2024 End: 11-12-2024 Patient encounter procedure [facility] [employer] [facility] [place] Work Phone: Start: 10-28-2024 End: 10-28-2024 ambulatory [facility] Work Phone: Start: 10-28-2024 End: 10-28-2024 Patient encounter procedure [facility] Work Phone: Start: 10-14-2024 End: 10-14-2024 ambulatory [facility] Work Phone: Start: 10-14-2024 End: 10-14-2024 Patient encounter procedure [facility] [place] Work Phone: Start: 10-02-2024 Non-patient / Non-visit [facility] Work Phone: Start: 09-16-2024 End: 09-16-2024 ambulatory [facility] Work Phone: Start: 09-16-2024 End: 09-16-2024 Patient encounter procedure [facility] [place] Work Phone: Start: 09-05-2024 End: 09-05-2024 Refill Xander Lock APRN.CNP Work Phone: [facility] Comment on above: Refill Request Start: 08-20-2024 End: 08-20-2024 ambulatory [facility] Facility:[facility] Start: 08-20-2024 Non-patient / Non-visit [facility] Work Phone: Start: 08-05-2024 End: 08-05-2024 Patient encounter procedure [facility] [place] Work Phone: Start: 03-09-2024 Refill Henry Pacheco MD Work Phone: [facility] Comment on above: Refill Request Start: 02-20-2024 End: 02-20-2024 ambulatory [facility] Work Phone: Start: 02-20-2024 End: 02-20-2024 Patient encounter procedure [facility] [place] Work Phone: Start: 01-17-2024 End: 01-17-2024 ambulatory [facility] Work Phone: Start: 01-17-2024 End: 01-17-2024 Patient encounter procedure [facility] [place] Work Phone: Start: 12-20-2023 End: 12-20-2023 ambulatory [facility] Work Phone: Start: 12-20-2023 End: 12-20-2023 Patient encounter procedure [facility] [place] Work Phone: Start: 12-11-2023 End: 12-11-2023 Patient encounter procedure [facility] [place] Work Phone: Start: 12-11-2023 End: 12-11-2023 ambulatory XANDER LOCK [facility] Work Phone: Start: 12-11-2023 End: 12-11-2023 ambulatory Xander Lock APRN.MEDICAL TECHNOLOGIST Work Phone: Neurology Headache 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 Start: 11-12-2023 Non-patient / Non-visit [facility] Work Phone: Start: 11-08-2023 End: 11-08-2023 Patient encounter procedure [facility] Work Phone: Start: 10-31-2023 End: 10-31-2023 ambulatory [facility] Work Phone: Start: 10-31-2023 End: 10-31-2023 Patient encounter procedure [facility] Work Phone: Start: 10-31-2023 Non-patient / Non-visit [facility] Work Phone: Start: 10-13-2023 End: 10-13-2023 [facility] [employer] Other Start: 10-13-2023 [facility] Start: 09-26-2023 End: 09-26-2023 ambulatory Alexandra [facility] Other [employer] Other Start: 09-26-2023 Encounter by [employer] [facility] Start: 09-24-2023 End: 09-24-2023 ambulatory Alexandra Easterwood Other [employer] Other Start: 09-24-2023 Office outpatient vi sit 15 minutes Alexandra Easterwood [facility] Start: 09-24-2023 End: 09-24-2023 Patient encounter procedure [facility] Work Phone: Start: 09-12-2023 End: 09-12-2023 ambulatory Alexandra Easterwood Other [employer] Other Start: 09-12-2023 Telephone encounter Alexandra Matterwood [facility] Start: 09-11-2023 End: 09-11-2023 ambulatory [facility] Facility:[facility] Start: 08-29-2023 End: 08-29-2023 ambulatory Alexandra Easterwood Other [employer] Other Start: 08-29-2023 Office outpatient vi sit 25 minutes Alexandra Matterwood [facility] Start: 08-29-2023 Telephone encounter Alexandra Matterwood [facility] Start: 08-29-2023 End: 08-29-[address] [facility] Work Phone: Start: 08-14-2023 End: 08-14-2023 ambulatory Alexandra Easterwood Other [employer] Other Start: 08-14-2023 Encounter by [employer] Alexandra Easterwood [facility] Start: 08-09-2023 End: 08-09-2023 ambulatory Alexandra Easterwood Other [employer] Other Start: 08-09-2023 Encounter by [employer] Alexandra Easterwood [facility] Start: 07-30-2023 End: 07-30-2023 ambulatory Alexandra Conchis Other [employer] Other Start: 07-30-2023 PF ONLINE E/M [facility] V[facility] >[facility] Start: 07-26-2023 End: 07-26-2023 ambulatory Alexandra Conchis Other [employer] Other Start: 07-26-2023 [facility] Start: 07-25-2023 [facility] Start: 07-25-2023 End: 07-25-2023 ambulatory [employer] Alexandra Courtney Conchis Work Phone: [facility] Work Phone: Start: 07-25-2023 End: 07-25-2023 Patient encounter procedure JAZMYN Crane Work Phone: [facility] [address] Work Phone: Start: 07-17-2023 End: 07-17-2023 ambulatory MAYANK NGUYEN Facility:[facility] Start: 07-17-2023 End: 07-17-2023 Patient encounter procedure Mayank Nguyen MD Work Phone: Otolaryngology Comment on above: Cervicalgia (Primary Dx) Start: 07-06-2023 End: 07-06-2023 ambulatory Alexandra Conchis Other [employer] Other Start: 07-06-2023 [facility] Start: 07-04-2023 End: 07-04-2023 ambulatory Alexandra Conchis Other [employer] Other Start: 07-04-2023 Office outpatient vi sit 40 minutes [facility] Start: 07-04-2023 Telephone encounter Alexandra Easterwood [facility] Start: 07-02-2023 End: 07-02-2023 ambulatory Alexandra Easterwood Other [employer] Other Start: 07-02-2023 Telephone encounter Alexandra Easterwood [facility] Start: 06-25-2023 End: 06-25-2023 ambulatory Alexandra Easterwood Other [employer] Other Start: 06-25-2023 Telephone encounter Alexandra Matterwood [facility] Start: 06-04-2023 End: 06-04-2023 ambulatory Alexandra Easterwood Other [employer] Other Start: 06-04-2023 Encounter by [employer] Alexandra Matterwood [facility] Start: 05-16-2023 (Televisit) Televisit Alexandra Matterwoo d [facility] Start: 05-16-2023 End: 05-16-2023 ambulatory Alexandra Easterwood Other [employer] Other Start: 05-15-2023 End: 05-15-2023 ambulatory Alexandra Easterwood Other [employer] Other Start: 05-15-2023 Telephone encounter Alexandra Matterwood [facility] Start: 05-05-2023 End: 05-05-2023 ambulatory Alexandra Easterwood Other [employer] Other Start: 05-05-2023 Encounter by [employer] Alexandra Easterwood [facility] Start: 04-17-2023 End: 04-17-2023 ambulatory Jaycelaurel PatelAmmon Other [employer] Other Start: 04-17-2023 Encounter by [employer] Jayce Verde [facility] Start: 04-14-2023 End: 04-14-2023 ambulatory Alexandra Easterwood Other [employer] Other Start: 04-14-2023 Encounter by [employer] [facility] Start: 04-12-2023 End: 04-12-2023 ambulatory Alexandra Easterwood Other [employer] Other Start: 04-12-2023 [facility] Start: 04-11-2023 End: 04-11-2023 ambulatory Alexandra Easterwood Other [employer] Other Start: 04-11-2023 [facility] Start: 03-20-2023 End: 03-20-2023 ambulatory Alexandra Easterwood Other [employer] Other Start: 03-20-2023 PF ONLINE E/M SELINA MONTOYA - [facility] Start: 03-16-2023 End: 03-16-2023 ambulatory Alexandra Easterwood Other [employer] Other Start: 03-16-2023 En[facility] by [employer] [facility] Start: 03-14-2023 End: 03-14-2023 ambulatory Alexandra Easterwood Other [employer] Other Start: 03-14-2023 Office outpatient ne w 45 minutes Alexandra Matterwood [facility] Start: 02-13-2023 End: 02-13-2023 Emergency department patient visit DO Richard House Work Phone: [facility] Work Phone: Start: 11-24-2022 End: 11-25-2022 ambulatory KAITLYNN FALL Facility:[facility] Start: 11-01-2022 End: 11-02-[address] RICHARD WEBSTER Facility:[facility] Start: 10-11-2022 End: 10-11-[address] RICHARD WEBSTER Facility:[facility] Start: 04-19-2022 End: 04-19-[address] RICHARD WEBSTER Facility:[facility] Start: 03-24-2022 End: 03-24-[address] RICHARD WEBSTER Facility:[facility] Start: 03-21-[address] RICHARD HENDRIX . Facili ty:[facility] Start: 03-20-2022 Encounter for other preprocedural examination DR RICHARD HENDRIX . [facility] Start: 03-16-2022 End: 03-17-[address] RICHARD WEBSTER Facility:[facility] Start: 03-16-2022 End: 03-17-2022 Encounter for other preprocedural examination DR RICHARD WEBSTER Facility:[facility] Start: 02-22-2022 End: 02-23-[address] RICHARD WEBSTER Facility:[facility] Start: 02-09-2022 End: 02-18-2022 ambulatory UNKNOWN PROVIDER Facility:[facility] Start: 02-09-2022 End: 02-09-2022 Emergency department patient visit Compa Forde Facility:[facility] Start: 02-05-2022 End: 02-05-2022 ambulatory FLEIX LOUIE . Facility: Start: 12-31-2021 End: 12-31-2021 ambulatory KAITLYNN FALL Facility:[facility] Start: 12-27-2021 End: 12-29-2021 Evaluation and management of inpatient DR RICHARD WEBSTER Facility:[facility] Start: 12-27-2021 End: 12-27-[address] RICHARD HENDRIX . Facility:[facility] Start: 12-23-2021 End: 12-23-[address] RICHARD HENDRIX . Facility:[facility] Start: 12-20-2021 End: 12-20-[address] RICHARD HENDRIX . Facility:[facility] Start: 12-16-2021 End: 12-16-[address] NONE LISTED REQUEST Facility:[facility] Start: 12-13-2021 End: 04-05-[address] NONE LISTED REQUEST Facility:[facility] Start: 12-13-2021 End: 12-13-[address] ROGER DUNCAN . Facility:[facility] Start: 12-09-2021 End: 12-09-[address] ROGER DUNCAN . Facility:[facility] Start: 12-06-2021 End: 12-07-[address] RICHARD HENDRIX . Facility:[facility] Start: 12-06-2021 End: 12-06-[address] ROGER DUNCAN . Facility:[facility] Start: 12-02-2021 End: 12-02-[address] RICHARD HENDRIX . Facility:[facility] Start: 11-29-2021 End: 11-30-[address] RICHARD WEBSTER Facility:[facility] Start: 11-29-2021 End: 11-29-[address] ROGER DUNCAN . Facility: Procedures Date Procedure Procedure Detail Performing Clinician Start: 04-14-2025 MRI of abdomen with contrast [facility] [employer] Work Phone: Start: 03-26-2025 [facility] Start: 03-09-2025 [facility] B [facility] Start: 12-29-2024 Computed tomography of abdomen and pelvis with contrast [facility] [employer] Work Phone: Start: 12-29-2024 Urine culture [facility] Work Phone: Start: 10-31-2023 COVID/Influenza Anti gen (POC) Start: 07-25-2023 MRI of head [employer] [facility] Work Phone: Start: 02-13-2023 Plain chest X-ray DO Pam rodríguez C[facility]ell Work Phone: Start: 12-27-2021 Delivery of Products of Conception, External Approach NONE LISTED REQUEST Start: 12-27-2021 Repair Perineum Skin , External Approach NONE LISTED REQUEST H/O: tubal ligation History of t ubal ligation [facility] [employer] Work Phone: Comment on above: Filshie clips H/O: tubal ligation History of t ubal ligation Diane Jay DNP History of cholecystectomy History of cholecystectomy Alexandra Crane [employer] Work Phone: History of cholecystectomy History of cholecystectomy Diane Jay DNP Plan of Treatment Date Care Activity Detail Author Start: 05-11-2025 Influenza vaccination Influenz a Vaccine (Season Ended) [facility] Start: 04-02-2025 End: 04-02-2025 [facility] Start: 03-09-2025 Hepatitis A virus Ab [Presence] in Serum by Immunoassay [facility] Start: 03-09-2025 Hepatitis B core ant ibody measurement [facility] Start: 03-09-2025 Hepatitis B virus an rface Ab [Presence] in Serum [facility] Start: 03-09-2025 [facility] Start: 01-05-2025 Patient referral [facility] Work Phone: Start: 12-29-2024 End: 12-29-2024 Urine culture [facility] Start: 12-29-2024 Bacteria identified in Urine by Culture Urine Culture [facility] Start: 10-16-2024 Patient referral [facility] Work Phone: Start: 08-05-2024 Patient referral [facility] Work Phone: Start: 05-11-2024 Covid-19 Vaccine ( season) Covid-19 Vaccine ( season) [facility] Start: 05-11-2024 Influenza vaccination C [facility] Start: 09-10-2023 Depression Assessment Depression Ass essment [facility] Start: 05-11-2023 Covid-19 Vaccine ( season) Covid-19 Vaccine ( season) [facility] Start: 05-11-2023 Influenza vaccination Influenza Vacc ine (#1) [facility] Start: 09-10-2022 Depression Assessment Depression Ass essment [facility] Start: 2016 Pap Testing Pap Testing [facility] Start: 2016 Screening for malign ant neoplasm of cervix [facility] Start: 2014 Hepatitis B Vaccine (1 of 3 - 19+ 3-dose series) Hepatitis B Vaccine (1 of 3 - 19+ 3-dose series) [facility] Start: 2014 Shingrix Vaccine (1 of 2) Reyes grix Vaccine (1 of 2) [facility] Start: 2014 Urine microalbumin profile DTa P,Tdap,Td Vaccine (1 - Tdap) [facility] Start: 2013 Anxiety Screening Anxiety Screening [facility] Start: 2013 Depression Screening Depression Scre ening [facility] Start: 2013 HIV Screening HIV Screening [facility] Start: 2013 HIV screening HIV Screening [facility] Start: 2001 Pneumococcal vaccination Pneum ococcal Vaccine (1 - PCV) [facility] Start: 2000 Covid-19 Vaccine (#1) Covid-19 Vacci ne (#1) [facility] Start: 1995 Hepatitis B Vaccine (1 of 3 - 3-dose series) Hepatitis B Vaccine (1 of 3 - 3-dose series) [facility] Comprehensive metabo lic 2000 panel - Serum or Plasma [facility] Comprehensive metabo lic 2000 panel - Serum or Plasma [facility] Ct soft tissue neck w/contrast material CT NECK SOFT TISSUE W IVCON Radiology Routine Cervicalgia Ordered: 07/17/2023 [facility] Work Phone: Comment on above: Ordered: 07/17/2023 Electromyography [facility] Hepatitis B virus an rface Ag [Presence] in Serum or Plasma by Immunoassay [facility] Hepatitis C virus Ig G Ab [Presence] in Serum or Plasma by Immunoassay [facility] Hepatitis C virus RN A [Units/volume] (viral load) in Serum or Plasma by MARITZA with probe detection [facility] INR in Platelet poor plasma by Coagulation assay [facility] MR Abdomen WO and W contrast IV [facility] Patient Education [facility] Work Phone: Patient referral [facility] Work Phone: Prothrombin time (PT) [facility] Payers Date Payer Category Payer Self-pay [id number] 2024 Unknown [id number] 2022 Unknown [id number] 2021 Blue Cross Blue Shield BLUE CARD PPO OOS [id number] 2021 Unknown 1995 Unknown [id number] 2.16.840.1.656314.3.579. 2.732 1995 Unknown [id number] 2.16.840.1.669788.3.579. 2.727 1995 Unknown [id number] 2.16.840.1.391309.3.579. 2.593 1995 Unknown [id number] 2.16.840.1.860436.3.579. 2.593 1995 Unknown [id number] 2.16.840.1.197597.3.579. 2.593 1995 Unknown [id number] 2.16.840.1.106309.3.579. 2.593 1995 Unknown [id number] 2.16.840.1.846916.3.579. 2.593 1995 Unknown [id number] 2.16.840.1.182079.3.579. 2.593 1995 Unknown [id number] 2.16.840.1.157553.3.579. 2.593 1995 Unknown [id number] 2.16.840.1.941092.3.579. 2.593 1995 Unknown [id number] 2.16.840.1.795625.3.579. 2.593 1995 Unknown [id number] 2.16.840.1.302320.3.579. 2.593 1995 Unknown [id number] 2.16.840.1.019385.3.579. 2.593 1995 Unknown [id number] 2.16.840.1.744281.3.579. 2.593 1995 Unknown [id number] 2.16840.1.608765.3.579. 2.593 1995 Unknown [id number] 2.16.840.1.079147.3.579. 2.593 1995 Unknown [id number] 2.16.840.1.983752.3.579. 2.593 1995 Unknown [id number] 2.16.840.1.501782.3.579. 2.593 1995 Unknown [id number] 2.16.840.1.924857.3.579. 2.593 1995 Unknown [id number] 2.16.840.1.867859.3.579. 2.593 1995 Unknown [id number] 2.16.840.1.800174.3.579. 2.593 1995 Unknown [id number] 2.16.840.1.827019.3.579. 2.593 1995 Unknown [id number] 2.16.840.1.487686.3.579. 2.593 1995 Unknown [id number] 2.16.840.1.996677.3.579. 2.593 1995 Unknown [id number] 2.16.840.1.939335.3.579. 2.593 1995 Unknown [id number] 2.16.840.1.246057.3.579. 2.593 1995 Unknown [id number] 2.16.840.1.986187.3.579. 2.593 1959 Unknown [id number] Private Health Insurance [employer] [id number] Unknown HCAP/HFA/FAP Active [id number] Unknown [id number] 2.16.840.1.495871.3.579. 2.531 Unknown [id number] 2.16.840.1.787564.3.579. 2.531 Unknown [id number] 2.16.840.1.887387.3.579. 2.531 Unknown [id number] 2.16.840.1.408121.3.579. 2.531 Unknown [id number] 2.16.840.1.185250.3.579. 2.531 Unknown [id number] 2.16.840.1.129172.3.579. 2.531 Unknown [id number] 2.16.840.1.016904.3.579. 2.531 Social History Date Type Detail Facility Start: 02-13-2023 End: 04-02-2025 Tobacco smoking status NHIS Never smoked tobacco (finding) [facility] Start: 1995 Sex Assigned At Female [facility] Start: 08-16-2020 End: 07-17-2023 Sex Assigned At [facility] Start: 07-17-2023 Tobacco use and exposure Smokeless tobacco non-user [facility] Start: 08-16-2020 End: 07-17-2023 History of Social function [facility] National Score (1-100), lower number is lower risk Not on file [facility] Start: 1995 Sex Assigned At Not on file [facility] Start: 12-11-2023 Alcohol intake Current drinke r of alcohol (finding) [facility] Start: 09-11-2023 Alcohol Comment Rarely [facility] Start: 09-16-2024 End: 02-16-2025 Sex Female (finding) [facility] NEGATED: Highlighted row [facility] NEGATED: Highlighted row N [facility] Goals Date Patient Goal Desired Activity /State Functional Status Date Assessment Result Facility 03-09-2025 Fibrosis score Enhanced Liver Fibrosis Score 8.40 [facility] Comment on above: ELF(TM) Score Interp retation:Risk cut-offs to assess the likelihood of progressionto cirrhosis and liver-related clinical events within3.9 years following baseline ELF score (IQR: 14.0-22.4months)*: Lower risk < 9.80 Mid risk 9.80 - 11.29 Higher risk >11.29Note: The ELF(TM) Score is a unitless numerical value.*Soto SA, Bharath VW, Okbobby T, et al. Selonsertibfor patients with bridging fibrosis or compensatedcirrhosis due to RAYO: Results from randomized phaseIII STELLAR trials. J Hepatol. 2020 Mar;73(1):26-39.Performed at: [address] [id number] Director: Sabina Avendano MD, Phone: [phone] Clinical Notes 03-24-2022 to 03-09-2025 Note Date & Type Note Facility 03-09-2025 Evaluation note Authored March 09, 2025 10:14am 29-year-old female referred to the liver clinic for evaluation of RUQ pain fatty liver and hepatic angioma. +right upper quadrant abdominal pain for the last 6 months. She had a CT scan showing possible hepatic hemangioma. She denied taking hormonal control medications. - Will arrange for MRI liver. -Will check viral hepatitis serologies and arrange for FibroScan - Will arrange for EGD to evaluate for intraluminal etiologies of pain [facility] Work Phone: 1(214) 526-485306-23-2025 Telephone encounter Note* Telephone Encounter - Nicole Jones - 03/02/2025 7:41 AM EDT Physician: Ashvin Call from pharmacy requesting refill. Please E-Scribe Last office visit 12/11/23 with Hamdavanessa Future OV: Not Scheduled. Scheduling mychart sent Requested Prescriptions Pending Prescriptions Disp Refills propranolol (INDERAL) 20 mg tablet [Pharmacy Med Name: PROPRANOLOL 20 MG TABLET] 90 tablet 1 Sig: TAKE 1 TABLET BY MOUTH EVERY DAY Pharmacy Name: LEW Jones [facility]06-23-2025 Miscellaneous Notes* Telephone Encounter - Nicole Jones - 03/02/2025 7:41 AM EDT Physician: Ashvin Call from pharmacy requesting refill. Please E-Scribe Last office visit 12/11/23 with Ashvin Future OV: Not Scheduled. Scheduling mychart sent Requested Prescriptions Pending Prescriptions Disp Refills propranolol (INDERAL) 20 mg tablet [Pharmacy Med Name: PROPRANOLOL 20 MG TABLET] 90 tablet 1 Sig: TAKE 1 TABLET BY MOUTH EVERY DAY Pharmacy Name: LEW [facility] Evaluation note* Diagnosis Onset Date Resolution Status Admit Date Fatty liver acute December 30, 025 12:02pm Hepatic hemangioma acute December 30, 2024 12:02pm RUQ abdominal pain acute December 30, 2024 12:02pm Abnormal weight gain acute February 16, 2025 1:27pm Anxiety acute February 16, 2025 1:27pm BMI 30.0-30.9,adult acute February 16, 2025 1:27pm Dietary surveillance and counseling acute February 16, 2025 1 :27pm Exercise counseling acute February 16, 2025 1:27pm Fatty liver acute February 16 1:27pm 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, 2025 1: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 History of cholecystectomy acute February 16, 2025 1:27pm History of tubal ligation acute February 16, 2025 1:27pm Migraines acute February 16, 2025 1:27pm Obesity (BMI 30.0-34.9) acute J 2024 1:27pm PTSD (post-traumatic stress disorder) acute February 16, 2025 1 :27pm [facility] Work Phone: 1(506) 692-312104-21-2025 Radiology Diagnostic study [facility] [address] [place], [place] [id number] CT Scan Report Signed Patient: Jerry Cox MR#: [id number] : 1995 Acct:[id number] Age/Sex: 29 / F ADM Date: 5 Loc: ER Room: Type: [facility] ER Attending Dr: Copies to: Annita Herrera APRN~ Ordering Provider: Annita Herrera APRN Date of Service: 12/29/24 CT/CT abdomen pelvis w con: pain CT ABDOMEN AND PELVIS WITH CONTRAST COMPARISON: 12/26/2020 CLINICAL DATA: Right lower quadrant pain and nausea. Elevated liver functions. Spiral images were obtained through the abdomen and pelvis following 90 mL Isovue-300. This CT examwas performed using one or more following dose reduction techniques: Automated exposure control, adjustment of the mA and/or kVaccording to patient size, or use of iterative reconstruction technique. Limited cuts through the lung bases show no contributory findings. There is fatty infiltration of the liver. There is an enhancing area at the anterior left lobe which might be a hemangioma. The gallbladder is surgically absent. No common duct stones are seen. The spleen, pancreas and adrenal glands show no acute findings. There are symmetric renal nephrograms, without hydronephrosis. The abdominal aorta is normal caliber. Small lymph nodes are present. No ascites is seen. Small bowel loops are normal caliber. There is stool along the colon. A normal retrocecal appendix is seen. There is subtle levoscolioticcurvature. Images through the pelvis show normal caliber small bowel loops. There is stoolat the distal colon.No diverticular disease is noted. The uterus is slightly dextroverted. There are small follicles however no dominant cysts. No urinary bladder abnormalities are seen. No free fluid is noted. CT/CT abdomen pelvis w con IMPRESSION: FATTY LIVER WITH POSSIBLE HEPATIC HEMANGIOMA. NO BOWEL OR URINARY TRACT OBSTRUCTION. NO ACUTE FINDINGS. Impression dictated by: Louann Huang M.D.12/29/2024 6:20 PM Dictation Location: [place] [address] Transcribed By: [facility] 12/29/241819 Dictated By: Louann Huang MD 12/29/241813 Signed By: 12/29/241819 [facility] Work Phone: 1(842) 688-929003-06-2025 [facility] [place] [address] [facility] Note Signed Patient: Jerry Cox MR#: [id number] : 1995 Acct:[id number] Age/Sex: 29 / F Type: DEP AMB Date of Service: 11/13/24 Copies to: Alexandra Crane APRN~ Assessment & Plan A/P (1) Abnormal result of iron profile testing: Plan: F/U in 6 months with repeat cbc, cmp, iron profile and ferritin. No indication for parental iron. (2) Elevated alkaline phosphatase level: Plan: Chronic elevation in ALK phos, may be likely to inflammatory arthritis. Recheck cmp in 6 months with visit. Informed to eat clean healthy diet and exercise as tolerated. Orders: Orders Complete Blood Count Auto Diff 6 Months R79.0 - Abnormal level of blood mineral Iron and TIBC Profile 6 Months R79.0 - Abnormal level of blood mineral Ferritin 6 Months R79.0 - Abnormal level of blood mineral Comprehensive Metabolic Panel 6 Months R79.0 - Abnormal level of blood mineral CHEMO PLAN No Active Chemotherapy History of Present Illness FRANC Edwards is a 29 year old female referred by Alexandra Crane for low TIBC of 231, Her hgb is normal at 13.3, iron sat normal 33.3. She has a history of GERD, elevated alk phos, anxiety, moderate fatigue, carpal tunnel syndrome, Levy's disease, TMJ arthritis, inflammatory arthritis, thyromegaly, t hyroidnodule, and migraines. ALK PHOS elevated as far back as 03/19/2029-93, 12/26/20-114, 12/31/21-98, 10/02/2024-129 Her medication list includes buproprion HCL, buspirone, certirizine, cyclobenzaprine, fluticasone, montelukast, propranolol, tretinoin, venlafaxine, and sertraline. Para 1 1, difficult during the , after delivery, positive for depression, diagnosed with PTSD after delivery. She states her cyclesare normally monthly but she reports having them twice monthly for the past couple months. She states her cycles have been light since having an ablation December,. She states that she received two iron infusions a week apart duringher and one infusion two years ago at [facility]. 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 She reports seeing rheumatology in the past but no longer follows up with them. She states her appetite fluctuates. She denies excessive alcohol intake, reports drinking maybe once every couple months. She denies fevers or chills, she does have temperature regulation issuessince giving to her daughter. She reports having intermittent palpitations, increased during stress. She denies sob or cough. She reports her bowels are normal, denies melena or hematochezia. She reports having numbness and tingling in the fingers and toes for about 8-10 years. She denies intervention for the paresthesias. She has received Cortisone shots in the wrists in the past. She reports intermittentcramping of the hands when she sleeps. Intake Vitals/Pain Assessment 11/13/24 10:03 Height 5 ft 6.25 in Weight 91.172 kg BMI 32.1 Body Fat % 39.82 BP 126/84 Blood Pressure Location Lt brachial Position Sitting Temp 97.8 F Temp Source Temporal Pulse 75 Pulse Source NIBP Respiration 16 Pulse Oximetry (%) 99 Oxygen Delivery Method room air Intake Visit Reasons: NEW- Abnormal iron profile testing, new patient Accompanied by: Self Allergies Penicillins Allergy (Unknown, Verified 11/12/24 11:15) Unknown Reaction, anaphylaxis sucralfate (From Carafate) Allergy (Unknown, Verified 11/12/24 11:15) Unknown Reaction, vomiting topiramate (Topamax) Allergy (Unknown, Verified 11/12/24 11:15) neuropathy tramadol (From Ultram) Allergy (Unknown, Verified 11/12/24 11:15) Unknown Reaction, vomiting Gastrointestinal Is the patient taking opioids for pain control?: No Falls Fall Precaution Measures Taken: Patient in chair Nurse's Note: Patient is here today for a new patient appointment for abnormal iron profile testing [facility] Medical History Medical History Chronic mental illness Levy's disease TMJ arthritis Thyromegaly Thyroid nodule Seasonal allergies Pulsatile tinnitus Obesity Nystagmus Migraines Iron deficiency Inflammatory arthritis Endometriosis Abnormal thyroid scan Abnormal brain MRI Surgical History Surgical History Hx of exploratory laparotomy x4 History of cholecystectomy (~2014) History of vaginal delivery (~12/2021) History of tubal ligation (~2021) Filshie clips History of salpingectomy (~05/11/23) Family History Family History Grandparent Legacy FamHx Relation: Maternal Grand Father Grandparent Legacy FamHx Relation: Maternal Grand Mother Grandparent History of malignant neoplasm of prostate Legacy FamHx Relation: Paternal Grand Father Grandparent Legacy FamHx Relation: Paternal Grand Mother Mother Anxiety Hypertension Father Lucas Fontenot, Age: 55 Date of : 10/26/69 Member Race/Ethnicity: /White Diabetes Paternal Grandfather Raul Fontenot Member Race/Ethnicity: /White Cancer Sister No problems noted. Daughter No problems noted. Social History Social History (Updated 11/13/24 @ 10:05 by Lala Savage [facility]) Smoking status: Never smoker Within the past year, how often did you have a drink containing alcohol: monthly or less In the past 12 months, have you used illegal drugs or prescription drugs for non-medical reasons?: No Are you currently employed?: full-time Previous occupational history: [employer] Constitutional: Positive for mild-moderate fatigue. No fevers, chills, night sweat sweats, no vasomotor symptoms Eye: No recent visual problems ENT: No ear pain, nasal congestion, sore throat Respiratory: No shortness of breath, cough Cardiovascular: No Chest pain, positive for intermittent palpitations, history of PVCs, no syncope Gastrointestinal: No nausea, vomiting, diarrhea. Reports intermittent reflux, denies requiring medication, watches what she eats to prevent it. Genitourinary: No hematuria Juvenal/Lymph: Negative for bruising tendency, negative for swollen lymph glands Endocrine: Negative for excessive thirst or excessive hunger Musculoskeletal: Positive for generalized joint pain, no current muscle pain, negative for decreased range of motion Integumentary: No rash, pruritus, abrasions Neurologic: Alert & oriented X 4 Psychiatric: Positive for anxiety and depression Physical Exam EXAM ECO General: Alert and oriented, well nourished, no acute distress. Eye: PERRL, EOMI, normal conjunctiva. Neck: Supple, non-tender, no carotid bruits, no JVD, no lymphadenopathy. Lungs: Clear to auscultation and percussion, non-labored respiration. Heart: Normal rate, regular rhythm, no murmur, gallop or edema. Abdomen: Soft, non-tender, non-distended, normal bowel sounds, no masses. Musculoskeletal: Normal range of motion and strength, no tenderness or swelling. Skin: Skin is warm, dry and appropriate for ethnicity, no rashes or lesions. Neurologic: Awake, alert and oriented X4, CN II-XII intact. Psychiatric: Cooperative, appropriate mood and affect. Results - [facility] ([facility]) LAB RESULTS No Data to Display Social Determinants of Health Screening SDOH last assessed in clinic: 11/13/24 Will the patient participate in the screening?: Yes Do you worry about having a steady place to live?: No In the past 12 months, have you had to go without electric, gas, oil, or water in your home?: No Have you or anyone in your house had to go without enough food to eat?: No Has lack of reliable transportation kept you from medical appointments or from doing things needed for daily living?: No Has anyone in your support network made you feel unsafe for any reason?: No Does the patient want assistance with any of the above?: No Dictated By: January Bro APRN DD/ [id number] Signed By: 11/13/24 [facility]02-04-2025 Evaluation note* Diagnosis Onset Date Resolution Status Admit Date Abnormal result of iron profile testing acute October 14 1:30pm Elevated alkaline phosphatas e level acute October 14 1:30pm Carpal tunnel syndrome, bilateral acute October 28, 2 025 7:58am Acne acute November 12 11:25am PTSD (post-traumatic stress disorder) acute November 12, 2024 11:25am Abnormal result of iron profile testing acute November 13, 2024 9:57am Elevated alkaline phosphatas e level acute November 13, 2024 9:57am [facility] Work Phone: 1(322) 951-299001-07-2025 Evaluation note* Diagnosis Onset Date Resolution Status Admit Date URI (upper respiratory infection) noneactive September 16 3:55pm Abnormal result of iron profile testing acute October 14 1:30pm Elevated alkaline phosphatase level acute October 14, 2024 1:30pm Carpal tunnel syndrome, bilateral acute October 28, 2 025 7:58am [facility] Work Phone: 1(554) 394-361212-30-2024 Evaluation note* Author Darrius [facility] Authored March 09, 2025 10:1 4am 29-year-old female referred to the liver clinic for evaluation of RUQ pain fatty liver and hepatic angioma. +right upper quadrant abdominal pain for the last 6 months. She had a CT scan showing possible hepatic hemangioma. She denied taking hormonal control medications. - Will arrange for MRI liver. -Will check viral hepatitis serologies and arrange for FibroScan - Will arrange for EGD to evaluate for intraluminal etiologies of pain [facility] Work Phone: 1([phone]) 779-856712-27-2024 Telephone encounter Note* Telephone Encounter - Phuong Kim - 09/05/2024 8:18 AM EST Physician: Ashvin Call from pharmacy requesting refill. Please E-Scribe Last office visit 12/11/23 with Ashvin virtual Next office visit Not scheduled. Requested Prescriptions Pending Prescriptions Disp Refills propranolol (INDERAL) 20 mg tablet [Pharmacy Med Name: PROPRANOLOL 20 MG TABLET] 90 tablet 1 Sig: TAKE 1 TABLET BY MOUTH EVERY DAY Pharmacy Name: LEW Kim [facility]12-27-2024 Miscellaneous Notes* Telephone Encounter - JulioStefen - 09/05/2024 8:18 AM EST Physician: Ashvin Call from pharmacy requesting refill. Please E-Scribe Last office visit 12/11/23 with Ashvin virtual Next office visit Not scheduled. Requested Prescriptions Pending Prescriptions Disp Refills propranolol (INDERAL) 20 mg tablet [Pharmacy Med Name: PROPRANOLOL 20 MG TABLET] 90 tablet 1 Sig: TAKE 1 TABLET BY MOUTH EVERY DAY [facility]: [facility]* Diagnosis Onset Date Resolution Status Admit Date Anxiety acute August 05, 2024 8:50am Carpal tunnel syndrome, bilateral acute August 05 024 8:50am Obesity (BMI 30.0-34.9) acute N ov2023 8:50am Aphthous ulcer of mouth noneactive N ov2023 8:50am [facility] Work Phone: 1(251) 283-800711-26-2024 Evaluation note* Diagnosis Onset Date Resolution Status Admit Date Anxiety acute August 05, 2024 8:50am Carpal tunnel syndrome, bilateral acute August 05, 024 8:50am Obesity (BMI 30.0-34.9) acute N ov2023 8:50am Aphthous ulcer of mouth noneactive N ov2023 8:50am URI (upper respiratory infection) noneactive September 16 3:55pm [facility] Work Phone: 1(324) 575-393711-26-2024 Evaluation note* Diagnosis Onset Date Resolution Status Admit Date Anxiety acute August 05, 2024 8:50am Carpal tunnel syndrome, bilateral acute August 05, 024 8:50am Obesity (BMI 30.0-34.9) acute N ov2023 8:50am Aphthous ulcer of mouth noneactive N ovember 2023 8:50am URI (upper respiratory infection) noneactive September 16 3:55pm Abnormal result of iron profile testing acute October 14 1:30pm Elevated alkaline phosphatase level acute October 14, 2024 1:30pm Carpal tunnel syndrome, bilateral acute October 28, 025 7:58am [facility] Work Phone: 1(940) 241-914607-01-2024 Telephone encounter Note* Telephone Encounter - Krys Montero RN - 03/10/2024 8:44 AM EDT pharmacy requesting refill via Mychart. Last OV: 12/11/2023 with Xander Lock APRN.CNP Future OV: None scheduled Last prescribed: 6 months ago (09/11/2023) by Henry Pacheco MD Requested Prescriptions Pending Prescriptions Disp Refills propranolol (INDERAL) 20 mg tablet [Pharmacy Med Name: PROPRANOLOL 20 MG TABLET] 90 tablet 1 Sig: take 1 tablet by mouth every day [facility]07-[facility] Miscellaneous Notes* Telephone Encounter - Krys Montero RN - 03/10/2024 8:44 AM EDT pharmacy requesting refill via Mychart. Last OV: 12/11/2023 with Xander Lock APRN.MEDICAL TECHNOLOGIST Future OV: None scheduled Last prescribed: 6 months ago (09/11/2023) by Henry Pacheco MD Requested Prescriptions Pending Prescriptions Disp Refills propranolol (INDERAL) 20 mg tablet [Pharmacy Med Name: PROPRANOLOL 20 MG TABLET] 90 tablet 1 Sig: take 1 tablet by mouth every day [facility] NoteHNO ID: [id number] Author: XANDER LOCK APRN.CNP Service: ? Author Type: Nurse Practitioner Type: Progress Notes Filed: 12/11/2023 10:53 Note Text: Headache Center - Follow up Virtual Visit Patient's headache clinic evaluation was scheduled as a virtual visit using the following platform Zoom Jerry Cox was identified by name and and consented to the video evaluation and its limitations. Based on this evaluation it may be necessary for them to schedule a follow up evaluation with me or other neurologists for formal physical examination and if necessary, other studies. I have communicated my name and active licensure. The patient's identity and physical location were verified at the time of this visit. Either the patient or their legal telephone sales representative has been informed of the risks and benefits of -- and alternatives to -- treatment through a remote evaluation and consents to proceed with the evaluation remotely. Accompanied by: Self Primary Problem List: ACTIVE PROBLEM LIST Ekaterina Positive Hip Pain, Bilateral Chronic Pain of Both Knees Bilateral Leg Cramps Raynaud's Disease Without Gangrene Bilateral Hand Pain Long-Term Use of Plaquenil Vitamin D Deficiency Inflammatory Arthritis Encounter for Alf Current Use of Azathioprine Joint Stiffness of Multiple Sites Chief Complaint: headache follow-up LV: 09/11/23 Dr. Pacheco Impression and Plan from last visit: Jerry was seen today for consult. Diagnoses and all orders for this visit: Intractable chronic migraine without aura and without status migrainosus - propranolol (INDERAL) 20 mg tablet; Take 1 tablet by mouth once daily. - ondansetron (ZOFRAN) 8 mg tablet; Take 1 tablet by mouth every 8 hours as needed. - rizatriptan (MAXALT) 10 mg tablet; Take 1 tablet (10 mg) by mouth as needed for migraine headache (see administration instructions). AT ONSET OF HEADACHE. MAY REPEAT AFTER 2 HOURS. DO NOT EXCEED 30 MG PER DAY. Max use is 2 days per week. - PROVIDER ORDERED FOLLOW UP; Future Pt is 27 year old female who presents with chronic daily headache that is consistent with chronic migraine. Benign neuro exam. MRI-Brain reviewed. Migraine Preventative: Trial of propranolol 20 mg po daily; Migraine Rescue: Ondansetron 8 mg po q8h prn migraine; Rizatriptan 10 mg po prn migraine. Return in 3 months for follow-up visit (virtual visit). Interval Headache History: Jerry Cox is a 28 year old year old female, with a history of chronic daily headache that is consistent with chronic migraine following up today virtually for 3 month follow-up. Since the last visit, the patient states that her headaches have improved. She was started on propranolol her last visit, she reports her migraines are less frequent and less intense. She was averaging 5 migraines a week, now she is down to 3 migraines a month and denies any side effects to the medication. She has had to take Maxalt 1 time since her last visit, this was effective as a rescue medication but can make her tired. Headache 1 Number of migraine headache days/month: 3 Number of headache free days/month: 26 Days missed from work or school in the last month: 0 days Preventative: propranolol 20 mg Abortive: Maxalt 10 mg Medications effective? yes # of doses of abortive medications per month: 1 Anti-Convulsant Topiramate (Topamax, Trokendi XL, Qudexy) intolerant, ineffective. Antiemetics Metoclopramide intolerant PAST MEDICAL HISTORY Diagnosis Date Levy's thyroiditis Inflammatory arthritis PAST SURGICAL HISTORY Procedure Laterality Date EXPL LAP W W/WO BX REMOVAL GALLBLADDER SALPINGECTOMY Bilateral ALLERGIES Allergen Reactions Adhesive Rash Carafate [Sucralfat* Hives, Vomiting Nsaids (Non-Steroid* GI Upset Patient states she has ulcers Penicillins Swelling Plaquenil [Hydroxyc* Intolerance nausea/mood swings Ultram [Tramadol Hc* Hives Current Medications: MAGNESIUM CHLORIDE ORAL Take by mouth. semaglutide (OZEMPIC) 1 mg/0.75 ml subcutaneous pen injector Inject 1 mg subcutaneously one time a week. 0.6ml/0.5ml propranolol (INDERAL) 20 mg tablet Take 1 tablet by mouth once daily. ondansetron (ZOFRAN) 8 mg tablet Take 1 tablet by mouth every 8 hours as needed. rizatriptan (MAXALT) 10 mg tablet Take 1 tablet (10 mg) by mouth as needed for migraine headache (see administration instructions). AT ONSET OF HEADACHE. MAY REPEAT AFTER 2 HOURS. DO NOT EXCEED 30 MG PER DAY. Max use is 2 days per week. buPROPion XL (WELLBUTRIN XL) 150 mg 24 hr tablet Take 150 mg by mouth once daily. busPIRone (BUSPAR) 10 mg tablet Take 2 tablets by mouth every 12 hours. ALLERGY RELIEF, CETIRIZINE, 10 mg tablet Take 10 mg by mouth once daily. sertraline (ZOLOFT) 100 mg tablet Take 2 tablets by mouth every afternoon. I have reviewed the Tang Status Assessment responses and discussed these with the patient: yes Karli (more content not included)...[facility]04-02-2024 History of Present illness Narrative* Xander Lock APRN.MEDICAL TECHNOLOGIST - 12/11/2023 10:30 AM EDT Images from the original note were not included. Headache Center - Follow up Virtual Visit Patient's headache clinic evaluation was scheduled as a virtual visit using the following platform Zoom Jerry Cox was identified by name and and consented to the video evaluation and its limitations. Based on this evaluation it may be necessary for them to schedule a follow up evaluation with me or other neurologists for formal physical examination and if necessary, other studies. I have communicated my name and active licensure. The patient's identity and physical location wereverified at the time of this visit. Either the patient or their legal telephone sales representative has been informed of the risks and benefits of -- and alternatives to -- treatment through a remote evaluation andconsents to proceed with the evaluation remotely. Accompanied by: Self Primary Problem List: ACTIVE PROBLEM LIST Ekaterina Positive Hip Pain, Bilateral Chronic Pain of Both Knees Bilateral Leg Cramps Raynaud's Disease Without Gangrene Bilateral Hand Pain Long-Term Use of Plaquenil Vitamin D Deficiency Inflammatory Arthritis Encounter for Alf Current Use of Azathioprine Joint Stiffness of Multiple Sites Chief Complaint: headache follow-up LV: 09/11/23 Dr. Pacheco Impression and Plan from last visit: Jerry was seen today for consult. Diagnoses and all orders for this visit: Intractable chronic migraine without aura and without status migrainosus - propranolol (INDERAL) 20 mg tablet; Take 1 tablet by mouth once daily. - ondansetron (ZOFRAN) 8 mg tablet; Take 1 tablet by mouth every 8 hours as needed. - rizatriptan (MAXALT) 10 mg tablet; Take 1 tablet (10 mg) by mouth as needed for migraine headache(see administration instructions). AT ONSET OF HEADACHE. MAY REPEAT AFTER 2 HOURS. DO NOT EXCEED 30MG PER DAY. Max use is 2 days per week. - PROVIDER ORDERED FOLLOW UP; Future Pt is 27 year old female who presents with chronic daily headache that is consistent with chronic migraine. Benign neuro exam. MRI-Brain reviewed. Migraine Preventative: Trial of propranolol 20 mg po daily; Migraine Rescue: Ondansetron 8 mg po q8h prn migraine; Rizatriptan 10 mg po prn migraine. Return in 3 months for follow-up visit (virtual visit). Interval Headache History: Jerry Cox is a 28 year old year old female, with a history of chronic daily headache that isconsistent with chronic migraine following up today virtually for 3 month follow-up. Since the lastvisit, the patient states that her headaches have improved. She was started on propranolol her lastvisit, she reports her migraines are less frequent and less intense. She was averaging 5 migraines a week, now she is down to 3 migraines a month and denies any side effects to the medication. She has had to take Maxalt 1 time since her last visit, this was effective as a rescue medication but can make her tired. Headache 1 Number of migraine headache days/month: 3 Number of headache free days/month: 26 Days missed from work or school in the last month: 0 days Preventative: propranolol 20 mg Abortive: Maxalt 10 mg Medications effective? yes # of doses of abortive medications per month: 1 Anti-Convulsant Topiramate (Topamax, Trokendi XL, Qudexy) intolerant, ineffective. Antiemetics Metoclopramide intolerant PAST MEDICAL HISTORY Diagnosis Date Levy's thyroiditis Inflammatory arthritis PAST SURGICAL HISTORY Procedure Laterality Date EXPL LAP W W/WO BX REMOVAL GALLBLADDER SALPINGECTOMY Bilateral ALLERGIES Allergen Reactions Adhesive Rash Carafate [Sucralfat* Hives, Vomiting Nsaids (Non-Steroid* GI Upset Patient states she has ulcers Penicillins Swelling Plaquenil [Hydroxyc* Intolerance nausea/mood swings Ultram [Tramadol Hc* Hives Current Medications: MAGNESIUM CHLORIDE ORAL Take by mouth. semaglutide (OZEMPIC) 1 mg/0.75 ml subcutaneous pen injector Inject 1 mg subcutaneously one time a week. 0.6ml/0.5ml propranolol (INDERAL) 20 mg tablet Take 1 tablet by mouth once daily. ondansetron (ZOFRAN) 8 mg tablet Take 1 tablet by mouth every 8 hours as needed. rizatriptan (MAXALT) 10 mg tablet Take 1 tablet (10 mg) by mouth as needed for migraine headache (see administration instructions). AT ONSET OF HEADACHE. MAY REPEAT AFTER 2 HOURS. DO NOT EXCEED 30 MGPER DAY. Max use is 2 days per week. buPROPion XL (WELLBUTRIN XL) 150 mg 24 hr tablet Take 150 mg by mouth once daily. busPIRone (BUSPAR) 10 mg tablet Take 2 tablets by mouth every 12 hours. ALLERGY RELIEF, CETIRIZINE, 10 mg tablet Take 10 mg by mouth once daily. sertraline (ZOLOFT) 100 mg tablet Take 2 tablets by mouth every afternoon. I have reviewed the Tang Status Assessment responses and discussed these with the patient: yes Xander Lock APRN.MEDICAL TECHNOLOGIST HEADACHE SCORES: 09/09/2023 12/04/2023 Headache Questions ID Migraine Screener: 3 (Positive) ER visits in the last year: 0 ER visits since last office visit: 0 Hospital stays in the last year: 0 Hospital stays since last office visit 0 Limited ADLs in the last month: 20 3 Days missed from work or school in the last month: 0 0 Days headache pain free in the last month: 10 26 Days per month with ALL of the following symptoms - decreased productivity, light sensitivity and nausea: 20 3 Initial improvement of headache after botox injection at last visit: Not applicable, I did not havea botox injection at my last visit PRN medication usage in the last month: 20 3 Patient impression of improvement since last visit: Much improved 09/09/2023 12/04/2023 HIT-6 HIT-6 78 (Severe impact) 64 (Severe impact) 09/09/2023 12/04/2023 HOLLY - 2/7 SCORES HOLLY-2 Score 2 2 09/09/2023 12/04/2023 Migraine Specific QOL - Higher scores indicate better HRQL Role Function-Restrictive Transformed Score (range: 0-100) 5.71 60 Role Function-Preventive Transformed Score (range: 0-100) 40 80 Emotional Function Transformed Score (range: 0-100) 0 60 09/09/2023 12/04/2023 PHQ-9 Score 5 9 Studies to Review: No MRI Head/Brain - Last 2 Impressions No resulted procedures found. MRA Head and/or Neck - Last 2 Impressions No resulted procedures found. CT Head/Brain - Last [address] BRAIN WO CONT (EU,FV,HL,LK,SHELLY,MM,SP) Collected: 07/06/2014 10:21 PM (Final result) CTA Head and/or Neck - Last 2 No resulted procedures found. Labs to Review: No New Health Issues: No New Family History: No Review of Systems: Review of system: unchanged from the previous visit (sleep patterns, mood, energy, appetite, stress, exercising). Physical Examination: Vital Signs: [facility] 07/05/2023 (Approximate) General: well appearing, in no acute distress, alert Pain Behaviors: no pain behaviors observed Neurological: Mental Status: Alert and oriented to person, place and time. Affect is normal and appropriate. Speech is spontaneous and fluent without dysarthria, normal in rate, volume and articulation, and clear,coherent, and relevant. Short and terminal operations supervisor memory, cognition and general fund of knowledge are good. Attention span and concentration are excellent. HEENT: Head is normocephalic and features were symmetric. Musculoskeletal: Patient able to sit up right in chair for entirety of visit. Cranial Nerves: III, IV, -EOMI: full. VII-face is symmetric without evidence of weakness. VIII-hearing intact. IMPRESSION: Intractable chronic migraine without aura and without status migrainosus (primary encounter diagnosis) eJrry Cox is a 28 year old year old female, with a history of chronic daily headache that isconsistent with chronic migraine who presents with now chronic migraines on propranolol. She is happy with her current medication regimen and would not like to make any changes at this time. Will plan for follow-up in 6 months. Her neurological examination is essentially normal at this visit. PLAN: -Continue propranolol 20 mg for migraine prevention -Continue Maxalt as needed -Follow-up 6 months HEADACHE MANAGEMENT: (You are the primary guardian of your health and headache. Keep track of all medications: This includes the reason for use, side effects and benefits.) MEDICATION TREATMENT: Medications to Start Taking None Discussed pathophysiology of headache. Discussed use of headache diary. Discussed triggers and lifestyle modifications including limiting caffeine consumption. Discussed treatment options, both abortive and preventive medications. Instructed patient about medications. Headache education was done. Discussed lifestyle modification including increased oral hydration, decreased caffeine, exercise and stress management. Discussed treatment options including preventive and acute medications, natural supplements, and infusion therapy. Discussed medication overuse headache and to limit use of acute treatments to no more than 2 days/week or 10 days/month. Discussed medication side effects, adverse reactions and drug interactions. Written educational materials and patient instructions outlining all of the above were given. RESEARCH: None at this time Follow-up: 6 months Level of Service: Virtual Visit 20 minutes Xander Lock APRN.ISAIAS Headache Section [facility] December 11, 2023 [facility] Evaluation note* Encounter Date Diagnosis Assessment Notes Treatment Notes Treatment Clinical Notes Oct, Dysuria (ICD-10 - R30.0) [facility] Other 01-15-2024 Evaluation note* Encounter Date Diagnosis Assessment Notes Treatment Notes Treatment Clinical Notes Sep, Obesity (BMI 30.0-34.9) (ICD-10 - E66.9) Discussed initiating GLP-1 for treatment of obesity. Nausea is highly likely in the first few weeks of starting the medication. Discussed titration schedule in regards to dosing the first few months of the medication. Will continue with second dosage x 4 weeks and then please call the office for refill. I would like her to trial the second dose for 8 weeks to see how she is doing in regards to weight loss and nausea. Patient verbalizes understanding. Much emotional and motivational support given today. *Progress note was completed with the assistance of voice recognition software for dictation purposes. Please excuse any grammatical errors that were not corrected during review process. 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 Author Type: Physician Type: Progress Notes Filed: 09/11/2023 9:05 AM Note Text: HEADACHE MEDICINE NEW EVALUATION September 11, 2023 8:40 AM Headache 1 Diagnosis: Chronic Migraine Headache (CM) Onset: - Age of onset was 15 years of age. Worsened over time. Location: left, unilateral, bilateral, temporal, retro-orbital and occipital Quality/Description: throbbing Associated Symptoms: Photophobia: yes Phonophobia: yes Nausea: yes Vomiting: no Worse with activity: yes Number of migraine headache days/month: 20 Migraine headache severity: 9/10 Number of NON-migraine headache days/month: 10 Non-migraine headache severity: 2 Total Number of headache days/month: 30 Number of headache free days/month: 0 Duration of headaches with treatment: Duration of attacks with treatment: greater than 4 hours per episode up to entire day if untreated. Current preventive treatment: none Current abortive treatment: none Triggers: none Onset of headache to peak: gradual Relieving factors: laying down, closing eyes, ice pack Positional changes: no Most common time of day for headache to begin: upon awakening Prodrome: none Aura: blurred vision and 'snowy vision' (duration is brief--minute or so.) Allodynia: no Days missed from work or school in the last month: 0 days Lifestyle: Sleep: sleep quality is good. HEADACHE SCORES: Headache Questions 09/09/2023 ID Migraine Screener: 3 (Positive) ER visits in the last year: 0 Hospital stays in the last year: 0 Limited ADLs in the last month: 20 Days missed from work or school in the last month: 0 Days headache pain free in the last month: 10 Days per month with ALL of the following symptoms - decreased productivity, light sensitivity and nausea: 20 PRN medication usage in the last month: 20 HIT-6 09/09/2023 HIT-6 78 (Severe impact) HOLLY - 2/7 SCORES 09/09/2023 HOLLY-2 Score 2 Migraine Specific QOL - Higher scores indicate better HRQL 09/09/2023 Role Function-Restrictive Transformed Score (range: 0-100) 5.71 Role Function-Preventive Transformed Score (range: 0-100) 40 Emotional Function Transformed Score (range: 0-100) 0 PHQ-9 09/09/2023 Score 5 PAST MEDICAL HISTORY Diagnosis Date Levy's thyroiditis Inflammatory arthritis PAST SURGICAL HISTORY Procedure Laterality Date EXPL LAP W W/WO BX REMOVAL GALLBLADDER SALPINGECTOMY Bilateral Current Outpatient Medications Medication Sig MAGNESIUM CHLORIDE ORAL Take by mouth. semaglutide (OZEMPIC) 1 mg/0.75 ml subcutaneous pen injector Inject 1 mg subcutaneously one time a week. 0.6ml/0.5ml buPROPion XL (WELLBUTRIN XL) 150 mg 24 hr tablet Take 150 mg by mouth once daily. busPIRone (BUSPAR) 10 mg tablet Take 2 tablets by mouth every 12 hours. ALLERGY RELIEF, CETIRIZINE, 10 mg tablet Take 10 mg by mouth once daily. sertraline (ZOLOFT) 100 mg tablet Take 2 tablets by mouth every afternoon. azaTHIOprine (IMURAN) 50 mg tablet TAKE 1 TABLET BY MOUTH EVERY DAY WITH FOOD*HOLD IF ON ANTIBIOTICS OR ILL* predniSONE (DELTASONE) 5 mg tablet Day 1=6tabs with food, Day 2=5tabs, Day 3=4tabs, Day 4=3tabs, Day 5=2tabs, Day 6=1tab, No NSAIDs on med celecoxib (CELEBREX) 200 mg capsule Take 1 capsule by mouth twice daily. cyanocobalamin, vitamin B-12, (VITAMIN B-12 ORAL) Take by mouth. metHIMazole (TAPAZOLE) 5 mg tablet Take 5 mg by mouth once daily. Norethindrone Acet-Ethinyl Est (,) 1-20 mg-mcg per tablet Take 1 tablet by mouth once daily. Ascorbic Acid (VITAMIN C) 250 mg chew Take 500 mg by mouth once daily. No current facility-administered medications for this visit. none ALLERGIES Allergen Reactions Adhesive Rash Carafate [Sucralfat* Hives, Vomiting Nsaids (Non-Steroid* GI Upset Patient states she has ulcers Penicillins Swelling Plaquenil [Hydroxyc* Intolerance nausea/mood swings Ultram [Tramadol Hc* Hives FAMILY HISTORY Problem Relation Age of Onset Headache Mother Brain Cancer No Family History Aneurysm No Family History Denies cerebral aneurysm history Social History Tobacco Use Smoking status: Never Smokeless tobacco: Never Substance Use Topics Alcohol use: Yes Comment: Rarely Drug use: Never PHYSICAL EXAMINATION 09/11/23 0828 BP: 137/80 Pulse: 76 Temp: 37.1 ?C (98.8 ?F) TempSrc: Temporal SpO2: 98% Weight: 96.3 kg (212 lb 3.2 oz) General appearance: Well appearing, alert, in no acute distress, well-hydrated, well nourished. Skin: Skin color, texture, turgor normal, no suspicious rashes or lesions Head: Normocephalic, no masses, lesions, tenderness or abnormalities Eyes: Anicteric sclera. Pupils are equally round and reactive to light. Extraocular movements are intact. Fundi without papilledema. Oropharynx: Lips, mucosa, and tongue normal, teeth and gums normal, oropharynx normal Neck: Supple, no adenopathy; Lungs: Unlabored on (more content not included)...[facility] 08-29-2023 Evaluation note* Encounter Date Diagnosis Assessment Notes Treatment Notes Treatment Clinical Notes Aug, Obesity (BMI 30.0-34.9) (ICD-10 - E66.9) Discussed initiating GLP-1 for treatment of obesity. Discussed the mechanism behind the medication, contraindications, and typical side effects of GI upset. Nausea is highly likely in the first few weeks of starting the medication. Discussed that this is injectable, injection site locations, cleaning the area with alcohol swab prior to injection, and that patient can consult pharmacist for demonstration if needed. Discussed titration schedule in regards to dosing the first few months of the medication. [facility] RX SENT TO [facility]. Much emotional and motivational support given today. Discussed- 1. Pairing proteins with carbs for satiety and blood glucose control. 2. Log intake on [employer] ranjeet for accountability. 3. Discussed caloric intake and requirements specific to patient. 4. Increase water intake and decrease sugary drinks. 5. Limit fast food and eating out, and how to make healthy choices. 6. Choose a workout routine you enjoy so you can maintain it. 7. Weight loss in regards to fat loss and building muscle mass. 8. Reasonable expectations, how to measure progress and weight loss goal. 9. Strategies for continued efforts and maintenance of healthy lifestyle and weight lost. 10. Prioritize sleep and mental health as well to support healthy lifestyle and weight. 11. Routine is monzon in regards to maintaining success. 12. Plateaus and how to break through them. Aug, Other *Progress note was completed with the assistance of voice recognition software for dictation purposes. Please excuse any grammatical errors that were not corrected during review process. I have spent 35 minutes with this patient and over 50% of the visit was counseling done by myself, Alexandra DUFFY. [facility] Other 11-20-2023 Evaluation note* Encounter Date Diagnosis Assessment Notes Treatment Notes Treatment Clinical Notes Jul, Intractable migraine without status migrainosus, unspecified migraine type (ICD-10 - G43.919) Discussed treatment in the interim. I do not want to treat with maintenance medication as I feel neurology will likely have their own ideas regarding treatment at this time. I would like to initiate triptan in the interim. Discussed the medication at length. Also I would like her to initiate magnesium daily. Discussed this to help the headaches subside a bit. As always encouraged good hydration, regular sleep, exercise, avoidance of electronics excessively, avoiding nicotine, caffeine and stimulants. Jul, Abnormal brain MRI (ICD-10 - R90.89) IMPRESSION: There is a vascular loop extending approximately 50% of the leg into the right external auditory canal closely approximating the right 7th and 8th cranial nerves. Correlation with clinical signs of vascular nerve compression is recommended. There is T2 and T2 FLAIR hyperintense signal in the subcortical white matter of the right frontal lobe which is nonspecific. Results of MRI from a primary care standpoint. I would like to refer her to neurology moving forward. Verbalizes understanding. Jul, Other *Progress note was completed with the assistance of voice recognition software for dictation purposes. Please excuse any grammatical errors that were not corrected during review process. I have spent 24 minutes with/on this patient and over 50% of the visit was counseling done by myself, Alexandra Crane [employer]OTMAKER HAND-[employer]. [facility] Other 11-07-2023 NoteHNO ID: [id number] Author: Mayank Nguyen MD Service: ? Author Type: Physician Type: Progress Notes Filed: 07/17/2023 5:41 PM Note Text: History: Jerry Cox, a 27 year old female, presents for evaluation of waxing and waning L neck pain (pts to L thyroid lamina) for > 1 y. Always present w occ rad to L ear. No change w biting or yawning. Sorethroat on L when swallowing. H/o Hashimotos. Not on replacement. US thyroid 04/02/23: no nodules, 1.3 x 0[address] inferior to L lobe. Denies hoarseness, shortness of breath, cough, hemoptysis, ear pain, throat clearing, post-nasal drip, fever, chills, weight loss. No history of thyroid disease/surgery. No history of trauma. The patient does not smoke. PMH: Hashimotos, Raynaud PSH: Latrice, B oophrectomy. PE: Alert; oriented; well-developed; no apparent distress. Normal voice; normal communication. Eyes: EOMI, pupils symmetric and reactive bilaterally. Nose: patent, normal mucosa, no congestion, no rhinorrhea. Oral cavity, oropharynx: No ulcerative or mass lesions, tongue midline, palate elevates symmetrically, tongue base and floor of mouth soft. Neck: nontender, no lymphadenopathy or masses. Thyroid: no masses. Face: symmetric, sinuses nontender, skin without lesions. Salivary glands: normal size, nontender, no masses. Ears: EACs free of lesions. TMs clear and mobile. Neurologic: hat ironer II-XII grossly intact. Procedure: Flexible laryngoscopy. Indication: L neck and throat pain. R/o infection, lesion. Description of procedure: Neosynephrine/xylocaine was sprayed into the patient's nose. A flexible laryngoscope was passed through the patient's nose. The nasopharynx was free of ulcerative or mass lesions. The hypopharynx was free of ulcerative or mass lesions. The larynx was free of ulcerative or mass lesions. Normal bilateral vocal cord mobility. Assessment/Plan: Waxing and waning L neck pain (pts to L thyroid lamina) for > 1 y. HN exam wnl. No apparent lesion, mass, infection. Rec CT neck. f/up 2-3 d after. Normal thyroid US. F/up prn. Medical Decision Making: Problems: Low: Acute, uncomplicated illness or injury Risk: Low: Low risk from testing/treatment Medical Decision Making [facility]: [facility] of Present illness Narrative* Mayank Nguyen MD - 07/17/2023 9:16 AM EST History: Jerry Cox, a 27 year old female, presents for evaluation of waxing and waning L neck pain (pts to L thyroid lamina) for > 1 y. Always present w occ rad to L ear. No change w bitingor yawning. Sorethroat on L when swallowing. H/o Hashimotos. Not on replacement. US thyroid 04/02/23: no nodules, 1.3 x 0.[address] inferior to L lobe. Denies hoarseness, shortness of breath, cough, hemoptysis, ear pain, throat clearing, post-nasal drip, fever, chills, weight loss. No history ofthyroid disease/surgery. No history of trauma. The patient does not smoke. PMH: Hashimotos, Raynaud PSH: Latrice, B oophrectomy. PE: Alert; oriented; well-developed; no apparent distress. Normal voice; normal communication. Eyes: EOMI, pupils symmetric and reactive bilaterally. Nose: patent, normal mucosa, no congestion, no rhinorrhea. Oral cavity, oropharynx: No ulcerative or mass lesions, tongue midline, palate elevates symmetrically, tongue base and floor of mouth soft. Neck: nontender, no lymphadenopathy or masses. Thyroid: no masses. Face: symmetric, sinuses nontender, skin without lesions. Salivary glands: normal size, nontender, no masses. Ears: EACs free of lesions. TMs clear and mobile. Neurologic: hat ironer II-XII grossly intact. Procedure: Flexible laryngoscopy. Indication: L neck and throat pain. R/o infection, lesion. Description of procedure: Neosynephrine/xylocaine was sprayed into the patient's nose. A flexible laryngoscope was passed through the patient's nose. The nasopharynx was free of ulcerative or mass lesions. The hypopharynx was free of ulcerative or mass lesions. The larynx was free of ulcerative or mass lesions. Normal bilateral vocal cord mobility. Assessment/Plan: Waxing and waning L neck pain (pts to L thyroid lamina) for > 1 y. HN exam wnl. No apparent lesion, mass, infection. Rec CT neck. f/up 2-3 d after. Normal thyroid US. F/up prn. Medical Decision Making: Problems: Low: Acute, uncomplicated illness or injury Risk: Low: Low risk from testing/treatment Medical Decision Making Level: 3 - Low [facility]* Encounter Date Diagnosis Assessment Notes Treatment Notes Treatment Clinical Notes Jun, Abnormal thyroid scan (ICD-10 - R94.6) Discussed ultrasound of the thyroid with noted lymph node 1.3 cm. Based on size and new onset presentation since March, I would like to refer to ENT. Patient personally request Dr. Mark. I am happy to put the referral in today. Of note I did also review CBC with her which is essentially normal given the possible lymphadenopathy. Thyroid is a bit enlarged in office today. Jun, Iron deficiency (ICD-10 - E61.1) Patient has a history of iron deficiency anemia. She does not tolerate oral supplementation. I am happy to try and order her IV infusions x3. CBC does not reveal significant anemia however iron is low noted on lab draw. Reviewed in office today with patient. Also help the fatigue levels a bit. Venofer 300 mg dose once a week x3 weeks ordered hardcopy requisition and faxed to [facility]. Jun, Nystagmus (ICD-10 - H55.00) Jun, Dizziness (ICD-10 - R42) Through further discussion and time spent with patient, she does have fairly persistent nystagmus. She then makes me aware that she has seen neuro-ophthalmology and a retinal specialist. I was not aware of either of these things. She reported to [facility] for imaging but they declined being able to order MRI of the brain. She has significant dizziness, headaches, increased fatigue, pulsatile tinnitus bilaterally and persistent nystagmus. He also makes me aware that she has had an MRI of the brain in the past which revealed 3 lesions but did not follow-up with neurology formally. MRI of the brain absolutely needs to be ordered in office today especially given the recommendation from the photogrammetry airplane pilot and retinologist. Jun, Headache, unspecified (ICD-10 - R51.9) See above. Jun, Pulsatile tinnitus (ICD-10 - H93.A9) See above. Jun, Abnormal brain scan (ICD-10 - R94.02) See above. Jun, Seasonal allergies (ICD-10 - J30.2) I am agreeable to giving her Kenalog injection in office today. Jun, Weight gain (ICD-10 - R63.5) Lengthy discussion regarding weight gain. Discussed NOOM or [employer] ranjeet. Discussed possible adrenal pathology. Discussed how stress and mental health can attribute to weight status. Discussed dietary changes to be made, but restful sleep. Asymptomatic for overt sleep apnea at this time. Jun, Depression, unspecified depression type (ICD-10 - F32.A) Patient request lab work to be faxed to psychiatry at this time. Jun, Other I have spent 75 minutes with/on this patient and over 50% of the visit was counseling done by myself, Alexandra DUFFY. *Progress note was completed with the assistance of voice recognition software for dictation purposes. Please excuse any grammatical errors that were not corrected during review process. [facility] Other 10-16-2023 Evaluation note* Encounter Date Diagnosis Assessment Notes Treatment Notes Treatment Clinical Notes Jun, Fatigue, unspecified type (ICD-10 - R53.83) [facility] Other 09-06-2023 Evaluation note* Encounter Date Diagnosis Assessment Notes Treatment Notes Treatment Clinical Notes May, Obesity, unspecified (ICD-10 - E66.9) Discussed- 1. Pairing proteins with carbs for satiety and blood glucose control. 2. Log intake on ranjeet for accountability. 3. Discussed caloric intake and requirements specific to patient. 4. Increase water intake and decrease sugary drinks x 4 weeks with flavored water packets/energy if needed. 5. Limit fast food and eating out, and how to make healthy choices. 6. Choose a workout routine you enjoy so you can maintain it- at home on social media or youtube. Does not have to be at the gym. 7. Weight loss in regards to fat loss and building muscle mass. 8. Reasonable expectations, how to measure progress and weight loss goal. 9. Strategies for continued efforts and maintenance of healthy lifestyle and weight lost. 10. Prioritize sleep and mental health as well to support healthy lifestyle and weight. 11. Routine is monzon in regards to maintaining success. 12. Plateaus and how to break through them. Discussed options for medications for the treatment of obesity however I would really like her to achieve this for through dietary and lifestyle changes rather than medications. Much emotional and motivational support given today. 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 May also see weight loss from the Wellbutrin. Will refill x90 days and then follow-up. May, Other I have spent 25 minutes with this patient and over 50% of the visit was counseling done by myself, Alexandra Crane BOOTMAKER HAND-C. [facility] Other 09-05-2023 Evaluation note* Encounter Date Diagnosis Assessment Notes Treatment Notes Treatment Clinical Notes May, Side effect of drug (ICD-10 - T88.7XXA) May, Rhinosinusitis (ICD-10 - J32.9) [facility] Other 08-08-2023 Evaluation note* Encounter Date Diagnosis Assessment Notes Treatment Notes Treatment Clinical Notes Apr, Side effect of drug (ICD-10 - T88.7XXA) [facility] Other 08-02-2023 Evaluation note* Encounter Date Diagnosis Assessment Notes Treatment Notes Treatment Clinical Notes Apr, Rhinosinusitis (ICD-10 - J32.9) [facility] Other 08-02-2023 Evaluation note* Encounter Date Diagnosis Assessment Notes Treatment Notes Treatment Clinical Notes Apr, Side effect of drug (ICD-10 - T88.7XXA) [facility] Other 07-11-2023 Evaluation note* Encounter Date Diagnosis Assessment Notes Treatment Notes Treatment Clinical Notes Mar, Side effect of drug (ICD-10 - T88.7XXA) Discussed initiation of Wellbutrin to help with weight gain and sexual dysfunction side effect of Zoloft. Pt is agreeable. Patient to initiate medication. Please call in 4 to 6 weeks with an update. Medication discussed with patient today. Does appreciate the Zoloft and wishes to continue the medication which I also would encourage. All questions answered and patient ends call stable. Mar, Other *Progress note was completed with the assistance of voice recognition software for dictation purposes. Please excuse any grammatical errors that were not corrected during review process. I have spent 11 minutes with this patient and over 50% of the visit was counseling done by myself, Alexandra Crane BOOTMAKER HAND-C. [facility] Other 07-05-2023 Evaluation note* Encounter Date Diagnosis Assessment Notes Treatment Notes Treatment Clinical Notes Mar, Rhinosinusitis (ICD-10 - J32.9) Discussed the serous effusion of the ears. Likely secondary to allergic response. Does not warrant antibiotic today. I encouraged her to trial Zyrtec and Flonase daily for 2 to 4 weeks to see if symptoms improve. Does have a history of allergies and maintenance may be warranted with antihistamines and nasal steroids daily. I am happy to provide her with a Kenalog injection today as requested. We will defer oral steroids. Mar, Thyromegaly (ICD-10 - E04.9) Given the history of thyroid dysfunction and current right-sided enlargement, we will obtain ultrasound for good measure. Patient is agreeable and will reach out to [facility] to get scheduled. 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 We will call patient with results. Mar, Other We have discuss ed the necessity of following up with PCP regularly as well as specialists, as needed. Discussed F/U with dentistry and optometry at least yearly. Discussed all preventative measures/ cancer screenings as applicable to this patient. Emphasized the importance of a reduced fat, low carb diet to promote heart health and controlled blood sugars. Reviewed social history and ensured patient is safe within the home today. Pt denies any abuse of alcohol, nicotine, caffeine or recreational drugs. I have ensured patient is of stable mental and physical health today. We have discussed appropriate F/U schedule as well as blood work and vaccinations that apply. All questions answered and patient is sent home pleased, without concerns. *Progress note was completed with the assistance of voice recognition software for dictation purposes. Please excuse any grammatical errors that were not corrected during review process. [facility] Other 06-13-2023 [facility], New patient, Previous PCP Dr. Richard Webster, Psychiatry - Dr. Chino Hendrickson, [facility] Counseling, Bilateral ear pain, fullness x2 days, Patient states she has thyroid labs drawn every 3 months, just drawn last month at [facility] [employer] Other 07-15-2022 NoteOPERATIVE NOTE OPERATION DATE: 03/24/2022 PROCEDURE: Bilateral laparoscopic tubal ligation with Filshie clips. PREOPERATIVE DIAGNOSIS: Desires permanent sterilization. POSTOPERATIVE DIAGNOSIS: Desires permanent sterilization. ANESTHESIA: General. SURGEON: Richard Hendrix D.O. [employer] SALESPERSON: LOYD Burgos URINE OUTPUT: Yellow and clear. FINDINGS: Normal appearing ovaries, uterus and tubes. SPECIMEN: None. BLOOD LOSS: 5 mL. PROCEDURE: The patient was taken back to the Operating Room where she was given general anesthesia without difficulty. She was then prepped and draped in the normal sterile fashion after being placed in a dorsal lithotomy position. A wet sponge stick was placed into the patient's vagina. Attention was then turned to the patient's abdomen, where a scalpel was used to make a small infraumbilical incision. The S retractors were then used to dissect the underlying layers until the fascia could be seen. The fascia was then grasped with Rayray clamps and tented up. A knife was then used to make a small incision to the fascia. The muscle was identified, at that time two sutures of #0 Vicryl on a GI needle was then used and placed through the fascia. The peritoneum was then identified and entered bluntly. The 10-4 Parvez was then placed into the patient's abdomen. This was confirmed with direct visualization of the bowel, using the laparoscope. The patient's abdomen was then insufflated using approximately 4 liters of CO2 gas. Survey of the patient's abdomen demonstrated ovaries were normal in appearance as well as both tubes. A second left lateral port, which was 7-8 in size, was then placed laterally after incision was made in the skin under direct visualization. The patient's tube on the patient's right side was identified, the Filshie clip was then placed in the ampulla region after the fimbriated edge of the tube was seen. This was performed on the contralateral side as well. The left lateral port was then moved under direct visualization with excellent hemostasis. All instruments were removed from the patient's abdomen. The fascia was closed using the #0 Vicryl on GI needle. The skin was closed using 4-0 Vicryl subcuticularly. All instruments were removed from the patient's vagina as well. The patient was taken out of the dorsal lithotomy position and placed in the supine position and taken to recovery in stable condition. Sponge, lap and needle counts were correct x2. : [facility] Signed and Approved by: DR RICHARD HENDRIX . 03/31/2022 08:16:00[facility] [place] noteNo assessment information [facility] Work Phone: Evaluation noteNo InformationNortPottstown Hospital [facility] Other Evaluation note* Diagnosis Cervicalgia- Primary documented in this encounter [facility] note* Diagnosis Onset Date Resolution Status Otitis media noneactive Bronchitis noneactive Obesity acute Seasonal allergies acute [facility] Work Phone: Evaluation note* Diagnosis Intractable chronic migraine without aura and without status migrainosus- Primary Chronic migraine without aura, with intractable migraine, so stated, without mention of status migrainosus [facility] Diagnosis Onset Date Resolution Status Otitis media noneactive Bronchitis noneactive Obesity acute Seasonal allergies acute Obesity (BMI 30.0-34.9) [facility] Work Phone: Evaluation note* Diagnosis Onset Date Resolution Status Otitis media noneactive Bronchitis noneactive Obesity acute Seasonal allergies acute Obesity (BMI 30.0-34.9) acut e Epigastric pain noneactive Levy's disease acute Obesity (BMI 30.0-34.9) [facility] Work Phone: Evaluation note* Diagnosis Onset Date Resolution Status Obesity (BMI 30.0-34.9) acut e Epigastric pain noneactive Levy's disease acute Obesity (BMI 30.0-34.9) [facility] Work Phone: Evaluation note* Diagnosis Intractable chronic migraine without aura and without status migrainosus Chronic migraine without aura, with intractable migraine, so stated, without mention of status migrainosus documented in this encounter [facility] note* Diagnosis Intractable chronic migraine without aura and without status migrainosus Chronic migraine without aura, with intractable migraine, so stated, without mention of status migrainosus documented in this encounter [facility] note* Diagnosis Intractable chronic migraine without aura and without status migrainosus Chronic migraine without aura, with intractable migraine, so stated, without mention of status migrainosus [facility] Narrative - Reported* Type Description Date Medical History Hashimotos disease Medical History Inflammatory arthritis Medical History Post- depression Medical History Endometriosis Medical History TMJ arthritis Surgical History Exploratory x4 Surgical History Cholecystectomy 2014 Surgical History Vaginal childbirth 12/2021 Surgical History Filshie clips tubal ligation 20 22 Hospitalization History See surgical hx Hospitalization History childbirth 12/2021 [facility] Other History general Narrative - Reported* Type Description Date Medical History Post depression Medical History Endometriosis Medical History Inflammatory arthritis Medical History Levy's disease Medical History Obesity Medical History TMJ arthritis Medical History Iron deficiency Medical History Nystagmus Medical History Pulsatile tinnitus, unspecified ear Medical History Abnormal brain scan Surgical History Exploratory x4 Surgical History Cholecystectomy 2014 Surgical History Vaginal childbirth 12/2021 Surgical History Filshie clips tubal ligation 20 22 Surgical History Salpingectomy 05/11/2023 Hospitalization History See surgical hx Hospitalization History Childbirth 12/2021 [facility] Other [facility] general Narrative - Reported* Type Description Date Medical History Post depression Medical History Endometriosis Medical History Inflammatory arthritis Medical History Levy's disease Medical History Obesity Medical History TMJ arthritis Medical History Iron deficiency Medical History Nystagmus Medical History Pulsatile tinnitus, unspecified ear Medical History Abnormal brain scan Medical History Migraines Surgical History Exploratory x4 Surgical History Cholecystectomy 2014 Surgical History Vaginal childbirth 12/2021 Surgical History Filshie clips tubal ligation 20 22 Surgical History Salpingectomy 05/11/2023 Hospitalization History See surgical hx Hospitalization History Childbirth 12/2021 [facility] Other Hospital Discharge instructions Additional Instructions Clear liquid diet today and advance as tolerated Avoiding spicy, hot, fried foods Push fluids You have a urine culture test pending follow-up with your PCP regarding results Your CT abdomen and pelvis today was read as follows; FATTY LIVER WITH POSSIBLE HEPATIC HEMANGIOMA. [facility] Work Phone: Hospital Discharge instructions Additional Instructions DISCHARGE INSTRUCTIONS FOR UPPER ENDOSCOPY WHAT TO EXPECT: - You may feel full, gassy or cramping after your procedure. In some cases, this may be from a few hours to a day. Walking may help relieve the discomfort. - Your throat may feel sore today from the scope that the doctor passed through your throat to visualize your stomach. Take a throat lozenge or suck on ice to ease the discomfort. - You may notice some streaks of blood in your sputum if the doctor has taken a biopsy. - You should begin to recover from anesthesia within 1 hour of the procedure, however may feel groggy for the next 24 hours. DO's AND DON'Ts: - Call your doctor right away if you have a hard abdomen, severe pain, vomiting or if you cough up large amounts of blood. - Call your doctor if you develop any rashes, hives or difficulty breathing. - If you take 81 mg aspirin for your heart it is safe to resume this medication. - If you take other blood thinner medications your doctor will instruct you when these can safely be resumed. - Do NOT drive for 24 hours. - Do NOT operate machinery such as power tools, lawn mowers, snow blowers, sewing machines, etc. for 24 hours. - Avoid alcoholic beverages and drugs for allergies, nerves, or sleep. - Do NOT stay alone. Do NOT leave your child unattended. - Do NOT make important personal or business decisions or sign any legal documents. - Eat solid foods and drink liquids in smaller amounts than usual until normal appetite returns. If you should experience an upset stomach, liquids high in sugar content (soda, [employer], non-acid juices) are recommended. - Do NOT smoke. - Do take it easy today. You need not stay in bed, but avoid strenuous activities such as jogging or working out. FOLLOW UP & RECOMMENDATIONS: -Start Pantoprazole 40 mg daily -Notify the doctor if you have any problems. -Office number [phone].[facility] Work Phone: Progress note Author January Bro [facility] Note Date/Time November 13, 2024 9:58 am [facility] [facility] [place] [address] Cancer Center Note Signed Patient: Jerry Cox MR#: [id number] : 1995 Acct:[id number] Age/Sex: 29 / F Type: DEP AMB Date of Service: 11/13/24 Copies to: Alexandra Crane, HAIRSPRING STAKER~ Assessment & Plan A/P (1) Abnormal result of iron profile testing: Plan: F/U in 6 months with repeat cbc, cmp, iron profile and ferritin. No indication for parental iron. (2) Elevated alkaline phosphatase level: Plan: Chronic elevation in ALK phos, may be likely to inflammatory arthritis. Recheck cmp in 6 months with visit. Informed to eat clean healthy diet and exercise as tolerated. Orders: Orders Complete Blood Count Auto Diff 6 Months R79.0 - Abnormal level of blood mineral Iron and TIBC Profile 6 Months R79.0 - Abnormal level of blood mineral Ferritin 6 Months R79.0 - Abnormal level of blood mineral Comprehensive Metabolic Panel 6 Months R79.0 - Abnormal level of blood mineral CHEMO PLAN No Active Chemotherapy History of Present Illness FRANC Edwards is a 29 year old female referred by Alexandra Crane for low TIBC of 231, Her hgb is normal at 13.3, iron sat normal 33.3. She has a history of GERD, elevated alk phos, anxiety, moderate fatigue, carpal tunnel syndrome, Levy's disease, TMJ arthritis, inflammatory arthritis, thyromegaly, thyroidnodule, and migraines. ALK PHOS elevated as far back as 03/19/2029-93, 12/26/20-114, 12/31/21-98, 10/02/2024- 129 Her medication list includes buproprion HCL, buspirone, certirizine, cyclobenzaprine, fluticasone, montelukast, propranolol, tretinoin, venlafaxine, and sertraline. Para 1 1, difficult during the , after delivery, positive for depression, diagnosed with PTSD after delivery. She states her cyclesare normally monthly but she reports having them twice monthly for the past couple months. She states her cycles have been light since having an ablation December,. She states that she received two iron infusions a week apart duringher and one infusion two years ago at [facility]. 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 She reports seeing rheumatology in the past but no longer follows up with them. She states her appetite fluctuates. She denies excessive alcohol intake, reports drinking maybe once every couple months. She denies fevers or chills, she does have temperature regulation issuessince giving to her daughter. She reports having intermittent palpitations, increased during stress. She denies sob or cough. She reports her bowels are normal, denies melena or hematochezia. She reports having numbness and tingling in the fingers and toes for about 8-10 years. She denies intervention for the paresthesias. She has received Cortisone shots in the wrists in the past. She reports intermittent cramping of the hands when she sleeps. Intake Vitals/Pain Assessment 11/13/24 10:03 Height 5 ft 6.25 in Weight 91.172 kg BMI 32.1 Body Fat % 39.82 BP 126/84 Blood Pressure Location Lt brachial Position Sitting Temp 97.8 F Temp Source Temporal Pulse 75 Pulse Source NIBP Respiration 16 Pulse Oximetry (%) 99 Oxygen Delivery Method room air Intake Visit Reasons: NEW- Abnormal iron profile testing, new patient Accompanied by: Self Allergies Penicillins Allergy (Unknown, Verified 11/12/24 11:15) Unknown Reaction, anaphylaxis sucralfate (From Carafate) Allergy (Unknown, Verified 11/12/24 11:15) Unknown Reaction, vomiting topiramate (Topamax) Allergy (Unknown, Verified 11/12/24 11:15) neuropathy tramadol (From Ultram) Allergy (Unknown, Verified 11/12/24 11:15) Unknown Reaction, vomiting Gastrointestinal Is the patient taking opioids for pain control?: No Falls Fall Precaution Measures Taken: Patient in chair Nurse's Note: Patient is here today for a new patient appointment for abnormal iron profile testing [facility] Medical History Medical History Chronic mental illness Levy's disease TMJ arthritis Thyromegaly Thyroid nodule Seasonal allergies Pulsatile tinnitus Obesity Nystagmus Migraines Iron deficiency Inflammatory arthritis Endometriosis Abnormal thyroid scan Abnormal brain MRI Surgical History Surgical History Hx of exploratory laparotomy x4 History of cholecystectomy (~2014) History of vaginal delivery (~12/2021) History of tubal ligation (~2021) Filshie clips History of salpingectomy (~05/11/23) Family History Family History Grandparent Legacy FamHx Relation: Maternal Grand Father Grandparent Legacy FamHx Relation: Maternal Grand Mother Grandparent History of malignant neoplasm of prostate Legacy FamHx Relation: Paternal Grand Father Grandparent Legacy FamHx Relation: Paternal Grand Mother Mother Anxiety Hypertension Father Lucas Fontenot, Age: 55 Date of : 10/26/69 Member Race/Ethnicity: /White Diabetes Paternal Grandfather Raul Fontenot Member Race/Ethnicity: /White Cancer Sister No problems noted. Daughter No problems noted. Social History Social History (Updated 11/13/24 @ 10:05 by Lala Savage [facility]) Smoking status: Never smoker Within the past year, how often did you have a drink containing alcohol: monthly or less In the past 12 months, have you used illegal drugs or prescription drugs for non-medical reasons?: No Are you currently employed?: full-time Previous occupational history: [employer] Constitutional: Positive for mild-moderate fatigue. No fevers, chills, night sweat sweats, no vasomotor symptoms Eye: No recent visual problems ENT: No ear pain, nasal congestion, sore throat Respiratory: No shortness of breath, cough Cardiovascular: No Chest pain, positive for intermittent palpitations, history of PVCs, no syncope Gastrointestinal: No nausea, vomiting, diarrhea. Reports intermittent reflux, denies requiring medication, watches what she eats to prevent it. Genitourinary: No hematuria Juvenal/Lymph: Negative for bruising tendency, negative for swollen lymph glands Endocrine: Negative for excessive thirst or excessive hunger Musculoskeletal: Positive for generalized joint pain, no current muscle pain, negative for decreased range of motion Integumentary: No rash, pruritus, abrasions Neurologic: Alert & oriented X 4 Psychiatric: Positive for anxiety and depression Physical Exam EXAM ECO General: Alert and oriented, well nourished, no acute distress. Eye: PERRL, EOMI, normal conjunctiva. Neck: Supple, non-tender, no carotid bruits, no JVD, no lymphadenopathy. Lungs: Clear to auscultation and percussion, non-labored respiration. Heart: Normal rate, regular rhythm, no murmur, gallop or edema. Abdomen: Soft, non-tender, non-distended, normal bowel sounds, no masses. Musculoskeletal: Normal range of motion and strength, no tenderness or swelling. Skin: Skin is warm, dry and appropriate for ethnicity, no rashes or lesions. Neurologic: Awake, alert and oriented X4, CN II-XII intact. Psychiatric: Cooperative, appropriate mood and affect. Results - [facility] (Med Onc) LAB RESULTS No Data to Display Social Determinants of Health Screening SDOH last assessed in clinic: 11/13/24 Will the patient participate in the screening?: Yes Do you worry about having a steady place to live?: No In the past 12 months, have you had to go without electric, gas, oil, or water in your home?: No Have you or anyone in your house had to go without enough food to eat?: No Has lack of reliable transportation kept you from medical appointments or from doing things needed for daily living?: No Has anyone in your support network made you feel unsafe for any reason?: No Does the patient want assistance with any of the above?: No Dictated By: January Bro APRN DD/ [id number] Signed By: <Electronically signed by JAZMYN Bro> 11/13/24 [facility] Center Work Phone: Reason for referral (narrative)No reason for referral information [facility] Work Phone: Summary Purpose Family History Relationship Condition Age at Onset Recorded Date/T [place] father Diabetes mellitus Unknown grandparent Unknown grandparent History of malignant neoplasm of prostate Unknown Not Specified Hypertension Unknown Relationship Condition Age at Onset Recorded Date/T [place] grandparent Unknown grandparent History of malignant neoplasm of prostate Unknown father Diabetes mellitus Unknown Not Specified Anxiety Unknown Hypertension Unknown Relationship Condition Age at Onset Recorded Date/T [place] grandparent Unknown grandparent History of malignant neoplasm of prostate Unknown Not Specified Anxiety Unknown Hypertension Unknown father Diabetes mellitus Unknown Not Specified Malignant neoplasm Unknown Relationship Condition Age at Onset Recorded Date/T [place] grandparent Unknown grandparent History of malignant neoplasm of prostate Unknown mother Anxiety Unknown Hypertension Unknown father Diabetes mellitus Unknown paternal grandfather Malignant neoplasm Unknown Relationship Condition Age at Onset Recorded Date/T [place] grandparent Unknown grandparent History of malignant neoplasm of prostate Unknown mother Anxiety Unknown Hypertension Unknown Steatosis of liver Unknown Chronic kidney disease Unknown Overweight Unknown father Diabetes mellitus Unknown paternal grandfather Malignant neoplasm Unknown sister Anxiety Unknown Depression Unknown Obsessive-compulsive disorder Unknown Advance Directives Advance Directive Response Recorded Date/ Time Advance Directives No August 2:04pm Advance Directive Response Recorded Date/ Time Advance Directives No August 1:04pm Chief Complaint and Reason for Visit Chief Complaint rapid hr-sob,cp dizz iness Chief Complaint H55.00 R42 R51.9 H93 .A9 R94.02 Chief Complaint Discuss Starting Weg ovy Follow Up Amb Documentation *Lab* cough, congestion Chief Complaint Follow Up Amb Documentation *Lab* cough, congestion follow up Amb Documentation discuss adipex Reason for Visit Otitis media Bronchitis Obesity Seasonal allergies Chief Complaint Follow Up Amb Documentation *Lab* cough, congestion follow up Amb Documentation discuss adipex follow up after adipex side effects Reason for Visit Otitis media Bronchitis Obesity Seasonal allergies Obesity (BMI 30.0-34.9) Chief Complaint Amb Documentation *Lab* cough, congestion follow up Amb Documentation discuss adipex follow up after adipex side effects 1 month Reason for Visit Otitis media Bronchitis Obesity Seasonal allergies Obesity (BMI 30.0-34.9) Epigastric pain Levy's disease Obesity (BMI 30.0-34.9) Chief Complaint discuss adipex follow up after adipex side effects 1 month follow up Reason for Visit Obesity (BMI 30.0-34 .9) Epigastric pain Levy's disease Obesity (BMI 30.0-34.9) Chief Complaint Admit Date Strength and mobility issues in left sargent d August 05, 2024 8:50am G56.03 August 20, 2024 9:43am *LAB* chest congestion September 16, 2024 3:55pm Reason for Visit Admit Date Anxiety August 05, 2024 8:50am Carpal tunnel syndrome, bilateral Novemb er 2023 8:50am Obesity (BMI 30.0-34.9) August 05 8:50am Aphthous ulcer of mouth August 05 8:50am Chief Complaint Admit Date Strength and mobility issues in left sargent d August 05, 2024 8:50am G56.03 August 20, 2024 9:43am *LAB* chest congestion September 16, 2024 3:55pm Lab review October 14, 2024 1 :30pm Reason for Visit Admit Date Anxiety August 05, 2024 8:50am Carpal tunnel syndrome, bilateral Novemb er 2023 8:50am Obesity (BMI 30.0-34.9) August 05 024 8:50am Aphthous ulcer of mouth August 05 024 8:50am URI (upper respiratory infection) Januar y 2024 3:55pm Chief Complaint Admit Date Strength and mobility issues in left sargent d August 05, 2024 8:50am G56.03 August 20, 2024 9:43am *LAB* chest congestion September 16, 2024 3:55pm Lab review October 14, 2024 1 :30pm CONSULT ALEXANDRA [facility] Februa 2024 7:58am Reason for Visit Admit Date Anxiety August 05, 2024 8:50am Carpal tunnel syndrome, bilateral Novemb er 2023 8:50am Obesity (BMI 30.0-34.9) August 05 8:50am Aphthous ulcer of mouth August 05 024 8:50am URI (upper respiratory infection) Sepuar y 2024 3:55pm Abnormal result of iron profile testing October 14, 2024 1:30pm Elevated alkaline phosphatase level Febr ua2024 1:30pm Carpal tunnel syndrome, bilateral Februa ry 2024 7:58am Chief Complaint Admit Date G56.03 August 20, 2024 9:43am *LAB* chest congestion September 16, 2024 3:55pm Lab review October 14, 2024 1 :30pm CONSULT ALEXANDRA CRANE BILAT CTS Februa ry 2024 7:58am acne, enlarged pores November 12, 2024 11: 25am Reason for Visit Admit Date URI (upper respiratory infection) Januar y 2024 3:55pm Abnormal result of iron profile testing October 14, 2024 1:30pm Elevated alkaline phosphatase level Febr uary 2024 1:30pm Carpal tunnel syndrome, bilateral Februa ry 2024 7:58am Chief Complaint Admit Date G56.03 August 20, 2024 9:43am *LAB* chest congestion September 16, 2024 3:55pm Lab review October 14, 2024 1 :30pm CONSULT ALEXANDRA CRANE BILAT CTS Februa 2024 7:58am acne, enlarged pores November 12, 2024 11: 25am NEW- Abnormal iron profile testing November 13, 2024 9:57am Abnormal result of iron profile testing November 13, 2024 9:58am Chief Complaint Admit Date Lab review October 14, 2024 1 :30pm CONSULT ALEXANDRA CRANE BILAT CTS Februa 2024 7:58am acne, enlarged pores November 12, 2024 11: 25am NEW- Abnormal iron profile testing November 13, 2024 9:57am Abnormal result of iron profile testing November 13, 2024 9:58am Amb Documentation December 15, 2024 9:01 am sent over December 29, 2024 3:0 9pm Reason for Visit Admit Date Abnormal result of iron profile testing October 14, 2024 1:30pm [facility] Carpal tunnel syndrome, bilateral Februa 2024 7:58am Acne November 12, 2024 11:2 5am PTSD (post-traumatic stress disorder) [facility] 2024 11:25am Abnormal result of iron profile testing November 13, 2024 9:57am Elevated alkaline phosphatase level [facility] 2024 9:57am Chief Complaint Admit Date Lab review October 14, 2024 1 :30pm CONSULT ALEXANDRA CRANE BILAT CTS Februa 2024 7:58am acne, enlarged pores November 12, 2024 11: 25am NEW- Abnormal iron profile testing November 13, 2024 9:57am Abnormal result of iron profile testing November 13, 2024 9:58am Amb Documentation December 15, 2024 9:01 am sent over December 29, 2024 3:0 9pm ER follow up December 30, 2024 12: 02pm Chief Complaint Admit Date Amb Documentation December 15, 2024 9:01 am sent over December 29, 2024 3:0 9pm ER follow up December 30, 2024 12: 02pm [facility] February 16, 2025 1:27pm Reason for Visit Admit Date Fatty liver December 30, 2024 12: 02pm Hepatic hemangioma December 30, 2024 12: 02pm RUQ abdominal pain December 30, 2024 12: 02pm Abnormal weight gain February 16, 2025 1:27 pm Anxiety February 16, 2025 1:27p m BMI 30.0-30.9,adult February 16, 2025 1:27p m Dietary surveillance and counseling February 16, 2025 1:27pm Exercise counseling February 16, 2025 1:27p m Fatty liver February 16, 2025 1:27p m Levy's disease February 16, 2025 1:27p m History of cholecystectomy February 16 1:27pm History of tubal ligation February 16, 2025 1:27pm Migraines February 16, 2025 1:27p m Obesity (BMI 30.0-34.9) February 16, 2025 1 :27pm PTSD (post-traumatic stress disorder) Ju 2024 1:27pm Chief Complaint Admit Date Amb Documentation December 15, 2024 9:01 am sent over December 29, 2024 3:0 9pm ER follow up December 30, 2024 12: 02pm [facility] February 16, 2025 1:27pm Amb Documentation March 03, 2025 8:31 am Ref: hepatic hemangioma/RUQ pain/fatty l iver March 09, 2025 9:52am Reason for Visit Admit Date Fatty liver December 30, 2024 12: 02pm Hepatic hemangioma December 30, 2024 12: 02pm RUQ abdominal pain December 30, 2024 12: 02pm Abnormal weight gain February 16, 2025 1:27 pm Anxiety February 16, 2025 1:27p m BMI 30.0-30.9,adult February 16, 2025 1:27p m Dietary surveillance and counseling February 16, 2025 1:27pm Exercise counseling February 16, 2025 1:27p m Fatty liver February 16, 2025 1:27p m Levy's disease February 16, 2025 1:27p m History of cholecystectomy February 16 1:27pm History of tubal ligation February 16, 2025 1:27pm Migraines February 16, 2025 1:27p m Obesity (BMI 30.0-34.9) February 16, 2025 1 :27pm PTSD (post-traumatic stress disorder) Ju ne 2024 1:27pm Fatty liver March 09, 2025 9:52 am Hepatic hemangioma March 09, 2025 9:52 am RUQ abdominal pain March 09, 2025 9:52 am Chief Complaint Admit Date Amb Documentation December 15, 2024 9:01 am sent over December 29, 2024 3:0 9pm ER follow up December 30, 2024 12: 02pm [facility] (Q-Done) February 16, 2025 1:27pm Amb Documentation March 03, 2025 8:31 am Ref: hepatic hemangioma/RUQ pain/fatty l iver March 09, 2025 9:52am R10.11 K76.0 D18.03 March 09, 2025 10:3 2am Chief Complaint Admit Date dr sent over December 29, 2024 3:0 9pm ER follow up December 30, 2024 12: [facility] 16, 2025 1:27pm Amb Documentation March 03, 2025 8:31 am Ref: hepatic hemangioma/RUQ pain/fatty l iver March 09, 2025 9:52am R10.11 K76.0 D18.03 March 09, 2025 10:3 2am Fatty Liver March 26, 2025 11:5 0am Chief Complaint Admit Date [facility] (Q-Done) February 16, 2025 1:27pm Amb Documentation March 03, 2025 8:31 am Ref: hepatic hemangioma/RUQ pain/fatty l iver March 09, 2025 9:52am R10.11 K76.0 D18.03 March 09, 2025 10:3 2am Fatty Liver March 26, 2025 11:5 0am ab pain, GERD . April 02, 2025 11:4 6am Reason for Visit Admit Date Abnormal weight gain February 16, 2025 1:27 pm Anxiety February 16, 2025 1:27p m BMI 30.0-30.9,adult February 16, 2025 1:27p m Dietary surveillance and counseling February 16, 2025 1:27pm Exercise counseling February 16, 2025 1:27p m Fatty liver February 16, 2025 1:27p m Levy's disease February 16, 2025 1:27p m History of cholecystectomy February 16 1:27pm History of tubal ligation February 16, 2025 1:27pm Migraines February 16, 2025 1:27p m Obesity (BMI 30.0-34.9) February 16, 2025 1 :27pm PTSD (post-traumatic stress disorder) Ju ne 2024 1:27pm Fatty liver March 09, 2025 9:52 am Hepatic hemangioma March 09, 2025 9:52 am RUQ abdominal pain March 09, 2025 9:52 am Chief Complaint Admit Date [facility] (Q-Done) February 16, 2025 1:27pm Amb Documentation March 03, 2025 8:31 am Ref: hepatic hemangioma/RUQ pain/fatty l iver March 09, 2025 9:52am R10.11 K76.0 D18.03 March 09, 2025 10:3 2am Fatty Liver March 26, 2025 11:5 0am ab pain, GERD . April 02, 2025 11:4 6am R10.9 R10.11 K76.0 D18.03 April 14 8:59pm Chief Complaint Admit Date [facility] (Q-Done) February 16, 2025 1:27pm Amb Documentation March 03, 2025 8:31 am Ref: hepatic hemangioma/RUQ pain/fatty l iver March 09, 2025 9:52am R10.11 K76.0 D18.03 March 09, 2025 10:3 2am Fatty Liver March 26, 2025 11:5 0am ab pain, GERD . April 02, 2025 11:4 6am R10.9 R10.11 K76.0 D18.03 April 14 8:59pm mental health April 22, 2025 10 :25am Chief Complaint Admit Date [facility] (Q-Done) February 16, 2025 1:27pm Amb Documentation March 03, 2025 8:31 am Ref: hepatic hemangioma/RUQ pain/fatty l iver March 09, 2025 9:52am R10.11 K76.0 D18.03 March 09, 2025 10:3 2am Fatty Liver March 26, 2025 11:5 0am ab pain, GERD . 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 History of cholecystectomy February 16 1:27pm History of tubal ligation February 16, 2025 1:27pm Migraines February 16, 2025 1:27p m Obesity (BMI 30.0-34.9) February 16, 2025 1 :27pm PTSD (post-traumatic stress disorder) Ju ne 2024 1:27pm Fatty liver March 09, 2025 9:52 am Hepatic hemangioma March 09, 2025 9:52 am RUQ abdominal pain March 09, 2025 9:52 am Obsessive-compulsive behavior April 10:25am Allergy April 22, 2025 10 :25am Fatty liver May 04, 2025 10 :06am Hepatic hemangioma May 04, 2025 10 :06am RUQ abdominal pain May 04, 2025 10 :06am Reason for Referral Specialty Diagnoses / Procedures Referred By Beni [email or web address] Referred To Contact Diagnoses Intractable chronic migraine without aura and without status migrainosus Procedures PROVIDER ORDERED FOLLOW UP OFFICE/OUTPATIENT NEW HIGH MDM 60 MINUTES Xander Lock, [employer]ING STAKER.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 ABNORMAL MRI BRAIN AND SYMPTOMS WORSENING Diagnosis 1 Abnormal brain MRI ( R90.89) Referral Organization [facility] franck Soni Referring Provider First Name Alexandra Referring Provider Last Name [facility] Referring Provider Specialty Nurse Pract itioner Referred Organization [facility] Referred Address [address] [place], [place],[address] Referred Provider Specialty Neurology Referral Priority Routine General Notes Lisa Weinberg 04:58:05 PM >received today, attachments made, notes locked, referral form attached, referral faxed to [facility] Scheduling. Clinical Notes f: [id number] Specialty Diagnoses / Procedures Referred By Beni [email or web address] Referred To Contact CT IMAGING Diagnoses Cervicalgia Procedures CT NECK SOFT TISSUE W IVCON CT SOFT TISSUE NECK W/[place] [address] [place] [address] [place] [address] Referral ID Status Reason Start Date Expiration Date Visits Requested Visits Authorized [id number] Pending Review Auto-Generat ed Referral 07/17/2023 08/15/2024 1 1 Reason *FU 07/11 Dr. Mckee is, thyroid nodule/lymphnode 1.3cm, please attach US from March and June; Hx of Hashimotos Diagnosis 1 Abnormal thyroid sca n (R94.6) Referral Organization [facility] franck Soni Referring Provider First Name Alexandra Referring Provider Last Name [facility] Referring Provider Specialty Nurse Pract itioner Referred Organization [facility] Referred Provider Hawa Mark Referred Address ,[place], [place],[address] Referred Provider Specialty Ear, Nose an d Throat Referral Priority Routine General Notes Adriane Crawford 023 12:42:46 PM >Received today. Dr. Mark request us to send the referral and they will call and schedule patient. Referral was fax Clinical Notes Office [phone] Additional Source Comments INFORMATION SOURCE (unrecogn ized section and content) DATE CREATED AUTHOR 03/15/2022 [facility] DATE CREATED AUTHOR AUTHOR'S ORGANIZ ATION 07/29/2022 Leyva [facility] DATE CREATED AUTHOR AUTHOR'S ORGANIZ ATION 11/28/2022 [facility] DATE CREATED AUTHOR AUTHOR'S ORGANIZ ATION 12/12/2023 [facility] DATE CREATED AUTHOR AUTHOR'S ORGANIZ ATION 04/20/2025 [facility] Care Teams (unrecognized sec tion and content) Team Status: Active Member Role Status Dates Alexandra Crane APRN Primary Care Provider Active Team Status: Inactive Member Role Status Dates Alexandra Crane APRN Primary Care Pr ovider, Attending Provider Active Start: December 11, 2023 End: December 11, 2023 Team Status: Inactive Member Role Status Dates Alexandra Crane APRN Primary Care Pr ovider, Attending Provider Active Start: December 20, 2023 End: December 20, 2023 Team Status: Inactive Member Role Status Dates Alexandra Crane APRN Primary Care Pr ovider, Attending Provider Active Start: January 17, 2024 End: January 17, 2024 Team Status: Inactive Member Role Status Dates Alexandra Crane APRN Primary Care Pr ovider, Attending Provider Active Start: February 20, 2024 End: February 20, 2024 Team Status: Active Member Role Status Dates Alexandra Crane APRN Primary Care Provider Active Start: October 31, 2023 BROOKE Penaloza Attending Provider Active St art: October 31, 2023 Team Status: Inactive Member Role Status Dates Alexandra Crane APRN Primary Care Pr ovider, Attending Provider Active Start: October 31, 2023 End: October 31, 2023 Team Status: Inactive Member Role Status Dates Alexandra Crane APRN Primary Care Pr ovider, Attending Provider Active Start: November 08, 2023 End: November 08, 2023 Team Status: Active Member Role Status Dates Alexandra Crane APRN Primary Care Provider Active Start: November 12, 2023 Diane Jeter LPN Attending Provider Active Start: November 12, 2023 Team Status: Active Member Role Status Dates Richard House , DO Primary Care Provider Active Team Status: Inactive Member Role Status Dates Richard Eleanor , Primary Care Provider Active Fab Velasquez , DO Emergency Provider Active Financial Services Professional Relationship Specialty Start Date End Date Eleanor Richard Nj Chambers, DO PCP - General Family Medicine 06/20/17 Team Status: Inactive Member Role Status Dates Alexandra Crane APRN Primary Care Provider, Attend ing Provider Active Team Status: Inactive Member Role Status Dates Alexandra Crane APRN Attending Provider Active Start: August 29, 2023 End: August 29, 2023 Team Status: Inactive Member Role Status Dates Alexandra Crane APRN Attending Provider Active Start: September 24, 2023 End: September 24, 2023 Financial Services Professional Relationship Specialty Start Date End Date Richard Webster Sr., DO PCP - General Family Medicine 06/20/17 Financial Services Professional Relationship Specialty Start Date End Date Richard Webster Sr., DO PCP - General Family Medicine 06/20/17 Financial Services Professional Relationship Specialty Start Date End Date Richard Webster Sr., DO PCP - General Family Medicine 06/20/17 Team Status: Inactive Member Role Status Dates Alexandra Crane APRN Primary Care Pr ovider, Attending Provider Active Start: August 05, 2024 End: August 05, 2024 Team Status: Active Member Role Status Dates Alexandra Crane APRN Primary Care Pr ovider, Other Provider Active Start: August 20, 2024 Silvestre Baptiste MD Attending Provider Active Start: August 20, 2024 Team Status: Inactive Member Role Status Dates Alexandra Crane APRN Primary Care Pr ovider, Attending Provider Active Start: September 16, 2024 End: September 16, 2024 Team Status: Active Member Role Status Dates Alexandra Crane APRN Primary Care Pr ovider, Attending Provider Active Start: October 02, 2024 Team Status: Inactive Member Role Status Dates Alexandra Crane APRN Primary Care Pr ovider, Attending Provider Active Start: October 14, 2024 End: October 14, 2024 Team Status: Inactive Member Role Status Dates Alexandra Crane APRN Primary Care Provider Active Start: October 28, 2024 End: October 28, 2024 Ольга Chavira MD Attending Provider Active Start: October 28, 2024 End: October 28, 2024 Team Status: Active Member Role Status Dates Ольга Chavira MD Specialist Active Alexandra Crane APRN Primary Care Provider Active Team Status: Inactive Member Role Status Dates Alexandra Crane APRN Primary Care Pr ovider, Attending Provider Active Start: November 12, 2024 End: November 12, 2024 Team Status: Inactive Member Role Status Dates Alexandra Crane APRN Primary Care Pr ovider, Referring Provider Active Start: November 13, 2024 End: November 13, 2024 January Bro APRN Attending Provider Active Start: November 13, 2024 End: November 13, 2024 Team Status: Active Member Role Status Dates Alexandra Crane APRN Primary Care Pr ovider, Referring Provider Active Start: November 13, 2024 January Bro APRN Attending Provider Active Start: November 13, 2024 Team Status: Active Member Role Status Dates Alexandra Crane APRN Primary Care Provider Active Start: December 15, 2024 BROOKE Penaloza Attending Provider Active St art: December 15, 2024 Team Status: Inactive Member Role Status Dates Alexandra Crane APRN Primary Care Provider Active Start: December 29, 2024 End: December 29, 2024 Annita Herrera APRN Emergency Provider Active Start: December 29, 2024 End: December 29, 2024 Team Status: Inactive Member Role Status Dates Alexandra Crane APRN Primary Care Pr ovider, Attending Provider Active Start: December 30, 2024 End: December 30, 2024 Team Status: Inactive Member Role Status Dates Alexandra Crane APRN Primary Care Provider Active Start: February 16, 2025 End: February 16, 2025 Diane Sharma DNP Attending Provider Active S tart: February 16, 2025 End: February 16, 2025 Financial Services Professional Relationship Specialty Start Date End Date Richard Webster Sr., DO PCP - General Family Medicine 06/20/17 Team Status: Inactive Member Role Status Dates Alexandra Crane APRN Primary Care Provider Active Start: December 30, 2024 End: December 30, 2024 Alexandra Crane APRN Attending Provider Active Start: December 30, 2024 End: December 30, 2024 Team Status: Inactive Member Role Status Dates Alexandra Crane APRN Primary Care Provider Active Start: March 02, 2025 End: March 02, [address] Attending Provider Active S tart: March 02, 2025 End: March 02, 2025 Team Status: Active Member Role Status Dates Alexandra Crane APRN Primary Care Provider Active Start: March 03, 2025 BROOKE Penaloza Attending Provider Active St art: March 03, 2025 Team Status: Inactive Member Role Status Dates Alexandra Crane APRN Primary Care Provider Active Start: March 09, 2025 End: March 09, 2025 Darrius Moreno MD Attending Provider Active Start: March 09, 2025 End: March 09, 2025 Team Status: Active Member Role Status Dates Ольга Chavira MD Specialist Active Diane Sharma DNP Specialist Active Darrius Moreno MD Specialist Active Alexandra Crane APRN Primary Care Provider Active Team Status: Inactive Member Role Status Dates Alexandra Crane APRN Primary Care Provider Active Start: March 26, 2025 End: March 26, 2025 Darrius Moreno MD Attending Provider Active Start: March 26, 2025 End: March 26, 2025 Team Status: Active Member Role Status Dates Alexandra Crane APRN Primary Care Provider Active Start: March 26, 2025 Darrius Moreno MD Other Provider Active Start: Mar Steven Beebe MD Attending Provider Active S tart: March 26, 2025 Team Status: Active Member Role Status Dates Alexandra Crane APRN Primary Care Provider Active Start: April 02, 2025 Darrius Moreno MD Attending Provider Active Start: April 02, 2025 Darrius Moreno MD Other Provider Active Start: Mar Team Status: Inactive Member Role Status Dates Alexandra Crane APRN Primary Care Provider Active Start: April 14, 2025 End: April 14, 2025 Darrius Moreno MD Attending Provider Active Start: April 14, 2025 End: April 14, 2025 Team Status: Inactive Member Role Status Dates Alexandra Crane APRN Primary Care Provider Active Start: April 22, 2025 End: April 22, 2025 Alexandra Crane APRN Attending Provider Active Start: April 22, 2025 End: April 22, 2025 Team Status: Inactive Member Role Status Dates Alexandra Crane APRN Primary Care Provider Active Start: May 04, 2025 End: May 04, 2025 Darrius Moreno MD Attending Provider Active Start: May 04, 2025 End: May 04, 2025 Goals (unrecognized section and content) Goals may be documented in a n alternate sectionNo InformationNo InformationNo InformationNo InformationNo InformationNo InformationNo InformationNo InformationNo InformationNo InformationNo InformationNo InformationNo InformationNo InformationNo InformationNo InformationNo InformationNo InformationNo InformationNo InformationNo InformationGoals may be documented in an alternate sectionNo InformationNo InformationNo InformationNo InformationNo InformationNo InformationNo InformationNo InformationGoals may be documented in an alternate sectionGoals may be documented in an alternate sectionGoals may be documented in an alternate sectionGoals may be documented in an alternate sectionGoals may be documented in an alternate sectionGoals may be documented in an alternate sectionGoals may be documented in an alternate sectionGoals may be documented in an alternate sectionGoals may be documented in an alternate sectionGoals may be documented in an alternate sectionGoals may be documented in an alternate sectionGoals may be documented in an alternate sectionGoals may be documented in an alternate sectionGoals may be documented in an alternate sectionGoals may be documented in an alternate sectionGoals may be documented in an alternate sectionGoals may be documented in an alternate sectionGoals may be documented in an alternate sectionGoals may be documented in an alternate section REASON FOR VISIT (unrecogniz ed section and content) Reason Comments New Patient Second Opinion Reason Comments Chronic Migraine Specialty Diagnoses / Procedures Referred By Contac t Referred To Contact Diagnoses Intractable chronic migraine without aura and without status migrainosus Procedures PROVIDER ORDERED FOLLOW UP OFFICE/OUTPATIENT [facility] 60-[place] [address] [place] [address] Referral ID Status Reason Start Date Expiration Date V isits Requested Visits Authorized [id number] Closed PCP Requested Referral 12/11/2023 09/10/2024 1 1 Reason Comments Refill Request Source Comments (unrecognize d section and content) In the event this informatio n is protected by the Federal Confidentiality of Alcohol and Drug Abuse Patient Records regulations: The Federal rules restrict any use of the information to criminally investigate or prosecute any alcohol or drug abuse patient.[facility] the event this information is protected by the Federal Confidentiality of Alcohol and Drug Abuse Patient Records regulations: The Federal rules restrict any use of the information to criminally investigate or prosecute any alcohol or drug abuse patient.[facility] the event this information is protected by the Federal Confidentiality of Alcohol and Drug Abuse Patient Records regulations: The Federal rules restrict any use of the information to criminally investigate or prosecute any alcohol or drug abuse patient.[facility] the event this information is protected by the Federal Confidentiality of Alcohol and Drug Abuse Patient Records regulations: The Federal rules restrict any use of the information to criminally investigate or prosecute any alcohol or drug abuse patient.[facility] the event this information is protected by the Federal Confidentiality of Alcohol and Drug Abuse Patient Records regulations: The Federal rules restrict any use of the information to criminally investigate or prosecute any alcohol or drug abuse patient.[facility] FOR RECORDS PERTAINING TO PATIENTS WHO ARE OR HAVE BEEN ENROLLED IN A CHEMICAL DEPENDENCY/SUBSTANCEABUSE PROGRAM, SOME INFORMATION MAY BE OMITTED. This clinical summary was aggregated from multiple sources. Caution should be exercised in using it in the provision of clinical care. This summary normalizes information from multiple sources, and as a consequence, information in this document may materially change the coding, format and clinical context of patient data. In addition, data may be omitted in some cases. CLINICAL DECISIONS SHOULD BE BASED ON THE PRIMARY CLINICAL RECORDS. [facility] [employer] [facility]. provides no warranty or guarantee of the accuracy or completeness of information in this document.
[2025-05-14 12:43] LABS: Glucose Urine UA NEGATIVE (NEGATIVE)
== END 2025-05-14 12:16 | disposition home or self-care (01) ==
LOC: LAB 12:16
PROVIDERS: PCP Nurse Practitioner Family; Visit Provider Nurse Practitioner Family
DX: R30.0 Dysuria (principal)
CPT/HCPCS: 81003; 87086

== ENCOUNTER 2025-06-01 17:53 | Emergency (ER) | payer BC, SELFPAY ==
[2025-06-01 18:26] VITALS: BP 133/87; PULSE 79; TEMP 36.7; O2SAT 97; BMI 26.5
--- NOTE | 2025-06-01 20:34 | ED.FEMALEGU1 ---
HPI - Female Genitourinary General Chief complaint: Vaginal Bleeding Stated complaint: Vaginal Bleeding Time Seen by Provider: 06/01/25 20:25 Source: patient Mode of arrival: walk-in History of Present Illness HPI Narrative: states had an ablation by OB 2021. Since then her menstrual cycles have increased bleeding. States she also develops migraines with her cycles and her migraines are associated with dizziness. States 2nd vaginal bleeding this month started about 1.5 weeks ago along with her migraine and dizziness. Her whole head is hurting. States pain has decreased from 10 to 9/10 while she was waiting. She feels weak and states her perinatal instructor advised her to come in to be checked for anemia. No fever or neck stiffness. Feels like this is her migrane. Related Data Home Medications ?Medication ?Instructions ?Recorded ?Confirmed buspirone 15 mg tablet 20 mg PO BID 04/27/23 06/01/25 propranolol 20 mg tablet mg 06/01/25 venlafaxine 150 mg mg PO 06/01/25 capsule,extended release 24 hr Allergies Allergy/AdvReac Type Severity Reaction Status Date / Time adhesive Allergy Rash Verified 06/01/25 18:25 Penicillins Allergy throat Verified 06/01/25 18:25 swelling sucralfate (From Carafate) Allergy Vomiting Verified 06/01/25 18:25 tramadol Allergy Vomiting Verified 06/01/25 18:25 Review of Systems ROS Status of ROS 10 or more systems reviewed and unremarkable except as noted in history and below [facility] Medical History (Updated 06/01/25 @ 22:46 by Jame Rosado MD) PCOS (polycystic ovarian syndrome) ?E28.2 - Polycystic ovarian syndrome (ICD-10) Inflammatory arthritis ?M19.90 - Unspecified osteoarthritis, unspecified site (ICD-10) Panic attacks ?F41.0 - Panic disorder [episodic paroxysmal anxiety] (ICD-10) Depression ?F32.A - Depression, unspecified (ICD-10) Anxiety ?F41.9 - Anxiety disorder, unspecified (ICD-10) COVID-19 ?U07.1 - COVID-19 (ICD-10) Migraine ?G43.909 - Migraine, unspecified, not intractable, without status migrainosus (ICD-10) Request for sterilization ?Z30.2 - Encounter for sterilization (ICD-10) Menorrhagia ?N92.0 - Excessive and frequent menstruation with regular cycle (ICD-10) Abnormal uterine bleeding ?N93.9 - Abnormal uterine and vaginal bleeding, unspecified (ICD-10) Pelvic pain ?R10.2 - Pelvic and perineal pain (ICD-10) Seasonal allergies ?J30.2 - Other seasonal allergic rhinitis (ICD-10) Peptic ulcer ?K27.9 - Peptic ulcer, site unspecified, unspecified as acute or chronic, without hemorrhage or perforation (ICD-10) GERD (gastroesophageal reflux disease) ?K21.9 - Gastro-esophageal reflux disease without esophagitis (ICD-10) Heart murmur ?R01.1 - Cardiac murmur, unspecified (ICD-10) Levy's thyroiditis ?E06.3 - Autoimmune thyroiditis (ICD-10) Hypothyroidism ?E03.9 - Hypothyroidism, unspecified (ICD-10) Surgical History (Updated 04/27/23 @ 08:24 by Haydee Garcia NP) History of wisdom tooth extraction ?K08.409 - Partial loss of teeth, unspecified cause, unspecified class (ICD-10) History of laparoscopy ?Z98.890 - Other specified postprocedural states (ICD-10) History of laparoscopy ?Z98.890 - Other specified postprocedural states (ICD-10) History of laparoscopy ?Z98.890 - Other specified postprocedural states (ICD-10) History of esophagogastroduodenoscopy (EGD) ?Z98.890 - Other specified postprocedural states (ICD-10) History of cholecystectomy ?Z90.49 - Acquired absence of other specified parts of digestive tract (ICD-10) History of tubal ligation ?Z98.51 - Tubal ligation status (ICD-10) Family History (Updated 04/27/23 @ 08:24 by Haydee Garcia NP) Other Family history of diabetes mellitus Family history of hypertension Family history of prostate cancer Social History Within the past year, how often did you have a drink containing alcohol: monthly or less Smoking status: Never smoker 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 Highest level of school completed/degree received: high school graduate Little interest or pleasure in doing things: not at all Feeling down, depressed, or hopeless: several days Exam Constitutional Vital Signs, click to edit/add: Last Vital Signs Temp 98.0 F 06/01/25 18:26 Pulse 98 H 06/01/25 22:03 Resp 12 06/01/25 22:03 BP 128/86 06/01/25 22:03 Pulse Ox 98 06/01/25 22:03 O2 Del Method Room Air 06/01/25 22:03 Common normals: no apparent distress, average body habitus, oriented x3, no limitations, healthy appearing, alert and well nourished [facility] Common normals: normocephalic, head/scalp atraumatic and hearing grossly normal bilaterally Eye Common normals: PERRL, EOMs intact bilaterally and conjunctivae normal Respiratory Common normals: normal respiratory effort, no retractions, no use of accessory muscles and clear to auscultation bilaterally Cardio Common normals: regular rate, regular rhythm, S1 normal heart sound and S2 normal heart sound GI Common normals: Normal to inspection, nondistended, normoactive bowel sounds present, soft to palpation and non-tender Extremity Common normals: normal to inspection and full ROM Neuro Common normals: oriented x3, CN's II-XII intact bilaterally, moves all extremities, no focal motor deficits and no sensory deficits noted Psych Appearance: grossly normal Course Vital Signs Vital signs: Vital Signs Temperature 98.0 F 06/01/25 18:26 Pulse Rate 79 06/01/25 18:26 Respiratory Rate 16 06/01/25 18:26 Blood Pressure 133/87 06/01/25 18:26 Pulse Oximetry 97 06/01/25 18:26 Oxygen Delivery Method Room Air 06/01/25 18:26 Temperature 98.0 F 06/01/25 18:26 Pulse Rate 98 H 06/01/25 22:03 Respiratory Rate 12 06/01/25 22:03 Blood Pressure 128/86 06/01/25 22:03 Pulse Oximetry 98 06/01/25 22:03 Oxygen Delivery Method Room Air 06/01/25 22:03 MDM - Female Genitourinary MDM Narrative Medical decision making narrative: patient presents with complaint of vaginal bleed and migraine headache. Hgb 13. CT brain neg for acute findings. Patient treated and her migraine headache is down to 6/10. She was advised of the plan to have her rest for another hour and then reasses and treat again if necesary. She is requesting to go home and get in her own bed. Did not want to wait any longer or felt she needed any additional treatment. 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 Lab Data Labs: Lab Results 06/01/25 06/01/25 Range/Units 20:20 20:45 WBC 10.0 (4.0-11.0) 10^3/uL RBC 4.47 (4.20-5.40) 10^6/uL Hgb 13.0 (12.0-16.0) g/dL Hct 37.9 (36.0-48.0) % MCV 84.8 (81.0-99.0) fL MCH 29.1 (26.7-34.0) pg MCHC 34.3 (29.9-35.2) g/dL RDW 12.8 (11.0-15.0) % Plt Count 320 (150-450) 10^3/uL MPV 9.4 L (9.5-13.5) fL Neut % (Auto) 56.8 (43.0-75.0) % Lymph % (Auto) 35.3 (20.5-60.0) % [place] % (Auto) 6.2 (1.7-12.0) % Eos % (Auto) 0.9 (0.9-7.0) % Baso % (Auto) 0.6 (0.2-2.0) % Neut # (Auto) 5.7 (1.4-6.5) 10^3/uL Lymph # (Auto) 3.5 (1.2-3.8) 10^3/uL [place] # (Auto) 0.6 (0.3-0.8) 10^3/uL Eos # (Auto) 0.1 (0.0-0.7) 10^3/uL Baso # (Auto) 0.1 (0.0-0.1) 10^3/uL Abs Immat Gran (auto) 0.02 (0.00-0.03) 10^3/uL Imm/Tot Granulo (auto) 0.2 (0.0-0.5) % Sodium 138 (136-145) mmol/L Potassium 3.7 (3.5-5.1) mmol/L Chloride 104 (98-107) mmol/L Carbon Dioxide 27.9 (21.0-32.0) mmol/L Anion Gap 9.8 BUN 11.0 (7.0-18.0) mg/dL Creatinine 0.79 (0.55-1.02) mg/dL Est GFR ( Amer) >60 (>=60 mL/min/1.73m^2) Est GFR (Non-Af Amer) >60 (>=60 mL/min/1.73m^2) BUN/Creatinine Ratio 13.9 Glucose 87 (74-106) mg/dL Calcium 8.9 (8.5-10.1) mg/dL Serum HCG, Qual Negative (NEGATIVE) Urine Color Lt. yellow (YELLOW) Urine Clarity Clear (CLEAR) Urine pH 6.0 (5.0-9.0) Ur Specific [place] 1.010 (1.005-1.025) Urine Protein Negative (NEG/TRACE) mg/dL Urine Glucose (UA) Negative (NEGATIVE) mg/dL Urine Ketones Negative (NEGATIVE) mg/dL Urine Occult Blood Large A (NEGATIVE) Urine Nitrite Negative (NEGATIVE) Urine Bilirubin Negative (NEGATIVE) Urine Urobilinogen 0.2 (0.2-1.0) EU/dL Ur Leukocyte Esterase Small A (NEGATIVE) Urine RBC 2-5 A (0-2) #/HPF Urine WBC 5-10 A (NONE SEEN) #/HPF Ur Squamous Epith Cells Few A (NONE/RARE) #/LPF Urine Crystals None seen (None Seen) #/HPF Urine Bacteria Small A (NONE SEEN) #/HPF Urine Casts None seen (NONE SEEN) #/LPF Urine Mucus Not Reportable Ur Culture Indicated? [place] [place] [facility] [place] Discharge Chief Complaint: Vaginal Bleeding Clinical Impression: Vaginal bleeding, Headache Patient Disposition: Home, Self-Care Prescriptions / Home Meds: No Action venlafaxine 150 mg capsule,extended release 24hr PO propranolol 20 mg tablet buspirone 15 mg tablet 20 mg PO BID Print Language: Turkish Instructions: Abnormal (Dysfunctional) Uterine Bleeding (ED), Migraine Headache (ED) Additional Instructions: follow up with your doctor tomorrow for recheck Referrals: Maritza Balderrama NP [Primary Care Provider] - 1 week
[2025-06-01 20:36] LABS: Glucose Urine UA NEGATIVE (NEGATIVE)
--- NOTE | 2025-06-01 20:38 | CT_ITS ---
The [address] [address] Patient Name: LUÍS OBRIEN MRN: [id number] date: 1995 Sex: F Assigned Patient Location: ER Current Patient Location: ER Accession/Order Number: [id number] Exam Date: 06/01/2025 21:25 Report Date: 06/01/2025 22:03 At the request of: KAITLYNN FALL MD Procedure: CT head/brain wo con CT BRAIN WITHOUT CONTRAST: CLINICAL HISTORY: headache COMPARISON: 05/08/2023 TECHNIQUE: Contiguous axial unenhanced images were obtained through the brain. This CT exam was performed using one or more following dose reduction techniques: Automated exposure control, adjustment of the mA and/or kV according to patient size, or use of iterative reconstruction technique. FINDINGS: There is no evidence of midline shift, intra or extra-axial fluid collection, hemorrhage or CT evidence of acute large vascular distribution stroke Visualized intraorbital contents appear unremarkable. Visualized paranasal sinuses are clear. The surrounding soft tissues are normal. CT/CT head/brain wo con IMPRESSION: NO ACUTE INTRACRANIAL ABNORMALITY. Impression dictated by: Edmond Najera M.D. 06/01/2025 10:03 PM Dictation Location: [place] [address] Electronically authenticated by: [id number] Date: 06/01/2025 22:03
[2025-06-01 20:48] LABS: Cast Seen? NONE SEEN #/LPF (NONE SEEN); Crystals Seen? None Seen #/HPF (None Seen); Urine Culture Indicated YES-FRMC
[2025-06-01] MEDS: DIPHENHYDRAMINE HCL 50 MG/ML VIAL IVP (20:53)
[2025-06-01] MEDS: METOCLOPRAMIDE HCL 10 MG/2 ML VIAL IVP (20:53)
[2025-06-01] MEDS: MAGNESIUM SULFATE IN WATER 2 GM/50 ML PREMIX IV (20:54)
[2025-06-01 21:13] LABS: Hematocrit 37.9 % (36.0-48.0); Hemoglobin 13.0 g/dL (12.0-16.0); Immature Granulocytes Abs Auto 0.02 10^3/uL (0.00-0.03); Immature Granulocytes Pct Auto 0.2 % (0.0-0.5); Lymphocytes Absolute Auto 3.5 10^3/uL (1.2-3.8); Mean Corpuscular HGB Conc 34.3 g/dL (29.9-35.2); Mean Corpuscular Hemoglobin 29.1 pg (26.7-34.0); Mean Corpuscular Volume 84.8 fL (81.0-99.0); Platelet Count 320 10^3/uL (150-450); Red Blood Count 4.47 10^6/uL (4.20-5.40); White Blood Count 10.0 10^3/uL (4.0-11.0)
[2025-06-01 21:23] LABS: Anion Gap 9.8; Blood Urea Nitrogen 11.0 mg/dL (7.0-18.0); Calcium 8.9 mg/dL (8.5-10.1); Carbon Dioxide 27.9 mmol/L (21.0-32.0); Chloride 104 mmol/L (98-107); Estimated GFR (African America >60 (>=60 mL/min/1.73m^2); Estimated GFR (Non-African Ame >60 (>=60 mL/min/1.73m^2); Glucose 87 mg/dL (74-106); Potassium 3.7 mmol/L (3.5-5.1); Sodium 138 mmol/L (136-145)
[2025-06-01 22:03] VITALS: BP 128/86; PULSE 98; O2SAT 98
[2025-06-01 23:09] VITALS: BP 124/79; PULSE 89; O2SAT 99
== END 2025-06-01 23:11 | disposition home or self-care (01) ==
PROVIDERS: Emergency Provider Internal Medicine; PCP Nurse Practitioner Family
DX: R51.9 Headache, unspecified (principal); N93.9 Abnormal uterine and vaginal bleeding, unspecified
CPT/HCPCS: 36415; 70450; 80048; 81001; 84703; 85025; 87086; 96365; 96375; 99284; 99285; J1200; J2765; J3475

== ENCOUNTER 2025-09-02 00:44 | Emergency (ER) | payer BC, SELFPAY ==
--- OUTSIDE RECORDS SUMMARY | 2025-08-28 09:30 | XMS_ITS | Encounter Summary ---
Author Organization [facility] Address [address] [place] [place] [address] Care Team Providers Care Livestock Farmer Name Role Phone Unallocated, [facility] Provider [facility] Reason for Visit * ReasonCommentsPost-op Visit08/13/25 [facility]. Pt still having some light vaginal spotting. Denies bowel/bladder concerns. Denies incision concerns. Pt still experiencing pelvic pressure and cramping when standing up/walking around. D enies intercourse. Encounter Details DateTypeDepartmentCare Team (Latest Contact Info)Rckpkctdzzb33/19/2025 9:30 AM ESTOffice Visit ALFREDA POTTS [address] [place] [phone] Chloe Navas DO [address] [place] [address] Postoperative examination Social History Tobacco UseTypesPacks/DayYears UsedDateSmoking Tobacco: NeverSmokeless Tobacco: NeverAlcohol UseStandard Drinks/WeekCommentsYes1 (1 standard drink = 0.6 oz pure alcohol)1 every couple monthsCommentsUnknownSex and Gender Information ValueDate RecordedSex Assigned at BirthNot on fileLegal NjvSuamrx05/ 7:21 PM EDTGender IdentityNot on fileSexual OrientationNot on filedocumented as of this encounter Last Filed Vital Signs Vital SignReadingTime TakenCommentsBlood Xkwvxizy733/80110/29/2024 9:47 AM EST Pulse--Temperature--Respiratory Rate--Oxygen Saturation--Inhaled Oxygen Concentration--Weight--Height--Body Mass Index--documented in this encounter Progress Notes * Chloe Navas, DO - 08/28/2025 9:30 AM EST Images from the original note were not included. Chloe Navas D.O. Obstetrics and Gynecology Patient: Jerry Cox : 1995 (29 y.o.) Exam Date: 08/28/2025 Reason for Visit - Chief Complaint Patient presents with Post-op Visit 08/13/25 [facility]. Pt still having some light vaginal spotting. Denies bowel/bladder concerns. Denies incision concerns. Pt still experiencing pelvic pressure and cramping when standing up/walking around. Denies intercourse. Visit Vitals BP 116/80 Smoking Status Never Allergies[1] History of Present Illness, Associated Treatments and Results - OB History Para Term AB Living 1 0 0 0 0 1 SAB IAB Ectopic Multiple Live Births 0 0 0 0 0 # Outcome Date GA Lbr Desean/2nd Weight Sex Type Anes PTL Lv 1 Review of Systems - Const: Denies appetite change, fever, chills. Allergy: Denies medication reaction. Ocular: Denies visual acuity change. ENT: Denies hearing change. Endoc: Denies weight loss. Resp: Denies dyspnoea, wheezing. Cardiac: Denies angina, palpitations. GI: Denies nausea, vomiting. Haem: Denies bleeding. : Denies incontinence. MSK: Denies arthralgias, joint oedema. Derm: Denies rash, hair loss. Neuro: Denies ataxia, tremor. Also see HPI for elements of ROS documented therein and for details of positive findings, which shall supersede the foregoing. Medication Documentation Review Audit Reviewed by Melba Morales MA (Automobile Body Repair Chief) on 08/28/25 at 0947 Medication Order Taking? Sig Documenting Provider Last Dose Status albuterol HFA (ProAir HFA) 90 mcg/act inhaler [id number] Inhale 2 puffs every 4 (four) hours if needed for shortness of breath (cough) Elsa Jaramillo NP Active azithromycin (Zithromax Z-Jovi) 250 MG tablet [id number] Take 2 tablets (500 mg) on Day 1, followed by1 tablet (250 mg) once daily on Days 2 through 5. Elsa Jaramillo NP Active cetirizine (ZyrTEC) 10 MG chewable tablet [id number] Chew 10 mg in the morning. Patient not taking: Reported on 07/14/2025 Active lamoTRIgine (LaMICtal) 25 MG tablet [id number] Take 25 mg by mouth Daily Active propranolol (Inderal) 20 MG tablet [id number] Take 20 mg by mouth Daily Chloe Navas DO Active semaglutide (Ozempic) 2 MG/1.5ML solution pen-injector [id number] Inject 1 mg under the skin once a week Chloe Navas DO Active venlafaxine XR (Effexor XR) 150 MG 24 hr capsule [id number] TAKE 1 CAPSULE BY MOUTH EVERY DAY PSYCHIATRY Chloe Navas DO Active Medical History[2] Surgical History[3] Family History[4] Physical Exam - General appearance, mentation, extraocular movements, facial strength and movement, hearing, upper and lower extremity strength and tone, sensation to gross testing, coordination, and gait are normalor at baseline unless noted below. General: Alert, cooperative, no distress, appears stated age Head: Normocephalic, without obvious abnormality, atraumatic Eyes: sclera anicteric Ears: no obvious hearing deficit Skin: Warm and dry Heart: Regular rate and rhythm, S1 and S2 normal, no murmur Lungs: Clear to auscultation bilaterally, respirations unlabored Abdomen: Soft, non-tender, no masses, no organomegaly, incisions healing well Extremities normal, atraumatic, no cyanosis or edema Diagnoses and all orders for this visit: Postoperative examination Pathology reviewed with the patient. Operative pictures reviewed with and given to the patient. Thepatient is to maintain pelvic rest until further notice. Activity restrictions and post operative expectations reviewed with the patient. Due to continued cramping and pressure with walking/standing,would advise refraining from work at this time. All questions have been answered. She is to contactthe office with any heavy vaginal bleeding, severe pelvic pain or fever. The patient is to return in 4 weeks for her PO visit. ICD-10-CM 1. Postoperative examination Z09 [1] Allergies Allergen Reactions Carafate [Sucralfate] Hydroxychloroquine GI intolerance nausea/mood swings Nsaids Penicillins Tramadol Wound Dressing Adhesive [2] Past Medical History: Diagnosis Date Chronic rhinitis COVID-19 07/2021 Depression Dysmenorrhea Fatigue Gastric ulcer GERD (gastroesophageal reflux disease) Kidney infection Lower back pain Migraine Chronic Migraines Otalgia of both ears PCOS (polycystic ovarian syndrome) Sinusitis SOB (shortness of breath) Thyroid disease TMJ dysfunction [3] Past Surgical History: Procedure Laterality Date CHOLECYSTECTOMY 2014 lap choley EGD 2013 EGD 2024 HYSTERECTOMY 08/13/2025 TL LAPAROSCOPY DIAGNOSTIC / BIOPSY / ASPIRATION / LYSIS 2022 uterine ablation/ bilateral sapingectomy PAP SMEAR 10/05/2021 negative TUBAL LIGATION 03/2022 [4] Family History Problem Relation Name Age of Onset Hypertension Mother Brinda Fontenot Diabetes Father Lucas Fontenot Cancer Paternal Grandfather Raul Fontenot documented in this encounter Plan of Treatment DateTypeDepartmentCare Team (Latest Contact Info)Sbfqmtdargf19/15/2026 2:15 PM ESTOffice Visit ALFREDA POTTS [address] [place] [phone] Chloe Navas DO [address] [place] [address] documented as of this encounter Visit Diagnoses Diagnosis Postoperative examination Follow-up examination, following unspecified surgery documented in this encounter Care Teams Team MemberRelationshipSpecialtyStart DateEnd Date Unallocated, Noms MD [address] [address] PCP - Wfhgcca45/25/23documented as of this encounter
[2025-09-02 01:03] VITALS: BP 123/83; PULSE 84; TEMP 37.1; O2SAT 100; BMI 27.0
--- OUTSIDE RECORDS SUMMARY | 2025-09-02 01:25 | XMS_ITS | Clinical Summary ---
Author Organization [facility] Address [id number] [place] [address] Care Team Providers Care Production Staff Worker Name Role Phone Richard Cheema Primary Care Provider [phone] Allergies Active AllergyReactionsCriticalityNoted DateCommentsSucralfateHives,Vomiting 06/16/20215060JvpaugwyvogTfcjnvse27/07/4082Fyoerlki01/07/4748YvzagvtuNzfnq44/07/2021 Medications MedicationSigDispense QuantityRefillsLast FilledStart DateEnd DateStatus citalopram (CeleXA) 10 mg tablet 06/08/2021ctive citalopram (CeleXA) 20 mg tablet TAKE 1 TABLET BY MOUTH EVERYDAY AT HYSFPNK1506/05/2021ctive DULoxetine (CYMBALTA) 60 mg capsule Take by mouth daily.04/24/2021ctive ondansetron ODT (ZOFRAN-ODT) 4 mg disintegrating tablet DISSOLVE 1 TABLET UNDER TONGUE EVERY DAY UMPRSW5106/06/2021ctive dicyclomine (BENTYL) 20 mg tablet Take 20 mg by mouth every 6 (six) hours.Active azaTHIOprine (IMURAN) 50 mg tablet Take 50 mg by mouth daily.Active vit calc,iron,folic ( VITAMIN ORAL) Take by mouth.Active methIMAzole (TAPAZOLE) 5 mg tablet TAKE 1 TABLET BY MOUTH EVERY DAY 21 tablet ctive methIMAzole (TAPAZOLE) 5 mg tablet Indications:Levy's thyroiditisTake 1 tablet (5 mg total) by mouth daily. 90 tablet 6110/02/2020ctive methIMAzole (TAPAZOLE) 5 mg tablet Indications:Levy's thyroiditisTake 1 tablet daily 21 tablet 08/02/2021ctive Social History Tobacco UseTypesPacks/DayYears UsedDateSmoking Tobacco: NeverSmokeless Tobacco: NeverAlcohol UseStandard Drinks/WeekCommentsNot Currently0 (1 standard drink = 0.6 oz pure alcohol)ChildcareAnswerDate YpkeatzeLmaanajswKvvbtiz24/10/2019 EmploymentAnswerDate IbgtpvxhOzjjjrclopRcpdlid69/10/2019CommentsNoSex and Gender InformationValueDate RecordedSex Assigned at PanzuIwieub25/21/2021 8:30 AM EDTLegal XyhVvjogo71/04/2015 12:27 PM EDTGender EzqrnyaiRywemy46/21/2021 8:30 AM EDTSexual TecslzknpuhDwrcvjwn96/21/2021 8:30 AM EDT Last Filed Vital Signs Vital SignReadingTime TakenCommentsBlood Zepseeeq658/6906/30/2021 10:22 AM EDT Wiugt0745/21/2021 10:22 AM EDTTemperature--Respiratory Rate--Oxygen Saturation-- Inhaled Oxygen Concentration--Jxgmgk13.8 kg (171 lb 9.6 oz)06/30/2021 10:22 AM EDTHeight--Body Mass Index-- Plan of Treatment Health MaintenanceDue DateLast DoneCommentsDepression Daaxrafly79/09/2008Tobacco Ygrdnmidr54/09/2008dult BMI Ikogjndig47/09/2014DTaP,Tdap and Td Vaccines (1 - Tdap)2014Influenza Mlirlqg4305/11/2025Pap Smear [employer] Not on file Insurance Care Teams Team MemberRelationshipSpecialtyStart DateEnd Date Richard Cheema DO PCP - GeneralFamily Iwbjhiae55/21/21
--- OUTSIDE RECORDS SUMMARY | 2025-09-02 01:25 | XMS_ITS | Clinical Summary ---
Author Organization [facility] Address [address] [facility] [place] [address] Care Team Providers Care Rig Superintendent Name Role Phone Unavailable Primary Care Provider Unavailabl e Source Comments The following information is NOT included in Care Everywhere downloads:Psychiatric notes, ECG results, Cardiac Rehab notes, Pulmonary Function notes, data from SmartForms (includes but not limited toPregnancy data,audiograms, eye exams, pre-surgical evaluation notes, well-child exam data).[facility] Social History Tobacco UseTypesPacks/DayYears UsedDateSmoking Tobacco: Never Assessed CommentsUnknownSex and Gender InformationValueDate RecordedSex Assigned at Not on fileLegal JxxMaybfu42/02/2022 11:52 AM EDTGender IdentityNot on file Sexual OrientationNot on file Last Filed Vital Signs Vital SignReadingTime TakenCommentsBlood Okbiknrj595/9506 12:05 AM EDT Wicpm027102/09/2022 12:05 AM EDTTemperature--Respiratory Necf1738 12:05 AM EDTOxygen Pokozmmuic25%02/09/2022 12:05 AM EDTInhaled Oxygen Concentration-- Weight--Height--Body Mass Index-- Plan of Treatment Health MaintenanceDue DateLast DoneCommentsHIV Test2010Hepatitis C Clebvxqk87/09/2014Tdap Ifqzoqz2810/19/2013Hepatitis A (HAV) Vaccine (optional start 19+ years)2014Hepatitis B (HBV) Vaccine (1 of 3 - 19+ 3-dose series) 2014Pap Smear2016HPV Vaccine (optional start 27-45 years)2022 COVID-19 Vaccine (1 - 2024- season)2025Influenza Vaccine (#1)2025 Shingles (RZV) Vaccine (1 of 2)2045MammographyDiscontinuedPneumococcal Vaccine(s)Aged OutNo longer eligible based on patient's age to complete this topic Insurance on file
--- OUTSIDE RECORDS SUMMARY | 2025-09-02 01:26 | XMS_ITS | Patient Health Record ---
Author Organization [facility] [place] Address [address] [place] [address] Care Team Providers Care Flow Worker Name Role Phone Richard Cheema DO Primary Care Provider Unavaila ble Reason For Referral No Information Plan Of Treatment No Information
--- OUTSIDE RECORDS SUMMARY | 2025-09-02 01:26 | XMS_ITS | Clinical Summary ---
Author Organization [facility] Address [address] [place] [address] Care Team Providers Care Milk Of Lime Slaker Name Role Phone Unallocated, Noms Provider MD Primary Care Provi torsten Allergies Active AllergyReactionsCriticalityNoted NggvNlvbfmlhKqpsxxwhxj99/26/2023 HydroxychloroquineGI /18/2019 nausea/mood swings Oskazc3910/20/20216978Gratbootltf26/26/0821Eighmhcg97/26/2023Wound Dressing Adhesive 03/05/2023 Medications MedicationSigDispense QuantityRefillsLast FilledStart DateEnd DateStatus cetirizine (ZyrTEC) 10 MG chewable tablet Chew 10 mg in the morning.3Active propranolol (Inderal) 20 MG tablet Take 20 mg by mouth DailyActive venlafaxine XR (Effexor XR) 150 MG 24 hr capsule TAKE 1 CAPSULE BY MOUTH EVERY DAY WBFGPPTVRK60/24/2025Active semaglutide (Ozempic) 2 MG/1.5ML solution pen-injector Inject 1 mg under the skin once a weekActive lamoTRIgine (LaMICtal) 25 MG tablet Take 25 mg by mouth Daily5Active azithromycin (Zithromax Z-Jovi) 250 MG tablet Indications:Acute cough,Acute bronchitis, unspecified organism,Non-recurrent acute suppurative otitis media of both ears without spontaneous rupture of tympanic membranesTake 2 tablets (500 mg) on Day 1, followed by 1 tablet (250 mg) once daily on Days 2 through 5. 6 tablet 5Active albuterol HFA (ProAir HFA) 90 mcg/act inhaler Indications:Acute cough,Acute bronchitis, unspecified organism,Non-recurrent acute suppurative otitis media of both ears without spontaneous rupture of tympanic membranesInhale 2 puffs every 4 (four) hours if needed for shortness of breath (cough) 8.5 g 5Active Active Problems ProblemNoted DateDiagnosed DateHashimoto's sobufbz5207/05/2023Iron deficiency 07/05/2023ulsatile /26/9097Tsvqvkybzb80/26/2023bnormal brain scan 07/05/2023hronic fddkjpre45/23/8360Lyvbjiwsqrqg00/23/2023Hearing loss03/02/2023 Lower back pain03/02/2023Otalgia, zdecqyxpv64/23/2023 Encounters DateTypeDepartmentCare GnkoGqdjxiwnjyz09/19/2025 9:30 AM ESTOffice Visit [facility]FREDA [facility]OT[facility] [address] [place] [phone] Chloe Navas, DO Postoperative eeebdpqbzrp49/19/2274Gkiopo37/04/2025Telephone [facility] [address] [place] [phone] Chloe Navas, 07/14/2025 12:40 PM ESTOffice Visit [facility] [address] [place] [phone] Elsa Jaramillo, CARAMEL CUTTER MACHINE Acute bronchitis, unspecified organism (Primary Dx); Acute cough; Non-recurrent acute suppurative otitis media of both ears without spontaneous rupture of tympanic oipdzqzua52/04/8490Wysfdu18/16/2025Telephone [facility] [place] [facility] [address] [place] [phone] Mary Berry MA 06/23/2025 11:45 AM EDTOffice Visit [facility] [address] [place] [address] Chloe Navas DO Encounter for gynecological examination without abnormal finding; Screening for malignant neoplasm of cervix; Pelvic cramping; Abnormal uterine bleeding (AUB)06/23/2025amboo flowsheet [facility] [address] [place] [address] Chloe Navas DO 06/23/20254616Gsobgu31/09/2025 11:45 AM EDTOffice Visit [facility] [address] [place] [address] Chloe Navas DO Abnormal uterine bleeding (AUB); Pelvic /09/8611Wzdkux06/30/2025 3:00 PM EDTAncillary Procedure [facility] [address] [place] [phone] Dysmenorrhea; Menorrhagia with irregular cycle06/09/2025Travelfrom Last 3 Months Family History Medical HistoryRelationNameCommentsDiabetesFatherLonnie SchindleyHypertension MotherCathi SchindleyCancerPaternal GrandfatherLawrence SchindleyRelationName StatusCommentsDaughterAliveFatherLonnie SchindleyAliveMotherCathi SchindleyAlive Paternal GrandfatherLawrence Schindley Social History Tobacco UseTypesPacks/DayYears UsedDateSmoking Tobacco: NeverSmokeless Tobacco: Never Tobacco Cessation:Counseling Given: Not Answered Alcohol UseStandard Drinks/WeekCommentsYes1 (1 standard drink = 0.6 oz pure alcohol)1 every couple monthsCommentsUnknownSex and Gender Information ValueDate RecordedSex Assigned at BirthNot on fileLegal ZokNaofcz19/15/2023 7:21 PM EDTGender IdentityNot on fileSexual OrientationNot on file Last Filed Vital Signs Vital SignReadingTime TakenCommentsBlood Oxoevfrd648/80110/29/2024 9:47 AM EST Zgtez392507/14/2025 12:50 PM JJXElltxfkymel20.6 ??C (97.9 ??F)07/14/2025 12:50 PM ESTRespiratory Rate--Oxygen Vdttihmspx19%07/14/2025 12:50 PM ESTInhaled Oxygen Concentration--Bclkxe84.2 kg (168 lb)06/23/2025 12:03 PM NODWjqrea568.2 cm (5' 7 )06/23/2025 12:03 PM EDTBody Mass Index26.311 12:03 PM EDT Plan of Treatment DateTypeDepartmentCare Team (Latest Contact Info)Wfkqvauwwtn55/15/2026 2:15 PM ESTOffice Visit ALFREDA [facility]OT[facility] [address] [place] [address] Chloe Navas DO [address] [place] [address] Health MaintenanceDue DateLast DoneCommentsPneumococcal Vaccine: Pediatrics (0 to 5 Years) and At-Risk Patients (6 to 64 Years) (1 of 2 - PCV)2014 Influenza Vaccine (#1)2025 Procedures Procedure NamePriorityDate/TimeAssociated DiagnosisCommentsPARTIAL THROMBOPLASTIN QHYQNeafyyu59/20/2025 4:23 PM EST Preop testing BLOOD TYPE AND KOLVTAWdnwxyp30/20/2025 4:23 PM EST Preop testing PROTHROMBIN TIME-ICYAuxtgmd01/20/2025 4:23 PM EST Preop testing BASIC METABOLIC GNKZRBvsrajc15/20/2025 4:23 PM EST Preop testing INFLUENZA DNA GINSDVokbkiz53/04/2025 1:11 PM EST Acute cough RAPID DNA QLIPONuahlkh31/04/2025 1:11 PM EST Acute cough IGP, RFX APTIMA HPV KMWOJfjxjok68/14/2025 12:00 AM EDT Screening for malignant neoplasm of cervix US PELVIS SNITPFEKCXROGfvoyhl25/30/2025 3:41 PM EDT Dysmenorrhea Menorrhagia with irregular cycle from Last 3 Months Results * PARTIAL THROMBOPLASTIN TIME (07/30/2025 4:23 PM EST)ComponentValueRef Range Test MethodAnalysis TimePerformed AtPathologist SignaturePARTIAL THROMBOPLASTIN TIME30.725.1 - 36.5 07/30/2025 5:37 PM [facility] CtrComment: A hematocrit value greater than 55% may lead to inaccurate results in coagulation testing. Patients having hematocrit values >55% require a special collection tube for coagulation studies. Please contact the laboratory at [phone] for redraw instructions. Specimen (Source)Anatomical Location / LateralityCollection Method / Volume Collection TimeReceived TimeOtherTopography unknown / Rggbaje1507/30/2025 4:23 PM EST07/30/2025 4:23 PM EST Narrative Authorizing ProviderResult TypeResult StatusKathlsharri Navas DOLAB BLOOD ORDERABLESFinal ResultPerforming OrganizationAddressCity/State/ZIP CodePhone Number [address] [address], [facility] [address] [place] [address] * Protime-INR (07/30/2025 4:23 PM EST)ComponentValueRef RangeTest MethodAnalysis TimePerformed AtPathologist SignaturePROTHROMBIN TIME11.89.0 - 12.9 s 07/30/2025 5:37 PM [facility] CtrComment: A hematocrit value greater than 55% may lead to inaccurate results in coagulation testing. Patients having hematocrit values >55% require a special collection tube for coagulation studies. Please contact the laboratory at [phone] for redraw instructions. INR1. 5:37 PM [facility] CtrComment: INR Therapeutic Range A) Pre- and Peroperative OAT started two weeks before surgery. ? NOT HIP SURGERY: ?? 1.5 - 2.5 ? HIP SURGERY: ?2 ??- ??3 B) Primary and secondary prevention of venous ? THROMBOSIS: ? 2 ??- ??3 C) Active venous thrombosis, pulmonary embolism and prevention of recurrent venous thrombosis: ?? 2 ??- ??3 D) Prevention of arterial thromboembolism including patients with mechanical heart valves: 3 ??- 4.5 Specimen (Source)Anatomical Location / LateralityCollection Method / Volume Collection TimeReceived TimeOtherTopography unknown / Ykbqeex8907/30/2025 4:23 PM EST07/30/2025 4:23 PM EST Narrative Authorizing ProviderResult TypeResult StatusKatjoy Juárez Rinroyer DOLAB BLOOD ORDERABLESFinal ResultPerforming OrganizationAddressty/[facility]/ZIP CodePhone Number [facility] [address] [place] [address], [facility] [address] [place] [address] * Type and screen (07/30/2025 4:23 PM EST)ComponentValueRef RangeTest Method Analysis TimePerformed AtPathologist SignatureBLOOD TYPEA PositiveFIRELANDS ANTIBODY SCREENNEGATIVEFIRELANDSSpecimen (Source)Anatomical Location / LateralityCollection Method / VolumeCollection TimeReceived TimeBloodVenous blood specimen / Svgcneh2907/30/2025 4:23 PM EST07/30/2025 4:23 PM EST Narrative Authorizing ProviderResult TypeResult StatusKathleen E Rinkes DOLAB BLOOD ORDERABLESFinal ResultPerforming OrganizationAddLehigh [facility] CodePhone Number [facility] [address] [place] [address], * Basic metabolic panel (07/30/2025 4:23 PM EST)ComponentValueRef RangeTest MethodAnalysis TimePerformed AtPathologist CloccivkyBlcnhrt9799 - 100 mg/dL 07/30/2025 5:29 PM [facility] CtrComment: Random Glucose Reference Range is dependent on time and content of last meal. Glucose of more than 200 mg/dL in a nonstressed, ambulatory subject supports the diagnosis of Diabetes Mellitus. ADA recommended reference range MMA162 - 25 mg/dL07/30/2025 5:29 PM [facility] CtrCREATININE 0.770.60 - 1.20 mg/dL07/30/2025 5:29 PM [facility] ESTIMATED GFR>60. 5:29 PM [facility] TyjFmnbvc093 136 - 145 mmol/L109/29/2024 5:29 PM [facility] CtrPotassium, Bld4.23.5 - 5.1 mmol/L109/29/2024 5:29 PM [facility] Ykcndszj62025 - 107 mmol/L109/29/2024 5:29 PM [facility] Carbon Phaaoul80.721.0 - 31.0 mmol/L109/29/2024 5:29 PM [facility] CtrAnion Gap9.56.0 - 15.011 5:29 PM [facility] CtrCalcium9.38.6 - 10.3 mg/dL07/30/2025 5:29 PM [facility] CtrSpecimen (Source)Anatomical Location / LateralityCollection Method / VolumeCollection TimeReceived TimeOtherTopography unknown / Bbsumha3407/30/2025 4:23 PM EST07/30/2025 4:23 PM EST Narrative Authorizing ProviderResult TypeResult StatusKathleen E Rinkes DOLAB BLOOD ORDERABLESFinal ResultPerforming OrganizationAddressCity/State/ZIP CodePhone Number [facility] [address] [place] [address], [facility] [address] [place] [address] * RAPID DNA COVID (07/14/2025 1:11 PM EST)ComponentValueRef RangeTest Method Analysis TimePerformed AtPathologist SignatureCOVID-19 NAATnegNegativeSpecimen (Source)Anatomical Location / LateralityCollection Method / VolumeCollection TimeReceived FuvoEyxpa57/04/2025 1:11 PM EST Narrative Authorizing ProviderResult TypeResult StatusAnththee Sullivan DOPOINT OF CARE TEST ENTER/EDIT ORDERABLESFinal Result * INFLUENZA DNA PROBE (07/14/2025 1:11 PM EST)ComponentValueRef RangeTest Method Analysis TimePerformed AtPathologist SignatureINFLUENZA AnegNegativeINFLUENZA BnegNegativeSpecimen (Source)Anatomical Location / LateralityCollection Method / VolumeCollection TimeReceived FyeaDpgsc41/04/2025 1:11 PM EST Narrative Authorizing ProviderResult TypeResult StatusAnththee Sullivan DOPOINT OF CARE TEST ENTER/EDIT ORDERABLESFinal Result * IGP, RFX APTIMA HPV ASCU (06/23/2025 12:00 AM EDT)ComponentValueRef RangeTest MethodAnalysis TimePerformed AtPathologist SignatureDiagnosis:CommentLABCORP Comment: NEGATIVE FOR INTRAEPITHELIAL LESION OR MALIGNANCY. THIS SPECIMEN WAS RESCREENED PART OF OUR FACTORY MAINTENANCE MANAGER PROGRAM. Specimen Adequacy:CommentLABCORPComment: Satisfactory for evaluation. ??Endocervical and/or squamous metaplastic cells (endocervical component) are present. Clinician Provided ICD10:CommentLABCORPComment:Z12.4Performed By:CommentLABCORP Comment:Isa Merino, Equipment Scheduler (ASCP)QC Reviewed By:CommentLABCORPComment: Diane Quinones, Equipment Scheduler (ASCP)Cyto Comments.LABCORPNote:CommentLABC[facility]P Comment: The Pap smear is a screening test designed to aid in the detection of premalignant and malignant conditions of the uterine cervix. ??It is not a diagnostic procedure and should not be used as the sole means of detecting cervical cancer. ??Both false-positive and false-negative reports do occur. Test Methodology:CommentLABCORPComment: This liquid based ThinPrep(R) pap test was interpreted using the [employer]R) Genius(TM) Cervical Algorithm whole slide imaging system. .CommentLABCORPComment: The HPV DNA reflex criteria were not met with this specimen result therefore, no HPV testing was performed. Specimen (Source)Anatomical Location / LateralityCollection Method / Volume Collection TimeReceived Time Narrative [facility] - 06/29/2025 10:07 AM EDT Performed at: 01 - [facility] [address] [place] ??[id number] Roll Repairer: Farideh Marrero MD, Phone: ??[phone] Specimen Comment: [id number] Specimen Comment: No. of containers..01 ThinPrep Vial Authorizing ProviderResult TypeResult StatusKathlsharri Navas DOLAB BLOOD ORDERABLESFinal ResultPerforming OrganizationAddressCity/State/ZIP CodePhone Number [facility] * pelvis transvaginal (06/09/2025 3:41 PM EDT)Anatomical RegionLaterality ModalityPelvisUltrasoundStudy GAStudy DateStudy EDDWorking KAUSHAL (Source) 06/09/2025Specimen (Source)Anatomical Location / LateralityCollection Method / VolumeCollection TimeReceived Time Narrative 06/11/2025 10:08 AM EDT Images from the original result were not included. ?? Obstetrics & Gynecology ? [address] ? [address] ? [address] ?[address], [facility] [address] ? [place] [address] [place] [address] ? - - - - - - - - - - - - - - - - - - - - - - - - - - - - - - - - - - - - - - - - - - - - - - - - - - - - - - - - - - - - - - - - - - Pelvic Ultrasound Patient name: Jerry Cox : 1995 (29 y.o.) Date of exam: 06/09/25 LMP: 05/23/25 -currently on day 17 of bleeding - - - - - - - - - - - - - - - - - - - - - - - - - - - - - - - Indication: dysmenorrhea, menorrhagia with irregular cycle Surgical History: Chelsey endometrial ablation, laparoscopy, bilateral salpingectomy Method: Transvaginal ultrasound examination View: Adequate - - - - - - - - - - - - - - - - - - - - - - - - - - - - - - - Measurements: Uterus: 8.4 x 4.2 x 3.0 cm ??Volume: 56 cm?? Endometrial thickness: 3.4 mm Right ovary: 2.1 x .9 x 1.6 cm ??Volume: 1.6 cm?? Left ovary: 2.8 x 1.6 x 2.1 cm Volume: 4.8 cm?? - - - - - - - - - - - - - - - - - - - - - - - - - - - - - - - Findings: Uterus: The uterus is normal in size and contour. Position: Anterverted Malformations: none Myometrium: The myometrium has a mottled, heterogeneous echotexture. Fibroid(s): no overt fibroid(s) Endometrium: There are moderately bright echoes within the past endometrial ablation area which is felt to represent endometrial tissue. ?? Cervix: The cervix appears unremarkable. - - - - - - - - - - - - - - - - - - - - - - - - - - - - - - - Right ovary: Visualized Morphology: normal appearing Cyst(s): no cysts visualized Doppler: power doppler shows ovarian blood profusion Right adnexa: no overt adnexal mass - - - - - - - - - - - - - - - - - - - - - - - - - - - - - - - Left ovary: Visualized Cyst(s): The left ovary contains a single thin-walled, sonolucent cyst, measuring 1.2 x 1.6 x 1.6 cm. Doppler: power doppler shows ovarian blood profusion Left adnexa: no overt adnexal mass - - - - - - - - - - - - - - - - - - - - - - - - - - - - - - - Cul de Sac: no free fluid - - - - - - - - - - - - - - - - - - - - - - - - - - - - - - - - - - - - - - - - - - - - - - - - - - - - - - - - - - - - - - - - - - Impression: Transvaginal scan was performed. ?? The uterus is normal in size and grainy in texture. ?? There are no overt fibroids. ?? There are moderately bright echoes which measures 3.4 mm in depth. ?? This could represent endometrial tissue or with the patient history of current bleeding, this could also represent blood within the past endometrial region. ?? Both ovaries appear normal in size and texture. ?? A single 14 mm mean diameter sonolucent left ovarian cyst is noted. ?? There is no pelvic free fluid. ?? - - - - - - - - - - - - - - - - - - - - - - - - - - - - - - - - - - - - - - - - - - - - - - - - - - - - - - - - - - - - - - - - - - Ordering/Reading Provider: Chloe Navas D.O. ??Box Sealing Machine Feeder: Vj Mack RDMS Authorizing ProviderResult TypeResult StatusKatjoy Navas [facility] PROCEDURESFinal Result from Last 3 Months Insurance Care Teams Team MemberRelationshipSpecialtyStart DateEnd Date Unallocated, Noms Provider, [place] [address] PCP - Waybrpq11/25/23
--- OUTSIDE RECORDS SUMMARY | 2025-09-02 01:26 | XMS_ITS | Encounter Summary ---
Author Organization [facility] Address [address] [facility] [place] [address] Care Team Providers Care Press Brake Operator Name Role Phone Unallocated, Noms Provider Primary Care [facility] Encounter Details DateTypeDepartmentCare Team (Latest Contact Info)Xwlwlvxrhil96/19/2025Travel Social History Tobacco UseTypesPacks/DayYears UsedDateSmoking Tobacco: NeverSmokeless Tobacco: NeverAlcohol UseStandard Drinks/WeekCommentsYes1 (1 standard drink = 0.6 oz pure alcohol)1 every couple monthsCommentsUnknownSex and Gender Information ValueDate RecordedSex Assigned at BirthNot on fileLegal TlgLqyqxr86/15/2023 7:21 PM EDTGender IdentityNot on fileSexual OrientationNot on filedocumented as of this encounter Plan of Treatment DateTypeDepartmentCare Team (Latest Contact Info)Gruxhefwrsx86/15/2026 2:15 PM ESTOffice Visit ALFREDA POTTS [address] [place] [phone] Chloe Navas DO [address] [place] [phone] documented as of this encounter Visit Diagnoses Not on filedocumented in this encounter Care Teams Team MemberRelationsRiverside County Regional Medical CenterpecialtyStart DateEnd Date Unallocated, Noms Provider, [address] [place] [address] PCP - Xkjxvmg18/25/23documented as of this encounter
--- NOTE | 2025-09-02 01:34 | ED_ITS ---
HPI - Female Genitourinary General Chief complaint: Vaginal Bleeding Stated complaint: Post surgical bleeding Time Seen by Provider: 09/02/25 01:01 Source: patient Mode of arrival: walk-in Limitations: no limitations History of Present Illness HPI Narrative: This 29-year-old female who is status post laparoscopic hysterectomy that was performed at [facility] by Dr Navas for evaluation of vaginal bleeding. The patient states that she recently has had a cold and had an episode tonight of harsh coughing and then had some lower abdominal discomfort and vaginal bleeding. She states she has been having vaginal bleeding to the point that it is soaking through a pad. She denies that she has been sexually active since her hysterectomy. Related Data Home Medications ?Medication ?Instructions ?Recorded ?Confirmed buspirone 15 mg tablet 20 mg PO BID 04/27/23 propranolol 20 mg tablet mg 06/01/25 venlafaxine 150 mg mg PO 06/01/25 capsule,extended release 24 hr Allergies Allergy/AdvReac Type Severity Reaction Status Date / Time adhesive Allergy Rash Verified 09/02/25 01:06 Penicillins Allergy throat Verified 09/02/25 01:06 swelling sucralfate (From Carafate) Allergy Vomiting Verified 09/02/25 01:06 tramadol Allergy Vomiting Verified 09/02/25 01:06 Review of Systems ROS Status of ROS 10 or more systems reviewed and unremark able except as noted in history and below [facility] Medical History (Updated 09/02/25 @ 02:41 by Jaymie Donato MD) PCOS (polycystic ovarian syndrome) ?E28.2 - Polycystic ovarian syndrome (ICD-10) Inflammatory arthritis ?M19.90 - Unspecified osteoarthritis, unspecified site (ICD-10) Panic attacks ?F41.0 - Panic disorder [episodic paroxysmal anxiety] (ICD-10) Depression ?F32.A - Depression, unspecified (ICD-10) Anxiety ?F41.9 - Anxiety disorder, unspecified (ICD-10) COVID-19 ?U07.1 - COVID-19 (ICD-10) Migraine ?G43.909 - Migraine, unspecified, not intractable, without status migrainosus (ICD-10) Request for sterilization ?Z30.2 - Encounter for sterilization (ICD-10) Menorrhagia ?N92.0 - Excessive and frequent menstruation with regular cycle (ICD-10) Abnormal uterine bleeding ?N93.9 - Abnormal uterine and vaginal bleeding, unspecified (ICD-10) Pelvic pain ?R10.2 - Pelvic and perineal pain (ICD-10) Seasonal allergies ?J30.2 - Other seasonal allergic rhinitis (ICD-10) Peptic ulcer ?K27.9 - Peptic ulcer, site unspecified, unspecified as acute or chronic, without hemorrhage or perforation (ICD-10) GERD (gastroesophageal reflux disease) ?K21.9 - Gastro-esophageal reflux disease without esophagitis (ICD-10) Heart murmur ?R01.1 - Cardiac murmur, unspecified (ICD-10) Levy's thyroiditis ?E06.3 - Autoimmune thyroiditis (ICD-10) Hypothyroidism ?E03.9 - Hypothyroidism, unspecified (ICD-10) Surgical History (Updated 04/27/23 @ 08:24 by Haydee Garcia NP) History of wisdom tooth extraction ?K08.409 - Partial loss of teeth, unspecified cause, unspecified class (ICD- 10) History of laparoscopy ?Z98.890 - Other specified postprocedural states (ICD-10) History of laparoscopy ?Z98.890 - Other specified postprocedural states (ICD-10) History of laparoscopy ?Z98.890 - Other specified postprocedural states (ICD-10) History of esophagogastroduodenoscopy (EGD) ?Z98.890 - Other specified postprocedural states (ICD-10) History of cholecystectomy ?Z90.49 - Acquired absence of other specified parts of digestive tract (ICD- 10) History of tubal ligation ?Z98.51 - Tubal ligation status (ICD-10) Family History (Updated 04/27/23 @ 08:24 by Haydee Garcia NP) Other Family history of diabetes mellitus Family history of hypertension Family history of prostate cancer Social History Within the past year, how often did you have a drink containing alcohol: monthly or less Smoking status: Never smoker 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 Highest level of school completed/degree received: high school graduate Little interest or pleasure in doing things: not at all Feeling down, depressed, or hopeless: not at all Exam Narrative Exam Narrative: Vital signs and Nursing Notes reviewed: Patient is afebrile with a normal pulse, normal blood pressure, she is not hypoxic with pulse ox of 100% on room air General: Awake, alert, oriented, no acute distress, lying comfortably on the stretcher HEENT: Normocephalic atraumatic, mucous membranes are moist and pink, eyes are clear, normal conjunctiva Chest: Lungs are clear to auscultation with good air entry, there is no wheezing rhonchi or rales appreciated no accessory muscle use, patient is speaking in complete sentences-no chest wall tenderness to palpation CVS: Regular rate and rhythm S1-S2, no murmurs rubs or gallops, pulses are brisk and equal bilaterally ABD: Soft, nondistended, mild pelvic area tenderness with no rebound guarding or rigidity : Examination assisted by nurse West, vaginal cuff is intact, there is a small amount of dark clots at the posterior portion of the cuff bilaterally-no hemorrhaging or excessive bleeding noted, no pooling of secretions in the posterior vagina Extremities: Moving all extremities, no lower extremity tenderness or swelling noted, negative Homans' sign, pulses are brisk and equal bilaterally Skin: Normal in appearance without rash,pallor, petechiae or purpura Neuro: No focal deficits Constitutional Vital Signs, click to edit/add: Last Vital Signs Temp 98.7 F 09/02/25 01:03 Pulse 84 09/02/25 01:03 Resp 18 09/02/25 01:03 BP 123/83 09/02/25 01:03 Pulse Ox 100 09/02/25 01:03 O2 Del Method Room Air 09/02/25 01:03 Course Vital Signs Vital signs: Vital Signs Temperature 98.7 F 09/02/25 01:03 Pulse Rate 84 09/02/25 01:03 Respiratory Rate 18 09/02/25 01:03 Blood Pressure 123/83 09/02/25 01:03 Pulse Oximetry 100 09/02/25 01:03 Oxygen Delivery Method Room Air 09/02/25 01:03 Temperature 98.7 F 09/02/25 01:03 Pulse Rate 84 09/02/25 01:03 Respiratory Rate 18 09/02/25 01:03 Blood Pressure 123/83 09/02/25 01:03 Pulse Oximetry 100 09/02/25 01:03 Oxygen Delivery Method Room Air 09/02/25 01:03 MDM - Female Genitourinary MDM Narrative Medical decision making narrative: This 29-year-old female who is postop hysterectomy 2-1/2 weeks ago and recently developed upper respiratory symptoms and had a coughing spell earlier in the evening and subsequently developed vaginal bleeding or evaluation of this vaginal bleeding and some lower abdominal discomfort. She is not having any fever. She declined the need for anything for pain. Her vital signs are stable, abdominal exam is benign. Pelvic exam shows a small amount of blood clots in both sides of her vaginal cuff. I do not appreciate any tear in the cuff or heavy bleeding or bright red blood. There were several small dark clots removed from the posterior vaginal area. Following that it was reevaluated and there is minimal active bleeding. I explained to her that she may have popped a suture at the time of her coughing spell and the bleeding that she is experiencing is likely old blood that was a hematoma that developed postoperatively and otherwise there is no active bleeding or concerns at this time for hemorrhage or disruption of her vaginal cuff. I did instruct her to her [employer] later today or speak to whoever is on-call and return to the emergency department for severe abdominal pain, fevers, chills, worsening of vaginal bleeding or any other concerns. Discharge Plan Discharge Chief Complaint: Vaginal Bleeding Clinical Impression: Post-op bleeding Patient Disposition: Home, Self-Care Time of Disposition Decision: 02:40 Condition: Good Prescriptions / Home Meds: No Action venlafaxine 150 mg capsule,extended release 24hr PO propranolol 20 mg tablet buspirone 15 mg tablet 20 mg PO BID Print Language: Japanese Additional Instructions: Monitored for any active bleeding or abdominal pain, fevers, chills, call your [employer]ATOR later today to discuss the small amount of bleeding that you are having. I do not see any disruption of your genital cuff. Please avoid any sex, tampons or douching. Return to emergency department for severe bleeding, abdominal pain or any concerns. Referrals: Maritza Balderrama NP [Primary Care Provider] - 1 week
== END 2025-09-02 02:46 | disposition home or self-care (01) ==
PROVIDERS: Emergency Provider Emergency Medicine; PCP Nurse Practitioner Family
DX: N99.820 Postprocedural hemorrhage of a genitourinary system organ or structure following a genitourinary system procedure (principal); Z90.710 Acquired absence of both cervix and uterus
CPT/HCPCS: 99282